=== PATIENT | female | born 1950 | race Caucasian/White ===

== ENCOUNTER → 2017-12-11 14:06 | Outpatient (CLI) | payer MEDICARE, OTHER, SELFPAY ==
--- NOTE | 2017-12-11 14:12 | US_ITS ---
STUDY: ULTRASOUND BREAST - LEFT REASON FOR EXAM: Female, 67 years old. Pain in the left breast. TECHNIQUE: Axial and longitudinal images of the LEFT breast were performed with a high resolution ultrasound transducer. COMPARISON: Comparison is made with prior mammogram done earlier today. FINDINGS: LEFT Breast: The superior retroareolar region of the breast was examined. There is a homogeneous fibroglandular tissue. No solid or cystic mass lesion is seen. US/Breast Limited Unilateral IMPRESSION: Unremarkable sonographic examination of the breast. ASSESSMENT CATEGORY: BIRADS Category 2: Benign. A letter regarding these results will be sent to the patient by the facility within 30 days. Electronically Signed: Dewayne Rodas MD at 8:06 EDT Tel [phone], Service support ,
--- NOTE | 2017-12-11 14:21 | BI_ITS ---
MAMMOGRAPHY - BILATERAL DIAGNOSTIC REASON FOR EXAM: Female, 67 years old. Left periareolar pain for one week. PERTINENT HISTORY: Non-contributory. TECHNIQUE: Digital bilateral breast say (3D mammographic acquisition) in the CC and MLO projections. 2-D mediolateral oblique (MLO) and craniocaudad (CC) views of both breasts were obtained. CAD: Full Field Digital Mammography with Computer Added Detection was performed. COMPARISON: Comparison is made with prior study outside examination dated February 04, 2017. FINDINGS: Breast Composition: The breasts are heterogeneously dense, which may obscure small masses. There are no dominant masses or suspicious calcifications. No other significant abnormalities are identified. There has been no significant change since the prior study. BI/DIAG MAMM W/CAD, BILAT IMPRESSION: Stable bilateral diagnostic mammogram. With the patient's history of left periareolar pain, correlation with ultrasound is recommended. ASSESSMENT CATEGORY: BIRADS Category 0: Incomplete. Need additional imaging evaluation. A letter regarding these results will be sent to the patient by the facility within 30 days. Approximately 10% of breast cancers are not detected by mammography. A normal mammogram should not delay biopsy of a clinically suspicious abnormality. Electronically Signed: Dewayne Rodas MD at 15:23 EDT Tel [phone], Service support ,
== END ==
PROVIDERS: Family Provider Internal Medicine; PCP Internal Medicine; Visit Provider Nurse Practitioner Women's Health
DX: N64.4 Mastodynia (principal)
CPT/HCPCS: 76642; 77062; 77066; G0279

== ENCOUNTER → 2017-12-25 11:35 | Outpatient (CLI) | payer MEDICARE, OTHER, SELFPAY ==
[2017-12-25 14:47] LABS: T4 Free Direct 1.16 ng/dL (0.76-1.46); Thyroid Stim Hormone (TSH) 1.44 uIU/mL (0.358-3.74)
== END ==
PROVIDERS: Family Provider Internal Medicine; PCP Internal Medicine; Visit Provider Nurse Practitioner Family
DX: E03.9 Hypothyroidism, unspecified (principal)
CPT/HCPCS: 36415; 84439; 84443

== ENCOUNTER → 2018-04-01 10:35 | Outpatient (CLI) | payer MEDICARE, OTHER, SELFPAY ==
[2018-04-01 12:54] LABS: ALB/GLOB Ratio 0.8 RATIO (0.9-2.4); AST(SGOT) 23 U/L (15-37); Alanine Aminotransfer ALT/SGPT 28 U/L (13-56); Albumin, Serum 3.4 g/dL (3.2-5.0); Alkaline Phosphatase 59 U/L (45-117); Anion Gap 8 (5-15); BUN 18 mg/dL (7-18); BUN/Creat Ratio 18.1 RATIO (10-20); Chloride 107 mmol/L (98-107); EST Glomerular Filtration Rate 59 mL/min (>60); Est Glom Filt Rate - Afr Amer 71 mL/min (>60); Free T3 2.8 pg/mL (2.18-3.98); Glucose 85 mg/dL (74-106); Potassium 4.3 mmol/L (3.5-5.1); Protein, Total 7.4 g/dL (6.4-8.2); Sodium Level 142 mmol/L (136-145); Thyroid Stim Hormone (TSH) 1.52 uIU/mL (0.358-3.74)
[2018-04-01 21:22] LABS: Hemoglobin A1c 5.4 % (4.2-6.3)
== END ==
PROVIDERS: Family Provider Internal Medicine; PCP Internal Medicine; Visit Provider Internal Medicine Endocrinology, Diabetes & Metabolism
DX: E03.9 Hypothyroidism, unspecified (principal); Z13.1 Encounter for screening for diabetes mellitus
CPT/HCPCS: 36415; 80053; 83036; 84439; 84443; 84481

== ENCOUNTER → 2018-09-11 12:56 | Outpatient (CLI) | payer MEDICARE, OTHER, SELFPAY ==
[2018-09-03 11:59] VITALS: BMI 28.8
[2018-09-11 14:21] LABS: Hematocrit 39.1 % (37-47); Hemoglobin 13.3 g/dl (12.0-15.0); Mean Corpuscular Hgb 32.4 pg (27.0-32.0); Mean Corpuscular Volume 95.1 fL (81-99); Mean Platelet Vol. 9.8 fl (6.2-12.0); Platelet Count 151 K/mm3 (150-450); RBC Distribution Width CV 12.6 % (11.6-14.6); RBC Distribution Width SD 43.7 fl (35.1-43.9); Red Blood Count 4.11 M/mm3 (4.2-5.4); White Blood Count 3.9 K/mm3 (4.4-11.0)
[2018-09-11 14:24] LABS: Anion Gap 9 (5-15); BUN 21 mg/dL (7-18); BUN/Creat Ratio 24.1 RATIO (10-20); Calcium,Total 9.6 mg/dL (8.5-10.1); Chloride 106 mmol/L (98-107); Creatinine, Serum 0.87 mg/dL (0.55-1.02); EST Glomerular Filtration Rate 68 mL/min (>60); Est Glom Filt Rate - Afr Amer 83 mL/min (>60); Glucose 93 mg/dL (74-106); Potassium 4.4 mmol/L (3.5-5.1); Sodium Level 142 mmol/L (136-145)
[2018-09-11 14:28] LABS: Scan Indicated on CBC? Y/N NO
== END ==
PROVIDERS: Family Provider Internal Medicine; PCP Internal Medicine; Referring Provider Urology; Visit Provider Urology
DX: Z01.812 Encounter for preprocedural laboratory examination (principal)
CPT/HCPCS: 36415; 80048; 85027

== ENCOUNTER 2018-09-24 06:47 | Observation (INO) | payer MEDICARE, OTHER, SELFPAY ==
[2018-09-03 11:59] VITALS: BMI 28.8
[2018-09-18 17:15] LABS: Thyroid Stim Hormone (TSH) 2.71 uIU/mL (0.358-3.74)
[2018-09-24] VITALS (17 sets, daily range): BP systolic 80–124; BP diastolic 41–69; PULSE 41–86; RESP 14–18; TEMP 36.2–37.2; O2SAT 95–100; BMI 28.3
--- NOTE | 2018-09-24 06:23 | HP.PCM_ITS ---
- Problem List (1) Incomplete uterovaginal prolapse Status: Chronic Comment: combo case tvh bso pelvic floor repair with SM and HW History and Physical Date of Admission: 09/24/18 Vital Signs 09/03/18 Body Mass Index (BMI) 28.8 09/03/18 Height 5 ft 4.5 in 09/03/18 Weight: 169 lb 4 oz 09/03/18 Body Mass Index (BMI) 28.5 Intake Visit Reasons: Pre-op for surgery Analytics Specialist Required: No Is patient in pain?: No Allergies NSAIDS (Non-Steroidal Anti-Inflamma Allergy (Mild, Verified 09/03/18 11:58) Rash Penicillins Allergy (Mild, Verified 09/03/18 11:58) Rash vancomycin HCl [From Vancocin] Allergy (Mild, Verified 09/03/18 11:58) Rash metoclopramide [From Reglan] Allergy (Verified 09/03/18 11:58) Other Medications Fibrocare 2 tab PO BID 11/30/13 [History Confirmed 09/03/18] calcium citrate-vitamin D3 315 mg-250 unit tablet 1 tab PO QDAY 08/25/17 [History Confirmed 09/03/18] cholecalciferol (vitamin D3) 5,000 unit capsule 5,000 unit PO ONCE 08/25/17 [History Confirmed 09/03/18] estradiol 0.01% (0.1 mg/gram) vaginal cream 0.5 g VAGINAL .COMPLEX #42.5 g 08/25/17 [Rx Confirmed 09/03/18] scyrwsayate-qkn-sjzqhfowb-hrb 149-hyalur 500 mg-500 mg-66.7 mg tablet tab PO 08/25/17 [History Confirmed 09/03/18] multivit with yrdxwfvt-youc-EL-lutein 8 mg iron-400 mcg-300 mcg tablet tab PO 08/25/17 [History Confirmed 09/03/18] vitamin E (dl, acetate) 400 unit capsule 400 unit PO QDAY 08/25/17 [History Confirmed 09/03/18] omega 6-thf-cqd-fish oil 1,000 mg (120 mg-180 mg) capsule cap PO 09/24/17 [History Confirmed 09/03/18] probotic PO 09/24/17 [History Confirmed 09/03/18] levothyroxine 75 mcg tablet 75 mcg PO DAILY #90 tab 07/22/18 [Rx Confirmed 09/03/18] Is last menstrual period known: No Post menopausal: No Patient : No : No PFSH Medical History Cataracts, bilateral (Chronic) Arthritis (Chronic) GERD (gastroesophageal reflux disease) (Chronic) Osteopenia (Chronic) Fibromyalgia (Acute) IBS (irritable bowel syndrome) (Acute) Lichen sclerosus (Acute) low white blood count (Acute) Surgical History History of appendectomy (Acute) S/P cervical disc replacement (Acute) TMJ (Acute) gallbladder (Acute) Family History Mother Breast cancer, Onset Age: 60 remission until the age of 74 and spread to bones Alcoholism Epilepsy Hyperlipemia Father Cancer Unknown Alcoholism Brother Alcoholism Daughter Thyroid disorder Social History Smoking Status: Never smoker alcohol intake: current alcohol intake frequency: holidays/special occasions only substance use type: does not use caffeine: No what type of physical activity do you participate in: walking frequency: 3-4 times per week seatbelt use: always additional social history: Nithin is - Retired HPI Pre-op for surgery: Details: ALVINA REYES is a 68 year old who presents for preop visit for TVH BSO and pelvic floor repair and sling by dr haque. this is for uterovaginal prolapse and incontinence. Pregancy History 3 Elective abortions Hx Para 2 Spontaneous abortions Hx # Term Pregnancies Ectopic pregnancies Hx # Pregnancies Multiple births # of living children Past Pregnancies Del. Date Name GA/Weeks Outcome Route Bth Weight Gen [facility] F[facility] Unknown 1969 Nikki Unknown 1970 Cathi ROS Const Constitutional: Denies poor appetite, headache(s), fever(s), increased appetite, weight gain, weight loss or fatigue ENT ENT: Denies dry mouth Cardio Card: Reports system reviewed and no additional complaints, except as docu Resp Resp: Reports system reviewed and no additional complaints, except as docu GI GI: Reports as per HPI; denies vomiting, nausea, abdominal pain or constipation : Reports as per HPI and urinary incontinence; denies difficulty urinating, blood in urine, pelvic pain, vaginal discharge, vaginal dryness, vaginal odor, vaginal itching, other or painful urination [facility]: Reports system reviewed and no additional complaints, except as docu Skin Skin/Breast: Denies hair loss, change in hair, dry skin, breast pain, breast skin changes or breast lump Exam Const General: cooperative, healthy appearing, comfortable, no acute distress, well developed Nutritional Appearance: average body habitus Orientation: alert HENLA Head: normal to inspection, normocephalic Ears: hearing grossly normal bilaterally, external ears normal Nose: external nose normal, nares normal Face and sinus: normal facial exam Neck Neck: normal visual inspection, trachea midline, no lymphadenopathy Thyroid: thyroid normal Resp Effort & Inspection: normal respiratory effort [facility] Other: gross motor intact no deficits, full bilateral strength Skin General: no rashes or lesions noted Neuro Motor: muscle tone normal throughout Assessment & Plan Problems 1. Incomplete uterovaginal prolapse N81.2 combo case tvh bso pelvic floor repair with SM and HW Plan discussed surgical risks including risks of anesthesia, infection, bleeding, injury to bowel, bladder or blood vessels, and patient wishes to proceed with surgery. UPDATE- I have seen the patient and performed any clinically relevant updates to the history and physical exam. Alison Alexandra MD
[2018-09-24] MEDS: Phenazopyridine 95 MG Tablet 190 MG PO (07:21)
[2018-09-24] MEDS: Ciprofloxacin 400 MG/200 ML BAG 200 MG IV (07:33)
[2018-09-24] MEDS: Vasopressin 20 UNITS/ML Vial (09:04)
--- NOTE | 2018-09-24 09:30 | HYST_PTH ---
PATIENT: ALVINA REYES LOC: MS3 U#:[id number] AGE/SX: 68/F ROOM: MS312 RE09/24/[address]: Dr. Alison Alexandra MD : 1950 BED: 1 DIS: 09/25/2018 SPEC #: [id number] RECD: 09/24/18 11:39 STATUS: MONICA LOPEZ #: [id number] BHAVNA: 09/24/18 09:[address]: Alison Alexandra DEPT: SURGICAL PATHOLOGY RECD BY: Tony Bird ENTERED: 09/24/18 12:25 SP TYPE: HYSTERECT OTHR DR: MD Dr. Radha Flowers MD Tissues: Uterus, NOS Procedures: Surgery Specimen Level V HEADER OPERATION: Vaginal hysterectomy, BSO PRE-OP DIAGNOSIS: Incomplete uterovaginal prolapse TISSUE SUBMITTED: Uterus, bilateral ovaries and fallopian tubes MICROSCOPIC DIAGNOSIS Uterus, hysterectomy: Cervix - nabothian cysts and mild chronic inflammation. Endometrium - inactive with cystic change. Myometrium - adenomyosis and microscopic leiomyoma. Right and left fallopian tubes - no pathologic change. Right and left ovaries - corpora albicantia. Left ovary - benign epithelial inclusion cysts. Vaginal mucosa, anterior and posterior repair: Mild chronic inflammation. No evidence of dysplasia. AM:margo 09/25/18 MICROSCOPIC DESCRIPTION Slides are reviewed. GROSS DESCRIPTION Received in fixative is one container labeled with the patient's name and designated uterus, bilateral ovaries and fallopian tubes. The specimen consists of a hysterectomy specimen consisting of uterus with cervix and detached bilateral fallopian tubes and ovaries and detached pieces of mucosal tissue. The uterus with cervix weighs 43 gm and measures 7 x 4.5 x 3 cm. The serosal surface is focally congested. The ectocervical mucosa is unremarkable. The external os is pin point. The endocervical canal measures 3 cm in length and the endocervical cavity is filled with mucoid material and without any mass lesion. The triangular endometrial cavity measures 3.5 cm in length and up to 2 cm in width. The endometrium is rincon, glistening without any mass lesion and measures <0.1 cm in thickness. Sections of the uterine wall do not reveal any mass lesion and it measures up to 1.5 cm in thickness. The detached fallopian tubes and ovaries are not identified as right or left. One fallopian tube measures 3.5 cm in length and 0.5 cm in diameter. The fimbrial end is identified. No tubo-ovarian adhesions are noted. Sections reveal unremarkable cut surfaces. The adjacent ovary measures 1.5 x 1 x 0.5 cm. Sections reveal unremarkable cut surfaces. The second fallopian tube and ovary are similar appearance to first one and measures 3.5 cm in length and 0.5 cm in diameter. The adjacent second ovary measures 2 x 1 x 0.6 cm. The detached pieces of mucosal tissue measure in aggregate 2.5 x 2.5 x 0.3 cm. No mucosal lesion is identified. Instrumentation moura are noted. Mold Filling Operator sections are submitted in nine cassettes as follows: 1 - anterior cervix, 2 - posterior cervix, 3 & 4 - anterior uterine wall, 5 & 6 - posterior uterine wall, 7 - one fallopian tube and ovary, 8 - second fallopian tube and adjacent ovary, 9 - mucosal tissue. / SJ:rg 09/24/18 TC:5 CPT: 82708, 25082
[2018-09-24] MEDS: Estrogens,Conj. 1 Tube 1 DOSE (11:00)
--- NOTE | 2018-09-24 11:05 | OP.PCM_ITS ---
Problem List (1) Incomplete uterovaginal prolapse Status: Chronic Comment: combo case tvh bso pelvic floor repair with SM and HW Report of Operation Date of Procedure: 09/24/18 Pre-Operative Diagnosis: pelvic organ prolapse Post-Operative Diagnosis: same Surgery/Procedure Performed:: Total vaginal hysterectomy bilateral salpingo- oophorectomy Description of Surgical Findings:: Normal uterus tubes and ovaries dictaphone technician: Fararh Haque Type of Anesthesia:: General Specimen's removed: There is tubes and ovaries Drains: franco Estimated Blood Loss (mL): 50 cc Fluids Replaced: cryStyloid Description of Procedure: Patient was taken to the operating room and was placed under general anesthesia was prepped and draped in normal sterile fashion in the dorsal lithotomy position. Preoperative antibiotics and SCDs and Franco catheter was placed inside the bladder. Weighted speculum was placed in the vagina and the anterior and posterior lip of the cervix was grasped with 2 Dee clamps and circumferentially injected with dilute vasopressin. A circumferential incision was made with a scalpel and the posterior cul-de-sac was entered into sharply and a longneck speculum was placed. The anterior cul-de-sac was also dissected down and entered into sharply and the uterosacral ligaments were clamped cut and suture ligated bilaterally followed by the cardinal ligaments which were Clamped cut and suture ligated bilaterally with 0 Monocryl. The uterus serially descended and progressive bites were taken bilaterally up to the level of the utero-ovarian ligament bilaterally which was clamped transected and double ligated with 0 Monocryl suture and 0 Vicryl free tie. Bilateral fallopian tubes and ovaries were well visualized and noted be within normal limits and the bilateral fallopian tubes and ovaries were transected across the base with a Seymour clamp and removed and sutured with 0 Vicryl suture. Additional znvihy-fv-orkku sutures were placed on the left ovarian pedicle for hemostasis. Excellent hemostasis was noted. The vagina was closed with [id number]-sh-[id number] 0 Vicryl pop offs including the posterior and anterior peritoneum in the reapproximation. Excellent hemostasis was noted. Please see Dr. Haque's dictation for further operative information and details Grafts/Implants Used: mesh sling by dr haque - Complications none
--- NOTE | 2018-09-24 11:10 | PCM.IMDPSTOP ---
Immediate Post-Op Note Date of Procedure: 09/24/18 Primary Surgeon/Physician: Farrah Martínez MD diaper folder: Alison Alexandra Pre-Operative Diagnosis: cystocele, rectocele, uterine prolapse, urethral hypermobility Post-Operative Diagnosis: same Surgery/Procedure Performed:: anterior and posterior repair, midurethral sling insertion, cystoscopy with ureteral catheterization Description of Surgical Findings:: no complications, right sacrospinous ligament fixation with capio. Altis midurethral sling. left ureter was catheterized, right with good ureteral jet. Estimated Blood Loss: 75cc Specimen's removed: none Type of Anesthesia:: General - Admit VTE Documentation VTE Present on Admission: Yes VTE Mechan Device Prophylaxis: SCD's VTE Pharm Prophylaxis ordered?: No Reason prophylaxis not ordered:: Treatment Not Indicated
--- NOTE | 2018-09-24 11:13 | OP.PN_ITS ---
Immediate Post-Op Note Date of Procedure: 09/24/18 Primary Surgeon/Physician: Farrah Martínez MD entry level drafter: Alison Alexandra Pre-Operative Diagnosis: cystocele, rectocele, uterine prolapse, urethral hypermobility Post-Operative Diagnosis: same Surgery/Procedure Performed:: anterior and posterior repair, midurethral sling insertion, cystoscopy with ureteral catheterization Description of Surgical Findings:: no complications, right sacrospinous ligament fixation with capio. Altis midurethral sling. left ureter was catheterized, right with good ureteral jet. Estimated Blood Loss: 75cc Specimen's removed: none Type of Anesthesia:: General - Admit VTE Documentation VTE Present on Admission: Yes VTE Mechan Device Prophylaxis: SCD's VTE Pharm Prophylaxis ordered?: No Reason prophylaxis not ordered:: Treatment Not Indicated
--- NOTE | 2018-09-24 11:13 | PCM.OPRPT ---
Problem List (1) Cystocele with incomplete uterovaginal prolapse Status: Acute (2) Urethral hypermobility Status: Acute Report of Operation Date of Procedure: 09/24/18 Pre-Operative Diagnosis: cystocele, rectocele, uterine prolapse, urethral hypermobility Post-Operative Diagnosis: same Surgery/Procedure Performed:: anterior and posterior repair, midurethral sling insertion, cystoscopy with ureteral catheterization Description of Surgical Findings:: no complications, right sacrospinous ligament fixation with capio. Altis midurethral sling. left ureter was catheterized, right with good ureteral jet. nurse licensed practical: Alison Alexandra Type of Anesthesia:: General Specimen's removed: none Estimated Blood Loss (mL): 75cc Description of Procedure: The patient is a 68-year-old female presented to the office for evaluation and treatment of pelvic organ prolapse. After undergoing all of the evaluation including cystoscopy, urodynamics and pelvic examination she agreed to proceed with surgical intervention. All risks benefits and alternatives were discussed preoperatively and she agreed to proceed. The patient was taken to the operating room and placed on the operating room table. Anesthesia monitored the head, neck, airway, IV access, vital signs throughout the case. Once anesthesia was appropriately administered the patient was placed into exaggerated dorsal lithotomy and Trendelenburg position. She was prepped and draped in usual sterile fashion. An 18 Lithuanian Mane catheter was inserted in her bladder was drained. The case was then turned to Dr. Alexandra and I assisted her in hysterectomy with bilateral salpingo-oophorectomy and closure of the cuff. This was done without complication. At this time I injected vasopressin in the midline anterior vaginal wall submucosally for hydrostatic dissection and hemostatic control. A midline incision was then made in the vaginal mucosa approximately 2 cm in length in a vertical fashion. Sharp and blunt dissection ensued until on the right side the sacral spinous ligament was identified and as well as the ischial spine. The ligament was freed from surrounding tissues. The Capio was then used to insert an Ethibond suture through the sacrospinous ligament approximately 2 cm medial to the ischial spine. Care was taken to avoid being adjacent to or involving the ureter and the suture. The suture was then brought out in the area of the apex at the cuff on the lateral side. The pubocervical fascia was then brought together in interrupted fashion and 2 layer closure. The vaginal mucosa was then closed in running interlocking fashion with 2-0 Vicryl. Attention was then turned towards the posterior wall which was dissected in a similar fashion using hydrostatic dissection with vasopressin followed by both sharp and blunt dissection. Once dissection included all of the defect, the rectovaginal fascia was brought together and interrupted fashion using 2-0 Vicryl. A 2 layer closure was performed. The vaginal mucosa was then closed over the repair. Care was taken to avoid entry into the rectum. At this time attention was turned towards the mid urethra was true was injected once again with vasopressin. An incision was made and dissection ensued bilaterally on either side of the urethra. The alters mid urethral sling trocar was then passed first on the patient's right side followed by the left. The sling was flattened and placed adjacent to the urethra without tension. The tensioning suture was cut. In order to keep the sling flat one interrupted suture was placed in the very edge of the sling on the patient's left side and the kenisha-urethral tissues. The midline incision was closed using running interlocking 2-0 Vicryl. The Mane catheter was removed the patient was flattened and cystoscopy was performed revealing a good ureteral jet from the right ureteral orifice very quickly. The left ureteral orifice did not reveal a significant ureteral jet and was therefore intubated with a 5 Lithuanian whistle-tip catheter. There was no obstruction of the ureter and upon removal of the catheter urine did exude from the orifice. There were no entries of the suture into the urinary bladder or urethra. There were no foreign bodies and there was no evidence of blood in the bladder. At this time the Mane catheter was placed and the vagina was packed with estrogen cream and vaginal packing. She was cleaned and awakened and taken to the recovery room in good condition. There were no complications during this procedure. Grafts/Implants Used: Altis midurethral sling - Complications none - Admit VTE Documentation VTE Present on Admission: Yes VTE Mechan Device Prophylaxis: SCD's VTE Pharm Prophylaxis ordered?: No Reason prophylaxis not ordered:: Treatment Not Indicated
[2018-09-24] MEDS: Ketorolac 30 MG/ML Syringe IV (12:12)
--- NOTE | 2018-09-24 12:19 | DCINST_ITS ---
Discharge Diet: No Restrictions Discharge Activity: Return to Normal Activity, May Not Drive, May Shower May resume sexual activity in: 6-8 weeks Call your doctor if your incision/area has: Continuous Slow Oozing, Sudden Increased Bleeding, Increased Pain/ Swelling, Increased Redness, Foul Smelling Discharge Call your doctor if you observe: Fever of 101 or Higher, Inability to urinate, Inability to have a bowel movement, Using more than one pad per hour Allergies/Adverse Reactions: Allergies Penicillins Allergy (Mild, Verified 09/03/18 11:58) Rash vancomycin HCl [From Vancocin] Allergy (Mild, Verified 09/03/18 11:58) Rash FLUSHING metoclopramide [From Reglan] Allergy (Verified 09/03/18 11:58) Other naproxen [From Naprosyn] Adverse Reaction (Verified 09/24/18 08:00) Rash Medications to take at Discharge Fibrocare 2 tab PO BID 11/30/13 calcium citrate-vitamin D3 315 mg-250 unit tablet 1 tab PO QDAY 08/25/17 cholecalciferol (vitamin D3) 5,000 unit capsule 5,000 unit PO ONCE 08/25/17 cwxtudsaqyk-twp-rhixqeikq-hrb 149-hyalur 500 mg-500 mg-66.7 mg tablet 1 tab PO BID 08/25/17 multivit with wptkirjx-voyq-TI-lutein 8 mg iron-400 mcg-300 mcg tablet 1 tab PO DAILY 08/25/17 vitamin E (dl, acetate) 400 unit capsule 400 unit PO QDAY 08/25/17 omega 8-mli-pik-fish oil 1,000 mg (120 mg-180 mg) capsule 2 cap PO BID 09/24/17 probotic 1 capsule PO DAILY 09/24/17 Estradiol [Estrace Vaginal Cream] 0.5 g VAGINAL .COMPLEX 09/17/18 Levothyroxine Sodium [Synthroid] 75 mcg PO DAILY 09/17/18 Oxycodone HCl/Acetaminophen [Percocet 5-325] 1 - 2 tablet PO Q4H PRN PRN 7 Days #15 tablet 09/24/18 The following prescriptions were given: Oxycodone HCl/Acetaminophen [Percocet 5-325] 1 - 2 tablet PO Q4H PRN PRN 7 Days #15 tablet PRN Reason: Pain Orders to be completed after discharge: Type & Screen Time Frame: 09/17/18, Facility: [facility], Location: Laboratory Thyroid Stim Hormone (TSH) Time Frame: 09/17/18, Location: Laboratory Primary Care Physician: Radha Ferreira MD [Primary Care Provider] - Test Results: Test results from this visit will be discussed in further detail at your follow- up appointment, if applicable. Please Follow Up With: Alison Alexandra MD - [phone]
[2018-09-24] MEDS: Smz/Tmp Ds Tablet 1 TABLET PO (17:00)
[2018-09-24] MEDS: oxyCODONE 5 MG Tablet PO ×2 (17:00→22:16)
[2018-09-24] MEDS: Enoxaparin 40 MG/0.4 ML Syringe SC (17:00)
[2018-09-24] MEDS: Lactated Ringers 1,000 ML 125 ML IV (18:08)
[2018-09-25] MEDS: 0.9% NaCl Peripheral Flush Adult/Peds IV ×2 (00:02→06:45)
[2018-09-25] MEDS: Ketorolac 30 MG/ML Syringe IV ×2 (00:02→06:44)
[2018-09-25 03:01] VITALS: BP 121/67; PULSE 61; RESP 16; TEMP 36.6; O2SAT 96
[2018-09-25 06:26] LABS: Hemoglobin 9.8 g/dl (12.0-15.0); Mean Corp Hgb Conc 33.8 g/gl (32-36); Mean Corpuscular Hgb 32.7 pg (27.0-32.0); Mean Corpuscular Volume 96.7 fL (81-99); Mean Platelet Vol. 10.4 fl (6.2-12.0); Platelet Count 99 K/mm3 (150-450); RBC Distribution Width CV 12.1 % (11.6-14.6); RBC Distribution Width SD 41.3 fl (35.1-43.9)
[2018-09-25 06:36] LABS: EST Glomerular Filtration Rate 59 mL/min (>60); Est Glom Filt Rate - Afr Amer 71 mL/min (>60)
[2018-09-25 06:37] LABS: Scan Indicated on CBC? Y/N NO
--- NOTE | 2018-09-25 06:49 | ED.RN ---
removed 1 piece of packing.
[2018-09-25 07:28] VITALS: BP 101/49; PULSE 60; RESP 18; TEMP 36.9; O2SAT 95
[2018-09-25] MEDS: Smz/Tmp Ds Tablet 1 TABLET PO (07:32)
--- NOTE | 2018-09-25 08:02 | PCM.PN.OB ---
Patient Problems: Active and Suspected Problems (Last Reviewed 09/03/18 @ 11:58 by Silvia Simmons) Cystocele with incomplete uterovaginal prolapse (Acute) Urethral hypermobility (Acute) Subjective: Doing well. NO CP, SOB. Ambulating. - Physical Exam General: Alert, Oriented x3 Abdomen: Soft, Non Tender, Non-Distended Vital Signs Temp Pulse Resp BP Pulse Ox 98.5 F 60 18 101/49 L 95 09/25/18 07:28 09/25/18 07:28 09/25/18 07:28 09/25/18 07:28 09/25/18 07:28 Oxygen Delivery Method Room Air Weight: 168 lb Body Mass Index (BMI) 28.3 Intake and Output for Last 24 Hours 09/23/18 09/24/18 09/25/18 23:59 23:59 23:59 Intake Total 3901 / 3901 1450 / 1450 Output Total 1300 / 1300 800 / 800 Balance 2601 / 2601 650 / 650 Laboratory Tests Past 24 Hrs 09/25/18 09/25/18 05:48 05:48 WBC 6.0 RBC 3.00 L Hgb 9.8 L Hct 29.0 L MCV 96.7 MCH 32.7 H MCHC 33.8 RDW 12.1 RDW Differential 41.3 Plt Count 99 L MPV 10.4 Creatinine 1.00 Estim Creat Clear Calc 45.20 Est GFR (MDRD) Af Amer 71 Est GFR (MDRD) Non-Af 59 L Medical Necessity - Tobacco Use Smoking Status: Never smoker Assessment/Plan All Active Problems (Last Reviewed 09/03/18 @ 11:58 by Silvia Simmons) Cystocele with incomplete uterovaginal prolapse (Acute) Urethral hypermobility (Acute) Pessary maintenance (Acute) Chest pain (Acute) Pancytopenia (Acute) Chest tightness (Acute) Unstable angina pectoris (Acute) LAVH, BSO combination case Dr. Martínez POD#1: Routine care. Pain controlled. Plans home today.
[2018-09-25] MEDS: Enoxaparin 40 MG/0.4 ML Syringe SC (09:01)
[2018-09-25] MEDS: oxyCODONE 5 MG Tablet PO (09:01)
--- NOTE | 2018-09-25 11:29 | DCINST_ITS ---
Discharge Diet: No Restrictions Discharge Activity: Return to Normal Activity, May Not Drive, May Shower May resume sexual activity in: 6-8 weeks Call your doctor if your incision/area has: Continuous Slow Oozing, Sudden Increased Bleeding, Increased Pain/ Swelling, Increased Redness, Foul Smelling Discharge Call your doctor if you observe: Fever of 101 or Higher, Inability to urinate, Inability to have a bowel movement, Using more than one pad per hour, Calf discomfort, Uncontrolled pain Additional Instructions: No lifting over 5 pounds. No strenuous activity. Nothing per vagina except estrogen cream which should be continued 3 times a week. Continue deep breathing and IS at home. Allergies/Adverse Reactions: Allergies Penicillins Allergy (Mild, Verified 09/03/18 11:58) Rash vancomycin HCl [From Vancocin] Allergy (Mild, Verified 09/03/18 11:58) Rash FLUSHING metoclopramide [From Reglan] Allergy (Verified 09/03/18 11:58) Other naproxen [From Naprosyn] Adverse Reaction (Verified 09/24/18 08:00) Rash Medications to take at Discharge Fibrocare 2 tab PO BID 11/30/13 calcium citrate-vitamin D3 315 mg-250 unit tablet 1 tab PO QDAY 08/25/17 cholecalciferol (vitamin D3) 5,000 unit capsule 5,000 unit PO ONCE 08/25/17 qckttiofpht-fwb-xnrtvxhys-hrb 149-hyalur 500 mg-500 mg-66.7 mg tablet 1 tab PO BID 08/25/17 multivit with zgqpffwh-lsdf-VI-lutein 8 mg iron-400 mcg-300 mcg tablet 1 tab PO DAILY 08/25/17 vitamin E (dl, acetate) 400 unit capsule 400 unit PO QDAY 08/25/17 omega 9-qji-iwn-fish oil 1,000 mg (120 mg-180 mg) capsule 2 cap PO BID 09/24/17 probotic 1 capsule PO DAILY 09/24/17 Estradiol [Estrace Vaginal Cream] 0.5 g VAGINAL .COMPLEX 09/17/18 Levothyroxine Sodium [Synthroid] 75 mcg PO DAILY 09/17/18 Oxycodone HCl/Acetaminophen [Percocet 5-325] 1 - 2 tablet PO Q4H PRN PRN 7 Days #15 tablet 09/24/18 oxycodone-acetaminophen 5 mg-325 mg tablet 1 tab PO Q4H PRN #20 tab 09/24/18 The following prescriptions were given: Oxycodone HCl/Acetaminophen [Percocet 5-325] 1 - 2 tablet PO Q4H PRN PRN 7 Days #15 tablet PRN Reason: Pain Orders to be completed after discharge: Type & Screen Time Frame: 09/17/18, Facility: [facility], Location: Laboratory Thyroid Stim Hormone (TSH) Time Frame: 09/17/18, Location: Laboratory Primary Care Physician: Radha Ferreira MD [Primary Care Provider] - Test Results: Test results from this visit will be discussed in further detail at your follow- up appointment, if applicable. Please Follow Up With: Farrah Martínez MD When: in 2 weeks, call for appt. Proposed Discharge Date: 09/25/18
--- NOTE | 2018-09-25 11:32 | PCM.PN.GU ---
Physical Exam Subjective: Doing well, ready to eat lunch, voiding without difficulty. Pain well controlled. No issues overnight. - Physical Exam Vital Signs Temp 98.5 F 09/25/18 07:28 Pulse 60 09/25/18 07:28 Resp 18 09/25/18 07:28 BP 101/49 L 09/25/18 07:28 Pulse Ox 95 09/25/18 07:28 Intake & Output 09/23/18 09/24/18 09/25/18 23:59 23:59 23:59 Intake Total 3901 / 3901 1450 / 1450 Output Total 1300 / 1300 800 / 800 Balance 2601 / 2601 650 / 650 Weight: 76.204 kg Intake: Oral 480 / 480 700 / 700 IV fluid/meds 3421 / 3421 750 / 750 IV #4 3000 / 3000 Output: Urine 1300 / 1300 800 / 800 General: Alert, Oriented x3, Cooperative, No apparent distress HEENT: Atraumatic, Normocephalic Oral: Moist Mucosa Neck: Supple Abdomen: Soft Skin: No rashes Musculoskeletal: No Muscle Wasting Neurological: Cranial nerves II-XII grossly intact Psych/Mental Status: Normal Affect Laboratory Tests Past 24 Hrs 09/25/18 09/25/18 05:48 05:48 WBC 6.0 RBC 3.00 L Hgb 9.8 L Hct 29.0 L MCV 96.7 MCH 32.7 H MCHC 33.8 RDW 12.1 RDW Differential 41.3 Plt Count 99 L MPV 10.4 Creatinine 1.00 Estim Creat Clear Calc 45.20 Est GFR (MDRD) Af Amer 71 Est GFR (MDRD) Non-Af 59 L Medical Necessity - Tobacco Use Smoking Status: Never smoker Assessment/Plan All Active Problems (Last Reviewed 09/03/18 @ 11:58 by Silvia Simmons) Cystocele with incomplete uterovaginal prolapse (Acute) Urethral hypermobility (Acute) Pessary maintenance (Acute) Chest pain (Acute) Pancytopenia (Acute) Chest tightness (Acute) Unstable angina pectoris (Acute) Doing well. Home after completes voiding trial. D/C instructions done. F/U with me in 2 weeks.
[2018-09-25] MEDS: Ketorolac 10 MG Tablet PO (12:38)
--- NOTE | 2018-09-25 13:07 | NURSING ---
Dr Harp notified pt voided about 50 cc in hat but missed the hat, post void bladder scan was done, it showed 120. She said she may be discharged and needs to regularly urinate and if has any problems needs to call the doctor.
[2018-09-25 13:15] VITALS: BP 119/56; PULSE 69; RESP 18; TEMP 36.9; O2SAT 96
--- OUTSIDE RECORDS SUMMARY | 2018-11-28 19:25 | XMS RPT_ITS ---
:1950 Author Organization OHIP Support Name Relationship Address Phone R Unavailable Unavailable Unavailable TANNHOF, DEBORAH Unavailable [address] + [place] [address] R Unavailable Unavailable Unavailable TANNHOF, DEBORAH Unavailable [address] + [place] [address] R Unavailable Unavailable Unavailable TANNHOF, DEBORAH Unavailable [address] + [place] [address] R Unavailable Unavailable Unavailable TANNHOF, DEBORAH Unavailable [address] + [place] [address] R Unavailable Unavailable Unavailable TANNHOF, DEBORAH Unavailable [address] + [place] [address] R Unavailable Unavailable Unavailable TANNHOF, DEBORAH Unavailable [address] + [place] [address] R Unavailable Unavailable Unavailable TANNHOF, DEBORAH Unavailable [address] + [place] [address] R Unavailable Unavailable Unavailable TANNHOF, DEBORAH Unavailable [address] + [place] [address] R Unavailable Unavailable Unavailable TANNHOF, DEBORAH Unavailable [address] + [place] [address] R Unavailable Unavailable Unavailable TANNHOF, DEBORAH Unavailable [address] + [place] [address] R Unavailable Unavailable Unavailable TANNHOF, DEBORAH Unavailable [address] + [place] [address] R Unavailable Unavailable Unavailable TANNHOF, DEBORAH Unavailable [address] + [place] [address] R Unavailable Unavailable Unavailable TANNHOF, DEBORAH Unavailable [address] + [place] [address] R Unavailable Unavailable Unavailable TANNHOF, DEBORAH Unavailable [address] + [place] [address] R Unavailable Unavailable Unavailable TANNHOF, DEBORAH Unavailable [address] + [place] [address] R Unavailable Unavailable Unavailable TANNHOF, DEBORAH Unavailable [address] + [place] [address] R Unavailable Unavailable Unavailable TANNHOF, DEBORAH Unavailable [address] + [place] [address] R Unavailable Unavailable Unavailable TANNHOF, DEBORAH Unavailable [address] + [place] [address] R Unavailable Unavailable Unavailable TANNHOF, DEBORAH Unavailable [address] + [place] [address] Care Team Providers Name Role Phone Alison Alexandra Attending Unavailable Oleghe, Efewongbe Referring Unavailable Alison Alexandra Admitting Unavailable Alison Alexandra Attending Unavailable Alison Alexandra Referring Unavailable Oleghe, Efewongbe Primary Care Unavailable DeHorta, Keon Consulting Unavailable [place], Molly Attending Unavailable Oleghe, Efewongbe Referring Unavailable Oleghe, Efewongbe Primary Care Unavailable Farrah Martínez Attending Unavailable Farrah Martínez Referring Unavailable Oleghe, Efewongbe Primary Care Unavailable Alison Alexandra Admitting Unavailable Alison Alexandra Attending Unavailable Alison Alexandra Referring Unavailable Oleghe, Efewongbe Primary Care Unavailable DeHorta, Keon Consulting Unavailable Alison Alexandra Consulting Unavailable Alison Alexandra Admitting Unavailable Erum Sy Attending Unavailable Alison Alexandra Referring Unavailable Oleghe, Efewongbe Primary Care Unavailable DeHorta, Keon Consulting Unavailable Alison Alexandra Consulting Unavailable Erum Sy Attending Unavailable Oleghe, Efewongbe Referring Unavailable Oleghe, Efewongbe Primary Care Unavailable Erum Sy Attending Unavailable Oleghe, Efewongbe Primary Care Unavailable Doug Esparza GAMBLING MONITOR-C Attending Unavailable Oleghe, Efewongbe Referring Unavailable Oleghe, Efewongbe Primary Care Unavailable Doug Esparza GAMBLING MONITOR-C Attending Unavailable Oleghe, Efewongbe Primary Care Unavailable EsparzaDoug GAMBLING MONITOR-C Attending Unavailable Oleghe, Efewongbe Referring Unavailable Kerrie, Erum Attending Unavailable Oleghe, Efewongbe Referring Unavailable Oleghe, Efewongbe Primary Care Unavailable Raghunathan, Veronique N. Attending Unavailable Raghunathan, Veronique N. Referring Unavailable Oleghe, Efewongbe Primary Care Unavailable Kerrie, Erum Attending Unavailable Oleghe, Efewongbe Referring Unavailable Oleghe, Efewongbe Primary Care Unavailable Kerrie, Erum Attending Unavailable Oleghe, Efewongbe Referring Unavailable Oleghe, Efewongbe Primary Care Unavailable [place], Erum Attending Unavailable Oleghe, Efewongbe Referring Unavailable Kerrie, Erum Attending Unavailable Oleghe, Efewongbe Referring Unavailable Oleghe, Efewongbe Primary Care Unavailable MarcAlison paz Attending Unavailable Oleghe, Efewongbe Referring Unavailable Oleghe, Efewongbe Attending Unavailable Oleghe, Efewongbe Referring Unavailable PROBLEMS PROBLEMS DATE TYPE CONDITION / CODE ATTENDING STATUS SOURCE 09/25/2018 Unknown N81.2 - Incomplete Marcanthony, Active [place] uterovaginal [facility] prolapse / Hospital N81.2(ICD-10) Repository 09/25/2018 Unknown G89.18 - Other acute Marcanthony, Active [place] postprocedural pain [facility] / G89.18(ICD-10) Hospital Repository 08/06/2018 Unknown E03.9 - Oleghe, Active [place] Hypothyroidism, Efewongbe [facility] unspecified / Hospital E03.9(ICD-10) Repository 04/01/2018 Unknown Z13.1 - Encounter Raghunathan, Active [place] for screening for Vernoique N. [facility] diabetes mellitus / Hospital Z13.1(ICD-10) Repository 12/03/2017 Unknown N64.4 - Mastodynia / Kerrie, Erum Active [place] N64.4(ICD-10) [facility] Hospital Repository 12/03/2017 Unknown N63.20 - Unspecified Kerrie, Erum Active [place] lump in the left [facility] breast, unspecified Hospital quadrant / Repository N63.20(ICD-10) 11/27/2017 Unknown Z12.31 - Encounter Erum Sy Active [place] for screening [facility] mammogram for Hospital malignant neoplasm Repository of breast / Z12.31(ICD-10) 11/27/2017 Unknown Z46.89 - Encounter KerrieEurm reilly Active [place] for fitting and Community adjustment of other Hospital specified devices / Repository Z46.89(ICD-10) PROCEDURES PROCEDURES No Procedure Records FoundRESULTS RESULTS DISCHARGE INSTRUCTION Observed: 09/25/2018 Status: F Source: [place] 11:29 AM [facility] REPOSITORY [facility] Medical Records Department [address] [place] [address] Instructions for Home/Discharge Instructions 09/25/18 1127 MR#: [id number] Acct: [id number] Name: ALVINA REYES Rep #: [id number] : 1950 68 From: Farrah Martínez MD PCP: Radha Ferreira MD Status: ADM IN Discharge Diet: No Restrictions Discharge Activity: Return to Normal Activity, May Not Drive, May Shower May resume sexual activity in: 6-8 weeks Call your doctor if your incision/area has: Continuous Slow Oozing, Sudden Increased Bleeding, Increased Pain/ Swelling, Increased Redness, Foul Smelling Discharge Call your doctor if you observe: Fever of 101 or Higher, Inability to urinate, Inability to have a bowel movement, Using more than one pad per hour, Calf discomfort, Uncontrolled pain Additional Instructions: No lifting over 5 pounds. No strenuous activity. Nothing per vagina except estrogen cream which should be continued 3 times a week. Continue deep breathing and IS at home. Allergies/Adverse Reactions: Allergies Penicillins Allergy (Mild, Verified 09/03/18 11:58) Rash vancomycin HCl [From Vancocin] Allergy (Mild, Verified 09/03/18 11:58) Rash FLUSHING metoclopramide [From Reglan] Allergy (Verified 09/03/18 11:58) Other naproxen [From Naprosyn] Adverse Reaction (Verified 09/24/18 08:00) Rash Medications to take at Discharge [facility] 2 tab PO BID 11/30/13 calcium citrate-vitamin D3 315 mg-250 unit tablet 1 tab PO QDAY 08/25/17 cholecalciferol (vitamin D3) 5,000 unit capsule 5,000 unit PO ONCE 08/25/17 ockmahwlurj-bpx-xpvbwdzso-hrb 149-hyalur 500 mg-500 mg-66.7 mg tablet 1 tab PO BID 08/25/17 multivit with ncqkgupa-qxbn-ZT-lutein 8 mg iron-400 mcg-300 mcg tablet 1 tab PO DAILY 08/25/17 vitamin E (dl, acetate) 400 unit capsule 400 unit PO QDAY 08/25/17 omega 2-zhr-qrd-fish oil 1,000 mg (120 mg-180 mg) capsule 2 cap PO BID 09/24/17 probotic 1 capsule PO DAILY 09/24/17 Estradiol [Estrace Vaginal Cream] 0.5 g VAGINAL .COMPLEX 09/17/18 Levothyroxine Sodium [Synthroid] 75 mcg PO DAILY 09/17/18 Oxycodone HCl/Acetaminophen [Percocet 5-325] 1 - 2 tablet PO Q4H PRN PRN 7 Days #15 tablet 09/24/18 oxycodone-acetaminophen 5 mg-325 mg tablet 1 tab PO Q4H PRN #20 tab 09/24/18 The following prescriptions were given: Oxycodone HCl/Acetaminophen [Percocet 5-325] 1 - 2 tablet PO Q4H PRN PRN 7 Days #15 tablet PRN Reason: Pain Orders to be completed after discharge: Type AND Screen Time Frame: 09/17/18, Facility: [facility], Location: Laboratory Thyroid Stim Hormone (TSH) Time Frame: 09/17/18, Location: Laboratory Primary Care Physician: Radha Ferreira MD [Primary Care Provider] - Test Results: Test results from this visit will be discussed in further detail at your follow-up appointment, if applicable. Please Follow Up With: Farrah Martínez MD When: in 2 weeks, call for appt. Proposed Discharge Date: 09/25/18 09/25/18 1129 <Electronically signed by Farrah Martínez MD> Date Farrah Martínez MD CC: Radha Ferreira MD; Keon Santos MD Signed SERUM CREATININE AND Collected: 09/25/2018 Status: F Source: [place] GFR 5:48 AM [facility] REPOSITORY TYPE CODE TESTS RESULT OUT OF RANGE REFERENCE UNITS LAB L501.1100 0.55-1.02 mg/dL Normal 1.00 CREAT,SERUM Result Comment: The validity of the calculated GFR AND GFRAA in patients over 70 years has not been determined. Clinical correlation is essential. LAB L501.1110 >60 mL/min Low EST GFR 59 Result Comment: Non- GFR Calc LAB L501.1115 >60 mL/min Normal EST GFR - AA 71 Result Comment: GFR Calc LAB L501.1255 ml/min Normal Estimated CRCL 45.20 Performed By: #### L501.1105 #### [facility] [address] [place], [address] CBC-COMPLETE BLOOD CNT Collected: 09/25/2018 Status: F Source: [place] NO DIFF 5:48 AM [facility] REPOSITORY TYPE CODE TESTS RESULT OUT OF RANGE REFERENCE UNITS LAB L100.1000 4.4-11.0 K/mm3 Normal WBC 6.0 LAB L100.1200 4.2-5.4 M/mm3 Low RBC 3.00 LAB L100.1300 12.0-15.0 g/dl Low HGB 9.8 LAB L100.1400 37-47 % Low HCT 29.0 LAB L100.1500 81-99 fL Normal MCV 96.7 LAB L100.1600 27.0-32.0 pg High MCH 32.7 LAB L100.1700 32-36 g/gl Normal MCHC 33.8 LAB L100.1810 11.6-14.6 % Normal RDW CV 12.1 LAB L100.1820 35.1-43.9 fl Normal RDW SD 41.3 LAB L100.1900 150-450 K/mm3 Low PLT 99 LAB L100.2000 6.2-12.0 fl Normal MPV 10.4 Performed By: #### L100.0500 #### [facility] [address] [place], [place], [id number] DISCHARGE INSTRUCTION Observed: 09/24/2018 Status: F Source: [place] 12:19 PM [facility] REPOSITORY [facility] Medical Records Department [address] [place] [address] Instructions for Home/Discharge Instructions 09/24/18 1218 MR#: [id number] Acct: [id number] Name: ALVINA REYES Rep #: [id number] : 1950 68 From: Alison Alexandra MD PCP: Radha Ferreira MD Status: ADM IN Discharge Diet: No Restrictions Discharge Activity: Return to Normal Activity, May Not Drive, May Shower May resume sexual activity in: 6-8 weeks Call your doctor if your incision/area has: Continuous Slow Oozing, Sudden Increased Bleeding, Increased Pain/ Swelling, Increased Redness, Foul Smelling Discharge Call your doctor if you observe: Fever of 101 or Higher, Inability to urinate, Inability to have a bowel movement, Using more than one pad per hour Allergies/Adverse Reactions: Allergies Penicillins Allergy (Mild, Verified 09/03/18 11:58) Rash vancomycin HCl [From Vancocin] Allergy (Mild, Verified 09/03/18 11:58) Rash FLUSHING metoclopramide [From Reglan] Allergy (Verified 09/03/18 11:58) Other naproxen [From Naprosyn] Adverse Reaction (Verified 09/24/18 08:00) Rash Medications to take at Discharge [facility] 2 tab PO BID 11/30/13 calcium citrate-vitamin D3 315 mg-250 unit tablet 1 tab PO QDAY 08/25/17 cholecalciferol (vitamin D3) 5,000 unit capsule 5,000 unit PO ONCE 08/25/17 zbosvetzuqx-aih-hqncebeku-hrb 149-hyalur 500 mg-500 mg-66.7 mg tablet 1 tab PO BID 08/25/17 multivit with jjbdvzca-hqyu-DG-lutein 8 mg iron-400 mcg-300 mcg tablet 1 tab PO DAILY 08/25/17 vitamin E (dl, acetate) 400 unit capsule 400 unit PO QDAY 08/25/17 omega 2-mpc-sye-fish oil 1,000 mg (120 mg-180 mg) capsule 2 cap PO BID 09/24/17 probotic 1 capsule PO DAILY 09/24/17 Estradiol [Estrace Vaginal Cream] 0.5 g VAGINAL .COMPLEX 09/17/18 Levothyroxine Sodium [Synthroid] 75 mcg PO DAILY 09/17/18 Oxycodone HCl/Acetaminophen [Percocet 5-325] 1 - 2 tablet PO Q4H PRN PRN 7 Days #15 tablet 09/24/18 The following prescriptions were given: Oxycodone HCl/Acetaminophen [Percocet 5-325] 1 - 2 tablet PO Q4H PRN PRN 7 Days #15 tablet PRN Reason: Pain Orders to be completed after discharge: Type AND Screen Time Frame: 09/17/18, Facility: [facility], Location: Laboratory Thyroid Stim Hormone (TSH) Time Frame: 09/17/18, Location: Laboratory Primary Care Physician: Radha Ferreira MD [Primary Care Provider] - Test Results: Test results from this visit will be discussed in further detail at your follow-up appointment, if applicable. Please Follow Up With: Alison Alexandra MD - [phone] 09/24/18 1219 <Electronically signed by Alison Alexandra MD> Date Alison Alexandra MD CC: Radha Ferreira MD; Keon Santos MD Signed OPERATIVE REPORT Observed: 09/24/2018 Status: F Source: [place] 12:16 PM [facility] REPOSITORY [facility] Medical Records Department [address] [place] [address] Operative Report 09/24/18 1103 MR#: [id number] Acct: [id number] Name: ALVINA REYES Rep #: [id number] : 1950 68 From: Alison Alexandra MD PCP: Radha Ferreira MD Status: ADM IN Y Location: [facility] [place] DG460-0 Problem List (1) Incomplete uterovaginal prolapse Status: Chronic Comment: combo case tvh bso pelvic floor repair with SM and HW Report of Operation Date of Procedure: 09/24/18 Pre-Operative Diagnosis: pelvic organ prolapse Post-Operative Diagnosis: same Surgery/Procedure Performed:: Total vaginal hysterectomy bilateral salpingo-oophorectomy Description of Surgical Findings:: Normal uterus tubes and ovaries exercise planner: Farrah Martínez Type of Anesthesia:: General Specimen's removed: There is tubes and ovaries Drains: franco Estimated Blood Loss (mL): 50 cc Fluids Replaced: cryStyloid Description of Procedure: Patient was taken to the operating room and was placed under general anesthesia was prepped and draped in normal sterile fashion in the dorsal lithotomy position. Preoperative antibiotics and SCDs and Franco catheter was placed inside the bladder. Weighted speculum was placed in the vagina and the anterior and posterior lip of the cervix was grasped with 2 Dee clamps and circumferentially injected with dilute vasopressin. A circumferential incision was made with a scalpel and the posterior cul-de-sac was entered into sharply and a longneck speculum was placed. The anterior cul-de-sac was also dissected down and entered into sharply and the uterosacral ligaments were clamped cut and suture ligated bilaterally followed by the cardinal ligaments which were Clamped cut and suture ligated bilaterally with 0 Monocryl. The uterus serially descended and progressive bites were taken bilaterally up to the level of the utero-ovarian ligament bilaterally which was clamped transected and double ligated with 0 Monocryl suture and 0 Vicryl free tie. Bilateral fallopian tubes and ovaries were well visualized and noted be within normal limits and the bilateral fallopian tubes and ovaries were transected across the base with a Seymour clamp and removed and sutured with 0 Vicryl suture. Additional txphhf-qa-sajwg sutures were placed on the left ovarian pedicle for hemostasis. Excellent hemostasis was noted. The vagina was closed with nsqvnb-kk-fyjrd 0 Vicryl pop offs including the posterior and anterior peritoneum in the reapproximation. Excellent hemostasis was noted. Please see Dr. Martínez's dictation for further operative information and details Grafts/Implants Used: mesh sling by dr martínez - Complications none 09/24/18 1216 <Electronically signed by Alison Alexandra MD> Date Alison Alexandra MD CC: Radha Ferreira MD; Keon Santos MD; Alison Alexandra MD Signed OPERATIVE REPORT Observed: 09/24/2018 Status: F Source: [place] 11:20 AM [facility] REPOSITORY [facility] Medical Records Department [address] [place] [address] Operative Report 09/24/18 1113 MR#: [id number] Acct: [id number] Name: ALVINA REYES Rep #: [id number] : 1950 68 From: Farrah Martínez MD PCP: Radha Ferreira MD Status: ADM IN Y Location: [facility] [place] HF131-7 Problem List (1) Cystocele with incomplete uterovaginal prolapse Status: Acute (2) Urethral hypermobility Status: Acute Report of Operation Date of Procedure: 09/24/18 Pre-Operative Diagnosis: cystocele, rectocele, uterine prolapse, urethral hypermobility Post-Operative Diagnosis: same Surgery/Procedure Performed:: anterior and posterior repair, midurethral sling insertion, cystoscopy with ureteral catheterization Description of Surgical Findings:: no complications, right sacrospinous ligament fixation with capio. Altis midurethral sling. left ureter was catheterized, right with good ureteral jet. exercise planner: Alison Alexandra Type of Anesthesia:: General Specimen's removed: none Estimated Blood Loss (mL): 75cc Description of Procedure: The patient is a 68-year-old female presented to the office for evaluation and treatment of pelvic organ prolapse. After undergoing all of the evaluation including cystoscopy, urodynamics and pelvic examination she agreed to proceed with surgical intervention. All risks benefits and alternatives were discussed preoperatively and she agreed to proceed. The patient was taken to the operating room and placed on the operating room table. Anesthesia monitored the head, neck, airway, IV access, vital signs throughout the case. Once anesthesia was appropriately administered the patient was placed into exaggerated dorsal lithotomy and Trendelenburg position. She was prepped and draped in usual sterile fashion. An 18 Luxembourger Franco catheter was inserted in her bladder was drained. The case was then turned to Dr. Alexandra and I assisted her in hysterectomy with bilateral salpingo-oophorectomy and closure of the cuff. This was done without complication. At this time I injected vasopressin in the midline anterior vaginal wall submucosally for hydrostatic dissection and hemostatic control. A midline incision was then made in the vaginal mucosa approximately 2 cm in length in a vertical fashion. Sharp and blunt dissection ensued until on the right side the sacral spinous ligament was identified and as well as the ischial spine. The ligament was freed from surrounding tissues. The Capio was then used to insert an Ethibond suture through the sacrospinous ligament approximately 2 cm medial to the ischial spine. Care was taken to avoid being adjacent to or involving the ureter and the suture. The suture was then brought out in the area of the apex at the cuff on the lateral side. The pubocervical fascia was then brought together in interrupted fashion and 2 layer closure. The vaginal mucosa was then closed in running interlocking fashion with 2-0 Vicryl. Attention was then turned towards the posterior wall which was dissected in a similar fashion using hydrostatic dissection with vasopressin followed by both sharp and blunt dissection. Once dissection included all of the defect, the rectovaginal fascia was brought together and interrupted fashion using 2-0 Vicryl. A 2 layer closure was performed. The vaginal mucosa was then closed over the repair. Care was taken to avoid entry into the rectum. At this time attention was turned towards the mid urethra was true was injected once again with vasopressin. An incision was made and dissection ensued bilaterally on either side of the urethra. The alters mid urethral sling trocar was then passed first on the patient's right side followed by the left. The sling was flattened and placed adjacent to the urethra without tension. The tensioning suture was cut. In order to keep the sling flat one interrupted suture was placed in the very edge of the sling on the patient's left side and the kenisha-urethral tissues. The midline incision was closed using running interlocking 2-0 Vicryl. The Franco catheter was removed the patient was flattened and cystoscopy was performed revealing a good ureteral jet from the right ureteral orifice very quickly. The left ureteral orifice did not reveal a significant ureteral jet and was therefore intubated with a 5 Luxembourger whistle-tip catheter. There was no obstruction of the ureter and upon removal of the catheter urine did exude from the orifice. There were no entries of the suture into the urinary bladder or urethra. There were no foreign bodies and there was no evidence of blood in the bladder. At this time the Franco catheter was placed and the vagina was packed with estrogen cream and vaginal packing. She was cleaned and awakened and taken to the recovery room in good condition. There were no complications during this procedure. Grafts/Implants Used: Altis midurethral sling - Complications none - Admit VTE Documentation VTE Present on Admission: Yes VTE Mechan Device Prophylaxis: SCD's VTE Pharm Prophylaxis ordered?: No Reason prophylaxis not ordered:: Treatment Not Indicated 09/24/181119 <Electronically signed by Farrah Martínez MD> Date Farrah Martínez MD CC: Radha Ferreira MD; Keon Santos MD; Farrah Martínez MD; Alison Alexandra MD Signed HYSTERECTOMY SPECIMEN Observed: 09/24/2018 Status: F Source: [place] 9:30 AM [facility] REPOSITORY Patient: ALVINA RYEES : 1950 (68/F) Acct Num: [id number] Phys: Nasrin KIRK,Alison Unit Num: [id number] Loc: MS3 RA424-1 Specimen: [id number] Received: 09/24/181138 Spec Type: HYSTERECT TISSUES 1 TISSUES: Uterus, NOS GROSS DESCRIPTION Received in fixative is one container labeled with the patient's name and designated uterus, bilateral ovaries and fallopian tubes. The specimen consists of a hysterectomy specimen consisting of uterus with cervix and detached bilateral fallopian tubes and ovaries and detached pieces of mucosal tissue. The uterus with cervix weighs 43 gm and measures 7 x 4.5 x 3 cm. The serosal surface is focally congested. The ectocervical mucosa is unremarkable. The external os is pin point. The endocervical canal measures 3 cm in length and the endocervical cavity is filled with mucoid material and without any mass lesion. The triangular endometrial cavity measures 3.5 cm in length and up to 2 cm in width. The endometrium is rincon, glistening without any mass lesion and measures <0.1 cm in thickness. Sections of the uterine wall do not reveal any mass lesion and it measures up to 1.5 cm in thickness. The detached fallopian tubes and ovaries are not identified as right or left. One fallopian tube measures 3.5 cm in length and 0.5 cm in diameter. The fimbrial end is identified. No tubo-ovarian adhesions are noted. Sections reveal unremarkable cut surfaces. The adjacent ovary measures 1.5 x 1 x 0.5 cm. Sections reveal unremarkable cut surfaces. The second fallopian tube and ovary are similar appearance to first one and measures 3.5 cm in length and 0.5 cm in diameter. The adjacent second ovary measures 2 x 1 x 0.6 cm. The detached pieces of mucosal tissue measure in aggregate 2.5 x 2.5 x 0.3 cm. No mucosal lesion is identified. Instrumentation moura are noted. Tool And Die Manager sections are submitted in nine cassettes as follows: 1 - anterior cervix, 2 - posterior cervix, 3 AND 4 - anterior uterine wall, 5 AND 6 - posterior uterine wall, 7 - one fallopian tube and ovary, 8 - second fallopian tube and adjacent ovary, 9 - mucosal tissue. / SJ:margo 09/24/18 TC:5 CPT: 09986, 88434 HEADER OPERATION: Vaginal hysterectomy, BSO PRE-OP DIAGNOSIS: Incomplete uterovaginal prolapse TISSUE SUBMITTED: Uterus, bilateral ovaries and fallopian tubes MICROSCOPIC DESCRIPTION Slides are reviewed. MICROSCOPIC DIAGNOSIS Uterus, hysterectomy: Cervix - nabothian cysts and mild chronic inflammation. Endometrium - inactive with cystic change. Myometrium - adenomyosis and microscopic leiomyoma. Right and left fallopian tubes - no pathologic change. Right and left ovaries - corpora albicantia. Left ovary - benign epithelial inclusion cysts. Vaginal mucosa, anterior and posterior repair: Mild chronic inflammation. No evidence of dysplasia. AM:margo 09/25/18 Signed Bob Ellis DO 09/25/18 <signature on file> Performed By: #### PHYST #### [facility] [address] [place], [address] HISTORY AND PHYSICAL Observed: 09/24/2018 Status: F Source: HUSON EXAM 8:57 AM [facility] REPOSITORY [facility] Medical Records Department [address] [place] [address] History and Physical 09/24/18 0622 MR#: [id number] Acct: [id number] Name: ALVINA REYES Rep #: [id number] : 1950 68 From: Alison Alexandra MD PCP: Radha Ferreira MD Status: ADM IN Y Location: [place] [address] - Problem List (1) Incomplete uterovaginal prolapse Status: Chronic Comment: combo case tvh bso pelvic floor repair with SM and HW History and Physical Date of Admission: 09/24/18 Vital Signs 09/03/18 Body Mass Index (BMI) 28.8 09/03/18 Height 5 ft 4.5 in 09/03/18 Weight: 169 lb 4 oz 09/03/18 Body Mass Index (BMI) 28.5 Intake Visit Reasons: Pre-op for surgery Biscuit Machine Operator Required: No Is patient in pain?: No Allergies NSAIDS (Non-Steroidal Anti-Inflamma Allergy (Mild, Verified 09/03/18 11:58) Rash Penicillins Allergy (Mild, Verified 09/03/18 11:58) Rash vancomycin HCl [From Vancocin] Allergy (Mild, Verified 09/03/18 11:58) Rash metoclopramide [From Reglan] Allergy (Verified 09/03/18 11:58) Other Medications Fibrocare 2 tab PO BID 11/30/13 [History Confirmed 09/03/18] calcium citrate-vitamin D3 315 mg-250 unit tablet 1 tab PO QDAY 08/25/17 [History Confirmed 09/03/18] cholecalciferol (vitamin D3) 5,000 unit capsule 5,000 unit PO ONCE 08/25/17 [History Confirmed 09/03/18] estradiol 0.01% (0.1 mg/gram) vaginal cream 0.5 g VAGINAL .COMPLEX #42.5 g 08/25/17 [Rx Confirmed 09/03/18] ksvaerxfsso-hwe-opxuxrkjh-hrb 149-hyalur 500 mg-500 mg-66.7 mg tablet tab PO 08/25/17 [History Confirmed 09/03/18] multivit with bssaiksd-eksy-ZJ-lutein 8 mg iron-400 mcg-300 mcg tablet tab PO 12/18/17 [History Confirmed 09/03/18] vitamin E (dl, acetate) 400 unit capsule 400 unit PO QDAY 08/25/17 [History Confirmed 09/03/18] omega 2-imi-iss-fish oil 1,000 mg (120 mg-180 mg) capsule cap PO 09/24/17 [History Confirmed 09/03/18] probotic PO 09/24/17 [History Confirmed 09/03/18] levothyroxine 75 mcg tablet 75 mcg PO DAILY #90 tab 07/22/18 [Rx Confirmed 09/03/18] Is last menstrual period known: No Post menopausal: No Patient : No : No PFSH Medical History Cataracts, bilateral (Chronic) Arthritis (Chronic) GERD (gastroesophageal reflux disease) (Chronic) Osteopenia (Chronic) Fibromyalgia (Acute) IBS (irritable bowel syndrome) (Acute) Lichen sclerosus (Acute) low white blood count (Acute) Surgical History History of appendectomy (Acute) S/P cervical disc replacement (Acute) TMJ (Acute) gallbladder (Acute) Family History Mother Breast cancer, Onset Age: 60 remission until the age of 74 and spread to bones Alcoholism Epilepsy Hyperlipemia Father Cancer Unknown Alcoholism Brother Alcoholism Daughter Thyroid disorder Social History Smoking Status: Never smoker alcohol intake: current alcohol intake frequency: holidays/special occasions only substance use type: does not use caffeine: No what type of physical activity do you participate in: walking frequency: 3-4 times per week seatbelt use: always additional social history: Deborah is - Retired HPI Pre-op for surgery: Details: ALVINA REYES is a 68 year old who presents for preop visit for TVH BSO and pelvic floor repair and sling by dr martínez. this is for uterovaginal prolapse and incontinence. Pregancy History 3 Elective abortions Hx Para 2 Spontaneous abortions Hx # Term Pregnancies Ectopic pregnancies Hx # Pregnancies Multiple births # of living children Past Pregnancies Del. Date Name GA/Weeks Outcome Route Bth Weight Infant Gen Labor Lgth Anesthesia Del Locatn Provider FOB Unknown 1967 Nikki Unknown 1971 Cathi ROS Const Constitutional: Denies poor appetite, headache(s), fever(s), increased appetite, weight gain, weight loss or fatigue ENT ENT: Denies dry mouth Cardio Card: Reports system reviewed and no additional complaints, except as docu Resp Resp: Reports system reviewed and no additional complaints, except as docu GI GI: Reports as per HPI; denies vomiting, nausea, abdominal pain or constipation : Reports as per HPI and urinary incontinence; denies difficulty urinating, blood in urine, pelvic pain, vaginal discharge, vaginal dryness, vaginal odor, vaginal itching, other or painful urination Musc Musc: Reports system reviewed and no additional complaints, except as docu Skin Skin/Breast: Denies hair loss, change in hair, dry skin, breast pain, breast skin changes or breast lump Exam Const General: cooperative, healthy appearing, comfortable, no acute distress, well developed Nutritional Appearance: average body habitus Orientation: alert HENMT Head: normal to inspection, normocephalic Ears: hearing grossly normal bilaterally, external ears normal Nose: external nose normal, nares normal Face and sinus: normal facial exam Neck Neck: normal visual inspection, trachea midline, no lymphadenopathy Thyroid: thyroid normal Resp Effort AND Inspection: normal respiratory effort Musc Other: gross motor intact no deficits, full bilateral strength Skin General: no rashes or lesions noted Neuro Motor: muscle tone normal throughout Assessment AND Plan Problems 1. Incomplete uterovaginal prolapse N81.2 combo case tvh bso pelvic floor repair with SM and HW Plan discussed surgical risks including risks of anesthesia, infection, bleeding, injury to bowel, bladder or blood vessels, and patient wishes to proceed with surgery. UPDATE- I have seen the patient and performed any clinically relevant updates to the history and physical exam. Alison Alexandra MD 09/24/18 0857 <Electronically signed by Alison Alexandra MD> Date Alison Alexandra MD Cosigner Signature: Date (if applicable) CC: Radha Ferreira MD; Alison Alexandra MD Signed THYROID STIM HORMONE Collected: 09/18/2018 Status: F Source: AUBREE (TSH) 7:15 AM [facility] REPOSITORY TYPE CODE TESTS RESULT OUT OF RANGE REFERENCE UNITS LAB L501.9520 0.358-3.74 uIU/mL Normal TSH 2.71 Performed By: #### L501.9520 #### [facility] [address] [facility] [facility] [place], [address] TYPE AND SCREEN Collected: 09/18/2018 Status: F Source: AUBREE 7:15 AM [facility] REPOSITORY Order Comment: Reason for Type AND Screen/Red Cells: SURGERY Surgery Date: 09/24/18 Time: 0000 Type of Surgery: HYSTERECTOMY TYPE CODE TESTS RESULT OUT OF RANGE REFERENCE UNITS LAB B10.0800 B Normal BLOOD TYPE GEL POSITIVE LAB B100.4000 Normal Antibody NEGATIVE Screen Performed By: #### B101.7450 #### [facility] [address] [facility] [facility] [place], [address] BASIC METABOLIC Collected: 09/11/2018 Status: F Source: AUBREE PROFILE (BMP) 1:02 PM [facility] REPOSITORY TYPE CODE TESTS RESULT OUT OF RANGE REFERENCE UNITS LAB L501.0100 74-106 mg/dL Normal GLU 93 Result Comment: Please note revised GLUCOSE reference range effective 2017. LAB L501.1000 7-18 mg/dL High BUN 21 LAB L501.1100 0.55-1.02 mg/dL Normal CREAT,SERUM 0.87 Result Comment: The validity of the calculated GFR AND GFRAA in patients over 70 years has not been determined. Clinical correlation is essential. LAB L501.1110 >60 mL/min Normal EST GFR 68 Result Comment: Non- GFR Calc LAB L501.1115 >60 mL/min Normal EST GFR - AA 83 Result Comment: GFR Calc LAB L501.1300 10-20 RATIO High BUN/CRE 24.1 LAB L501.2200 8.5-10.1 mg/dL CA Normal 9.6 LAB L501.5300 136-145 mmol/L NA Normal 142 LAB L501.5600 3.5-5.1 mmol/L K Normal 4.4 LAB L501.5900 98-107 mmol/L CL Normal 106 LAB L501.6100 21.0-32.0 mmol/L Normal CO2 27.0 LAB L501.6200 5-15 Normal GAP 9 Performed By: #### L500.2500 #### [facility] [address] [place], [address] CBC-COMPLETE BLOOD CNT Collected: 09/11/2018 Status: F Source: AUBREE NO DIFF 1:02 PM [facility] REPOSITORY TYPE CODE TESTS RESULT OUT OF RANGE REFERENCE UNITS LAB L100.1000 4.4-11.0 K/mm3 Low WBC 3.9 LAB L100.1200 4.2-5.4 M/mm3 Low RBC 4.11 LAB L100.1300 12.0-15.0 g/dl Normal HGB 13.3 LAB L100.1400 37-47 % Normal HCT 39.1 LAB L100.1500 81-99 fL Normal MCV 95.1 LAB L100.1600 27.0-32.0 pg High MCH 32.4 LAB L100.1700 32-36 g/gl Normal MCHC 34.0 LAB L100.1810 11.6-14.6 % Normal RDW CV 12.6 LAB L100.1820 35.1-43.9 fl Normal RDW SD 43.7 LAB L100.1900 150-450 K/mm3 Normal PLT 151 LAB L100.2000 6.2-12.0 fl Normal MPV 9.8 Performed By: #### L100.0500 #### [facility] [address] [place], [address] AZURE ARCHITECT OFFICE VISIT Observed: 09/03/2018 Status: F Source: AUBREE REPORT 12:16 PM [facility] REPOSITORY [facility] [address] [place] [address] OFFICE VISIT Date of Service: 09/03/18 MR#: [id number] Acct: [id number] Name: ALVINA REYES Rep #: [id number] : 1950 Provider: Alison Alexandra MD Age/Sex: 68/F Location: [facility] Status: Signed Intake Vital Signs09/03/18 Body Mass Index (BMI) 28.8 09/03/18 Height 5 ft 4.5 in 09/03/18 Weight: 169 lb 4 oz 09/03/18 Body Mass Index (BMI) 28.5 Intake Visit Reasons: Pre-op for surgery Biscuit Machine Operator Required: No Is patient in pain?: No Allergies NSAIDS (Non-Steroidal Anti-Inflamma Allergy (Mild, Verified 09/03/18 11:58) Rash Penicillins Allergy (Mild, Verified 09/03/18 11:58) Rash vancomycin HCl [From Vancocin] Allergy (Mild, Verified 09/03/18 11:58) Rash metoclopramide [From Reglan] Allergy (Verified 09/03/18 11:58) Other Medications Fibrocare 2 tab PO BID 11/30/13 [History Confirmed 09/03/18] calcium citrate-vitamin D3 315 mg-250 unit tablet 1 tab PO QDAY 08/25/17 [History Confirmed 09/03/18] cholecalciferol (vitamin D3) 5,000 unit capsule 5,000 unit PO ONCE 08/25/17 [History Confirmed 09/03/18] estradiol 0.01% (0.1 mg/gram) vaginal cream 0.5 g VAGINAL .COMPLEX #42.5 g 08/25/17 [Rx Confirmed 09/03/18] gceqncqypya-wdu-iiusmaooz-hrb 149-hyalur 500 mg-500 mg-66.7 mg tablet tab PO 08/25/17 [History Confirmed 09/03/18] multivit with ooqhojlu-cdyo-FO-lutein 8 mg iron-400 mcg-300 mcg tablet tab PO 08/25/17 [History Confirmed 09/03/18] vitamin E (dl, acetate) 400 unit capsule 400 unit PO QDAY 08/25/17 [History Confirmed 09/03/18] omega 0-vpq-dxt-fish oil 1,000 mg (120 mg-180 mg) capsule cap PO 09/24/17 [History Confirmed 09/03/18] probotic PO 09/24/17 [History Confirmed 09/03/18] levothyroxine 75 mcg tablet 75 mcg PO DAILY #90 tab 07/22/18 [Rx Confirmed 09/03/18] Is last menstrual period known: No Post menopausal: No Patient : No : No PFSH Medical History Cataracts, bilateral (Chronic) Arthritis (Chronic) GERD (gastroesophageal reflux disease) (Chronic) Osteopenia (Chronic) Fibromyalgia (Acute) IBS (irritable bowel syndrome) (Acute) Lichen sclerosus (Acute) low white blood count (Acute) Surgical History History of appendectomy (Acute) S/P cervical disc replacement (Acute) TMJ (Acute) gallbladder (Acute) Family History Mother Breast cancer, Onset Age: 60 remission until the age of 74 and spread to bones Alcoholism Epilepsy Hyperlipemia Father Cancer Unknown Alcoholism Brother Alcoholism Daughter Thyroid disorder Social History Smoking Status: Never smoker alcohol intake: current alcohol intake frequency: holidays/special occasions only substance use type: does not use caffeine: No what type of physical activity do you participate in: walking frequency: 3-4 times per week seatbelt use: always additional social history: Deborah is - Retired HPI Pre-op for surgery: Details: ALVINA REYES is a 68 year old who presents for preop visit for TVH BSO and pelvic floor repair and sling by dr martínez. this is for uterovaginal prolapse and incontinence. Pregancy History 3 Elective abortions Hx Para 2 Spontaneous abortions Past Pregnancies Del. DatName GA/WeeksOut[facility] LocaProviderFOB e ht en tn Unknown 1967 Abby berly Unknown 1970 Cathi ROS Lina Constitutional: Denies poor appetite, headache(s), fever(s), increased appetite, weight gain, weight loss or fatigue ENT ENT: Denies dry mouth Cardio Card: Reports system reviewed and no additional complaints, except as docu Resp Resp: Reports system reviewed and no additional complaints, except as docu GI GI: Reports as per HPI; denies vomiting, nausea, abdominal pain or constipation : Reports as per HPI and urinary incontinence; denies difficulty urinating, blood in urine, pelvic pain, vaginal discharge, vaginal dryness, vaginal odor, vaginal itching, other or painful urination Musc Musc: Reports system reviewed and no additional complaints, except as docu Skin Skin/Breast: Denies hair loss, change in hair, dry skin, breast pain, breast skin changes or breast lump Exam Const General: cooperative, healthy appearing, comfortable, no acute distress, well developed Nutritional Appearance: average body habitus Orientation: alert HENMT Head: normal to inspection, normocephalic Ears: hearing grossly normal bilaterally, external ears normal Nose: external nose normal, nares normal Face and sinus: normal facial exam Neck Neck: normal visual inspection, trachea midline, no lymphadenopathy Thyroid: thyroid normal Resp Effort AND Inspection: normal respiratory effort Musc Other: gross motor intact no deficits, full bilateral strength Skin General: no rashes or lesions noted Neuro Motor: muscle tone normal throughout Assessment AND Plan Problems 1. Incomplete uterovaginal prolapse N81.2 combo case tvh bso pelvic floor repair with SM and HW Plan discussed surgical risks including risks of anesthesia, infection, bleeding, injury to bowel, bladder or blood vessels, and patient wishes to proceed with surgery. Coding Level of Care Code No Charge Diagnoses Incomplete uterovaginal prolapse N81.2 09/03/18 1216 <Electronically signed by Alison Alexandra MD> Date Alison Alexandra MD Cosigner Signature: Date (if applicable) CC: INTERNAL MEDICINE Observed: 08/06/2018 Status: F Source: AUBREE OFFICE VISIT 6:54 PM [facility] [place] [address] [place] [address] OFFICE VISIT Date of Service: 08/06/18 MR#: [id number] Acct: [id number] Name: RICHIE REYESBREN Husain Rep #: [id number] : 1950 Provider: Radha Frereira MD Age/Sex: 68/F Location: [facility] Status: Signed Intake Vital Signs08/06/18 Height 5 ft 4.5 in 08/06/18 Weight: 170 lb 8 oz Intake Visit Reasons: 6 MO FU Chief Complaint: Follow-up Biscuit Machine Operator Required: No Accompanied by: None Is patient in pain?: No Allergies NSAIDS (Non-Steroidal Anti-Inflamma Allergy (Mild, Verified 06/02/18 10:51) Rash Penicillins Allergy (Mild, Verified 06/02/18 10:51) Rash vancomycin HCl [From Vancocin] Allergy (Mild, Verified 06/02/18 10:51) Rash metoclopramide [From Reglan] Allergy (Verified 06/02/18 10:51) Other Medications Fibrocare 2 tab PO BID 11/30/13 [History Confirmed 06/02/18] calcium citrate-vitamin D3 315 mg-250 unit tablet 1 tab PO QDAY 08/25/17 [History Confirmed 06/02/18] cholecalciferol (vitamin D3) 5,000 unit capsule 5,000 unit PO ONCE 08/25/17 [History Confirmed 06/02/18] estradiol 0.01% (0.1 mg/gram) vaginal cream 0.5 g VAGINAL .COMPLEX #42.5 g 08/25/17 [Rx Confirmed 06/02/18] njtdoqxcwva-nev-wvssezbdh-hrb 149-hyalur 500 mg-500 mg-66.7 mg tablet tab PO 08/25/17 [History Confirmed 06/02/18] multivit with efxmljgd-gzyn-VA-lutein 8 mg iron-400 mcg-300 mcg tablet tab PO 08/25/17 [History Confirmed 06/02/18] vitamin E (dl, acetate) 400 unit capsule 400 unit PO QDAY 08/25/17 [History Confirmed 06/02/18] omega 0-rxs-fae-fish oil 1,000 mg (120 mg-180 mg) capsule cap PO 09/24/17 [History Confirmed 06/02/18] probotic PO 09/24/17 [History Confirmed 06/02/18] levothyroxine 75 mcg tablet 75 mcg PO DAILY #90 tab 07/22/18 [Rx] PFSH Medical History Cataracts, bilateral (Chronic) Arthritis (Chronic) GERD (gastroesophageal reflux disease) (Chronic) Osteopenia (Chronic) Fibromyalgia (Acute) IBS (irritable bowel syndrome) (Acute) Lichen sclerosus (Acute) low white blood count (Acute) Surgical History History of appendectomy (Acute) S/P cervical disc replacement (Acute) TMJ (Acute) gallbladder (Acute) Family History Mother Breast cancer, Onset Age: 60 remission until the age of 74 and spread to bones Alcoholism Epilepsy Hyperlipemia Father Cancer Unknown Alcoholism Brother Alcoholism Daughter Thyroid disorder Social History Smoking Status: Never smoker alcohol intake: current alcohol intake frequency: holidays/special occasions only substance use type: does not use caffeine: No what type of physical activity do you participate in: walking frequency: 3-4 times per week seatbelt use: always additional social history: Deborah is - Retired HPI HPI Chief Complaint: Follow-up Details: ALVINA REYES, is a 68yo F who presents to the office today for follow-up of her chronic medical conditions. She has no acute concerns at this time. Currently on levothyroxine due to history of hypothyroidism. No concerns with over or under correction at this time. Last thyroid function in March was within normal. Scheduled for hysterectomy and repair of a cystocele/prolapse in September. She is active, denies chest pain shortness of breath with activity. ROS Const Constitutional: No body ache, chills, fatigue, fever(s), frequent falls, headache(s), weight change, sleep problems, change in appetite, snoring, excessive sweating or weakness Eyes Eyes: No blurry vision, change in vision, eye pain or light sensitivity ENT ENT: No headache(s), abnormal hearing, ear pain, tinnitus, nasal congestion, nasal discharge, sore throat or neck pain Resp Respiratory: No snoring, cough, shortness of breath or wheezing Cardio Cardiology: No excessive sweating, chest pain at rest, chest pain with exertion, shortness of breath, dyspnea on exertion, orthopnea, palpitations or lightheadedness Gastro GI: No abdominal pain, change in bowel habits, diarrhea, constipation, vomiting, nausea/dyspepsia or cramping Genitourinary-Female: No difficulty urinating, burning urination, painful urination, urinary frequency, urinary urgency, urinary incontinence, blood in urine, urinary retention or urinary hesitancy Musc Musculoskeletal: No neck pain, abnormal walking, joint pain, back pain, limited range of motion, numbness or tingling Skin Skin: No redness, dry skin, itching, lesions, wounds or rash Neuro Neurology: No frequent falls, headache(s), weakness, abnormal hearing, abnormal walking, numbness, tingling, abnormal speech, dizziness or memory loss Psych Psychiatric: No change in appetite, No memory loss, No anxiety, No depression, No Thoughts of harming yourself/Others Endo Endocrine: No fatigue, excessive sweating, cold intolerance, increased thirst/drinking, heat intolerance, increased hunger or flushing Aller/Imm Allergy/Immunologic: No wheezing, itchy eyes, seasonal allergy symptoms or hives Enrique/Lymp Hematologic/Lymphatic: No easy bleeding, easy bruising or enlarged lymph nodes Exam Const General: cooperative, no acute distress Orientation: alert, awake, oriented x3 [facility] Head: atraumatic, normocephalic, normal to inspection Ears: hearing grossly normal bilaterally Resp Effort AND Inspection: normal respiratory effort, able to speak in complete sentences Auscultation: Bilateral: Clear to Auscultation Cardio Rate: regular rate Rhythm: regular rhythm Heart Sounds: S1 normal, S2 normal GI Palpation: soft, no hepatosplenomegaly Neuro General: alert, awake, oriented x3, moves all extremities, CN's II-XI intact bilaterally Extrem General: no clubbing, cyanosis or edema Psych Appearance: grossly normal Mood: congruent mood Affect: normal affect Assessment AND Plan 1. Hypothyroidism E03.9 Plan Stable. Currently on 75 mcg of levothyroxine. She reports compliance. No other concerning symptoms at this time. Thyroid function studies ordered. Follow-up with results. Orders Orders: 2. GERD (gastroesophageal reflux disease) K21.9 Plan Occasional flareups which is said to occur especially at night. Currently on Prilosec which she takes as needed. Lifestyle and dietary modifications discussed. Advised to call with any questions or concerns. 3. Incomplete uterovaginal prolapse N81.2 combo case tvh bs pelvic floor repair with SM and HW Plan Scheduled for hysterectomy and pelvic floor repair in September. Patient is medically optimal for surgery. Possibly an EKG prior. Scheduled for preadmission testing. 4. Osteopenia M85.80 Plan Currently on calcium and vitamin D. Her last bone density was in 2017. Possibly repeat next year. Continue current management. 5. Healthcare maintenance Z00.00 Plan Colonoscopy done 4 years ago. Up-to-date on pneumonia vaccines. Has not had her shingles and also declines a flu shot. This note was generated with [employer] software. It may contain incorrect words, spelling, and punctuation that were not noted in checking the note before signing. Coding Level of Care Code Off vis,est,level 4 Diagnoses Hypothyroidism E03.9 GERD (gastroesophageal reflux disease) K21.9 Incomplete uterovaginal prolapse N81.2 Osteopenia M85.80 Healthcare maintenance Z00.00 08/06/18 1854 <Electronically signed by Radha Ferreira MD> Date Radha Ferreira MD Cosigner Signature: Date (if applicable) CC: AZURE ARCHITECT OFFICE VISIT Observed: 06/06/2018 Status: F Source: AUBREE REPORT 4:52 AM [facility] [address] [place] [address] OFFICE VISIT Date of Service: 06/02/18 MR#: [id number] Acct: [id number] Name: ALVINA REYES Rep #: [id number] : 1950 Provider: Alison Alexandra MD Age/Sex: 68/F Location: [facility] Status: Signed Intake Vital Signs06/02/18 Height 5 ft 4.5 in 06/02/18 Weight: 169 lb 06/02/18 Body Mass Index (BMI) 28.5 06/02/18 Blood Pressure 128/68 H Intake Visit Reasons: CONSULT FOR SURGERY Allergies NSAIDS (Non-Steroidal Anti-Inflamma Allergy (Mild, Verified 06/02/18 10:51) Rash Penicillins Allergy (Mild, Verified 06/02/18 10:51) Rash vancomycin HCl [From Vancocin] Allergy (Mild, Verified 06/02/18 10:51) Rash metoclopramide [From Reglan] Allergy (Verified 06/02/18 10:51) Other Medications Fibrocare 2 tab PO BID 11/30/13 [History Confirmed 06/02/18] calcium citrate-vitamin D3 315 mg-250 unit tablet 1 tab PO QDAY 08/25/17 [History Confirmed 06/02/18] cholecalciferol (vitamin D3) 5,000 unit capsule 5,000 unit PO ONCE 08/25/17 [History Confirmed 06/02/18] estradiol 0.01% (0.1 mg/gram) vaginal cream 0.5 g VAGINAL .COMPLEX #42.5 g 08/25/17 [Rx Confirmed 06/02/18] fxqijbyzijr-bbi-nhfdfqyqb-hrb 149-hyalur 500 mg-500 mg-66.7 mg tablet tab PO 08/25/17 [History Confirmed 06/02/18] levothyroxine 75 mcg tablet PO 08/25/17 [History Confirmed 06/02/18] multivit with krzbgvhx-nhbu-MA-lutein 8 mg iron-400 mcg-300 mcg tablet tab PO 08/25/17 [History Confirmed 06/02/18] vitamin E (dl, acetate) 400 unit capsule 400 unit PO QDAY 08/25/17 [History Confirmed 06/02/18] omega 3-sfx-emv-fish oil 1,000 mg (120 mg-180 mg) capsule cap PO 09/24/17 [History Confirmed 06/02/18] probotic PO 09/24/17 [History Confirmed 06/02/18] PFSH Medical History Cataracts, bilateral (Chronic) Arthritis (Chronic) GERD (gastroesophageal reflux disease) (Chronic) Osteopenia (Chronic) Fibromyalgia (Acute) IBS (irritable bowel syndrome) (Acute) Lichen sclerosus (Acute) low white blood count (Acute) Surgical History History of appendectomy (Acute) S/P cervical disc replacement (Acute) TMJ (Acute) gallbladder (Acute) Family History Mother Breast cancer, Onset Age: 60 remission until the age of 74 and spread to bones Alcoholism Epilepsy Hyperlipemia Father Cancer Unknown Alcoholism Brother Alcoholism Daughter Thyroid disorder Social History Smoking Status: Never smoker alcohol intake: current alcohol intake frequency: holidays/special occasions only substance use type: does not use caffeine: No what type of physical activity do you participate in: walking frequency: 3-4 times per week seatbelt use: always additional social history: Deborah is - Retired HPI CONSULT FOR SURGERY: Details: ALVINA REYES is a 68 year old who presents for discussion of hysterectomy. She has seen Dr Martínez and she is going to have a pelvic support repair of her prolapse. she co vaginal bulge and vaginal pressure. Pregancy History 3 Elective abortions Hx Para 2 Spontaneous abortions Past Pregnancies Del. DatName GA/WeeksOutcome Route [facility] LocaProviderFOB e ht en ia tn Unknown 1967 Abby laoly Unknown 1970 Cathi Assessment AND Plan Problems 1. Incomplete uterovaginal prolapse N81.2 combo case tvh bs pelvic floor repair with SM and HW Plan discussed TVH BSO. discussed surgical risks including risks of anesthesia, infection, bleeding, injury to bowel, bladder or blood vessels, and patient wishes to proceed with surgery. Coding Level of Care Code Off vis,est,level 4 Diagnoses Incomplete uterovaginal prolapse N81.2 06/06/18 0452 <Electronically signed by Alison Alexandra MD> Date Alison Alexandra MD Cosigner Signature: Date (if applicable) CC: AZURE ARCHITECT OFFICE VISIT Observed: 04/28/2018 Status: F Source: [place] REPORT 3:25 PM [facility] [address] [place] [address] OFFICE VISIT Date of Service: 04/28/18 MR#: [id number] Acct: [id number] Name: ALVINA REYES Rep #: [id number] : 1950 Provider: KIMBERLY Sy Age/Sex: 68/F Location: [facility] Status: Signed Intake Vital Signs04/28/18 Height 5 ft 4.5 in 04/28/18 Weight: 167 lb 4 oz 04/28/18 Body Mass Index (BMI) 28.3 04/28/18 Blood Pressure 127/56 Intake Visit Reasons: WANTS PESSARY AGAIN Chief Complaint: Pessary Check Biscuit Machine Operator Required: No Is patient in pain?: No Allergies NSAIDS (Non-Steroidal Anti-Inflamma Allergy (Mild, Verified 04/28/18 15:11) Rash Penicillins Allergy (Mild, Verified 04/28/18 15:11) Rash vancomycin HCl [From Vancocin] Allergy (Mild, Verified 04/28/18 15:11) Rash metoclopramide [From Reglan] Allergy (Verified 04/28/18 15:11) Other Medications Fibrocare 2 tab PO BID 11/30/13 [History Confirmed 04/28/18] calcium citrate-vitamin D3 315 mg-250 unit tablet 1 tab PO QDAY 08/25/17 [History Confirmed 04/28/18] cholecalciferol (vitamin D3) 5,000 unit capsule 5,000 unit PO ONCE 08/25/17 [History Confirmed 04/28/18] estradiol 0.01% (0.1 mg/gram) vaginal cream 0.5 g VAGINAL .COMPLEX #42.5 g 08/25/17 [Rx Confirmed 04/28/18] tcaoezzaujg-muh-opijpkacz-hrb 149-hyalur 500 mg-500 mg-66.7 mg tablet tab PO 08/25/17 [History Confirmed 04/28/18] levothyroxine 75 mcg tablet PO 08/25/17 [History Confirmed 04/28/18] multivit with ifwilxcn-rpqc-YD-lutein 8 mg iron-400 mcg-300 mcg tablet tab PO 08/25/17 [History Confirmed 04/28/18] vitamin E (dl, acetate) 400 unit capsule 400 unit PO QDAY 08/25/17 [History Confirmed 04/28/18] omega 6-aqe-anw-fish oil 1,000 mg (120 mg-180 mg) capsule cap PO 09/24/17 [History Confirmed 04/28/18] probotic PO 09/24/17 [History Confirmed 04/28/18] Is last menstrual period known: No Post menopausal: Yes Patient : No : No PFSH Medical History Cataracts, bilateral (Chronic) Arthritis (Chronic) GERD (gastroesophageal reflux disease) (Chronic) Osteopenia (Chronic) Fibromyalgia (Acute) IBS (irritable bowel syndrome) (Acute) Lichen sclerosus (Acute) low white blood count (Acute) Surgical History History of appendectomy (Acute) S/P cervical disc replacement (Acute) TMJ (Acute) gallbladder (Acute) Family History Mother Breast cancer, Onset Age: 60 remission until the age of 74 and spread to bones Alcoholism Epilepsy Hyperlipemia Father Cancer Unknown Alcoholism Brother Alcoholism Daughter Thyroid disorder Social History Smoking Status: Never smoker alcohol intake: current alcohol intake frequency: holidays/special occasions only substance use type: does not use caffeine: No what type of physical activity do you participate in: walking frequency: 3-4 times per week seatbelt use: always additional social history: Deborah is - Retired HPI WANTS PESSARY AGAIN: Details: ALVINA REYES is a 68 year old who presents for wants pessary replaced until has pelvic surgery with Dr. Martínez. Pregancy History 3 Elective abortions Hx Para 2 Spontaneous abortions Past Pregnancies Del. DatName GA/WeeksOutcome Route [facility] LocaProviderFOB e ht en tn Unknown 1967 Abby laoly Unknown 1970 Cathi Exam Other: Ring pessary with support easily placed with trimosan gel. Patient tolerated well Assessment AND Plan Problems 1. Pessary maintenance Z46.89 #3 ring with support Plan Reviewed S AND S infection Dr. Martínez with remove and replace pessary with cystoscopy and urodynamics She is aware that pessary will need cleaned at least every 3 months if surgery does not occur within that time frame Coding Level of Care Code Off vis,est,level 3 Diagnoses Pessary maintenance Z46.89 04/28/18 1525 <Electronically signed by Erum MARIE> Date Erum MARIE Cosigner Signature: Date (if applicable) CC: AZURE ARCHITECT OFFICE VISIT Observed: 04/23/2018 Status: F Source: [place] REPORT 11:17 AM [facility] [address] [place] [address] OFFICE VISIT Date of Service: 04/23/18 MR#: [id number] Acct: [id number] Name: ALVINA REYES Rep #: [id number] : 1950 Provider: KIMBERLY Sy Age/Sex: 68/F Location: [facility] Status: Signed Intake Vital Signs04/23/18 Height 5 ft 4.5 in 04/23/18 Weight: 166 lb 6 oz 04/23/18 Body Mass Index (BMI) 28.0 04/23/18 Blood Pressure 108/59 Intake Visit Reasons: 1 week follow up Biscuit Machine Operator Required: No Is patient in pain?: No Allergies NSAIDS (Non-Steroidal Anti-Inflamma Allergy (Mild, Verified 04/23/18 11:06) Rash Penicillins Allergy (Mild, Verified 04/23/18 11:06) Rash vancomycin HCl [From Vancocin] Allergy (Mild, Verified 04/23/18 11:06) Rash metoclopramide [From Reglan] Allergy (Verified 04/23/18 11:06) Other Medications Fibrocare 2 tab PO BID 11/30/13 [History Confirmed 04/23/18] calcium citrate-vitamin D3 315 mg-250 unit tablet 1 tab PO QDAY 08/25/17 [History Confirmed 04/23/18] cholecalciferol (vitamin D3) 5,000 unit capsule 5,000 unit PO ONCE 08/25/17 [History Confirmed 04/23/18] estradiol 0.01% (0.1 mg/gram) vaginal cream 0.5 g VAGINAL .COMPLEX #42.5 g 08/25/17 [Rx Confirmed 04/23/18] tdaprqoexqo-mjl-okjyifefi-hrb 149-hyalur 500 mg-500 mg-66.7 mg tablet tab PO 08/25/17 [History Confirmed 04/23/18] levothyroxine 75 mcg tablet PO 08/25/17 [History Confirmed 04/23/18] multivit with jixfgfnb-bwrv-JO-lutein 8 mg iron-400 mcg-300 mcg tablet tab PO 08/25/17 [History Confirmed 04/23/18] vitamin E (dl, acetate) 400 unit capsule 400 unit PO QDAY 08/25/17 [History Confirmed 04/23/18] omega 8-qnc-baz-fish oil 1,000 mg (120 mg-180 mg) capsule cap PO 09/24/17 [History Confirmed 04/23/18] probotic PO 09/24/17 [History Confirmed 04/23/18] Is last menstrual period known: No Post menopausal: Yes Patient : No : No PFSH Medical History Cataracts, bilateral (Chronic) Arthritis (Chronic) GERD (gastroesophageal reflux disease) (Chronic) Osteopenia (Chronic) Fibromyalgia (Acute) IBS (irritable bowel syndrome) (Acute) Lichen sclerosus (Acute) low white blood count (Acute) Surgical History History of appendectomy (Acute) S/P cervical disc replacement (Acute) TMJ (Acute) gallbladder (Acute) Family History Mother Breast cancer, Onset Age: 60 remission until the age of 74 and spread to bones Alcoholism Epilepsy Hyperlipemia Father Cancer Unknown Alcoholism Brother Alcoholism Daughter Thyroid disorder Social History Smoking Status: Never smoker alcohol intake: current alcohol intake frequency: holidays/special occasions only substance use type: does not use caffeine: No what type of physical activity do you participate in: walking frequency: 3-4 times per week seatbelt use: always additional social history: Deborah is - Retired HPI 1 week follow up : Details: ALVINA REYES is a 68 year old who presents for follow up visit last week for vaginal irritation and pessary replacement. She is no longer having any vaginal symptoms. She saw Dr. Martínez yesterday and is going to proceed with repair of prolapse. She does not want pessary replaced. She denies other concerns Pregancy History 3 Elective abortions Hx Para 2 Spontaneous abortions Past Pregnancies Del. DatName [facility]eksOutcome [facility] LocaProviderFOB e ht en ia tn Unknown 1967 Abby hawkins Unknown 1970 Cathi Assessment AND Plan Problems 1. 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 [place] [address] OFFICE VISIT Date of Service: 04/15/18 MR#: [id number] Acct: [id number] Name: ALVINA REYES Rep #: [id number] : 1950 Provider: KIMBERLY Sy Age/Sex: 68/F Location: [facility] Status: Signed Intake Vital Signs04/15/18 Height 5 ft 4.5 in 04/15/18 Weight: 166 lb 8 oz 04/15/18 Body Mass Index (BMI) 28.1 04/15/18 Blood Pressure 110/60 Intake Visit Reasons: Pessary falling out, pain Biscuit Machine Operator Required: No Is patient in pain?: No Allergies NSAIDS (Non-Steroidal Anti-Inflamma Allergy (Mild, Verified 04/15/18 14:22) Rash Penicillins Allergy (Mild, Verified 04/15/18 14:22) Rash vancomycin HCl [From Vancocin] Allergy (Mild, Verified 04/15/18 14:22) Rash metoclopramide [From Reglan] Allergy (Verified 04/15/18 14:22) Other Medications Fibrocare 2 tab PO BID 11/30/13 [History Confirmed 04/15/18] calcium citrate-vitamin D3 315 mg-250 unit tablet 1 tab PO QDAY 08/25/17 [History Confirmed 04/15/18] cholecalciferol (vitamin D3) 5,000 unit capsule 5,000 unit PO ONCE 08/25/17 [History Confirmed 04/15/18] estradiol 0.01% (0.1 mg/gram) vaginal cream 0.5 g VAGINAL .COMPLEX #42.5 g 08/25/17 [Rx Confirmed 04/15/18] fvelgwtnizp-qvo-qthtiylck-hrb 149-hyalur 500 mg-500 mg-66.7 mg tablet tab PO 08/25/17 [History Confirmed 04/15/18] levothyroxine 75 mcg tablet PO 08/25/17 [History Confirmed 04/15/18] multivit with mdrmlsig-ljme-PN-lutein 8 mg iron-400 mcg-300 mcg tablet tab PO 08/25/17 [History Confirmed 04/15/18] vitamin E (dl, acetate) 400 unit capsule 400 unit PO QDAY 08/25/17 [History Confirmed 04/15/18] omega 6-wnr-ztb-fish oil 1,000 mg (120 mg-180 mg) capsule cap PO 09/24/17 [History Confirmed 04/15/18] probotic PO 09/24/17 [History Confirmed 04/15/18] clindamycin 2 % vaginal cream 1 appful VAGINAL QHS 5 Days #40 g 04/15/18 [Rx Confirmed 04/15/18] Is last menstrual period known: No Post menopausal: Yes Patient : No : No [facility] Medical History Cataracts, bilateral (Chronic) Arthritis (Chronic) GERD (gastroesophageal reflux disease) (Chronic) Osteopenia (Chronic) Fibromyalgia (Acute) IBS (irritable bowel syndrome) (Acute) Lichen sclerosus (Acute) low white blood count (Acute) Surgical History History of appendectomy (Acute) S/P cervical disc replacement (Acute) TMJ (Acute) gallbladder (Acute) Family History Mother Breast cancer, Onset Age: 60 remission until the age of 74 and spread to bones Alcoholism Epilepsy Hyperlipemia Father Cancer Unknown Alcoholism Brother Alcoholism Daughter Thyroid disorder Social History Smoking Status: Never smoker alcohol intake: current alcohol intake frequency: holidays/special occasions only substance use type: does not use caffeine: No what type of physical activity do you participate in: walking frequency: 3-4 times per week seatbelt use: always additional social history: Deborah is - Retired HPI Pessary falling out, pain: Details: ALVINA REYES is a 68 year old who presents for vaginal discomfort with pessary. States feels like it is falling out and uncomfortable to push back up Pregancy History 3 Elective abortions Hx Para 2 Spontaneous abortions Past Pregnancies Del. DatName GA/WeeksOutcome Route [facility] LocaProviderFOB e ht en ia tn Unknown 1967 Abby berly Unknown 1970 Cathi Exam Const Other: Pessary removed. Note vaginal erythema, excoriation at upper left vaginal wall. Malodorous yellow discharge Assessment AND Plan Problems 1. Bacterial vaginosis N76.0; B96.89 Plan Cleocin cream nightly X 5 Leave pessary out Recheck 1 week Medications New: Coding Level of Care Code Off vis,est,level 3 Diagnoses Bacterial vaginosis N76.0; B96.89 04/15/18 1559 <Electronically signed by Erum MARIE> Date Erum MARIE Cosigner Signature: Date (if applicable) CC: COMPREHENSIVE METABOLIC Collected: 04/01/2018 Status: F Source: [place] ZHAO 10:41 AM [facility] REPOSITORY TYPE CODE TESTS RESULT OUT OF RANGE REFERENCE UNITS LAB L501.0100 74-106 mg/dL Normal GLU 85 Result Comment: Please note revised GLUCOSE reference range effective 2017. LAB L501.1000 7-18 mg/dL Normal BUN 18 LAB L501.1100 0.55-1.02 mg/dL Normal CREAT,SERUM 1.00 Result Comment: The validity of the calculated GFR AND GFRAA in patients over 70 years has not been determined. Clinical correlation is essential. LAB L501.1110 >60 mL/min Low EST GFR 59 Result Comment: Non- GFR Calc LAB L501.1115 >60 mL/min Normal EST GFR - AA 71 Result Comment: GFR Calc LAB L501.1300 10-20 RATIO Normal BUN/CRE 18.1 LAB L501.1500 6.4-8.2 g/dL T Normal PROT 7.4 LAB L501.1800 3.2-5.0 g/dL Normal ALB 3.4 LAB L501.1950 2.2-4.2 g/dL Normal GLOB 4.0 LAB L501.2000 0.9-2.4 RATIO Low A/G 0.8 LAB L501.2200 8.5-10.1 mg/dL CA Normal 9.0 LAB L501.4100 15-37 U/L Normal AST 23 LAB L501.4305 45-117 U/L Normal ALK P 59 LAB L501.4405 13-56 U/L Normal ALT 28 LAB L501.4600 0.20-1.00 mg/dL T Normal BILI 0.60 LAB L501.5300 136-145 mmol/L NA Normal 142 LAB L501.5600 3.5-5.1 mmol/L K Normal 4.3 LAB L501.5900 98-107 mmol/L CL Normal 107 LAB L501.6100 21.0-32.0 mmol/L Normal CO2 27.0 LAB L501.6200 5-15 Normal GAP 8 Performed By: #### L500.4050, L501.97134, L501.9520, L506.0400 #### [facility] [address] [place], [address] FREE T3 Collected: 04/01/2018 Status: F Source: [place] 10:41 AM [facility] REPOSITORY TYPE CODE TESTS RESULT OUT OF RANGE REFERENCE UNITS LAB L501.78296 2.18-3.98 pg/mL Normal FREE T3 2.8 Performed By: #### L500.4050, L501.08277, L501.9520, L506.0400 #### [facility] [address] [place], [address] THYROID STIM HORMONE Collected: 04/01/2018 Status: F Source: [place] (TSH) 10:41 AM [facility] REPOSITORY TYPE CODE TESTS RESULT OUT OF RANGE REFERENCE UNITS LAB L501.9520 0.358-3.74 uIU/mL Normal TSH 1.52 Performed By: #### L500.4050, L501.04692, L501.9520, L506.0400 #### [facility] [address] [place], [address] T4 FREE DIRECT Collected: 04/01/2018 Status: F Source: [place] 10:41 AM [facility] REPOSITORY TYPE CODE TESTS RESULT OUT OF RANGE REFERENCE UNITS LAB L506.0400 0.76-1.46 ng/dL Normal T4 FREE 1.20 DIRECT Performed By: #### L500.4050, L501.87844, L501.9520, L506.0400 #### [facility] [address] [place], [address] HEMOGLOBIN A1C Collected: 04/01/2018 Status: F Source: [place] 10:41 AM [facility] REPOSITORY TYPE CODE TESTS RESULT OUT OF RANGE REFERENCE UNITS LAB L501.9985 4.2-6.3 % Normal HGB A1C 5.4 Performed By: #### L501.9985 #### [facility] [address] [place], [address] AZURE ARCHITECT OFFICE VISIT Observed: 02/19/2018 Status: F Source: [place] REPORT 10:56 AM [facility] REPOSITORY [facility] [address] [place] [address] OFFICE VISIT Date of Service: 02/19/18 MR#: [id number] Acct: [id number] Name: ALVINA REYES Rep #: [id number] : 1950 Provider: KIMBERLY Sy Age/Sex: 67/F Location: [facility] Status: Signed Intake Vital Signs02/19/18 Height 5 ft 4.5 in 02/19/18 Weight: 166 lb 2 oz 02/19/18 Body Mass Index (BMI) 28.0 02/19/18 Blood Pressure 102/70 Intake Visit Reasons: Pessary Check Chief Complaint: Pessary Check Biscuit Machine Operator Required: No Is patient in pain?: No Allergies NSAIDS (Non-Steroidal Anti-Inflamma Allergy (Mild, Verified 02/19/18 10:32) Rash Penicillins Allergy (Mild, Verified 02/19/18 10:32) Rash vancomycin HCl [From Vancocin] Allergy (Mild, Verified 02/19/18 10:32) Rash metoclopramide [From Reglan] Allergy (Verified 02/19/18 10:32) Other Medications Fibrocare 2 tab PO BID 11/30/13 [History Confirmed 02/19/18] calcium citrate-vitamin D3 315 mg-250 unit tablet 1 tab PO QDAY 08/25/17 [History Confirmed 02/19/18] cholecalciferol (vitamin D3) 5,000 unit capsule 5,000 unit PO ONCE 08/25/17 [History Confirmed 02/19/18] estradiol 0.01% (0.1 mg/gram) vaginal cream 0.5 g VAGINAL .COMPLEX #42.5 g 08/25/17 [Rx Confirmed 02/19/18] dpcmymgqcpw-dve-bnitbskvf-hrb 149-hyalur 500 mg-500 mg-66.7 mg tablet tab PO 08/25/17 [History Confirmed 02/19/18] levothyroxine 75 mcg tablet PO 08/25/17 [History Confirmed 02/19/18] multivit with rufowqcp-hzce-DU-lutein 8 mg iron-400 mcg-300 mcg tablet tab PO 08/25/17 [History Confirmed 02/19/18] vitamin E (dl, acetate) 400 unit capsule 400 unit PO QDAY 08/25/17 [History Confirmed 02/19/18] omega 8-kdk-jbv-fish oil 1,000 mg (120 mg-180 mg) capsule cap PO 09/24/17 [History Confirmed 02/19/18] probotic PO 09/24/17 [History Confirmed 02/19/18] trazodone 50 mg tablet 50 mg PO QHS #30 tab 12/25/17 [Rx Confirmed 02/19/18] Is last menstrual period known: No Post menopausal: Yes Patient : No : No [facility] Medical History Cataracts, bilateral (Chronic) Arthritis (Chronic) GERD (gastroesophageal reflux disease) (Chronic) Osteopenia (Chronic) Fibromyalgia (Acute) IBS (irritable bowel syndrome) (Acute) Lichen sclerosus (Acute) low white blood count (Acute) Surgical History History of appendectomy (Acute) S/P cervical disc replacement (Acute) TMJ (Acute) gallbladder (Acute) Family History Mother Breast cancer, Onset Age: 60 remission until the age of 74 and spread to bones Alcoholism Epilepsy Hyperlipemia Father Cancer Unknown Alcoholism Brother Alcoholism Daughter Thyroid disorder Social History Smoking Status: Never smoker alcohol intake: current alcohol intake frequency: holidays/special occasions only substance use type: does not use caffeine: No what type of physical activity do you participate in: walking frequency: 3-4 times per week seatbelt use: always additional social history: Deborah is - Retired HPI Pessary Check: Details: ALVINA REYES is a 67 year old who presents for pessary maintenance. Denies concerns Pregancy History 3 Elective abortions Hx Para 2 Spontaneous abortions Past Pregnancies Del. DatName GA/WeeksOutcome Route [facility] LocaProviderFOB e ht en tn Unknown 1967 Abby hawkins Unknown 1970 Cathi Exam Const General: cooperative, healthy appearing Orientation: oriented x3, alert Speculum Exam - Vagina: normal appearance of the vagina, normal vaginal discharge, other (pessary removed/cleaned/replaced. No excoriations) Assessment AND Plan Problems 1. Pessary maintenance Z46.89 #3 ring with support Plan Reviewed S AND S infection RTO 3 months Coding Level of Care Code Off vis,est,level 3 Diagnoses Pessary maintenance Z46.89 02/19/18 1056 <Electronically signed by Erum Kerrie GAMBLING MONITOR-C> Date Erum Sy GAMBLING MONITOR-C Elioigner Signature: Date (if applicable) CC: INTERNAL MEDICINE Observed: 12/30/2017 Status: F Source: [place] OFFICE VISIT 9:38 AM [facility] [address] [place] [address] [place] [address] OFFICE VISIT Date of Service: 12/25/17 MR#: [id number] Acct: [id number] Name: ALVINA REYES Rep #: [id number] : 1950 Provider: Doug Esparza NP Age/Sex: 67/F Location: [email or web address] Status: Signed Intake Vital Signs12/25/17 Height 5 ft 4 in Intake Visit Reasons: THINKS NEEDS THYROID CHECK Chief Complaint: Fatigue and depression Is patient in pain?: No Allergies NSAIDS (Non-Steroidal Anti-Inflamma Allergy (Mild, Verified 12/03/17 11:12) Rash Penicillins Allergy (Mild, Verified 12/03/17 11:12) Rash vancomycin HCl [From Vancocin] Allergy (Mild, Verified 12/03/17 11:12) Rash metoclopramide [From Reglan] Allergy (Verified 12/03/17 11:12) Other Medications Fibrocare 2 tab PO BID 11/30/13 [History Confirmed 12/03/17] calcium citrate-vitamin D3 315 mg-250 unit tablet 1 tab PO QDAY 08/25/17 [History Confirmed 12/03/17] cholecalciferol (vitamin D3) 5,000 unit capsule 5,000 unit PO ONCE 08/25/17 [History Confirmed 12/03/17] estradiol 0.01% (0.1 mg/gram) vaginal cream 0.5 g VAGINAL .COMPLEX #42.5 g 08/25/17 [Rx Confirmed 12/03/17] qkvsxxccntn-dvp-tabkadpkb-hrb 149-hyalur 500 mg-500 mg-66.7 mg tablet tab PO 08/25/17 [History Confirmed 12/03/17] levothyroxine 75 mcg tablet PO 08/25/17 [History Confirmed 12/03/17] multivit with spijxkxg-bhum-VP-lutein 8 mg iron-400 mcg-300 mcg tablet tab PO 08/25/17 [History Confirmed 12/03/17] vitamin E (dl, acetate) 400 unit capsule 400 unit PO QDAY 08/25/17 [History Confirmed 12/03/17] omega 8-acp-pva-fish oil 1,000 mg (120 mg-180 mg) capsule cap PO 09/24/17 [History Confirmed 12/03/17] probotic PO 09/24/17 [History Confirmed 12/03/17] trazodone 50 mg tablet 50 mg PO QHS #30 tab 12/25/17 [Rx Confirmed 12/25/17] PFSH Medical History Cataracts, bilateral (Chronic) Arthritis (Chronic) GERD (gastroesophageal reflux disease) (Chronic) Osteopenia (Chronic) Fibromyalgia (Acute) IBS (irritable bowel syndrome) (Acute) Lichen sclerosus (Acute) low white blood count (Acute) Surgical History History of appendectomy (Acute) S/P cervical disc replacement (Acute) TMJ (Acute) gallbladder (Acute) Family History Mother Breast cancer, Onset Age: 60 remission until the age of 74 and spread to bones Alcoholism Epilepsy Hyperlipemia Father Cancer Unknown Alcoholism Brother Alcoholism Daughter Thyroid disorder Social History Smoking Status: Never smoker alcohol intake: current alcohol intake frequency: holidays/special occasions only substance use type: does not use caffeine: No what type of physical activity do you participate in: walking frequency: 3-4 times per week seatbelt use: always additional social history: Deborah is - Retired Questionnaire Depression Screen PHQ-2/9 PHQ-2 Over the last 2 weeks, how often have you been bothered by any of the following problems? 1. Little interest or pleasure in doing things: several days 2. Feeling down, depressed, or hopeless: several days Total score: 2 If score is 2 or greater, continue 3. Trouble falling or staying asleep, or sleeping too much: nearly every day 4. Feeling tired or having little energy: several days 5. Poor appetite or overeating: nearly every day 6. Feeling bad about yourself - or that you are a failure or have let yourself and your family down: not at all 7. Trouble concentrating on things, such as reading the newspaper or watching television: not at all 8. Moving or speaking so slowly that other people could have noticed? - Or the opposite - being so fidgety or restless that you have been moving around a lot more than usual: not at all 9. Thoughts that you would be better off or of hurting yourself in some way: not at all Total score: 9 If you checked off any problems, how difficult have these problems made it for you to do your work, take care of things at home, or get along with other people?: not difficult at all Source: Developed by Drs. Stef Neal, Sangeetha Ramirez, Memo Chawla and colleagues, with an educational shamika from [employer]. Scoring: Total Score Depression Severity Action 1-4 Minimal depression No action needed 5-9 Mild depression Repeat PHQ-9 at follow up 10-14 Moderate depression Make tx plan,consider counseling, fup, prescription HPI HPI Chief Complaint: Fatigue and depression Details: ALVINA REYES, is a 67 F who presents to the office today for complaints of fatigue and depression for the past several weeks. She notes that she has had bouts of depression in the past, and was on an antidepressant at one point many years ago. She states that her is currently undergoing treatment for cancer and her daughter had a breast biopsy recently and they are waiting for results to see if it is malignancy. She notes that she is frequently tearful, emotionally eating with some minor weight gain, and has had difficulty falling asleep. Her PHQ 9 is indicative of mild depression. The patient does have chronic hypothyroidism which was stable per labs done in September of this year, and would feel better if we also recheck her thyroid levels to make sure that her symptoms are not related to this. She does also note she has had a sore throat for 2-3 days. She denies any associated symptoms, specifically cough, nasal congestion, ear pain or fullness, difficulty swallowing, chills, or fever. The patient otherwise denies any fever, chills, nausea, vomiting, shortness of breath, chest pain or pressure, palpitations, orthopnea, lower extremity edema, syncope or presyncopal episodes. ROS Const Constitutional: Positive for fatigue and sleep problems (trouble falling asleep); no weight change, body ache, chills, fever(s), change in appetite, snoring, weakness, frequent falls, headache(s) or excessive sweating Eyes Eyes: No change in vision, eye pain, light sensitivity or blurry vision ENT ENT: Positive for sore throat (slight); no headache(s), abnormal hearing, ear pain, tinnitus, nasal congestion or neck pain Resp Respiratory: No snoring, cough, shortness of breath or wheezing Cardio Cardiology: No excessive sweating, chest pain at rest, chest pain with exertion, shortness of breath, dyspnea on exertion, palpitations, orthopnea or lightheadedness Gastro GI: No abdominal pain, change in bowel habits, constipation, diarrhea, vomiting, nausea/dyspepsia or cramping Genitourinary-Female: No burning urination, painful urination, urinary incontinence, urinary frequency, abnormal vaginal bleeding, pelvic pain or other Musc Musculoskeletal: No neck pain, abnormal walking, joint pain, back pain, limited range of motion, numbness or tingling Skin Skin: No redness, dry skin, itching, lesions, wounds or rash Neuro Neurology: No weakness, frequent falls, headache(s), abnormal hearing, abnormal walking, numbness, tingling, abnormal speech, dizziness or memory loss Psych Psychiatric: No change in appetite, No memory loss, No anxiety, Positive for depression ( is going through chemo, and daughter is having health concerns. ), No Thoughts of harming yourself/Others Endo Endocrine: Positive for fatigue; no excessive sweating, cold intolerance, increased thirst/drinking, heat intolerance, flushing or increased hunger Aller/Imm Allergy/Immunologic: No wheezing, itchy eyes, hives or seasonal allergy symptoms Enrique/Lymp Hematologic/Lymphatic: No easy bleeding, easy bruising or enlarged lymph nodes Exam Const General: cooperative, comfortable, no acute distress, well groomed, healthy appearing, well developed Nutritional Appearance: average body habitus, well nourished Orientation: alert, oriented x3 Limitations: mental status not altered [facility] Head: normal to inspection Ears: hearing grossly normal bilaterally, TM's normal bilaterally Nose: external nose normal, no nasal discharge Face and sinus: sinuses nontender Throat: posterior oropharynx normal, uvula midline, tonsils normal, no postnasal drainage Neck Neck: no lymphadenopathy Neck mass: No Thyroid: thyroid normal Lymphatic: no lymphadenopathy noted Resp Effort AND Inspection: normal respiratory effort, able to speak in complete sentences, normal respiratory pattern, symmetric chest movement, no audible wheezes, no cough Auscultation: Bilateral: Clear to Auscultation Cardio Palpation: normal PMI Rate: regular rate Heart Sounds: S1 normal, S2 normal, normal S1 and S2, no click, no gallops, no murmurs, no rubs Neuro General: alert, awake, oriented x3, CN's II-XI intact bilaterally Speech: speech normal Gait: normal gait Motor: muscle tone normal throughout Psych Appearance: grossly normal Mood: congruent mood Affect: sad, flat, tearful Speech and Movement: speech and movement normal Attitude: cooperative Thought Process: normal Thought Content: normal Judgment: judgment good Assessment AND Plan 1. Depression F32.9 Plan Lengthy discussion with patient regarding depressive symptoms including difficulty falling asleep, daytime fatigue, labile moods, and tearfulness. Patient notes that she had been on Zoloft in the past and did find it helpful. However, she was not having difficulty sleeping at that time. We discussed the possibility of trazodone which has both antidepressant effects and can help with her insomnia. The patient has elected to start trazodone, new prescription for trazodone 50 mg nightly. Patient is informed that she should call in 2 weeks to report the effectiveness of this medication and follow-up in 6 weeks. We discussed that there is room to increase the trazodone if she finds it helpful. We also discussed counseling, which she has done before, but she does not wish to pursue this at this time. 2. Fatigue R53.83 Plan Presumed to be a symptom of her depression and lack of sleep for several weeks. However given her history of hypothyroidism, an order for a TSH and free T4 level have been ordered to out her thyroid as the etiology of her fatigue. Vitamin D level was checked recently and was within normal limits, so this will not be repeated. 3. Pharyngitis, acute J02.9 Plan Patient has had a sore throat for approximately 2 days. Exam did not show any indication of strep throat or any acute infection that would require an antibiotic. Patient is instructed to contact our office or seek the advice of an urgent care if sore throat becomes worse, patient develops a cough, fever, or difficulty swallowing. Plan Detail Other Orders Orders: Other Medications New: Follow Up 6 weeks or sooner if needed Coding Level of Care Code Off vis,est,level 4 Diagnoses Depression F32.9 Fatigue R53.83 Pharyngitis, acute J02.9 12/30/17 0938 <Electronically signed by Doug MARIE> Date Doug MARIE Cosigner Signature: Date (if applicable) CC: THYROID STIM HORMONE Collected: 12/25/2017 Status: F Source: [place] (TSH) 11:40 AM [facility] [place] REPOSITORY TYPE CODE TESTS RESULT OUT OF RANGE REFERENCE UNITS LAB L501.9520 0.358-3.74 uIU/mL Normal TSH 1.44 Performed By: #### L501.9520, L506.0400 #### [facility] [address] [place], [address] T4 FREE DIRECT Collected: 12/25/2017 Status: F Source: [place] 11:40 AM [facility] REPOSITORY TYPE CODE TESTS RESULT OUT OF RANGE REFERENCE UNITS LAB L506.0400 0.76-1.46 ng/dL Normal T4 FREE 1.16 DIRECT Performed By: #### L501.9520, L506.0400 #### [facility] [address] [place], [address] DIAG MAMM W/CAD, Observed: 12/11/2017 Status: F Source: [place] BILAT 2:22 PM [facility] REPOSITORY [facility] Imaging Services [address] [place] [address] DIAG MAMM W/CAD, BILAT MR#: [id number] Acct: [id number] Name: ALVINA REYES Rep #: [id number] : 1950 F 67 From: Dewayne Rodas MD PCP: Radha Ferreira MD Status: REG CLI Study: DIAG MAMM W/CAD, BILAT Date of Exam: 12/11/17 Exam# [id number] Ordering Dr: Erum Sy GAMBLING MONITOR-C MAMMOGRAPHY - BILATERAL DIAGNOSTIC REASON FOR EXAM: Female, 67 years old. Left periareolar pain for one week. PERTINENT HISTORY: Non-contributory. TECHNIQUE: Digital bilateral breast say (3D mammographic acquisition) in the CC and MLO projections. 2-D mediolateral oblique (MLO) and craniocaudad (CC) views of both breasts were obtained. CAD: Full Field Digital Mammography with Computer Added Detection was performed. COMPARISON: Comparison is made with prior study outside examination dated February 04, 2017. FINDINGS: Breast Composition: The breasts are heterogeneously dense, which may obscure small masses. There are no dominant masses or suspicious calcifications. No other significant abnormalities are identified. There has been no significant change since the prior study. BI/DIAG MAMM W/CAD, BILAT IMPRESSION: Stable bilateral diagnostic mammogram. With the patient's history of left periareolar pain, correlation with ultrasound is recommended. ASSESSMENT CATEGORY: BIRADS Category 0: Incomplete. Need additional imaging evaluation. A letter regarding these results will be sent to the patient by the facility within 30 days. Approximately 10% of breast cancers are not detected by mammography. A normal mammogram should not delay biopsy of a clinically suspicious abnormality. Electronically Signed: Dewayne Rodas MD at 15:23 EDT Tel [phone], Service support , CC: KIMBERLY Sy; Radha Ferreira MD Stallion Keeper: Signed BREAST LIMITED Observed: 12/11/2017 Status: F Source: [place] UNILATERAL 2:12 PM [facility] REPOSITORY [facility] Imaging Services [address] [address] [address] [address] Breast Limited Unilateral MR#: [id number] Acct: [id number] Name: ALVINA REYES Rep #: [id number] : 1950 F 67 From: Dewayne Rodas MD PCP: Radha Ferreira MD Status: REG CLI Study: Breast Limited Unilateral Date of Exam: 12/11/17 Exam# [id number] Ordering Dr: Erum Sy GAMBLING MONITOR-C STUDY: ULTRASOUND BREAST - LEFT REASON FOR EXAM: Female, 67 years old. Pain in the left breast. TECHNIQUE: Axial and longitudinal images of the LEFT breast were performed with a high resolution ultrasound transducer. COMPARISON: Comparison is made with prior mammogram done earlier today. FINDINGS: LEFT Breast: The superior retroareolar region of the breast was examined. There is a homogeneous fibroglandular tissue. No solid or cystic mass lesion is seen. US/Breast Limited Unilateral IMPRESSION: Unremarkable sonographic examination of the breast. ASSESSMENT CATEGORY: BIRADS Category 2: Benign. A letter regarding these results will be sent to the patient by the facility within 30 days. Electronically Signed: Dewayne Rodas MD at 8:06 EDT Tel [phone], Service support , CC: KIMBERLY Sy; Radha Ferreira MD Stallion Keeper: Signed AZURE ARCHITECT OFFICE VISIT Observed: 12/03/2017 Status: F Source: [place] REPORT 11:30 AM [facility] [address] [place] [address] OFFICE VISIT Date of Service: 12/03/17 MR#: [id number] Acct: [id number] Name: ALVINA REYES Rep #: [id number] : 1950 Provider: KIMBERLY Sy Age/Sex: 67/F Location: [facility] Status: Signed Intake Vital Signs12/03/17 Height 5 ft 4.5 in 12/03/17 Weight: 170 lb 6 oz 12/03/17 Body Mass Index (BMI) 28.8 12/03/17 Blood Pressure 108/76 Intake Visit Reasons: self breast exam, felt lump Biscuit Machine Operator Required: No Is patient in pain?: No Allergies NSAIDS (Non-Steroidal Anti-Inflamma Allergy (Mild, Verified 12/03/17 11:12) Rash Penicillins Allergy (Mild, Verified 12/03/17 11:12) Rash vancomycin HCl [From Vancocin] Allergy (Mild, Verified 12/03/17 11:12) Rash metoclopramide [From Reglan] Allergy (Verified 12/03/17 11:12) Other Medications Fibrocare 2 tab PO BID 11/30/13 [History Confirmed 12/03/17] calcium citrate-vitamin D3 315 mg-250 unit tablet 1 tab PO QDAY 08/25/17 [History Confirmed 12/03/17] cholecalciferol (vitamin D3) 5,000 unit capsule 5,000 unit PO ONCE 08/25/17 [History Confirmed 12/03/17] estradiol 0.01% (0.1 mg/gram) vaginal cream 0.5 g VAGINAL .COMPLEX #42.5 g 08/25/17 [Rx Confirmed 12/03/17] xsptfdsxqre-mzc-jwtwlfann-hrb 149-hyalur 500 mg-500 mg-66.7 mg tablet tab PO 08/25/17 [History Confirmed 12/03/17] levothyroxine 75 mcg tablet PO 08/25/17 [History Confirmed 12/03/17] multivit with sicdfnjg-rdbx-GD-lutein 8 mg iron-400 mcg-300 mcg tablet tab PO 08/25/17 [History Confirmed 12/03/17] vitamin E (dl, acetate) 400 unit capsule 400 unit PO QDAY 08/25/17 [History Confirmed 12/03/17] omega 7-xxr-qpr-fish oil 1,000 mg (120 mg-180 mg) capsule cap PO 09/24/17 [History Confirmed 12/03/17] probotic PO 09/24/17 [History Confirmed 12/03/17] Is last menstrual period known: No Post menopausal: Yes Patient : No : No PFSH Medical History Cataracts, bilateral (Chronic) Arthritis (Chronic) GERD (gastroesophageal reflux disease) (Acute) Osteopenia (Chronic) Fibromyalgia (Acute) IBS (irritable bowel syndrome) (Acute) Lichen sclerosus (Acute) low white blood count (Acute) Surgical History History of appendectomy (Acute) S/P cervical disc replacement (Acute) TMJ (Acute) gallbladder (Acute) Family History Mother Breast cancer, Onset Age: 60 remission until the age of 74 and spread to bones Alcoholism Epilepsy Hyperlipemia Father Cancer Unknown Alcoholism Brother Alcoholism Daughter Thyroid disorder Social History Smoking Status: Never smoker alcohol intake: current alcohol intake frequency: holidays/special occasions only substance use type: does not use caffeine: No what type of physical activity do you participate in: walking frequency: 3-4 times per week seatbelt use: always additional social history: Deborah is - Retired HPI self breast exam, felt lump: Details: ALVINA REYES is a 67 year old who presents for tenderness in left breast and thinks feels lump near areola. Denies skin changes or nipple discharge. Last mammogram January 2017 at [facility] Pregancy History 3 Elective abortions Hx Para 2 Spontaneous abortions Past Pregnancies Del. DatName GA/WeeksOutcome Route [facility] LocaProviderFOB e ht en th ia tn Unknown 1967 Abby hawkins Unknown 1970 Cathi Exam Chest Breast inspection: normal inspection of the breasts, normal inspection of the axillae Breast palpation: normal palpation of the breasts (right breast), normal palpation of the axillae (bilaterall), abnormal palpation of the breast (left breast near nipple 2:00 position, soft, cystic, mobile nodule 5mm) Assessment AND Plan Problems 1. Mastodynia of left breast N64.4 2. Mass of left breast N63.20 Plan Bilateral diagnositic mammogram with left breast ultrasound Notify of results Orders Orders: Coding Level of Care Code Off vis,est,level 3 Diagnoses Mastodynia of left breast N64.4 Mass of left breast N63.20 12/03/17 1130 <Electronically signed by Erum MARIE> Date Erum MARIE Cosigner Signature: Date (if applicable) CC: AZURE ARCHITECT OFFICE VISIT Observed: 11/27/2017 Status: F Source: [place] REPORT 10:37 AM [facility] [address] [place] [address] OFFICE VISIT Date of Service: 11/27/17 MR#: [id number] Acct: [id number] Name: ALVINA REYES Rep #: [id number] : 1950 Provider: KIMBERLY Sy Age/Sex: 67/F Location: [facility] Status: Signed Intake Vital Signs11/27/17 Height 5 ft 4.5 in 11/27/17 Weight: 171 lb 4 oz 11/27/17 Body Mass Index (BMI) 28.9 11/27/17 Blood Pressure 120/62 Intake Visit Reasons: follow up Is patient in pain?: No Allergies NSAIDS (Non-Steroidal Anti-Inflamma Allergy (Mild, Verified 11/27/17 10:16) Rash Penicillins Allergy (Mild, Verified 11/27/17 10:16) Rash vancomycin HCl [From Vancocin] Allergy (Mild, Verified 11/27/17 10:16) Rash metoclopramide [From Reglan] Allergy (Verified 11/27/17 10:16) Other Medications Fibrocare 2 tab PO BID 11/30/13 [History Confirmed 11/27/17] L.acidoph,Paracasei, B.lactis [Probiotic] 1 ea PO DAILY 03/31/17 [History Confirmed 11/27/17] calcium citrate-vitamin D3 315 mg-250 unit tablet 1 tab PO QDAY 08/25/17 [History Confirmed 11/27/17] cholecalciferol (vitamin D3) 5,000 unit capsule 5,000 unit PO ONCE 08/25/17 [History Confirmed 11/27/17] estradiol 0.01% (0.1 mg/gram) vaginal cream 0.5 g VAGINAL .COMPLEX #42.5 g 08/25/17 [Rx Confirmed 11/27/17] dkmfeexbawv-pos-zgrhucwik-hrb 149-hyalur 500 mg-500 mg-66.7 mg tablet tab PO 08/25/17 [History Confirmed 11/27/17] levothyroxine 75 mcg tablet PO 08/25/17 [History Confirmed 11/27/17] multivit with yksdmcbh-wklh-FM-lutein 8 mg iron-400 mcg-300 mcg tablet tab PO 08/25/17 [History Confirmed 11/27/17] vitamin E (dl, acetate) 400 unit capsule 400 unit PO QDAY 08/25/17 [History Confirmed 11/27/17] omega 5-flv-oph-fish oil 1,000 mg (120 mg-180 mg) capsule cap PO 09/24/17 [History Confirmed 11/27/17] probotic PO 09/24/17 [History Confirmed 11/27/17] Is last menstrual period known: No Post menopausal: No Patient : No : No PFSH Medical History Cataracts, bilateral (Chronic) Arthritis (Chronic) GERD (gastroesophageal reflux disease) (Acute) Osteopenia (Chronic) Fibromyalgia (Acute) IBS (irritable bowel syndrome) (Acute) Lichen sclerosus (Acute) low white blood count (Acute) Surgical History History of appendectomy (Acute) S/P cervical disc replacement (Acute) TMJ (Acute) gallbladder (Acute) Family History Mother Breast cancer, Onset Age: 60 remission until the age of 74 and spread to bones Alcoholism Epilepsy Hyperlipemia Father Cancer Unknown Alcoholism Brother Alcoholism Daughter Thyroid disorder Social History Smoking Status: Never smoker alcohol intake: current alcohol intake frequency: holidays/special occasions only substance use type: does not use caffeine: No what type of physical activity do you participate in: walking frequency: 3-4 times per week seatbelt use: always additional social history: Deborah is - Retired HPI follow up: Details: ALVINA REYES is a 67 year old who presents for pessary maintenance. Denies concerns. has one more round of chemo/doing well currently Pregancy History 3 Elective abortions Hx Para 2 Spontaneous abortions Past Pregnancies Del. DatName GA/WeeksOutcome Route [facility] LocaProviderFOB e ht en tn Unknown 1967 Abby laocandie Unknown 1970 Cathi Exam External Female Exam: normal external appearance Speculum Exam - Vagina: atrophic vaginal mucosa Other: Ring pessary with support removed. No vaginal excoriations, normal discharge. Pessary cleaned and easily replaced with trimosan gel Patient tolerated well. Assessment AND Plan Problems 1. Pessary maintenance Z46.89 #3 ring with support 2. Encounter for screening mammogram for malignant neoplasm of breast Z12.31 Orders Orders: Coding Level of Care Code Off vis,est,level 3 Diagnoses Pessary maintenance Z46.89 Encounter for screening mammogram for malignant neoplasm of breast Z12.31 11/27/17 1037 <Electronically signed by Erum MARIE> Date Erum FERRISC Cosigner Signature: Date (if applicable) CC: ALLERGIES ALLERGIES DATE TYPE / CODE NAME / CODE REACTION SEVERITY SOURCE 09/24/2018 Drug naproxen/[id number] Rash Unknown [place] Allergy/416 80(RXNORM) Community 100600([facility] ED CT) Repository 09/03/2018 Drug vancomycin Rash [place] Allergy/416 HCl/[id number](RX Community 877108([facility] NORM) [facility] ED CT) Repository 09/03/2018 Drug NSAIDS Rash [place] Allergy/416 (Non-Steroidal Community 366493([facility] Anti-Inflamma/F00 Hospital ED CT) 8757562(RXNORM) Repository 09/03/2018 Drug Penicillins/F0010 Rash [place] Allergy/416 42389(RXNORM) [facility] 411483([facility] ED CT) Repository 09/03/2018 Drug metoclopramide/F0 Other Unknown [place] Allergy/416 22999313(RXNORM) [facility] 940139([facility] ED CT) Repository ENCOUNTERS ENCOUNTERS ADMIT/DISCHARGE ACCOUNT ADMITTING ENCOUNTER LOCATION SOURCE NUMBER CLASS 09/24/2018/ [id number] [facility] [place] 9 4 [facility] ing:FB5Dblg: Repository KU165Iia: 1 09/24/2018 [id number] [facility] BMSBuilding:B [place] 8 [place] Repository 09/24/2018 [id number] [facility] BMSBuilding:B [place] 5 [place] Repository 09/11/2018 [id number] Ambulatory [place] 9 [facility] ing:MTLAB Repository 09/03/2018/ [id number] Ambulatory BMSBuilding:B [place] 8 7 [facility] Repository 08/06/2018/ [id number] Ambulatory BMSBuilding:B [place] 8 5 [place] [place] 06/02/2018/ [id number] Ambulatory BMSBuilding:B [place] 5 [facility] Repository 05/25/2018 [id number] Ambulatory BMSBuilding:B [place] 2 [facility] Repository 04/28/2018/ [id number] Ambulatory BMSBuilding:B [place] 8 0 [facility] Repository 04/23/2018/ [id number] Ambulatory BMSBuilding:B [place] 8 7 [facility] Repository 04/15/2018/ [id number] Ambulatory BMSBuilding:B [place] 8 2 [facility] Repository 04/01/2018 [id number] Ambulatory [place] 5 [facility] ing:MTLAB Repository 02/19/2018/ [id number] Ambulatory BMSBuilding:B [place] 8 8 [facility] Repository 02/05/2018 [id number] Ambulatory BMSBuilding:B [place] 2 [place] [place] 12/25/2017 [id number] Ambulatory [place] 3 [facility] ing:MTLAB Repository 12/25/2017/ [id number] Ambulatory BMSBuilding:B [place] 8 4 [place] [place] 12/11/2017 [id number] Ambulatory [place] 8 [facility] ing:OPUS Repository 12/03/2017/ [id number] Ambulatory BMSBuilding:B [place] 8 2 [facility] Repository 11/27/2017/ [id number] Ambulatory BMSBuilding:B [place] 8 4 [facility] Repository PAYERS PAYERS ENCOUNTER GUARANTOR PAYER SUBSCRIBER SOURCE 09/24/2018 DEBORAH Bacon Primary ALIVNA J [place] [id number] Insurance:MEDICARE TANNHOFDOB: [facility] PART A [facility] [id number]: Repository [id number]: [phone] [id number] [phone] () Date:2018-07-02 09/24/2018 Secondary DEBORAH Mak Insurance:[place] TANNFDOB: [facility] [id number] Hospital BENEFITPolicy Number: Repository [id number] Date:[id number] [address] [address]OZ: 09/24/2018 Tertiary NOT GIVENUNK [place] Insurance:SELF PAY [facility] Number: Effective Repository Date:2018-07-02 09/24/2018 DEBORAH D Primary ALVINA J [place] [id number] Insurance:MEDICARE TANNHOFDOB: [facility] RUN PART A [facility] [id number] Number: Repository [id number]: 330 [id number] [phone] (HP) Date:2018-07-02 09/24/2018 Secondary DEBORAH D [place] Insurance:[place] TANNHOFDOB: [facility] [id number] Hospital BENEFITPolicy Number: Repository [id number] Date:[id number] [address] [address]IN: 09/24/2018 Tertiary NOT GIVENUNK [place] Insurance:SELF PAY [facility] Number: Effective Repository Date:2018-09-24 09/24/2018 DEBORAH D Primary ALVINA J [place] [id number] Insurance:MEDICARE TANNHOFDOB: [facility] RUN PART A [facility] [id number] Number: Repository [id number]: 330 [id number] [phone] () Date:2018-07-02 09/24/2018 Secondary DEBORAH D [place] Insurance:[place] TANNHOFDOB: [facility] [id number] Hospital BENEFITPolicy Number: Repository [id number] Date:[id number] [address]KD: 09/24/2018 Tertiary NOT GIVENUNK [place] Insurance:SELF PAY [facility] Number: Effective Repository Date:2018-09-24 09/11/2018 DEBORAH D Primary ALVINA J [place] [id number] Insurance:MEDICARE TANNHOFDOB: [facility] [id number] Number: Repository [id number]: 330 [id number] [phone] () Date:2018-09-11 09/11/2018 Secondary DEBORAH D Aubree Insurance:[place] TANNHOFDOB: [facility] [id number] Hospital BENEFITPolicy Number: Repository [id number] Date:2845-96-[address], [place] [address]WH: 09/11/2018 Tertiary NOT GIVENUNK Aubree Insurance:SELF PAY [facility] Number: Effective Repository Date:2018-09-11 09/03/2018 Deborah D Primary ALVINA J Chaffee [id number] Insurance:MEDICARE TANNHOFDOB: [facility] [id number] Number: Repository [id number]: 330 [id number] [phone] () Date:2018-07-20 09/03/2018 Secondary Deborah D Chaffee Insurance:[place] TannhofDOB: [facility] [id number] Hospital BENEFITPolicy Number: Repository [id number] Date:3649-82-84[address] [place], [place] [address]VR: 09/03/2018 Tertiary NOT GIVENUNK Aubree Insurance:SELF PAY [facility] Number: Effective Repository Date:2018-09-03 08/06/2018 ALVINA J Primary ALVINA J Chaffee [id number] Insurance:MEDICARE TANNHOFDOB: [facility] [id number] Number: Repository [id number]: 330 [id number] [phone] () Date:2018-07-22 08/06/2018 Secondary Deborah D Chaffee Insurance:[place] TannhofDOB: [facility] [id number] Hospital BENEFITPolicy Number: Repository [id number] Date:3841-51-29[address] [place], [place] [address]PW: 08/06/2018 Tertiary NOT GIVENUNK Chaffee Insurance:SELF PAY [facility] Number: Effective Repository Date:2018-08-04 06/02/2018 Deborah D Primary ALVINA J Chaffee [id number] Insurance:MEDICARE TANNHOFDOB: [facility] PART [facility] [id number], [place] Number: Repository [address]Ens: 330 [id number] [phone] () Date:2018-06-02 06/02/2018 Secondary Deborah D Chaffee Insurance:[place] TannhofDOB: [facility] [id number] Hospital BENEFITPolicy Number: Repository [id number] Date:5526-03-21ZH [facility] [address], [place] [address]JB: 06/02/2018 Tertiary NOT GIVENUNK Aubree Insurance:SELF PAY [facility] Number: Effective Repository Date:2018-06-02 05/25/2018 Deborah D Primary ALVINA J Aubree [id number] Insurance:MEDICARE TANNHOFDOB: [facility] [id number], [place] Number: Repository [id number]: 330 [id number] [phone] () Date:2018-02-19 05/25/2018 Secondary Deborah D Aubree Insurance:[place] TannhofDOB: [facility] [id number] Hospital BENEFITPolicy Number: Repository [id number] Date:4258-00-23NR [address] [place] [address]DT: 05/25/2018 Tertiary NOT GIVENUNK Chaffee Insurance:SELF PAY [facility] Number: Effective Repository Date:2018-02-19 04/28/2018 Deborah D Primary ALVINA J Chaffee [id number] Insurance:MEDICARE TANNHOFDOB: [facility] [id number], [place] Number: Repository [address]Obx: 330 [id number] [phone] () Date:2018-04-28 04/28/2018 Secondary Deborah D Aubree Insurance:[place] TannhofDOB: [facility] [id number] Hospital BENEFITPolicy Number: Repository [id number] Date:6421-12-49[address] [place], [place] [address]IR: 04/28/2018 Tertiary NOT GIVENUNK Chaffee Insurance:SELF PAY [facility] Effective Rep[facility] Date:2018-04-28 04/23/2018 Deborah D Primary ALVINA J Chaffee [id number] Insurance:MEDICARE TANNHOFDOB: [facility] PART [facility] [id number] Number: Repository [id number]: 330 [id number] [phone] () Date:2018-04-15 04/23/2018 Secondary Deborah D Chaffee Insurance:[place] TannhofDOB: [facility] [id number] Hospital BENEFITPolicy Number: Repository [id number] Date:5585-34-04HS [address] [place] [address]HP: 04/23/2018 Tertiary NOT GIVENUNK Chaffee Insurance:SELF PAY [facility] Number: Effective Repository Date:2018-04-23 04/15/2018 Deborah D Primary ALVINA J Aubree [id number] Insurance:MEDICARE TANNHOFDOB: [facility] PART [facility] [id number] Number: Repository [id number]: 330 [id number] [phone] () Date:2018-04-14 04/15/2018 Secondary Deborah D Chaffee Insurance:[place] TannhofDOB: [id number]: Repository [id number] Date:8108-29-32X[address], [place] [address]DY: 04/15/2018 Tertiary NOT GIVENUNK Chaffee Insurance:SELF PAY [facility] Number: Effective Repository Date:2018-04-15 04/01/2018 Deborah D Primary ALVINA J Aubree [id number] Insurance:MEDICARE TANNHOFDOB: [facility] PART [facility] [id number], [place] Number: Repository [address]Gui: 330 [id number] [phone] (HP) Date:2018-04-01 04/01/2018 Secondary Deborah D Aubree Insurance:OHIO TannhofDOB: [facility] [id number] Hospital BENEFITPolicy Number: Repository [id number] Date:7470-89-53BL [address], [place] [address]UY: 04/01/2018 Tertiary NOT GIVENUNK Aubree Insurance:SELF PAY [facility] Number: Effective Repository Date:2018-04-01 02/19/2018 Deborah D Primary ALVINA J Aubree [id number] Insurance:MEDICARE TANNHOFDOB: [facility] PART [facility] [id number], [place] Number: Repository [address]Sjd: 330 [id number] [phone] () Date:2017-11-27 02/19/2018 Secondary Deborah D Aubree Insurance:[place] TannhofDOB: [facility] [id number] Hospital BENEFITPolicy Number: Repository [id number] Date:8378-28-41MC [address] [place] [address]QV: 02/19/2018 Tertiary NOT GIVENUNK Chaffee Insurance:SELF PAY [facility] Number: Effective Repository Date:2018-02-19 02/05/2018 Deborah D Primary ALVINA J Chaffee [id number] Insurance:MEDICARE TANNHOFDOB: [facility] PART [facility] [id number] Number: Repository [id number]: 330 [id number] [phone] () Date:2017-12-25 02/05/2018 Secondary Deborah D Aubree Insurance:OHIO TannhofDOB: [facility] [id number] Hospital BENEFITPolicy Number: Repository [id number] Date:6274-67-96[address] [place], [place] [address]GI: 02/05/2018 Tertiary NOT GIVENUNK Chaffee Insurance:SELF PAY [facility]: Effective Repository Date:2017-12-25 12/25/2017 Deborah D Primary ALVINA J Chaffee [id number] Insurance:MEDICARE TANNHOFDOB: [facility] PART A [facility] [id number] Number: Repository [address]Xcy: 330 [id number] [phone] () Date:2017-12-25 12/25/2017 Secondary Deborah D Chaffee Insurance:[place] TannhofDOB: [facility] [id number] Hospital BENEFITPolicy Number: Repository [id number] Date:0630-29-09GM [address] [address]HU: 12/25/2017 Tertiary NOT GIVENUNK Aubree Insurance:SELF PAY [facility] Number: Effective Repository Date:2017-12-25 12/25/2017 Deborah D Primary ALVINA J Aubree [id number] Insurance:MEDICARE TANNHOFDOB: [facility] PART A [facility] [id number] Number: Repository [id number]: 330 [id number] [phone] () Date:2017-12-16 12/25/2017 Secondary Deborah D Chaffee Insurance:[place] TannhofDOB: [facility] [id number] Hospital BENEFITPolicy Number: Repository [id number] Date:5176-52-50YA [facility] [address], [place] [address]AL: 12/25/2017 Tertiary NOT GIVENUNK Chaffee Insurance:SELF PAY [facility] Number: Effective Repository Date:2017-12-24 12/11/2017 Deborah D Primary ALVINA J Chaffee [id number] Insurance:MEDICARE TANNHOFDOB: [facility] PART [facility] [id number] Number: Repository [id number]: 330 [id number] [phone] () Date:2017-12-03 12/11/2017 Secondary Deborah D Chaffee Insurance:[place] TannhofDOB: [facility] [id number] Hospital BENEFITPolicy Number: Repository [id number] Date:5441-52-10KB [address] [place] [address]EL: 12/11/2017 Tertiary NOT GIVENUNK Chaffee Insurance:SELF PAY [facility] Number: Effective Repository Date:2017-12-03 12/03/2017 Deborah D Primary ALVINA J Aubree [id number] Insurance:MEDICARE TANNHOFDOB: [facility] PART [facility] [id number] Number: Repository [address]Uht: 330 [id number] [phone] () Date:2017-12-03 12/03/2017 Secondary Deborah D Chaffee Insurance:[place] TannhofDOB: [facility] [id number] Hospital BENEFITPolicy Number: Repository [id number] Date:6377-49-86DJ [address], [place] [address]AG: 12/03/2017 Tertiary NOT GIVENUNK Aubree Insurance:SELF PAY [facility] Number: Effective Repository Date:2017-12-03 11/27/2017 Deborah D Primary ALVINA J Chaffee [id number] Insurance:MEDICARE TANNHOFDOB: [facility] [id number], [place] Number: Repository [address]Aes: 330 [id number] [phone] () Date:2017-09-29 11/27/2017 Secondary Deborah D Chaffee Insurance:[place] TannhofDOB: [facility] [id number] Hospital BENEFITPolicy Number: Repository [id number] Date:1175-82-25FF [address] [address]VH: 11/27/2017 Tertiary NOT GIVENUNK Chaffee Insurance[facility]LF [facility]Y [facility]: Effective Repository Date:2017-11-27
== END 2018-09-25 13:30 | disposition home or self-care (01) ==
LOC: MS3 09-25 07:11 → ACINP 09-25 12:29 → MS3 09-25 12:29
PROVIDERS: Urology; Admitting Provider Obstetrics & Gynecology; Family Provider Internal Medicine; PCP Internal Medicine; Referring Provider Obstetrics & Gynecology; Visit Provider Obstetrics & Gynecology
PROC: (CPT 58260; principal; 2018-09-24 08:10)
PROC: (CPT 57260; 2018-09-24 08:10)
DX: N81.2 Incomplete uterovaginal prolapse (principal); K21.9 Gastro-esophageal reflux disease without esophagitis; M79.7 Fibromyalgia; K58.9 Irritable bowel syndrome, unspecified; Z79.899 Other long term (current) drug therapy; M19.90 Unspecified osteoarthritis, unspecified site; N36.41 Hypermobility of urethra; D61.818 Other pancytopenia; N88.8 Other specified noninflammatory disorders of cervix uteri; D25.9 Leiomyoma of uterus, unspecified; N80.0 Endometriosis of uterus; N83.292 Other ovarian cyst, left side; N83.291 Other ovarian cyst, right side; E03.9 Hypothyroidism, unspecified
CPT/HCPCS: 57260; 57288; 58262; 36415; 82565; 84443; 85027; 86850; 86900; 88307; 96361; 96372; 96374; 96376; 99218; J7120; A4216; C1758; G0378; G0379; J0744; J2405

== ENCOUNTER 2018-11-23 13:52 | Emergency (ER) | payer MEDICARE, OTHER, SELFPAY ==
[2018-11-23 13:24] VITALS: BMI 28.3
[2018-11-23 13:54] VITALS: BP 133/72; PULSE 92; RESP 17; TEMP 36.9; O2SAT 97; BMI 29.8
--- NOTE | 2018-11-23 14:18 | EKG12_ITS ---
Test Reason : WEAKNESS Blood Pressure : / mmHG Vent. Rate : 082 BPM Atrial Rate : 082 BPM P-R Int : 136 ms QRS Dur : 084 ms QT Int : 394 ms P-R-T Axes : 050 024 053 degrees QTc Int : 460 ms Normal sinus rhythm Normal ECG Confirmed by BERTHA KIRK, CATHRYN ([id number]), society editor MALLORY WILL ([id number]) on 11/24/2018 2:20:29 PM Referred By: MARTIN Confirmed By:CATHRYN STONE MD
[2018-11-23 14:38] LABS: Absolute Lymphocyte Count 0.53 X10^3/ul (0.83-4.51); Absolute Neutrophil Count 3.6 X10^3/uL (2.0-7.7); Basophil# 0.01 X10^3/uL; Basophil% 0.2 % (0-1); Eosinophil# 0.03 X10^3/uL; Eosinophils% 0.7 % (0-5); Hematocrit 37.2 % (37-47); Hemoglobin 12.5 g/dl (12.0-15.0); Lymphocyte # 0.53 X10^3/ul (4.0); Lymphocyte % 11.6 % (19-41); Mean Corp Hgb Conc 33.6 g/gl (32-36); Mean Corpuscular Hgb 32.4 pg (27.0-32.0); Mean Corpuscular Volume 96.4 fL (81-99); Mean Platelet Vol. 9.5 fl (6.2-12.0); Monocyte# 0.38 X10^3/uL; Monocyte% 8.4 % (0-10); Neutrophil % 79.1 % (47-70); Platelet Count 107 K/mm3 (150-450); RBC Distribution Width CV 13.1 % (11.6-14.6); RBC Distribution Width SD 45.8 fl (35.1-43.9); Red Blood Count 3.86 M/mm3 (4.2-5.4); White Blood Count 4.6 K/mm3 (4.4-11.0)
[2018-11-23 14:39] LABS: Differential Indicated SCAN CRITERIA MET; POSITIVE COUNT NO; POSITIVE DIFFERENTIAL YES; POSITIVE MORPHOLOGY NO
--- NOTE | 2018-11-23 14:45 | RAD_ITS ---
STUDY: X-RAY CHEST REASON FOR EXAM: Female, 68 years old. Productive cough TECHNIQUE: Frontal and lateral views of the chest. COMPARISON: None. FINDINGS: The lungs are clear and expanded. There is no demonstrated pleural abnormality. Normal size heart. Normal mediastinum and john. Normal visualized pulmonary arteries. Normal visualized aortic arch and descending thoracic aorta. There are diffuse degenerative changes of the visualized thoracic spine. There is degenerative osteoarthritis of the bilateral shoulders. There is no demonstrated abnormality of the visualized soft tissue structures of the upper abdomen. RAD/Chest PA and Lateral IMPRESSION: Degenerative changes, as described above. No demonstrated acute cardiopulmonary process. Electronically Signed: Sondra Ballesteros, at 15:39 EDT Tel , Service support ,
--- NOTE | 2018-11-23 14:46 | ED.DCSUM_ITS ---
History of Present Illness Chief Complaint: Weakness Informant: Patient, Family Onset: Days Context: Sudden Onset Timing: Continuous Quality: Generalized weakness, cough Location: Generalized Current Severity: Mild Maximum Severity: Moderate Worsened by: Nothing Relieved by: Nothing Associated Symptoms: Rapid heart rate, low BP at PCPs office Narrative: Patient presents from PCPs office because of rapid heart rate and low blood pressure. She reports URI symptoms started 4-5 days ago. She is non-smoker. She has no history of asthma. Cough is productive of clear sputum. She denies headache, photophobia, neck pain or neck stiffness. She does report mild nasal congestion. Denies earache. She denies history of PE or DVT. She denies any risk factors. She denies leg pain, swelling discoloration. She does report history of fibromyalgia. She denies GI or symptoms. She denies rash. - Past Medical History (1) Arthritis Status: Chronic (2) Cataracts, bilateral Status: Chronic (3) Fibromyalgia Status: Chronic Past Medical History - Allergies and Home Meds Allergies/Adverse Reactions: Allergies Penicillins Allergy (Mild, Verified 11/23/18 13:53) Rash vancomycin HCl [From Vancocin] Allergy (Mild, Verified 11/23/18 13:53) Rash FLUSHING metoclopramide [From Reglan] Allergy (Verified 11/23/18 13:53) Other naproxen [From Naprosyn] Adverse Reaction (Verified 11/23/18 13:53) Rash NSAIDS (Non-Steroidal Anti-Inflamma Adverse Reaction (Verified 11/23/18 13:53) Rash Primary Care Physician: Radha Ferreira MD [Primary Care Provider] - Prior records reviewed: Yes Surgical History: appendectomy, cholecystectomy, - Lives: Spouse/ Significant Other Smoking Status: Never smoker Alcohol: None Drugs: None - Family History Maternal Family History: Family History (Last Reviewed 11/23/18 @ 13:22 by Jaquelin Arce) Mother Breast cancer, Onset Age: 60 Alcoholism Epilepsy Hyperlipemia Father Cancer Alcoholism Brother Alcoholism Daughter Thyroid disorder Family History: Reports: - Paternal Family History: Family History (Last Reviewed 11/23/18 @ 13:22 by Jaquelin Arce) Mother Breast cancer, Onset Age: 60 Alcoholism Epilepsy Hyperlipemia Father Cancer Alcoholism Brother Alcoholism Daughter Thyroid disorder Family History: Reports: - Review of Systems General: Denies: Chills, Fever, Sweats Eyes: Denies: Visual changes - bilaterally, Blurred Vision - bilaterally, Diplo kayden ENT: Reports: Rhinorrhea. Denies: Bilateral ear pain, Sore throat Cardiovascular: Denies: Chest pain, Palpitations Respiratory: Reports: Cough, Sputum. Denies: Dyspnea, Dyspnea on exertion Gastrointestinal: Denies: Abdominal pain, Nausea, Vomiting, Diarrhea, Melena, Hematochezia Genitourinary: Denies: Dysuria, Hematuria, Frequency Musculoskeletal: Reports: Myalgias. Denies: Arthralgias, Neck pain, Back pain, Extremity Pain Skin: Denies: Rash, Wounds Neurological: Denies: Headache, Weakness, Numbness Endocrine: Denies: Polyuria, Polydipsia Allergy: Denies: Uticaria, Swelling of the mouth Physical Exam Vital Signs/Narrative: Vital Signs Temp Pulse Resp BP Pulse Ox 11/23/18 13:54 98.4 F 92 17 133/72 H 97 General: Well nourished, Well developed, No Acute Distress Head: Normocephalic, Atraumatic Eyes: Perrl, EOMI ENT: Moist mucous membranes, No rhinorrhea Neck: Supple, Nontender Cardiovascular: Regular rate, Regular rhythm, No murmurs Respiratory: No distress, Chest nontender, Wheezing - Greater on the left than right, - - Slight increase in expiratory phase. Abdomen: Soft, Nontender, Nondistended, Normal bowel sounds Rectal: Deferred Back: Nontender, Normal Inspection Extremities: Nontender, No edema, - - There is no asymmetry, swelling, discoloration, leg vein distention, palpable cords or tenderness along the distribution of the deep venous system. Skin: Normal color, No rash Neurological: Alert, Oriented x3, Cranial nerves II-XII grossly intact, Normal Strength, Normal Sensation Psychological: Normal affect, Normal Mood Diagnostic/Tx/Re-eval Chest X-Ray - ED: 2 View, Read by ED Physician, Unchanged, Normal, Heart, Mediastinum, Bony Structures, No Acute Disease, Chronic Changes 11/23/18 14:45 Chest PA and Lateral [RAD] Stat Laboratory Results 11/23/18 11/23/18 14:25 14:25 WBC 4.6 RBC 3.86 L Hgb 12.5 Hct 37.2 MCV 96.4 MCH 32.4 H MCHC 33.6 RDW 13.1 RDW Differential 45.8 H Plt Count 107 L MPV 9.5 Immature Gran % (Auto) 0.000 Neut % (Auto) 79.1 H Lymph % (Auto) 11.6 L Ralls % (Auto) 8.4 Eos % (Auto) 0.7 Baso % (Auto) 0.2 Absolute Neuts (auto) 3.6 Absolute Lymphs (auto) 0.53 L Sodium 138 Potassium 3.9 Chloride 108 H Carbon Dioxide 27.0 Anion Gap 3 L BUN 16 Creatinine 0.99 Estim Creat Clear Calc 45.66 Est GFR (MDRD) Af Amer 71 Est GFR (MDRD) Non-Af 59 L BUN/Creatinine Ratio 16.1 Glucose 104 Calcium 8.6 - Rhythm Strip Rhythm Strip: Sinus Rhythm Rate: 92 Ectopy: None - EKG Initial EKG Interpretation: Sinus Rhythm - Ventricular rate 82 with normal WA interval, QRS duration, QT interval and axis. EKG is normal. - Medical Decision Making Patient was instructed how to use an albuterol metered-dose inhaler. Because she has wheezing with no history of wheezing and the wheezing is worse on the left versus right will obtain chest x-ray to evaluate for pneumonia. Baseline blood work was obtained. Vital signs in the department are normal. EKG was obtained and reveals a sinus rhythm rate of 82. With normal blood work, normal chest x-ray patient was instructed to use inhaler every 2-4 hours while awake for the next 2-3 days then every 4-6 hours as needed. ED Disposition - Plan for ED Patient: Disposition: Home or Assisted Living Diagnosis: Acute asthmatic bronchitis Instructions: ED Bronchitis Asthmatic Referrals: Radha Ferreira MD [Primary Care Provider] - 10-14 Days if not better Additional Instructions: 2 puffs of inhaler every 2-4 hours while awake for the next 2-3 days then every 4-6 hours as needed for shortness of breath or wheezing
[2018-11-23 14:47] LABS: Anion Gap 3 (5-15); BUN 16 mg/dL (7-18); BUN/Creat Ratio 16.1 RATIO (10-20); Calcium,Total 8.6 mg/dL (8.5-10.1); Chloride 108 mmol/L (98-107); Creatinine, Serum 0.99 mg/dL (0.55-1.02); EST Glomerular Filtration Rate 59 mL/min (>60); Est Glom Filt Rate - Afr Amer 71 mL/min (>60); Estimated Creatinine Clearance 45.66 ml/min; Glucose 104 mg/dL (74-106); Potassium 3.9 mmol/L (3.5-5.1); Sodium Level 138 mmol/L (136-145)
[2018-11-23 15:30] VITALS: BP 125/70; PULSE 85; RESP 16; O2SAT 97
== END 2018-11-23 15:30 | disposition home or self-care (01) ==
PROVIDERS: Emergency Provider Emergency Medicine; Family Provider Internal Medicine; PCP Internal Medicine
DX: J45.909 Unspecified asthma, uncomplicated (principal)
CPT/HCPCS: 71046; 80048; 85025; 93005; 94640; 99284; A4216

== ENCOUNTER → 2018-12-14 10:40 | Outpatient (CLI) | payer MEDICARE, OTHER, SELFPAY ==
[2018-09-03 11:59] VITALS: BMI 28.8
[2018-11-29 14:16] VITALS: BMI 29.8
--- NOTE | 2018-12-14 10:42 | BI_ITS ---
MAMMOGRAPHY - BILATERAL SCREENING REASON FOR EXAM: Female, 68 years old. Routine annual screening examination. PERTINENT HISTORY: Mother with breast cancer. TECHNIQUE: Digital bilateral breast say (3D mammographic acquisition) in the CC and MLO projections. 2-D mediolateral oblique (MLO) and craniocaudad (CC) views of both breasts were obtained. CAD: Full Field Digital Mammography with Computer Added Detection was performed. COMPARISON: Comparison is made with prior study dated December 11, 2017. FINDINGS: Breast Composition: The breasts are heterogeneously dense, which may obscure small masses. There are no dominant masses or suspicious calcifications. No other significant abnormalities are identified. There has been no significant change since the prior study. BI/SCREENING MAMM (CAD), BILAT IMPRESSION: Stable bilateral screening mammogram. Yearly follow-up mammogram recommended. (A) ASSESSMENT CATEGORY: BIRADS Category 1: Negative. A letter regarding these results will be sent to the patient by the facility within 30 days. Approximately 10% of breast cancers are not detected by mammography. A normal mammogram should not delay biopsy of a clinically suspicious abnormality. [id number] Electronically Signed: Dewayne Rodas, at 13:58 EDT , Service support ,
== END ==
PROVIDERS: Family Provider Internal Medicine; PCP Internal Medicine; Referring Provider Nurse Practitioner Women's Health; Visit Provider Nurse Practitioner Women's Health
DX: Z12.31 Encounter for screening mammogram for malignant neoplasm of breast (principal)
CPT/HCPCS: 77063; 77067

== ENCOUNTER → 2019-02-09 | Outpatient (CLI) | payer MEDICARE, OTHER, SELFPAY ==
[2019-01-25 11:01] VITALS: BMI 29.8
[2019-02-09 11:44] LABS: Cholesterol 204 mg/dL (200); High Density Lipoprotein 75 mg/dL; T4 Free Direct 1.07 ng/dL (0.76-1.46); Thyroid Stim Hormone (TSH) 2.36 uIU/mL (0.358-3.74); Triglycerides 73 mg/dL; Very Low Density Lipoprotein 15 mg/dL (5-40)
== END | disposition home or self-care (01) ==
LOC: MTLAB 10:12
PROVIDERS: Family Provider Internal Medicine; PCP Internal Medicine; Referring Provider Internal Medicine; Visit Provider Internal Medicine
DX: E03.9 Hypothyroidism, unspecified (principal)
CPT/HCPCS: 36415; 80061; 84439; 84443

== ENCOUNTER → 2019-03-29 | Outpatient (CLI) | payer MEDICARE, OTHER, SELFPAY ==
[2019-03-29 11:14] VITALS: BMI 29.8
--- NOTE | 2019-03-29 11:53 | RAD_ITS ---
STUDY: X-RAY CHEST REASON FOR EXAM: Female, 69 years old. Cough and shortness of breath TECHNIQUE: Single AP portable view of the chest. COMPARISON: 11/23/2018 FINDINGS: The lungs are clear and expanded. There is no demonstrated pleural abnormality. Normal size heart. Normal mediastinum and john. Normal visualized pulmonary arteries. Normal visualized aortic arch and descending thoracic aorta. Normal visualized thoracic spine. Normal visualized ribs, clavicles, and shoulders. There is no demonstrated abnormality of the visualized soft tissue structures of the upper abdomen. RAD/Chest 1 View IMPRESSION: No acute pulmonary process Electronically Signed: Ector Heredia MD at 13:07 EDT , Service support ,
== END | disposition home or self-care (01) ==
LOC: MTRAD 11:52
PROVIDERS: Family Provider Internal Medicine; PCP Internal Medicine; Referring Provider Internal Medicine; Visit Provider Internal Medicine
DX: R05 Cough (principal); R06.02 Shortness of breath
CPT/HCPCS: 71045

== ENCOUNTER → 2019-04-05 | Outpatient (CLI) | payer MEDICARE, OTHER, SELFPAY ==
[2019-03-29 11:14] VITALS: BMI 29.8
--- NOTE | 2019-04-07 07:46 | PFT ---
INTRODUCTION: The patient is a 69-year-old female that presents for pulmonary function studies secondary to a diagnosis of chronic cough. Respiratory therapy reports good patient effort. Bronchodilators were used during testing. INTERPRETATION: Forced expiration spirometry demonstrates no evidence of a large airways obstructive ventilatory defect. There was no significant response to aerosolized bronchodilators, based upon strict ATS criteria. Spirograms are of good quality and plateau normally. Body plethysmography was performed and reveals lung volumes to be within normal limits. Diffusing capacity by single breath CO is within normal limits. IMPRESSION: Normal spirometry, lung volumes and diffusing capacity.
== END | disposition home or self-care (01) ==
LOC: PSN 12:56
PROVIDERS: Family Provider Internal Medicine; PCP Internal Medicine; Referring Provider Internal Medicine; Visit Provider Internal Medicine
DX: R05 Cough (principal); R06.02 Shortness of breath
CPT/HCPCS: 94060; 94726; 94729

== ENCOUNTER → 2019-10-05 10:42 | Outpatient (CLI) | payer MEDICARE, OTHER, SELFPAY ==
[2019-10-05 10:11] VITALS: BMI 28.3
[2019-10-05 12:10] LABS: Hematocrit 39.1 % (37-47); Hemoglobin 13.1 g/dL (12.0-15.0); Mean Corp Hgb Conc 33.5 g/dL (32-36); Mean Corpuscular Hgb 32.7 pg (27.0-32.0); Mean Corpuscular Volume 97.5 fL (81-99); Mean Platelet Vol. 10.4 fl (6.2-12.0); Platelet Count 132 K/mm3 (150-450); RBC Distribution Width CV 12.4 % (11.6-14.6); Red Blood Count 4.01 M/mm3 (4.2-5.4); White Blood Count 2.9 K/mm3 (4.4-11.0)
[2019-10-05 12:37] LABS: Anion Gap 2 (5-15); BUN 19 mg/dL (7-18); BUN/Creat Ratio 19.3 RATIO (10-20); Calcium,Total 9.5 mg/dL (8.5-10.1); Chloride 106 mmol/L (98-107); Cholesterol 209 mg/dL (200); Creatinine, Serum 0.98 mg/dL (0.55-1.02); EST Glomerular Filtration Rate 59 mL/min (>60); Est Glom Filt Rate - Afr Amer 71 mL/min (>60); Glucose 91 mg/dL (74-106); High Density Lipoprotein 82 mg/dL; Magnesium 2.2 mg/dL (1.6-2.6); Potassium 4.5 mmol/L (3.5-5.1); Sodium Level 138 mmol/L (136-145); Thyroid Stim Hormone (TSH) 1.98 uIU/mL (0.358-3.74); Triglycerides 58 mg/dL; Very Low Density Lipoprotein 12 mg/dL (5-40)
== END ==
PROVIDERS: PCP Internal Medicine; Referring Provider Nurse Practitioner Family; Visit Provider Nurse Practitioner Family
DX: R05 Cough (principal); R25.2 Cramp and spasm; E03.9 Hypothyroidism, unspecified; E78.5 Hyperlipidemia, unspecified
CPT/HCPCS: 36415; 80048; 80061; 83735; 84443; 85027

== ENCOUNTER → 2019-12-17 10:43 | Outpatient (CLI) | payer MEDICARE, OTHER, SELFPAY ==
[2018-12-16 11:13] VITALS: BMI 29.8
[2019-10-05 10:46] VITALS: BMI 29.8
--- NOTE | 2019-12-17 10:44 | BI_ITS ---
MAMMOGRAPHY - BILATERAL SCREENING REASON FOR EXAM: Female, 69 years old. Routine annual screening examination. PERTINENT HISTORY: Mother with breast cancer. TECHNIQUE: Digital bilateral breast kaia (3D mammographic acquisition) in the CC and MLO projections. 2-D mediolateral oblique (MLO) and craniocaudad (CC) views of both breasts were obtained. CAD: Full Field Digital Mammography with Computer Added Detection was performed. COMPARISON: Comparison is made with prior study dated December 14, 2018 and December 12, 2007. FINDINGS: Breast Composition: The breasts are heterogeneously dense, which may obscure small masses. There are no dominant masses or suspicious calcifications. No other significant abnormalities are identified. There has been no significant change since the prior study. BI/SCREEN MAMM (CAD) W/KAIA BILAT IMPRESSION: Stable bilateral screening mammogram. Yearly follow-up mammogram recommended. (A) ASSESSMENT CATEGORY: BIRADS Category 1: Negative. A letter regarding these results will be sent to the patient by the facility within 30 days. Approximately 10% of breast cancers are not detected by mammography. A normal mammogram should not delay biopsy of a clinically suspicious abnormality. [id number] Electronically Signed: Dewayne Rodas, at 12:43 EDT , Service support ,
== END ==
PROVIDERS: Family Provider Internal Medicine; PCP Internal Medicine; Referring Provider Nurse Practitioner Women's Health; Visit Provider Nurse Practitioner Women's Health
DX: Z12.31 Encounter for screening mammogram for malignant neoplasm of breast (principal)
CPT/HCPCS: 77063; 77067

== ENCOUNTER → 2020-01-17 11:47 | Outpatient (CLI) | payer MEDICARE, OTHER, SELFPAY ==
[2020-01-17 10:25] VITALS: BMI 29.8
--- NOTE | 2020-01-17 11:53 | RAD_ITS ---
STUDY: X-RAY - LEFT FOOT CLINICAL: Female, 69 years old. Left foot pain, lump on the mid bottom of foot, getting worse TECHNIQUE: 3 view(s) of the foot. COMPARISON: None. FINDINGS: Normal talus, calcaneus, and tarsal bones. Normal visualized subtalar, talonavicular, calcaneocuboid, tarsal and tarsometatarsal articulations. Normal metatarsi. Normal metatarsophalangeal joint of the great toe. Normal tibial and fibular sesamoid bones. Normal interphalangeal joint of the great toe. Normal phalanges of the great toe. Normal second through fifth metatarsophalangeal joints. Normal interphalangeal joints and phalanges of the lesser toes. The soft tissue structures are unremarkable. RAD/Foot min 3 Views IMPRESSION: Normal x-ray examination of the foot. Electronically Signed: Dewayne Rodas, at 15:36 EDT , Service support ,
== END ==
PROVIDERS: PCP Internal Medicine; Referring Provider Internal Medicine; Visit Provider Internal Medicine
DX: M79.672 Pain in left foot (principal)
CPT/HCPCS: 73630

== ENCOUNTER → 2020-05-18 09:58 | Outpatient (CLI) | payer MEDICARE, OTHER, SELFPAY ==
[2020-05-02 11:13] VITALS: BMI 29.8
--- NOTE | 2020-05-18 10:01 | BD_ITS ---
STUDY: DUAL ENERGY X-RAY ABSORPTIOMETRY / DXA REASON FOR EXAM: Female, 70 years old. 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 COMPARISON: Comparison is made with prior study dated 03/13/2017. FINDINGS: Lumbar Spine (L1-L4): g/cm2 (1.239) / T-score (0.3) / Z-score (2.0) Findings are suggestive of normal bone density with a low fracture risk. Increased thoracic kyphosis. Left Femur Total: g/cm2 (0.893) / T-score (-0.9) / Z-score (0.7) Left Femoral Neck: g/cm2 (0.825) / T-score (-1.5) / Z-score (0.2) Right Femur Total: g/cm2 (0.873) / T-score (-1.1) / Z-score (0.5) Right Femoral Neck: g/cm2 (0.812) / T-score (-1.6) / Z-score (0.2) The T-Scores on the most recent prior examination were: Lumbar Spine (L1-L4): There has been improvement of bone density since the previous examination. Left Femur Total: which represents a worsening of 1.8%. Right Femur Total: which represents a worsening of 0.3%. BD/Dexa Bone Density Study IMPRESSION: The patient is considered osteopenic as outlined below according to World Philippe Organization (WHO) criteria with a moderate fracture risk. There has been worsening of bone density since the previous examination. Reference Information: The T-score is the number of standard deviations above or below the standard which is normal for young adults at their peak bone mineral density. The World Health Organization (WHO) interprets the T-scores as follows: Above -1 Normal bone density Between -1 and -2.5 Osteopenia Equal to / or below -2.5 Osteoporosis As a practical clinical guideline, osteopenia may be graded as follows: Mild -1 through -1.5 Moderate -1.6 through -2.0 Severe -2.1 through -2.4 The Z-score is the number of standard deviations above or below age-matched controls. A Z-score of less than -1.5 would be considered abnormal. References: 1. NIH Osteoporosis and Related Bone Diseases http://www.osteo.org 2. International Society for Clinical Densitometry http://www.iscd.org 3. National Osteoporosis Foundation http://www.nof.org Electronically Signed: Dewayne Rodas, at 12:42 EDT , Service support ,
== END ==
PROVIDERS: PCP Internal Medicine; Referring Provider Internal Medicine; Visit Provider Internal Medicine
DX: Z78.0 Asymptomatic menopausal state (principal)
CPT/HCPCS: 77080

== ENCOUNTER → 2020-07-11 14:29 | Outpatient (CLI) | payer MEDICARE, OTHER, SELFPAY ==
[2020-07-11 13:51] VITALS: BMI 30.2
[2020-07-11 15:43] LABS: Thyroid Stim Hormone (TSH) 1.74 uIU/mL (0.358-3.74)
== END ==
PROVIDERS: PCP Internal Medicine; Referring Provider Internal Medicine; Visit Provider Internal Medicine
DX: E03.9 Hypothyroidism, unspecified (principal)
CPT/HCPCS: 36415; 84443

== ENCOUNTER → 2020-07-26 12:37 | Outpatient (CLI) | payer MEDICARE, OTHER, SELFPAY ==
[2020-07-11 13:51] VITALS: BMI 30.2
== END ==
PROVIDERS: PCP Internal Medicine; Visit Provider Internal Medicine
DX: G47.30 Sleep apnea, unspecified (principal); G47.10 Hypersomnia, unspecified
CPT/HCPCS: 95806

== ENCOUNTER → 2020-10-09 14:08 | Outpatient (CLI) | payer MEDICARE, OTHER, SELFPAY | PROVIDERS: PCP Internal Medicine; Visit Provider Internal Medicine | CPT/HCPCS: 87635; U0005; U0003 ==

== ENCOUNTER → 2020-10-31 11:32 | Outpatient (CLI) | payer MEDICARE, OTHER, SELFPAY ==
[2020-10-31 11:07] VITALS: BMI 30.9
[2020-10-31 12:52] LABS: Absolute Lymphocyte Count 0.68 X10^3/uL (0.83-4.51); Absolute Neutrophil Count 2.8 X10^3/uL (2.0-7.7); Basophil# 0.02 X10^3/uL; Basophil% 0.5 % (0-1); Eosinophil# 0.06 X10^3/uL; Eosinophils% 1.6 % (0-5); Hematocrit 37.2 % (37-47); Hemoglobin 12.3 g/dL (12.0-15.0); Lymphocyte # 0.68 X10^3/ul (4.0); Lymphocyte % 17.6 % (19-41); Mean Corp Hgb Conc 33.1 g/dL (32-36); Mean Corpuscular Hgb 32.2 pg (27.0-32.0); Mean Corpuscular Volume 97.4 fL (81-99); Mean Platelet Vol. 10.7 fl (6.2-12.0); Monocyte# 0.29 X10^3/uL; Monocyte% 7.5 % (0-10); NRBC Flagged by Analyzer 0 % (0-5); Neutrophil # 2.78 X10^3/uL (2.7-7.7); Platelet Count 137 K/mm3 (150-450); RBC Distribution Width CV 12.5 % (11.6-14.6); RBC Distribution Width SD 44.2 fl (35.1-43.9); Red Blood Count 3.82 M/mm3 (4.2-5.4); White Blood Count 3.9 K/mm3 (4.4-11.0)
[2020-10-31 13:19] LABS: ALB/GLOB Ratio 0.9 RATIO (0.9-2.4); AST(SGOT) 24 U/L (15-37); Alanine Aminotransfer ALT/SGPT 30 U/L (13-56); Albumin, Serum 3.4 g/dL (3.2-5.0); Alkaline Phosphatase 76 U/L (45-117); Anion Gap 4 (5-15); BUN 22 mg/dL (7-18); BUN/Creat Ratio 23.2 RATIO (10-20); Calcium,Total 9.4 mg/dL (8.5-10.1); Chloride 107 mmol/L (98-107); Cholesterol 198 mg/dL (200); Creatinine, Serum 0.95 mg/dL (0.55-1.02); EST Glomerular Filtration Rate 61 mL/min (>60); Est Glom Filt Rate - Afr Amer 74 mL/min (>60); Globulin 3.9 g/dL (2.2-4.2); Glucose 92 mg/dL (74-106); High Density Lipoprotein 78 mg/dL; Potassium 4.6 mmol/L (3.5-5.1); Protein, Total 7.3 g/dL (6.4-8.2); Sodium Level 141 mmol/L (136-145); Triglycerides 78 mg/dL; Very Low Density Lipoprotein 16 mg/dL (5-40)
== END ==
PROVIDERS: PCP Internal Medicine; Referring Provider Internal Medicine; Visit Provider Internal Medicine
DX: E03.9 Hypothyroidism, unspecified (principal); G47.33 Obstructive sleep apnea (adult) (pediatric)
CPT/HCPCS: 36415; 80053; 80061; 85025

== ENCOUNTER 2020-11-06 11:23 | Outpatient (RCR) | payer MEDICARE, OTHER, SELFPAY ==
[2020-10-31 11:07] VITALS: BMI 30.9
== END 2020-11-06 23:59 ==
LOC: IMMUN 11:23
PROVIDERS: PCP Internal Medicine; Visit Provider Family Medicine
DX: Z23 Encounter for immunization (principal)
CPT/HCPCS: 0011A; 0012A

== ENCOUNTER → 2021-01-02 12:17 | Outpatient (CLI) | payer MEDICARE, OTHER, SELFPAY ==
[2020-11-29 13:43] VITALS: BMI 30.4
--- NOTE | 2021-01-02 12:19 | BI_ITS ---
MAMMOGRAPHY - BILATERAL SCREENING REASON FOR EXAM: Female, 70 years old. Routine annual screening examination. PERTINENT HISTORY: Mother with breast cancer. TECHNIQUE: Digital bilateral breast kaia (3D mammographic acquisition) in the CC and MLO projections. 2-D mediolateral oblique (MLO) and craniocaudad (CC) views of both breasts were obtained. CAD: Full Field Digital Mammography with Computer Added Detection was performed. COMPARISON: Comparison is made with prior study dated 12/17/2019 and 12/14/2018. FINDINGS: Breast Composition: The breasts are heterogeneously dense, which may obscure small masses. There are no dominant masses or suspicious calcifications. No other significant abnormalities are identified. There has been no significant change since the prior study. BI/SCRN MAMM (CAD)W/KAIA BILAT IMPRESSION: Stable bilateral screening mammogram. Yearly follow-up mammogram recommended. (A) ASSESSMENT CATEGORY: BIRADS Category 1: Negative. A letter regarding these results will be sent to the patient by the facility within 30 days. Approximately 10% of breast cancers are not detected by mammography. A normal mammogram should not delay biopsy of a clinically suspicious abnormality. [id number] Electronically Signed: Dewayne Rodas MD at 13:07 EDT , Service support ,
== END ==
PROVIDERS: PCP Internal Medicine; Referring Provider Nurse Practitioner Women's Health; Visit Provider Nurse Practitioner Women's Health
DX: Z12.31 Encounter for screening mammogram for malignant neoplasm of breast (principal)
CPT/HCPCS: 77063; 77067

== ENCOUNTER → 2021-01-30 14:29 | Outpatient (CLI) | payer MEDICARE, OTHER, SELFPAY ==
[2021-01-30 13:35] VITALS: BMI 30.4
--- NOTE | 2021-01-30 14:32 | RAD_ITS ---
STUDY: X-RAY - PELVIS AND BILATERAL HIPS REASON FOR EXAM: Female, 70 years old. Bilateral Hip Pain TECHNIQUE: AP view of the pelvis.? 2 views of the right hip, and 2 views of the left hip were obtained. COMPARISON: None. FINDINGS: There is a non-specific bowel gas pattern. Normal visualized soft tissue structures. Normal bilateral iliac wings, sacroiliac joints and visualized sacrum. Normal bilateral superior and inferior pubic rami. Normal pubic symphysis. Normal bilateral ischial tuberosities. Normal visualized right femoral head. Normal right acetabulum. Normal right hip joint. Normal visualized left femoral head. Normal left acetabulum. Normal left hip joint. RAD/Hips B/L min 2 views w/ Pelvis IMPRESSION: Normal x-ray examination of the pelvis and bilateral hips. Electronically Signed: Tony Hagen MD at 8:47 EDT Tel , Service support ,
[2021-01-30 17:37] LABS: Absolute Lymphocyte Count 0.78 X10^3/uL (0.83-4.51); Absolute Neutrophil Count 2.6 X10^3/uL (2.0-7.7); Basophil# 0.01 X10^3/uL; Basophil% 0.3 % (0-1); Eosinophil# 0.04 X10^3/uL; Eosinophils% 1.1 % (0-5); Hematocrit 36.6 % (37-47); Hemoglobin 12.2 g/dL (12.0-15.0); Lymphocyte # 0.78 X10^3/ul (0.83-4.51); Lymphocyte % 21.2 % (19-41); Mean Corp Hgb Conc 33.3 g/dL (32-36); Mean Corpuscular Hgb 32.4 pg (27.0-32.0); Mean Corpuscular Volume 97.3 fL (81-99); Mean Platelet Vol. 10.1 fl (6.2-12.0); Monocyte# 0.29 X10^3/uL; Monocyte% 7.9 % (0-10); NRBC Flagged by Analyzer 0 % (0-5); Neutrophil # 2.55 X10^3/uL (2.7-7.7); Neutrophil % 69.2 % (47-70); Platelet Count 132 K/mm3 (150-450); RBC Distribution Width CV 12.9 % (11.6-14.6); RBC Distribution Width SD 46.1 fl (35.1-43.9); Red Blood Count 3.76 M/mm3 (4.2-5.4); White Blood Count 3.7 K/mm3 (4.4-11.0)
== END ==
PROVIDERS: PCP Internal Medicine; Referring Provider Internal Medicine; Visit Provider Internal Medicine
DX: M19.90 Unspecified osteoarthritis, unspecified site (principal); D61.818 Other pancytopenia; E03.9 Hypothyroidism, unspecified
CPT/HCPCS: 36415; 73521; 85025

== ENCOUNTER → 2021-03-07 16:55 | Outpatient (CLI) | payer MEDICARE, OTHER, SELFPAY ==
[2021-02-28 11:02] VITALS: BMI 30.4
--- NOTE | 2021-03-07 16:56 | RAD_ITS ---
STUDY: X-RAY - LEFT FOOT CLINICAL: Female, 71 years old. injury TECHNIQUE: 3 view(s) of the foot. COMPARISON: None. FINDINGS: Normal talus, calcaneus, and tarsal bones. Normal visualized subtalar, talonavicular, calcaneocuboid, tarsal and tarsometatarsal articulations. Normal metatarsi. Normal metatarsophalangeal joint of the great toe. Normal tibial and fibular sesamoid bones. Normal interphalangeal joint of the great toe. Normal phalanges of the great toe. Normal second through fifth metatarsophalangeal joints. Normal interphalangeal joints and phalanges of the lesser toes. The soft tissue structures are unremarkable. RAD/Foot min 3 Views IMPRESSION: Normal x-ray examination of the foot. Electronically Signed: Tony Hagen MD at 17:18 EDT Tel , Service support ,
--- NOTE | 2021-03-07 16:56 | RAD_ITS ---
STUDY: X-RAY - LEFT ANKLE REASON FOR EXAM: Female, 71 years old. injury TECHNIQUE: 3 view(s) of the ankle. COMPARISON: None. FINDINGS: Normal visualized distal tibia and fibula. Normal medial and lateral malleoli. Normal tibiotalar articulation and ankle mortise. Normal visualized talus and calcaneus. The visualized subtalar, talonavicular, calcaneocuboid and tarsal articulations are normal. The soft tissue structures are unremarkable. RAD/Ankle min 3 Views IMPRESSION: Normal x-ray examination of the ankle. Electronically Signed: Tony Hagen MD at 17:17 EDT Tel , Service support ,
== END ==
PROVIDERS: PCP Internal Medicine; Referring Provider Physician Assistant; Visit Provider Physician Assistant
DX: S99.912A Unspecified injury of left ankle, initial encounter (principal); S99.922A Unspecified injury of left foot, initial encounter
CPT/HCPCS: 73610; 73630

== ENCOUNTER 2021-09-13 05:29 | Day surgery (SDC) | payer MEDICARE, OTHER, SELFPAY ==
[2021-09-13 05:47] VITALS: BP 127/68; PULSE 70; RESP 16; TEMP 36.6; O2SAT 100; BMI 29.7
--- NOTE | 2021-09-13 06:30 | EGD_PTH ---
PATIENT: ALVINA REYES LOC: EN U#:[id number] AGE/SX: 71/F ROOM: RE09/13/[address]: Dr. Shakeel Barboza DO : 1950 BED: DIS: 09/13/2021 SPEC #: [id number] RECD: 09/13/21 12:53 STATUS: MONICA REOli #: [id number] BHAVNA: 09/13/21 06:[address]: Shakeel Barboza DEPT: SURGICAL PATHOLOGY RECD BY: Herminia Conroy ENTERED: 09/13/21 13:37 SP TYPE: EGD BIOPSY OT DR: Dr. Radha Ferreira MD Tissues: A - Duodenum, NOS B - Gastric mucous membrane C - Esophagus, NOS D - Sigmoid colon biopsy Procedures: Special Stain Group II Surgery Specimen Level IV Alcian Blue/PAS (control) HEADER OPERATION: Colonoscopy, E[place] [place] DIAGNOSIS: Constipation, IBS, GERD TISSUE SUBMITTED: A ? Duodenum biopsy, B ? Antrum biopsy for H. pylori and path, C ? Distal esophagus biopsy, D ? Sigmoid colon biopsy MICROSCOPIC DIAGNOSIS A. Duodenum, biopsy: No pathologic change. B. Gastric antrum, biopsy: Chronic gastritis. See comment. C. 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 No evidence of dysplasia. See comment. D. Sigmoid colon, biopsy: Minimal focal ischemic type change. AM:margo 09/14/2021 COMMENT B. The results of immunohistochemistry for Helicobacter pylori will be reported separately ([id number]). C. Alcian blue/PAS stain with matched control supports the above diagnosis. Immunohistochemistry ([id number]) for P53 and Ki-67 will be performed and results will be reported separately. MICROSCOPIC DESCRIPTION Slides are reviewed. GROSS DESCRIPTION A - Received in fixative is one container labeled with the patient's name and designated duodenum biopsy. The specimen consists of multiple irregular fragments of light rincon soft tissue that in aggregate measure 0.7 x 0.3 x 0.1 cm. The specimen is totally submitted in one cassette. B - Received in fixative is one container labeled with the patient's name and designated antrum biopsy. The specimen consists of multiple irregular fragments of light rincon soft tissue that in aggregate measure 1 x 0.3 x 0.1 cm. The specimen is totally submitted in one cassette. C - Received in fixative is one container labeled with the patient's name and designated distal esophagus biopsy. The specimen consists of multiple irregular fragments of light rincon soft tissue that in aggregate measure 0.7 x 0.3 x 0.1 cm. The specimen is totally submitted in one cassette. D - Received in fixative is one container labeled with the patient's name and designated sigmoid colon biopsy. The specimen consists of multiple irregular fragments of light rincon soft tissue that in aggregate measure 1.3 x 0.5 x 0.1 cm. The specimen is totally submitted in one cassette. / AM:margo 09/13/21 TC:3 CPT: 59523 x4, 72316
--- NOTE | 2021-09-13 06:30 | IMM_PTH ---
PATIENT: ALVINA REYES LOC: EN U#:[id number] AGE/SX: 71/F ROOM: RE09/13/[address]: Dr. Shakeel Barboza DO : 1950 BED: DIS: 09/13/2021 SPEC #: [id number] RECD: 09/13/21 14:25 STATUS: MONICA REQ #: [id number] BHAVNA: 09/13/21 06:[address]: Shakeel Barboza DEPT: IMMUNOHISTOCHEMISTRY RECD BY: Jannie Sutton ENTERED: 09/13/21 14:26 SP TYPE: IMMUNO OTHR DR: Dr. Radha Ferreira MD Tissues: B - Stomach, NOS C - Esophagus, NOS Procedures: H Pylori (initial) P53 (initial) KI-67 (add) PHYSICIAN & INSTITUTION [place] [address] SPECIMEN INFORMATION: Tissue Source: B ? Antrum biopsy, C ? Distal esophagus biopsy Clinical Info: Constipation, GERD, IBS Specimen Number: [id number] B & C CPT code: 52307 x2, 91709 METHODOLOGY: Deparaffinized sections of prefer/formalin-fixed tissue or PAP/DQ stained slides are incubated with monoclonal/polyclonal antibodies/oligonucleotide probes. Localization is made via biotin free immunoperoxidase method. Appropriate controls are performed and reacted as expected. Results on target cell population are indicated in the following table: RESULTS: ANTIBODY / CLONE RESULT Block B H Pylori (polyclonal) negative Block C P53 (DO-7) negative Ki-67 (30-9) positive, low These tests were developed and their performance characteristics determined by [facility]. They may not have been cleared or approved by the U.S. Food and Drug Administration. The FDA has determined that such clearance or approval is not necessary. The above immunohistochemical/dualISH markers are ordered and reviewed by the pathologist. INTERPRETATION: B. Antrum biopsy: Negative for Helicobacter pylori organisms. C. Distal esophagus, biopsy: No evidence of dysplasia. AM:margo 09/17/2021
--- NOTE | 2021-09-13 06:39 | PCM.HP.BLA ---
History and Physical Date of Admission: 09/13/21 71 F who presents to the office today for worsening abdominal pain and worsening constipation. She also has a history of gastroesophageal reflux disease. His esophageal dysphagia.. She denies any weakness. She denies any vomiting. She has been having difficulty with constipation for many years with previous diagnosis of IBS with no treatment. In the last three weeks she has been having difficulty with constipation, bloating and upset stomach with nausea and an inability to have BM due to constipation. [place] like her whole colon was sore. PCP had her start Miralax QD or QOD. BM with Miralax is not consistent. Previously seen by Doug Esparza of [facility] for GERD being controlled with omeprazole, bloating, constipation with use of Miralax PRN. Reported history of IBS. Xray of hip/pelvis 01/30/21 for bilateral hip pain showed non-specific bowel gas pattern. Last colonoscopy 2012 with reports of polyps. ROS Gastro GI: Positive for abdominal pain, bloating, change in bowel habits and constipation Exam Const General: cooperative and comfortable Nutritional Appearance: average body habitus and well nourished HENMT Head: normal to inspection Ears: hearing grossly normal bilaterally Nose: external nose normal Face and sinus: normal facial exam Mouth: oral mucosae normal Throat: posterior oropharynx normal Eyes General: appearance normal, both eyes and all related structures Neck Neck: normal visual inspection Chest Chest palpation & inspection: normal inspection of the chest and normal palpation of entire chest wall Resp Effort & Inspection: normal respiratory effort Auscultation: Bilateral: Clear to Auscultation Cardio Palpation: normal PMI Rate: regular rate Rhythm: regular rhythm GI Inspection: normal to inspection Auscultation: normal bowel sounds Percussion: normal to percussion Palpation: no hepatosplenomegaly Skin General: no rashes or lesions noted Neuro General: patient alert Extrem General: normal to inspection Psych Affect: normal affect Quality Reporting Tobacco Screening ([facility]) Smoking Status: Never smoker Assessment and Plan Assessment and Plan (1) Constipation: Status: Acute (2) IBS (irritable bowel syndrome): Status: Acute Plan - Dr. Beckford Friend, DO: At this time I think she is having a lot of IBS symptoms secondary to her being constipated. However there is a possibility that she has some underlying inflammation:, Small bowel or stomach. We will evaluate her upper and lower GI tract to make sure everything is okay. She may also have to get treated for small bacterial overgrowth or another most likely functional reason for abdominal pain. (3) GERD (gastroesophageal reflux disease): Status: Acute Plan - Dr. Beckford Friend, DO: We will continue her current medication regimen until she undergoes upper endoscopy. I have re-examined the patient. There are no clinical changes since date of exam.
[2021-09-13 07:20] VITALS: BP 119/59; BP 127/68; PULSE 56; RESP 16; TEMP 36.3; O2SAT 100
--- NOTE | 2021-09-13 07:21 | OP.EGD_ITS ---
Patient Name: Consuelo Davies Procedure Date: 09/13/2021 6:27 AM Date of : 1950 Age: 71 Procedure: Upper GI endoscopy Indications: Epigastric abdominal pain Providers: Shakeel Barboza DO Medicines: See the Anesthesia note for documentation of the administered medications Patient Profile: This is a 71 year old female. Refer to note in patient chart for documentation of history and physical. Patient has symptoms of acute abdominal cramping and acute epigastric abdominal pain. Complications: No immediate complications. Procedure: Pre-Anesthesia Assessment: - Prior to the procedure, a History and Physical was performed, and patient medications and allergies were reviewed. The patient is competent. The risks and benefits of the procedure and the sedation options and risks were discussed with the patient. All questions were answered and informed consent was obtained. Patient identification and proposed procedure were verified by the physician in the pre-procedure area. Mental Status Examination: alert and oriented. Airway Examination: normal oropharyngeal airway and neck mobility. Respiratory Examination: clear to auscultation. CV Examination: normal. Prophylactic Antibiotics: The patient does not require prophylactic antibiotics. Prior Anticoagulants: The patient has taken no previous anticoagulant or antiplatelet agents. After reviewing the risks and benefits, the patient was deemed in satisfactory condition to undergo the procedure. The anesthesia plan was to use moderate sedation / analgesia (conscious sedation). Immediately prior to administration of medications, the patient was re-assessed for adequacy to receive sedatives. The heart rate, respiratory rate, oxygen saturations, blood pressure, adequacy of pulmonary ventilation, and response to care were monitored throughout the procedure. The physical status of the patient was re-assessed after the procedure. After obtaining informed consent, the endoscope was passed under direct vision. Throughout the procedure, the patient's blood pressure, pulse, and oxygen saturations were monitored continuously. The colonoscope was introduced through the mouth, and advanced to the second part of duodenum. The upper GI endoscopy was accomplished without difficulty. The patient tolerated the procedure well. Moderate Sedation: Moderate (conscious) sedation was administered by the endoscopy nurse and supervised by the endoscopist. The patient's oxygen saturation, heart rate, blood pressure and response to care were monitored. Total physician intraservice time was 15 minutes. Scope In: 6:47:10 AM Scope Out: 6:52:44 AM Total Procedure Duration Time 0 hours 5 minutes 34 seconds Findings: LA Grade A (one or more mucosal breaks less than 5 mm, not extending between tops of 2 mucosal folds) esophagitis with no bleeding was found 34 to 36 cm from the incisors. Biopsies were taken with a cold forceps for histology. Verification of patient identification for the specimen was done. Estimated blood loss was minimal. Patchy erythematous mucosa without bleeding was found in the gastric antrum. Biopsies were taken with a cold forceps for histology. The second portion of the duodenum was normal. Biopsies were taken with a cold forceps for histology. Verification of patient identification for the specimen was done. Estimated blood loss was minimal. Impression: - LA Grade A reflux esophagitis. Biopsied. - Erythematous mucosa in the antrum. Biopsied. - Normal second portion of the duodenum. Biopsied. Recommendation: - Discharge patient to home. - Resume previous diet. - Continue present medications. - Await pathology results. - Return to my office in 2 weeks. Procedure Code(s): --- Professional --- 97360, Esophagogastroduodenoscopy, flexible, transoral; with biopsy, single or multiple 22016, 59, Moderate sedation services provided by the same physician or other qualified health customer care team coach performing the diagnostic or therapeutic service that the sedation supports, requiring the presence of an independent trained observer to assist in the monitoring of the patient's level of consciousness and physiological status; initial 15 minutes of intraservice time, patient age 5 years or older CPT copyright 2017 [employer] [employer]. All rights reserved. The codes documented in this report are preliminary and upon typesetting supervisor review may be revised to meet current compliance requirements. Shakeel Barboza DO 09/13/2021 7:20:31 AM This report has been signed electronically. Number of Addenda: 1 Note Initiated On: 09/13/2021 6:27 AM Addendum Number: 1 Addendum Date: 05/16/2022 6:07:37 AM MAC was used instead of moderate sedation for the patient. Shakeel Barboza DO 05/16/2022 6:07:45 AM This report has been signed electronically.
--- NOTE | 2021-09-13 07:21 | OP.CCLET_ITS ---
05/16/2022 Radha Ferreira MD [address] [place] [address] [place] [address] Re : Upper GI endoscopy procedure for Consuelo Davies Dear Dr. Ferreira This procedure was performed on September. My impressions and recommendations are as follows: Impressions : - LA Grade A reflux esophagitis. Biopsied. - Erythematous mucosa in the antrum. Biopsied. - Normal second portion of the duodenum. Biopsied. Recommendations : - Discharge patient to home. - Resume previous diet. - Continue present medications. - Await pathology results. - Return to my office in 2 weeks. My findings are described in the full procedure note, which is enclosed. If I can be of further assistance, please feel free to contact me at . Sincerely, Shakeel Barboza, 09/13/2021 7:20:31 AM This report has been signed electronically.
[2021-09-13 07:25] VITALS: BP 127/68; BP 130/55; PULSE 65; RESP 16; O2SAT 100
[2021-09-13 07:30] VITALS: BP 127/68; BP 136/70; PULSE 66; RESP 16; O2SAT 100
--- NOTE | 2021-09-13 07:33 | OP.COLON_ITS ---
Patient Name: Consuelo Davies Procedure Date: 09/13/2021 6:53 AM Date of : 1950 Age: 71 Procedure: Colonoscopy Indications: Abdominal pain in the left lower quadrant, Incidental change in bowel habits noted, Incidental constipation noted Providers: Shakeel Barboza DO Patient Profile: This is a 71 year old female. Refer to note in patient chart for documentation of history and physical. Patient has symptoms of acute abdominal cramping and acute epigastric abdominal pain. Last Colonoscopy: several years ago. Complications: No immediate complications. Procedure: Pre-Anesthesia Assessment: - Prior to the procedure, a History and Physical was performed, and patient medications and allergies were reviewed. The patient is competent. The risks and benefits of the procedure and the sedation options and risks were discussed with the patient. All questions were answered and informed consent was obtained. Patient identification and proposed procedure were verified by the physician in the pre-procedure area. Mental Status Examination: alert and oriented. Airway Examination: normal oropharyngeal airway and neck mobility. Respiratory Examination: clear to auscultation. CV Examination: normal. Prophylactic Antibiotics: The patient does not require prophylactic antibiotics. Prior Anticoagulants: The patient has taken no previous anticoagulant or antiplatelet agents. After reviewing the risks and benefits, the patient was deemed in satisfactory condition to undergo the procedure. The anesthesia plan was to use moderate sedation / analgesia (conscious sedation). Immediately prior to administration of medications, the patient was re-assessed for adequacy to receive sedatives. The heart rate, respiratory rate, oxygen saturations, blood pressure, adequacy of pulmonary ventilation, and response to care were monitored throughout the procedure. The physical status of the patient was re-assessed after the procedure. After I obtained informed consent, the scope was passed under direct vision. Throughout the procedure, the patient's blood pressure, pulse, and oxygen saturations were monitored continuously. The colonoscope was introduced through the anus and advanced to the terminal ileum. The colonoscopy was performed without difficulty. The patient tolerated the procedure well. The quality of the bowel preparation was adequate. Moderate Sedation: Moderate (conscious) sedation was administered by the endoscopy nurse and supervised by the endoscopist. The patient's oxygen saturation, heart rate, blood pressure and response to care were monitored. Total physician intraservice time was 15 minutes. Scope In: 6:55:42 AM Scope Withdrawal Time 0 hours 15 minutes 38 seconds Scope Out: 7:15:50 AM Total Procedure Duration Time 0 hours 20 minutes 8 seconds Findings: The perianal and digital rectal examinations were normal. Multiple small and large-mouthed diverticula were found in the recto-sigmoid colon, sigmoid colon and descending colon. Erythema was seen in association with the diverticular opening. Lisy-diverticular erythema was seen. There was evidence of an impacted diverticulum. Biopsies were taken with a cold forceps for histology. Verification of patient identification for the specimen was done. Estimated blood loss was minimal. Impression: - Moderate diverticulosis in the recto-sigmoid colon, in the sigmoid colon and in the descending colon. Erythema was seen in association with the diverticular opening. Lisy-diverticular erythema was seen. There was evidence of an impacted diverticulum. Biopsied. Recommendation: - Discharge patient to home. - High fiber diet for 4 weeks. - Cipro (ciprofloxacin) 250 mg PO BID for 7 weeks. - Flagyl (metronidazole) 250 mg PO TID for 7 weeks. - Continue present medications. - Repeat colonoscopy in 5 years for surveillance based on pathology results. - Return to GI office in 2 weeks. Procedure Code(s): --- Professional --- 62921, Colonoscopy, flexible; with biopsy, single or multiple 65442, 59, Moderate sedation services provided by the same physician or other qualified health career center director performing the diagnostic or therapeutic service that the sedation supports, requiring the presence of an independent trained observer to assist in the monitoring of the patient's level of consciousness and physiological status; initial 15 minutes of intraservice time, patient age 5 years or older CPT copyright 2017 [employer]. All rights reserved. The codes documented in this report are preliminary and upon roof tiler review may be revised to meet current compliance requirements. Shakeel Barboza DO 09/13/2021 7:33:05 AM This report has been signed electronically. Number of Addenda: 1 Note Initiated On: 09/13/2021 6:53 AM Addendum Number: 1 Addendum Date: 05/16/2022 6:07:55 AM MAC was used instead of moderate sedation for the patient. Shakeel Barboza DO 05/16/2022 6:07:59 AM This report has been signed electronically.
--- NOTE | 2021-09-13 07:34 | OP.CCLET_ITS ---
05/16/2022 Radha Ferreira MD [address] [place] [address] [place] [address] Re : Colonoscopy procedure for Consuelo Davies Dear Dr. Ferreira This procedure was performed on September. My impressions and recommendations are as follows: Impressions : - Moderate diverticulosis in the recto-sigmoid colon, in the sigmoid colon and in the descending colon. Erythema was seen in association with the diverticular opening. Lisy-diverticular erythema was seen. There was evidence of an impacted diverticulum. Biopsied. Recommendations : - Discharge patient to home. - High fiber diet for 4 weeks. - Cipro (ciprofloxacin) 250 mg PO BID for 7 weeks. - Flagyl (metronidazole) 250 mg PO TID for 7 weeks. - Continue present medications. - Repeat colonoscopy in 5 years for surveillance based on pathology results. - Return to GI office in 2 weeks. My findings are described in the full procedure note, which is enclosed. If I can be of further assistance, please feel free to contact me at . Sincerely, Shakeel Barboza, 09/13/2021 7:33:05 AM This report has been signed electronically.
[2021-09-13 07:35] VITALS: BP 127/68; BP 145/67; PULSE 67; RESP 16; TEMP 36.1; O2SAT 100
[2021-09-13 08:15] VITALS: BP 127/68
== END 2021-09-13 23:59 | disposition home or self-care (01) ==
LOC: EN 05:32 → AC 05:33
PROVIDERS: PCP Internal Medicine; Referring Provider Internal Medicine; Visit Provider Internal Medicine Gastroenterology
PROC: 0DJD8ZZ Inspection of Lower Intestinal Tract, Via Natural or Artificial Opening Endoscopic (ICD-10-PCS; CPT 45378; principal; 2021-09-13 06:25)
DX: K21.00 Gastro-esophageal reflux disease with esophagitis, without bleeding (principal); K22.70 Barrett's esophagus without dysplasia; K57.30 Diverticulosis of large intestine without perforation or abscess without bleeding; K29.50 Unspecified chronic gastritis without bleeding; K58.1 Irritable bowel syndrome with constipation; R19.4 Change in bowel habit; E03.9 Hypothyroidism, unspecified; M19.90 Unspecified osteoarthritis, unspecified site; M79.7 Fibromyalgia; Z79.899 Other long term (current) drug therapy
CPT/HCPCS: 45380; 43239; 88305; 88313; 88341; 88342; J7120; J2405

== ENCOUNTER 2021-12-03 16:03 | Outpatient (CLI) | payer MEDICARE, OTHER, SELFPAY ==
--- NOTE | 2021-12-03 16:08 | RAD_ITS ---
STUDY: XR Shoulder Min 2 Views REASON FOR EXAM: Female, 71 years old. PAIN TECHNIQUE: XR Shoulder Min 2 Views LEFT COMPARISON: None. FINDINGS: Normal glenohumeral articulation. Normal acromioclavicular joint. Normal acromion. Normal humeral head and visualized proximal humerus. The soft tissue structures are unremarkable. Normal visualized pulmonary apex. RAD/Shoulder min 2 Views IMPRESSION: There are no acute findings of the shoulder. Electronically Signed: Edy Pascual MD at 16:25 EDT ,
== END 2021-12-03 23:59 | disposition home or self-care (01) ==
LOC: MTRAD 16:04
PROVIDERS: PCP Internal Medicine; Referring Provider Internal Medicine; Visit Provider Internal Medicine
DX: M25.512 Pain in left shoulder (principal)
CPT/HCPCS: 73030

== ENCOUNTER → 2022-01-03 | Outpatient (CLI) | payer MEDICARE, OTHER, SELFPAY ==
--- NOTE | 2022-01-03 12:01 | BI_ITS ---
MAMMOGRAPHY - BILATERAL SCREENING REASON FOR EXAM: Female, 71 years old. Routine annual screening examination. PERTINENT HISTORY: Mother with breast cancer. TECHNIQUE: Digital bilateral breast kaia (3D mammographic acquisition) in the CC and MLO projections. 2-D mediolateral oblique (MLO) and craniocaudad (CC) views of both breasts were obtained. CAD: Full Field Digital Mammography with Computer Added Detection was performed. COMPARISON: Comparison is made with prior study dated 01/02/2021 and 12/17/2019. FINDINGS: Breast Composition: The breasts are heterogeneously dense, which may obscure small masses. There are no dominant masses or suspicious calcifications. No other significant abnormalities are identified. There has been no significant change since the prior study. BI/SCRN MAMM (CAD)W/KAIA BILAT IMPRESSION: Stable bilateral screening mammogram. Yearly follow-up mammogram recommended. (A) ASSESSMENT CATEGORY: BIRADS Category 1: Negative. A letter regarding these results will be sent to the patient by the facility within 30 days. Approximately 10% of breast cancers are not detected by mammography. A normal mammogram should not delay biopsy of a clinically suspicious abnormality. [id number] Electronically Signed: Dewayne Rodas MD at 13:10 EDT ,
== END | disposition home or self-care (01) ==
LOC: OPBI 12:00
PROVIDERS: PCP Internal Medicine; Visit Provider Nurse Practitioner Women's Health
DX: Z12.31 Encounter for screening mammogram for malignant neoplasm of breast (principal)
CPT/HCPCS: 77063; 77067

== ENCOUNTER → 2022-01-14 | Outpatient (CLI) | payer MEDICARE, OTHER, SELFPAY ==
[2022-01-14 14:04] LABS: Absolute Lymphocyte Count 0.59 X10^3/uL (0.83-4.51); Absolute Neutrophil Count 1.5 X10^3/uL (2.0-7.7); Basophil# 0.01 X10^3/uL; Basophil% 0.4 % (0-1); Eosinophil# 0.08 X10^3/uL; Eosinophils% 3.3 % (0-5); Hematocrit 37.9 % (37-47); Hemoglobin 12.5 g/dL (12.0-15.0); Lymphocyte # 0.59 X10^3/ul (0.83-4.51); Lymphocyte % 24.5 % (19-41); Mean Corpuscular Hgb 32.7 pg (27.0-32.0); Mean Corpuscular Volume 99.2 fL (81-99); Mean Platelet Vol. 10.7 fl (6.2-12.0); Monocyte# 0.25 X10^3/uL; Monocyte% 10.4 % (0-10); NRBC Flagged by Analyzer 0 % (0-5); Neutrophil # 1.47 X10^3/uL (2.7-7.7); POSITIVE DIFFERENTIAL YES; Platelet Count 114 K/mm3 (150-450); RBC Distribution Width CV 12.6 % (11.6-14.6); RBC Distribution Width SD 46.3 fl (35.1-43.9); Red Blood Count 3.82 M/mm3 (4.2-5.4); White Blood Count 2.4 K/mm3 (4.4-11.0)
[2022-01-14 14:11] LABS: Differential Indicated SCAN CRITERIA MET
[2022-01-14 14:36] LABS: ALB/GLOB Ratio 0.8 RATIO (0.9-2.4); AST(SGOT) 25 U/L (15-37); Alanine Aminotransfer ALT/SGPT 33 U/L (13-56); Albumin, Serum 3.3 g/dL (3.2-5.0); Alkaline Phosphatase 72 U/L (45-117); Anion Gap 5 (5-15); BUN 21 mg/dL (7-18); BUN/Creat Ratio 23.2 RATIO (10-20); Calcium,Total 9.1 mg/dL (8.5-10.1); Chloride 107 mmol/L (98-107); Cholesterol 181 mg/dL (200); EST Glomerular Filtration Rate 65 mL/min (>60); Est Glom Filt Rate - Afr Amer 78 mL/min (>60); Globulin 4.1 g/dL (2.2-4.2); Glucose 103 mg/dL (74-106); High Density Lipoprotein 66 mg/dL; Potassium 4.1 mmol/L (3.5-5.1); Protein, Total 7.4 g/dL (6.4-8.2); Sodium Level 140 mmol/L (136-145); Triglycerides 49 mg/dL; Very Low Density Lipoprotein 10 mg/dL (5-40)
[2022-01-14 15:02] LABS: Platelet Estimate SLT DEC (ADEQ)
[2022-01-14 15:03] LABS: Red Cell Morphology NORM C+C NORMAL (NORM C&C)
[2022-01-15 11:27] LABS: Pathologist Review Reviewed
== END | disposition home or self-care (01) ==
LOC: BIMLAB 11:44
PROVIDERS: PCP Internal Medicine; Visit Provider Internal Medicine
DX: E03.9 Hypothyroidism, unspecified (principal); K21.9 Gastro-esophageal reflux disease without esophagitis
CPT/HCPCS: 36415; 80053; 80061; 84443; 85025

== ENCOUNTER → 2022-06-17 | Outpatient (CLI) | payer MEDICARE, OTHER, SELFPAY | END | disposition home or self-care (01) | LOC: LABSPEC 17:06 | PROVIDERS: PCP Internal Medicine; Visit Provider Nurse Practitioner Women's Health | DX: L90.0 Lichen sclerosus et atrophicus (principal); N95.2 Postmenopausal atrophic vaginitis | CPT/HCPCS: 87070; 87205 ==

== ENCOUNTER 2022-11-09 12:00 | Emergency (ER) | payer MEDICARE, OTHER, SELFPAY ==
[2022-11-09 12:02] VITALS: BP 109/86; PULSE 61; RESP 18; TEMP 36.6; O2SAT 100; BMI 28.3
--- NOTE | 2022-11-09 12:20 | EKG12_ITS ---
Test Reason : DIZZINESS Blood Pressure : / mmHG Vent. Rate : 055 BPM Atrial Rate : 055 BPM P-R Int : 138 ms QRS Dur : 088 ms QT Int : 440 ms P-R-T Axes : 030 042 053 degrees QTc Int : 420 ms Sinus bradycardia Otherwise normal ECG Confirmed by LACIE KIRK, MAK ([id number]), senior technical editor MALLORY WILL ([id number]) on 11/11/2022 2:37:46 PM Referred By: Confirmed By:MAK MEDELLIN MD
--- NOTE | 2022-11-09 12:21 | EX.ED.DYSGE1 ---
HPI History of Present Illness Chief Complaint: General Illness Detail of Chief Complaint: Nausea, vomiting, diarrhea Informant: patient Onset/Context/Timing Onset: Days (3 days) Current Severity: Mild Maximum Severity: Moderate Narrative Narrative: Patient presents via EMS secondary to nausea, vomiting, and diarrhea. Patient states that she became ill early morning. She vomited a few times and then a couple hours later had some diarrhea. She has not really had further vomiting or diarrhea since, but has had poor p.o. intake due to feeling sick. No fever noted. She had some abdominal cramping. After arriving to the emergency room she felt as if she might pass out. Nursing staff note that she was on the monitor at the time and they noted no significant changes in her vital signs. [facility] Medical History (Updated 11/09/22 @ 14:[address] Martha Childers MD) Abrasion, left ankle, initial encounter Adhesive capsulitis of left shoulder Alcohol use Arthritis Cataracts, bilateral Colitis Constipation Contusion of left ankle Elevated blood pressure reading in office without diagnosis of hypertension Fibromyalgia GERD (gastroesophageal reflux disease) Grief reaction Hay fever History of echocardiogram History of pain when walking History of stress test History of ulceration Hypertension IBS (irritable bowel syndrome) Injury of head and neck Irritable bowel syndrome with constipation Knee pain Left shoulder pain Left shoulder tendinitis Lichen sclerosus low white blood count Migraine headache Non-smoker Osteoarthritis Osteopenia prolapsed bladder Shingles Sleep apnea Sprain of left foot Thyroid disease URI (upper respiratory infection) Wears glasses Home Medications Fibrocare 2 tab PO BID SUPPLEMENT 11/30/13 [History Last Taken 02/07/17] calcium citrate 315 mg calcium-vitamin D3 6.25 mcg (250 unit) tablet (Citracal + Vitamin D Maximum) 4 tab PO QDAY SUPPLEMENT 08/25/17 [History Last Taken Unknown] dpdusofnjxk-hil-eakbbiqof-hrb 149-hyalur 500 mg-500 mg-66.7 mg tablet (Lgbajcweoht-Olphdldfpew-PYY (with antiox)) 1 tab PO BID SUPPLEMENT 08/25/17 [History Last Taken Unknown] multivit with zfmwwail-qpeh-BZ-lutein 8 mg iron-400 mcg-300 mcg tablet (Centrum Silver Women) 1 tab PO DAILY DAILY 08/25/17 [History Last Taken Unknown] ortho-biotic 1 tab PO DAILY 01/25/19 [History Last Taken Unknown] propylene glycol 0.6 % eye drops (Systane Complete) 1 drp ophthalmic (eye) BID 01/25/19 [History Last Taken Unknown] cetirizine 10 mg capsule (Zyrtec) 10 mg PO PRN PRN ALLERGIES 05/02/20 [History Last Taken Unknown] omega 0-fqv-dfx-fish oil 1,000 mg (120 mg-180 mg) capsule (Fish Oil) 2 cap PO BID SUPPLEMENT 11/12/21 [History Last Taken Unknown] kiwi extract PO 12/03/21 [History Last Taken Unknown] levothyroxine 75 mcg tablet 75 mcg PO DAILY #90 tabs 01/18/22 [Rx Last Taken Unknown] estradiol 0.01% (0.1 mg/gram) vaginal cream See Rx Instructions vaginal .COMPLEX ESTROGEN SUPPLEMENT #50 grams 04/03/22 [Rx Last Taken Unknown] ergocalciferol (vitamin D2) 25,000 unit capsule 50,000 unit PO .2 x q week 05/06/22 [History Last Taken Unknown] mometasone 0.1 % topical ointment 1 applic topical .COMPLEX #15 grams 06/17/22 [Rx Last Taken Unknown] sertraline 25 mg tablet (Zoloft) 25 mg PO DAILY #30 tabs 09/03/22 [Rx Last Taken Unknown] benzonatate 100 mg capsule 100 mg PO BID-TID PRN cough #90 caps 10/04/22 [Rx Last Taken Unknown] omeprazole 40 mg capsule,delayed release 40 mg PO DAILY #90 caps 10/15/22 [Rx Last Taken Unknown] pantoprazole 40 mg tablet,delayed release 40 mg PO BID #60 tabs 10/16/22 [Rx Last Taken Unknown] amlodipine 5 mg tablet 5 mg PO DAILY #90 tabs 11/04/22 [Rx Last Taken Unknown] dicyclomine 10 mg capsule 20 mg PO Q8H PRN PRN abd cramping #20 CAPSULES 11/09/22 [Rx Last Taken Unknown] ondansetron 4 mg disintegrating tablet 4 mg PO Q8H PRN PRN Nausea #10 tabs 11/09/22 [Rx Last Taken Unknown] Allergy/AdvReac Type Severity Reaction Status Date / Time Penicillins Allergy Mild Rash Verified 11/09/22 12:01 vancomycin HCl Allergy Mild Rash Verified 11/09/22 12:01 [From Vancocin] metoclopramide [From Reglan] Allergy Other Verified 11/09/22 12:01 naproxen [From Naprosyn] AdvReac Rash Verified 11/09/22 12:01 NSAIDS (Non-Steroidal AdvReac Rash Verified 11/09/22 12:01 Anti-Inflamma Family History Mother Breast cancer, Onset Age: 60 remission until the age of 74 and spread to bones Alcoholism Epilepsy Hyperlipemia Father Cancer Unknown Alcoholism Brother Alcoholism Daughter Thyroid disorder Cancer Surgical History gallbladder H/O endoscopy History of appendectomy History of cardiac catheterization History of cholecystectomy History of colonoscopy History of total vaginal hysterectomy (TVH) (~09/24/18) S/P cervical disc replacement TMJ Social History Smoking Status: Never smoker alcohol intake: current alcohol intake frequency: holidays/special occasions only substance use type: does not use caffeine: No what type of physical activity do you participate in: walking frequency: 3-4 times per week seatbelt use: always additional social history: Nithin is - Retired ROS ROS ED Constitutional Constitutional ED: Denies chills or fever(s) Eyes Eyes: Denies change in vision or discharge from eye(s) ENT ENT ED: Denies discharge from eye(s), rhinorrhea or sore throat Cardiovascular Cardiovascular: Denies chest pain or palpitations Respiratory/Chest Respiratory/Chest: Denies cough or dyspnea Gastrointestinal Gastrointestinal: Reports abdominal pain, diarrhea, nausea and vomiting Genitourinary Genitourinary ED: Denies dysuria Musculoskeletal Musculoskeletal: Denies back pain or extremity pain Integumentary Denies Abrasions or rash Neurologic Neurologic: Denies headache(s) or weakness Allergic/Immunologic Allergic/Immunologic ED: Denies lip swelling or urticaria EXAM Physical Exam Const Vital Signs: 11/09/22 12:02 11/09/22 12:07 Temperature 97.9 F Temperature Source Temporal Pulse Rate 61 Respiratory Rate 18 Respiratory Effort Normal Respiratory Pattern Normal Blood Pressure 109/86 H Blood Pressure Mean 93 Pulse Ox 100 Oxygen Delivery Method Room Air Positive well nourished and well developed General Appearance ED: well developed HEENT Reports normocephalic and head/scalp atraumatic Eyes PERRL and EOMs intact bilaterally Neck supple Chest Wall inspection of chest normal and palpation of chest normal Resp normal respiratory effort and clear to auscultation bilaterally Cardio regular rhythm Rate: bradycardia GI GI Narrative: Mild epigastric tenderness to palpation. Auscultation: normoactive bowel sounds Palpation: soft Extremity normal to inspection Neuro oriented x3 and no sensory deficits noted Sensorium / Orientation: alert Motor Exam: strength 5/5 throughout Psych mental status grossly normal Skin no rashes or lesions noted MDM MDM MDM Narrative Medical decision making narrative: Patient placed on cardiac cath lab manager. EKG obtained to evaluate for arrhythmia and to calculate QTc. Zofran given for nausea once QTc was noted to be adequate. Patient given IV fluids. CBC and chemistry studies obtained to evaluate for leukocytosis, anemia, electrolyte derangement. History & Record Review Discussion w/independent historian: EMS personnel and Other (Family) Lab Data Attestation: I reviewed the patient's lab results. Labs: Laboratory Results - last 24 hr 11/09/22 11/09/22 12:15 12:15 WBC 3.2 L RBC 3.94 L Hgb 13.4 Hct 37.7 MCV 95.7 MCH 34.0 H MCHC 35.5 RDW Std Deviation 45.4 H RDW Coeff of Lucy 12.9 Plt Count 126 L MPV 9.9 Immature Gran % (Auto) 0.600 Neut % (Auto) 72.1 H Lymph % (Auto) 16.2 L Putnam % (Auto) 8.6 Eos % (Auto) 2.2 Baso % (Auto) 0.3 Absolute Neuts (auto) 2.3 Absolute Lymphs (auto) 0.51 L Nucleated RBC % 0 Differential Comment COMMENT Diff Path Review May foll Sodium 141 Potassium 3.9 Chloride 106 Carbon Dioxide 26.0 Anion Gap 9 BUN 18 Creatinine 1.16 H Estim Creat Clear Calc 36.74 Est GFR (MDRD) Af Amer 59 L Est GFR (MDRD) Non-Af 48 L BUN/Creatinine Ratio 15.5 Glucose 128 H Calcium 9.0 Total Bilirubin 0.70 Direct Bilirubin 0.22 AST 31 ALT 41 Alkaline Phosphatase 66 Total Protein 6.8 Albumin 3.2 Globulin 3.6 EKG Initial EKG: Attestation: I personally reviewed and interpreted this EKG as follows: Interpretation: Sinus Bradycardia (Sinus bradycardia 55 bpm. QTc is 420. No acute ischemia.) Treatment and Re-Evaluation :: On repeat evaluation patient was feeling improved but still complaining of some abdominal cramping. She was given a dose of Bentyl. At this time patient is able to tolerate p.o. and feels improved. CBC reveals leukopenia which is chronic and unchanged from baseline. Hemoglobin is normal at 13.4. Chemistry studies reveal a creatinine of 1.16. Her baseline is between 0.9 and 1.0. Glucose is 128. LFTs are unremarkable. At this time patient be given prescription for Zofran and Bentyl. Return instructions provided. Discharge Plan Triage Chief Complaint: General Illness ED Provider: Martha Childers Dx/Rx/DC Orders Clinical Impression: Viral gastroenteritis Instructions: ED Gastroenteritis, Viral (Adult) Prescriptions: New ondansetron 4 mg tablet,disintegrating 4 mg PO Q8H PRN PRN (Reason: Nausea) Qty: 10 0RF dicyclomine 10 mg capsule 20 mg PO Q8H PRN PRN (Reason: abd cramping) Qty: 20 0RF No Action calcium citrate-vitamin D3 [Citracal + D Maximum] 315-250 mg-unit tablet 4 tab PO QDAY pwbfyrtbrid-qlu-ftfeykgrq-hrb 149-hyalur 500 mg-500 mg-66.7 mg tablet 500-500-66.7 mg tablet 1 tab PO BID jpynyiby-xlp-liyp-FA-lutein [Centrum Silver Women] 8 mg iron-400 mcg-300 mcg tablet 1 tab PO DAILY omega 4-pzg-iri-fish oil [Fish Oil] 1,000 mg (120 mg-180 mg) capsule 2 cap PO BID Systane Complete 0.6 % drops 1 drp OPHTHALMIC BID ortho-biotic 1 tab PO DAILY Zyrtec 10 mg capsule 10 mg PO PRN PRN (Reason: ALLERGIES) kiwi extract PO mometasone 0.1 % ointment 1 applic topical .COMPLEX Qty: 15 2RF Rx Instructions: 1 applic topical small amount as directed and rub in bid X 2 weeks, dailly X 2 weeks then prn; pantoprazole 40 mg tablet,delayed release (DR/EC) 40 mg PO BID Qty: 60 3RF sertraline [Zoloft] 25 mg tablet 25 mg PO DAILY Qty: 30 2RF benzonatate 100 mg capsule 100 mg PO BID-TID PRN (Reason: cough) Qty: 90 1RF amlodipine 5 mg tablet 5 mg PO DAILY Qty: 90 3RF Fibrocare 2 tab PO BID Label Comments: SUPPLEMENT ergocalciferol (vitamin D2) 25,000 unit capsule 50,000 unit PO .2 x q week levothyroxine 75 mcg tablet 75 mcg PO DAILY Qty: 90 3RF estradiol 0.01 % (0.1 mg/gram) cream See Rx Instructions Vaginal .COMPLEX Qty: 50 2RF Dose Instruction: small amount Vaginal 3 X week; Rx Instructions: small amount Vaginal 3 X week; omeprazole 40 mg capsule,delayed release(DR/EC) 40 mg PO DAILY Qty: 90 1RF Rx Instructions: Take 1 capsule daily. Primary Care Provider: Radha Ferreira Referrals: Radha Ferreira MD [Primary Care Provider] - 1-2 Weeks Disposition Disposition: Home, Self Care
[2022-11-09] MEDS: 0.9% Normal Saline 1,000 ML 1000 ML IV (12:41)
[2022-11-09 12:54] LABS: Absolute Lymphocyte Count 0.51 X10^3/uL (0.83-4.51); Absolute Neutrophil Count 2.3 X10^3/uL (2.0-7.7); Basophil# 0.01 X10^3/uL; Basophil% 0.3 % (0-1); Eosinophil# 0.07 X10^3/uL; Eosinophils% 2.2 % (0-5); Hematocrit 37.7 % (37-47); Hemoglobin 13.4 g/dL (12.0-15.0); Lymphocyte # 0.51 X10^3/ul (0.83-4.51); Lymphocyte % 16.2 % (19-41); Mean Corp Hgb Conc 35.5 g/dL (32-36); Mean Corpuscular Volume 95.7 fL (81-99); Mean Platelet Vol. 9.9 fl (6.2-12.0); Monocyte# 0.27 X10^3/uL; Monocyte% 8.6 % (0-10); NRBC Flagged by Analyzer 0 % (0-5); Neutrophil # 2.27 X10^3/uL (2.7-7.7); Neutrophil % 72.1 % (47-70); POSITIVE DIFFERENTIAL YES; Platelet Count 126 K/mm3 (150-450); RBC Distribution Width CV 12.9 % (11.6-14.6); RBC Distribution Width SD 45.4 fl (35.1-43.9); Red Blood Count 3.94 M/mm3 (4.2-5.4); White Blood Count 3.2 K/mm3 (4.4-11.0)
[2022-11-09] MEDS: Ondansetron 4 MG/2 ML Vial IV (12:54)
[2022-11-09 12:56] LABS: Differential Indicated SCAN CRITERIA MET
[2022-11-09 13:06] LABS: AST(SGOT) 31 U/L (15-37); Alanine Aminotransfer ALT/SGPT 41 U/L (13-56); Albumin, Serum 3.2 g/dL (3.2-5.0); Alkaline Phosphatase 66 U/L (45-117); Anion Gap 9 (5-15); BUN 18 mg/dL (7-18); BUN/Creat Ratio 15.5 RATIO (10-20); Bilirubin, Direct 0.22 mg/dL (0.00-0.30); Chloride 106 mmol/L (98-107); Creatinine, Serum 1.16 mg/dL (0.55-1.02); EST Glomerular Filtration Rate 48 mL/min (>60); Est Glom Filt Rate - Afr Amer 59 mL/min (>60); Estimated Creatinine Clearance 36.74 ml/min; Globulin 3.6 g/dL (2.2-4.2); Glucose 128 mg/dL (74-106); Potassium 3.9 mmol/L (3.5-5.1); Protein, Total 6.8 g/dL (6.4-8.2); Sodium Level 141 mmol/L (136-145)
[2022-11-09] MEDS: Dicyclomine 10 MG Capsule 20 MG PO (14:03)
[2022-11-09 14:42] VITALS: BP 118/57; PULSE 76; RESP 18; O2SAT 98
[2022-11-11 13:03] LABS: Pathologist Review Reviewed
== END 2022-11-09 14:51 | disposition home or self-care (01) ==
PROVIDERS: Emergency Provider Emergency Medicine; PCP Internal Medicine; Visit Provider Emergency Medicine
DX: A08.4 Viral intestinal infection, unspecified (principal); I10 Essential (primary) hypertension; Z79.899 Other long term (current) drug therapy; M19.90 Unspecified osteoarthritis, unspecified site; H26.9 Unspecified cataract; K21.9 Gastro-esophageal reflux disease without esophagitis; Z90.49 Acquired absence of other specified parts of digestive tract
CPT/HCPCS: 80048; 80076; 85025; 93005; 96365; 96375; 99285; J7030; A4216; J2405

== ENCOUNTER 2022-12-30 08:33 | Day surgery (SDC) | payer MEDICARE, OTHER, SELFPAY ==
--- NOTE | 2022-12-30 08:52 | HP.PCM_ITS ---
History and Physical Date of Admission: 12/30/22 72 F who presents to the office today for a follow-up visit. Consuelo established with this clinic 08.13.21 for evaluation of worsening abdominal pain, constipation, GERD and dysphagia. EGD 09.13.21 LA grade a reflux esophagitis. Erythematous mucosa in antrum. Biopsy - Gastric antrum, Chronic gastritis. 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 Carafate for gastritis ordered. Colonoscopy09.13.21 Moderate diverticulosis in recto-sigmoid colon, sigmoid colon and descending colon with associated erythema/kenisha-erythema and evidence of impacted diverticulum. Biopsy - Sigmoid colon, Minimal focal ischemic type change. Medications recommended by this clinic include Kiwi extract, omeprazole 40mg QD. Plan last visit 11.08.21: Astudillo Esophagus ? recommend PPI unless she underwent Terrell fundoplication. Colitis ? SCAD, doing well with benefiber. Suggested addition of kiwi extract. Tenesmus has improved. 01.04.22 Reports that she is doing well since last visit. Abdominal pain and dysphagia has resolved. She is having a BM each day with just Kiwi tablets. GERD symptoms continue only when she eats too much in the evening and will have reflux in the morning. Continues with omeprazole QD. Today reports that overall she is doing well. This past month she began to have severe constipation. She states that her diet did change this past month as she has been busy and eating more processed foods. She reports a few episodes of a small amount of bright red blood when passing stool. States this was only on her toilet tissue and believes this was due to a hemorrhoid from straining. She also had a few episodes of diarrhea. Currently she is having a BM 1-2 times a week and the stool is formed and very hard. States that she began taking Miralax to help regulate her. Only has occasional reflux in the morning with an empty stomach. She continues to take the Kiwi tablets and Omeprazole. ROS Const Constitutional: No body ache, chills, excessive sweating, fatigue, fever(s), frequent falls, headache(s), snoring, weakness, sleep problems or change in appetite Eyes Eyes: No blurry vision, change in vision, discharge, vision loss, floaters or Light sensitivity ENT ENT: Positive for nasal congestion, sinus pressure and nasal discharge; No abnormal hearing, ear or mastoid pain, tinnitus, balance problems, nosebleed/epistaxis, headache(s), neck pain or sore throat Resp Respiratory: Positive for cough (WHITE) Cough: Yes productive; No excessive phlegm production, hemoptysis, shortness of breath, snoring or wheezing Cardio Cardiology: No chest pain at rest, chest pain with exertion, excessive sweating, shortness of breath, dyspnea on exertion, lightheadedness, orthopnea or palpitations Gastro GI: No abdominal pain, change in bowel habits, constipation, cramping, diarrhea or nausea/dyspepsia Genitourinary-Female: No burning urination, painful urination, urinary incontinence, urinary frequency, suprapubic fullness or side pain Musc Musculoskeletal: No abnormal gait, joint pain, back pain, limited range of motion, muscle weakness, neck pain or numbness Skin Skin: No dry skin, redness, excessive hair growth, yellowing of the eye, lesions, itchy eyes, rash or wounds Neuro Neurology: Positive for tremor(s) (BILATERAL HANDS X 6 MONTHS WORSENING); No abnormal gait, abnormal hearing, weakness, frequent falls, headache(s), memory loss or numbness Psych Psychiatric: No anxiety, No change in appetite, No depression, No memory loss, No panic attacks and No Thoughts of harming yourself/Others Endo Endocrine: No cold intolerance, excessive sweating, fatigue, flushing, heat intolerance, increased thirst/drinking or increased hunger Aller/Imm Allergy/Immunologic: No itchy eyes, seasonal allergy symptoms, hives or wheezing Enrique/Lymp Hematologic/Lymphatic: No enlarged lymph nodes Exam Const General: cooperative, comfortable and no acute distress Orientation: alert, awake and oriented x3 [facility] Head: normal to inspection, normocephalic and atraumatic Ears: hearing grossly normal bilaterally Neck Neck: normal visual inspection, full ROM and supple Resp Effort & Inspection: normal respiratory effort and able to speak in complete sentences Auscultation: Bilateral: Clear to Auscultation Cardio Rate: regular rate Rhythm: regular rhythm Heart Sounds: S1 normal and S2 normal GI Palpation: soft (No palpable organomegaly) Neuro General: patient alert, patient awake, patient oriented x3, moves all extremities and CN's II-XI intact bilaterally Extrem General: no clubbing, cyanosis or edema Quality Reporting Tobacco Screening ([facility] 138) Smoking Status: Never smoker Assessment and Plan Assessment and Plan (1) Irritable bowel syndrome with constipation: ?Status:?Acute ?Plan: She was doing well and regarding bowels while she was taking the kiwi extract.? However her activity increase and therefore her amount of water that she was taking on a daily basis decreased.? We will have her great detail the amount of volume distribution that occurs in a patient that takes soluble fiber supplement that needs to occur on a daily basis.? She was doing between 60 and 90 ounces of water and a day and I cut all way down to half of that.? I think that contributed to her needing MiraLAX in order to have a bowel mood on a daily basis.? I am okay with her taking the MiraLAX for now we will transition her to off. (2) Astudillo esophagus: ?Status:?Acute ?Plan: She has been taking omeprazole at night and she was still having some breakthrough symptoms in the morning.? I explained to her that typically we do not eat at night.? Proton pump inhibitors only work when you eat. if she is going to take anything at night then it has to be H2 receptor blockers because they are not food dependent.? I will switch her pantoprazole from omeprazole and we will have her take 40 mg in the morning and 40 mg in the evening.? She can stop omeprazole and as needed H2 receptor darien.? We will also schedule her for an upper endoscopy to evaluate upper GI tract.? She was explained alternatives, risk, benefits include not withstanding bleeding, infection, sepsis, perforation, need for emergent .? She have an ASA of 1. ? ? ? Medications: New pantoprazole 40 mg? PO BID 60 tabs 3RF ? ? I have examined the patient and the H&P has been reviewed. There are no clinical changes since date of exam.
[2022-12-30] MEDS: Lactated Ringers 1,000 ML 15 ML IV (08:56)
[2022-12-30 08:57] VITALS: BP 122/65; PULSE 64; RESP 18; TEMP 36.8; O2SAT 98; BMI 29.2
--- NOTE | 2022-12-30 09:30 | EGD_PTH ---
PATIENT: ALVINA REYES LOC: EN U#:[id number] AGE/SX: 72/F ROOM: RE12/30/[address]: Dr. Shakeel Barboza DO : 1950 BED: DIS: 12/30/2022 SPEC #: [id number] RECD: 12/30/22 10:37 STATUS: MONICA REQ #: [id number] BHAVNA: 12/30/22 09:[address]: Shakeel Barboza DEPT: SURGICAL PATHOLOGY RECD BY: Herminia Conroy ENTERED: 12/30/22 11:14 SP TYPE: EGD BIOPSY OT DR: Dr. 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 No evidence of goblet cell metaplasia. See comment. AM:margo 12/31/2022 COMMENT Alcian blue/PAS stain with matched control supports the above diagnosis. MICROSCOPIC DESCRIPTION Slides are reviewed. GROSS DESCRIPTION Received in fixative is one container labeled with the patient's name and designated distal esophagus biopsy. The specimen consists of multiple irregular fragments of light rincon soft tissue that in aggregate measure 1.5 x 0.6 x 0.1 cm. The specimen is totally submitted in one cassette. / AM:margo 12/30/2022 TC:3 CPT: 49217, 17308
[2022-12-30 09:45] VITALS: BP 105/50; BP 122/65; PULSE 72; RESP 14; TEMP 36.9; O2SAT 96
--- NOTE | 2022-12-30 09:48 | OP.EGD_ITS ---
Patient Name: Consuelo Davies Procedure Date: 12/30/2022 9:28 AM Date of : 1950 Age: 72 Procedure: Upper GI endoscopy Indications: Follow-up of Astudillo's esophagus Providers: Shakeel Barboza DO Referring MD: Shakeel Barboza DO Medicines: Monitored Anesthesia Care Patient Profile: This is a 72 year old female. Refer to note in patient chart for documentation of history and physical. Patient has symptoms of chronic heartburn. Complications: No immediate complications. Procedure: Pre-Anesthesia Assessment: - Prior to the procedure, a History and Physical was performed, and patient medications and allergies were reviewed. The patient is competent. The risks and benefits of the procedure and the sedation options and risks were discussed with the patient. All questions were answered and informed consent was obtained. Patient identification and proposed procedure were verified by the physician in the pre-procedure area. Mental Status Examination: alert and oriented. Airway Examination: normal oropharyngeal airway and neck mobility. Respiratory Examination: clear to auscultation. CV Examination: normal. Prophylactic Antibiotics: The patient does not require prophylactic antibiotics. Prior Anticoagulants: The patient has taken no previous anticoagulant or antiplatelet agents. After reviewing the risks and benefits, the patient was deemed in satisfactory condition to undergo the procedure. The anesthesia plan was to use monitored anesthesia care (MAC). Immediately prior to administration of medications, the patient was re-assessed for adequacy to receive sedatives. The heart rate, respiratory rate, oxygen saturations, blood pressure, adequacy of pulmonary ventilation, and response to care were monitored throughout the procedure. The physical status of the patient was re-assessed after the procedure. After obtaining informed consent, the endoscope was passed under direct vision. Throughout the procedure, the patient's blood pressure, pulse, and oxygen saturations were monitored continuously. The gastroscope was introduced through the mouth, and advanced to the second part of duodenum. The upper GI endoscopy was accomplished without difficulty. Scope In: 9:38:17 AM Scope Out: 9:41:42 AM Total Procedure Duration Time 0 hours 3 minutes 25 seconds Findings: There were esophageal mucosal changes suspicious for short-segment Astudillo's esophagus present in the lower third of the esophagus. The maximum longitudinal extent of these mucosal changes was 1 cm in length. Mucosa was biopsied with a cold forceps for histology in a targeted manner at intervals of 1 cm in the lower third of the esophagus. One specimen bottle was sent to pathology. Verification of patient identification for the specimen was done. Estimated blood loss was minimal. A small hiatal hernia was present. The cardia and gastric fundus were normal on retroflexion. The second portion of the duodenum was normal. Impression: - Esophageal mucosal changes suspicious for short-segment Astudillo's esophagus. Biopsied. - Small hiatal hernia. - Normal second portion of the duodenum. Recommendation: - Discharge patient to home. - Resume previous diet. - Continue present medications. - Await pathology results. - Repeat upper endoscopy in 1 year for surveillance. Procedure Code(s): --- Professional --- 39370, Esophagogastroduodenoscopy, flexible, transoral; with biopsy, single or multiple CPT copyright 2017 [employer]. All rights reserved. The codes documented in this report are preliminary and upon color card maker review may be revised to meet current compliance requirements. Shakeel Barboza DO 12/30/2022 9:47:41 AM This report has been signed electronically. Number of Addenda: 0 Note Initiated On: 12/30/2022 9:28 AM
--- NOTE | 2022-12-30 09:49 | OP.CCLET_ITS ---
12/30/2022 Radha Ferreira MD [address] [place] [address] [place] [address] Re : Upper GI endoscopy procedure for Consuelo Davies Dear Dr. Ferreira This procedure was performed on Friday, December 30, 2022. My impressions and recommendations are as follows: Impressions : - Esophageal mucosal changes suspicious for short-segment Astudillo's esophagus. Biopsied. - Small hiatal hernia. - Normal second portion of the duodenum. Recommendations : - Discharge patient to home. - Resume previous diet. - Continue present medications. - Await pathology results. - Repeat upper endoscopy in 1 year for surveillance. My findings are described in the full procedure note, which is enclosed. If I can be of further assistance, please feel free to contact me at . Sincerely, Shakeel Barboza, 12/30/2022 9:47:41 AM This report has been signed electronically.
[2022-12-30 09:50] VITALS: BP 104/55; BP 122/65; PULSE 75; RESP 14; O2SAT 96
[2022-12-30 09:55] VITALS: BP 105/62; BP 122/65; PULSE 66; RESP 14; O2SAT 95
[2022-12-30 10:03] VITALS: BP 110/61; BP 122/65; PULSE 67; RESP 16; TEMP 36.9; O2SAT 95
[2022-12-30 10:20] VITALS: BP 122/65
== END 2022-12-30 10:33 | disposition home or self-care (01) ==
LOC: EN 08:34 → AC 08:34
PROVIDERS: PCP Internal Medicine; Referring Provider Internal Medicine; Visit Provider Internal Medicine Gastroenterology
PROC: 0DJ08ZZ Inspection of Upper Intestinal Tract, Via Natural or Artificial Opening Endoscopic (ICD-10-PCS; CPT 43235; principal; 2022-12-30 09:25)
DX: K44.9 Diaphragmatic hernia without obstruction or gangrene (principal); K22.70 Barrett's esophagus without dysplasia; K58.1 Irritable bowel syndrome with constipation
CPT/HCPCS: 43239; 88305; 88313; J7120; J2405

== ENCOUNTER → 2023-02-25 | Outpatient (CLI) | payer MEDICARE, OTHER, SELFPAY ==
--- NOTE | 2023-02-25 14:12 | BI_ITS ---
MAMMOGRAPHY - BILATERAL SCREENING REASON FOR EXAM: Female, 72 years old. Routine annual screening examination. PERTINENT HISTORY: Mother with breast cancer. TECHNIQUE: Digital bilateral breast kaia (3D mammographic acquisition) in the CC and MLO projections. 2-D mediolateral oblique (MLO) and craniocaudad (CC) views of both breasts were obtained. CAD: Full Field Digital Mammography with Computer Added Detection was performed. COMPARISON: Mammogram from 12/26/2021, 01/02/2021. FINDINGS: Breast Composition: The breasts are heterogeneously dense, which may obscure small masses. There are no dominant masses or suspicious calcifications. No other significant abnormalities are identified. There has been no significant change since the prior study. BI/SCRN MAMM (CAD)W/KAIA BILAT IMPRESSION: Stable bilateral screening mammogram. Yearly follow-up mammogram recommended. (A) ASSESSMENT CATEGORY: BIRADS Category 1: Negative. A letter regarding these results will be sent to the patient by the facility within 30 days. Approximately 10% of breast cancers are not detected by mammography. A normal mammogram should not delay biopsy of a clinically suspicious abnormality. Electronically Signed: Leonel Conde DO at 10:32 EDT ,
== END | disposition home or self-care (01) ==
LOC: OPBI 14:11
PROVIDERS: PCP Internal Medicine; Referring Provider Nurse Practitioner Women's Health; Visit Provider Nurse Practitioner Women's Health
DX: Z12.31 Encounter for screening mammogram for malignant neoplasm of breast (principal); Z80.3 Family history of malignant neoplasm of breast
CPT/HCPCS: 77063; 77067

== ENCOUNTER → 2023-03-05 | Outpatient (CLI) | payer MEDICARE, OTHER, SELFPAY ==
[2023-03-10 16:09] LABS: Calprotectin, Stool 136 ug/g (0-120)
== END | disposition home or self-care (01) ==
PROVIDERS: PCP Internal Medicine; Referring Provider Internal Medicine Gastroenterology; Visit Provider Internal Medicine Gastroenterology
DX: K58.9 Irritable bowel syndrome, unspecified (principal); R19.7 Diarrhea, unspecified
CPT/HCPCS: 83993; 87177; 87209; 87329; 87493

== ENCOUNTER → 2023-03-19 | Outpatient (CLI) | payer MEDICARE, OTHER, SELFPAY ==
[2023-03-19 12:42] LABS: Absolute Lymphocyte Count 0.56 X10^3/uL (0.83-4.51); Absolute Neutrophil Count 2.4 X10^3/uL (2.0-7.7); Basophil# 0.02 X10^3/uL; Basophil% 0.6 % (0-1); Eosinophils% 2.9 % (0-5); Hematocrit 38.9 % (37-47); Hemoglobin 12.9 g/dL (12.0-15.0); Lymphocyte # 0.56 X10^3/ul (0.83-4.51); Lymphocyte % 16.3 % (19-41); Mean Corp Hgb Conc 33.2 g/dL (32-36); Mean Corpuscular Hgb 33.1 pg (27.0-32.0); Mean Corpuscular Volume 99.7 fL (81-99); Mean Platelet Vol. 11.3 fl (6.2-12.0); Monocyte# 0.35 X10^3/uL; Monocyte% 10.2 % (0-10); NRBC Flagged by Analyzer 0 % (0-5); Neutrophil # 2.39 X10^3/uL (2.7-7.7); Neutrophil % 69.4 % (47-70); POSITIVE DIFFERENTIAL YES; Platelet Count 148 K/mm3 (150-450); RBC Distribution Width SD 47.4 fl (35.1-43.9); White Blood Count 3.4 K/mm3 (4.4-11.0)
[2023-03-19 12:46] LABS: Differential Indicated SCAN CRITERIA MET
[2023-03-19 13:15] LABS: ALB/GLOB Ratio 0.8 RATIO (0.9-2.4); AST(SGOT) 31 U/L (15-37); Alanine Aminotransfer ALT/SGPT 29 U/L (13-56); Albumin, Serum 3.1 g/dL (3.2-5.0); Alkaline Phosphatase 69 U/L (45-117); Anion Gap 6 (5-15); BUN 18 mg/dL (7-18); BUN/Creat Ratio 16.8 RATIO (10-20); Calcium,Total 9.1 mg/dL (8.5-10.1); Chloride 108 mmol/L (98-107); Cholesterol 173 mg/dL (200); Creatinine, Serum 1.07 mg/dL (0.55-1.02); EST Glomerular Filtration Rate 53 mL/min (>60); Est Glom Filt Rate - Afr Amer 64 mL/min (>60); Globulin 4.1 g/dL (2.2-4.2); Glucose 106 mg/dL (74-106); High Density Lipoprotein 66 mg/dL; Potassium 4.5 mmol/L (3.5-5.1); Protein, Total 7.2 g/dL (6.4-8.2); Sodium Level 141 mmol/L (136-145); Thyroid Stim Hormone (TSH) 1.03 uIU/mL (0.358-3.74); Triglycerides 51 mg/dL; Very Low Density Lipoprotein 10 mg/dL (5-40)
[2023-03-20 10:17] LABS: Pathologist Review Reviewed
== END | disposition home or self-care (01) ==
PROVIDERS: PCP Internal Medicine; Referring Provider Internal Medicine; Visit Provider Internal Medicine
DX: I10 Essential (primary) hypertension (principal); E03.9 Hypothyroidism, unspecified
CPT/HCPCS: 36415; 80053; 80061; 84443; 85025

== ENCOUNTER → 2023-08-15 | Outpatient (CLI) | payer MEDICARE, OTHER, SELFPAY ==
[2023-08-15 12:43] LABS: Absolute Lymphocyte Count 0.61 X10^3/uL (0.83-4.51); Absolute Neutrophil Count 1.6 X10^3/uL (2.0-7.7); Basophil# 0.02 X10^3/uL; Basophil% 0.8 % (0-1); Eosinophil# 0.05 X10^3/uL; Eosinophils% 1.9 % (0-5); Hematocrit 36.9 % (37-47); Hemoglobin 12.2 g/dL (12.0-15.0); Lymphocyte # 0.61 X10^3/ul (0.83-4.51); Lymphocyte % 23.6 % (19-41); Mean Corp Hgb Conc 33.1 g/dL (32-36); Mean Corpuscular Hgb 32.1 pg (27.0-32.0); Mean Corpuscular Volume 97.1 fL (81-99); Monocyte# 0.27 X10^3/uL; Monocyte% 10.4 % (0-10); NRBC Flagged by Analyzer 0 % (0-5); Neutrophil # 1.64 X10^3/uL (2.7-7.7); Neutrophil % 63.3 % (47-70); Platelet Count 137 K/mm3 (150-450); RBC Distribution Width CV 12.7 % (11.6-14.6); RBC Distribution Width SD 45.4 fl (35.1-43.9); White Blood Count 2.6 K/mm3 (4.4-11.0)
[2023-08-15 13:43] LABS: ALB/GLOB Ratio 0.8 RATIO (0.9-2.4); AST(SGOT) 24 U/L (15-37); Alanine Aminotransfer ALT/SGPT 28 U/L (13-56); Albumin, Serum 3.3 g/dL (3.2-5.0); Alkaline Phosphatase 70 U/L (45-117); Anion Gap 5 (5-15); BUN 24 mg/dL (7-18); BUN/Creat Ratio 25.5 RATIO (10-20); Calcium,Total 8.9 mg/dL (8.5-10.1); Chloride 108 mmol/L (98-107); Creatinine, Serum 0.94 mg/dL (0.55-1.02); EST Glomerular Filtration Rate 62 mL/min (>60); Est Glom Filt Rate - Afr Amer 75 mL/min (>60); Globulin 3.9 g/dL (2.2-4.2); Glucose 91 mg/dL (74-106); Potassium 4.5 mmol/L (3.5-5.1); Protein, Total 7.2 g/dL (6.4-8.2); Sodium Level 140 mmol/L (136-145); Thyroid Stim Hormone (TSH) 0.72 uIU/mL (0.358-3.74)
== END | disposition home or self-care (01) ==
LOC: BIMLAB 09:42
PROVIDERS: PCP Internal Medicine; Referring Provider Internal Medicine; Visit Provider Internal Medicine
DX: E03.9 Hypothyroidism, unspecified (principal); M85.80 Other specified disorders of bone density and structure, unspecified site
CPT/HCPCS: 36415; 80053; 82306; 84443; 85025

== ENCOUNTER → 2023-09-25 | Outpatient (CLI) | payer MEDICARE, OTHER, SELFPAY ==
--- NOTE | 2023-09-25 14:58 | BD_ITS ---
STUDY: DUAL ENERGY X-RAY ABSORPTIOMETRY / DXA REASON FOR EXAM: Female, 73 years old. Post Menopausal TECHNIQUE: Bone Mineral Density (BMD) measurements of lumbar spine and bilateral hips were obtained. COMPARISON: None. FINDINGS: Lumbar Spine (L1-L4): g/cm2 (1.045) / T-score (0) / Z-score (2.4) Findings are suggestive of normal BMD with a low fracture risk. Left Femur Total: g/cm2 (0.855) / T-score (-0.7) / Z-score (1.1) Left Femoral Neck: g/cm2 (0.667) / T-score (-1.6) / Z-score (0.5) Right Femur Total: g/cm2 (0.817) / T-score (-1.0) / Z-score (0.8) Right Femoral Neck: g/cm2 (0.658) / T-score (-1.7) / Z-score (0.4) The T-Scores on the most recent prior examination were: Lumbar Spine (L1-L4): There has been slight decrease of bone density since the previous examination. BD/Dexa Bone Density Study IMPRESSION: The patient is considered normal. as outlined below according to World Philippe Organization (WHO) criteria with a low fracture risk. There has been of bone density since the previous examination. Reference Information: The T-score is the number of standard deviations above or below the standard which is normal for young adults at their peak bone mineral density. The World Health Organization (WHO) interprets the T-scores as follows: Above -1 Normal bone density Between -1 and -2.5 Osteopenia Equal to / or below -2.5 Osteoporosis As a practical clinical guideline, osteopenia may be graded as follows: Mild -1 through -1.5 Moderate -1.6 through -2.0 Severe -2.1 through -2.4 The Z-score is the number of standard deviations above or below age-matched controls. A Z-score of less than -1.5 would be considered abnormal. References: 1. NIH Osteoporosis and Related Bone Diseases www osteo.org 2. International Society for Clinical Densitometry www iscd.org 3. National Osteoporosis Foundation www nof.org Electronically Signed: Cody Norris MD at 23:10 EST ,
== END | disposition home or self-care (01) ==
LOC: OPBD 14:55
PROVIDERS: PCP Internal Medicine; Referring Provider Internal Medicine; Visit Provider Internal Medicine
DX: Z78.0 Asymptomatic menopausal state (principal)
CPT/HCPCS: 77080

== ENCOUNTER → 2023-11-14 | Outpatient (CLI) | payer MEDICARE, OTHER, SELFPAY ==
[2023-11-14 15:22] LABS: Absolute Lymphocyte Count 0.73 X10^3/uL (0.83-4.51); Absolute Neutrophil Count 2.5 X10^3/uL (2.0-7.7); Basophil# 0.02 X10^3/uL; Basophil% 0.5 % (0-1); Eosinophil# 0.07 X10^3/uL; Eosinophils% 1.9 % (0-5); Hemoglobin 12.5 g/dL (12.0-15.0); Lymphocyte # 0.73 X10^3/ul (0.83-4.51); Mean Corp Hgb Conc 32.9 g/dL (32-36); Mean Corpuscular Hgb 32.4 pg (27.0-32.0); Mean Corpuscular Volume 98.4 fL (81-99); Mean Platelet Vol. 10.7 fl (6.2-12.0); Monocyte# 0.29 X10^3/uL; Monocyte% 7.9 % (0-10); NRBC Flagged by Analyzer 0 % (0-5); Neutrophil # 2.52 X10^3/uL (2.7-7.7); Neutrophil % 69.2 % (47-70); Platelet Count 128 K/mm3 (150-450); RBC Distribution Width CV 13.1 % (11.6-14.6); Red Blood Count 3.86 M/mm3 (4.2-5.4); White Blood Count 3.7 K/mm3 (4.4-11.0)
[2023-11-14 15:51] LABS: Anion Gap 5 (5-15); BUN 24 mg/dL (7-18); BUN/Creat Ratio 26.8 RATIO (10-20); Calcium,Total 9.4 mg/dL (8.5-10.1); Chloride 106 mmol/L (98-107); EST Glomerular Filtration Rate 65 mL/min (>60); Est Glom Filt Rate - Afr Amer 79 mL/min (>60); Glucose 121 mg/dL (74-106); Potassium 4.2 mmol/L (3.5-5.1); Sodium Level 140 mmol/L (136-145)
[2023-11-14 18:55] LABS: Vitamin D,25 Hydroxy 95.8 ng/mL
== END | disposition home or self-care (01) ==
LOC: BIMLAB 13:32
PROVIDERS: PCP Internal Medicine; Visit Provider Internal Medicine
DX: M85.80 Other specified disorders of bone density and structure, unspecified site (principal); I10 Essential (primary) hypertension
CPT/HCPCS: 36415; 80048; 82306; 85025

== ENCOUNTER 2024-01-13 12:07 | Day surgery (SDC) | payer MEDICARE, OTHER, SELFPAY ==
--- NOTE | 2024-01-13 | IMM_PTH ---
PATIENT: ALVINA REYES LOC: EN U#:[id number] AGE/SX: 73/F ROOM: RE01/13/[address]: Dr. Shakeel Barboza DO : 1950 BED: DIS: 01/13/2024 SPEC #: [id number] RECD: 01/15/24 10:17 STATUS: MONICA REQ #: [id number] BHAVNA: 01/13/24 00:[address]: Shakeel Barboza DEPT: IMMUNOHISTOCHEMISTRY RECD BY: Charles Womack ENTERED: 01/15/24 10:17 SP TYPE: IMMUNO OT DR: Dr. Radha Ferreira MD Tissues: Esophagus, NOS Procedures: P53 (initial) KI-67 (add) PHYSICIAN & INSTITUTION [place] [address] SPECIMEN INFORMATION: Tissue Source: Distal esophagus biopsy Clinical Info: Astudillo's esophagus, irritable bowel syndrome with constipation Specimen Number: [id number] CPT code: 51354,51607 METHODOLOGY: Deparaffinized sections of prefer/formalin-fixed tissue or PAP/DQ stained slides are incubated with monoclonal/polyclonal antibodies/oligonucleotide probes. Localization is made via biotin free immunoperoxidase method. Appropriate controls are performed and reacted as expected. Results on target cell population are indicated in the following table: RESULTS: ANTIBODY / CLONE RESULT P53 (DO-7) negative (null pattern) Ki-67 (30-9) positive, very low These tests were developed and their performance characteristics determined by [facility]. They may not have been cleared or approved by the U.S. Food and Drug Administration. The FDA has determined that such clearance or approval is not necessary. The above immunohistochemical/dualISH markers are ordered and reviewed by the Pathologist. INTERPRETATION: Distal esophagus, biopsy: Negative for dysplasia. JAZMYNE/ 01/15/24
[2024-01-13 12:27] VITALS: BP 122/64; PULSE 67; RESP 16; TEMP 37.2; O2SAT 96; BMI 27.1
[2024-01-13] MEDS: Lactated Ringers 1,000 ML 15 ML IV (12:34)
--- NOTE | 2024-01-13 13:15 | EGD_PTH ---
PATIENT: ALVINA REYES LOC: EN U#:[id number] AGE/SX: 73/F ROOM: RE01/13/[address]: Dr. Shakeel Barboza DO : 1950 BED: DIS: 01/13/2024 SPEC #: [id number] RECD: 01/13/24 16:06 STATUS: MONICA LOPEZ #: [id number] BHAVNA: 01/13/24 13:[address]: Shakeel Barboza DEPT: SURGICAL PATHOLOGY RECD BY: Lianna Aguilar ENTERED: 01/14/24 07:44 SP TYPE: EGD BIOPSY PAPO DR: Dr. Radha Ferreira MD Tissues: Esophagus, NOS Procedures: Special Stain Group II Surgery Specimen Level IV Alcian Blue/PAS (control) HEADER OPERATION: EGD biopsy PRE-OP DIAGNOSIS: Astudillo's esophagus, Irritable bowel syndrome with constipation TISSUE SUBMITTED: Distal esophagus biopsy MICROSCOPIC DIAGNOSIS Distal esophagus, biopsy: Fragments of gastroesophageal mucosa with focal minimal intestinal metaplasia (goblet cell metaplasia), consistent with Astudillo's esophagus. Chronic inflammation. Negative for dysplasia. See comment. JAZMYNE/ 01/15/24 COMMENT Alcian blue/PAS stain with matched control is used in the evaluation of the specimen. Immunohistochemistry ([id number]) for P53 and Ki-67 will be performed and results will be reported separately. MICROSCOPIC DESCRIPTION Slides are reviewed. GROSS DESCRIPTION Received in fixative is one container labeled with the patient's name and designated Distal esophagus biopsy. The specimen consists of multiple irregular fragments of light rincon soft tissue that in aggregate measure 1.0 x 0.5 x 0.2 cm. The specimen is totally submitted in one cassette. 01/14/24 TC:3 CPT:16058,57584
--- NOTE | 2024-01-13 14:02 | HP.PCM_ITS ---
History and Physical Date of Admission: 01/13/24 ALVINA REYES, is a 72 F who presents to the office today for *BGI established 08.13.21 for evaluation of worsening abdominal pain, constipation, GERD and dysphagia. EGD and colonoscopy .02.27. EGD LA grade a reflux esophagitis, metaplasia; erythematous antrum, gastritis. Colonoscopy Moderate diverticulosis RS colon, sigmoid colon and descending colon with erythema/kenisha-erythema and evidence of impacted diverticulum. Pathology Minimal focal ischemic type change. ? Carafate OV 1..22 Astudillo?s ? monitor, continue PPI. GERD ? Biotene, cetirizine for post nasal drainage. IBS-C ? Start 2 citrucel. Colitis/SCAD ? cipro/flagyl doing well. Possible budesonide/VSL#3 in the future. OV 3.3.22 with symptoms improvement; BM daily with improving consistency, continues with intermittent tenesmus. Reflux greatly improved without recent symptoms. OV 4.30.22 Colitis ? changed to kiwi doing well. Astudillo?s ? monitor, PPI. OV 7.22.22 overall doing well though has had a change toward constipation with diet change to increased processed foods. BM 1-2/week with formed/hard stools. OV 2.8.23 start/continue PPI. ? EGD 12.30. Astudillo?s esophagus, no metaplasia on pathology; small hiatal hernia. OV 5.5.23 doing well without active symptoms. Would like to review EGD. ROS Const Constitutional: No body ache, chills, excessive sweating, fatigue, fever(s), frequent falls, headache(s), snoring, weakness, sleep problems or change in appetite Eyes Eyes: No blurry vision, change in vision, vision loss, dry eyes, floaters, eye pain or Light sensitivity ENT ENT: No abnormal hearing, ear or mastoid pain, tinnitus, nosebleed/epistaxis, nasal congestion, sinus pain, nasal discharge, post nasal drip, headache(s), neck pain or sore throat Resp Respiratory: No cough, excessive phlegm production, pain on inspiration, shortness of breath, snoring or wheezing Cardio Cardiology: No chest pain at rest, chest pain with exertion, excessive sweating, shortness of breath, dyspnea on exertion, lightheadedness, orthopnea or palpitations Gastro GI: No abdominal pain, change in bowel habits, constipation, cramping, diarrhea, Vomiting blood/hematemesis or vomiting Genitourinary-Female: No burning urination, painful urination, urinary incontinence, blood in urine, suprapubic fullness or side pain Musc Musculoskeletal: No abnormal gait, joint pain, back pain, limited range of motion, neck pain, numbness or tingling Skin Skin: No dry skin, redness, excessive hair growth, yellowing of the eye, lesions, itchy eyes, rash or wounds Breast Breast: No change in breast shape, breast lump, breast pain, breast skin changes, breast swelling or nipple discharge Neuro Neurology: No abnormal gait, abnormal hearing, behavioral changes, unsteady gait/balance, weakness, frequent falls, headache(s), numbness or tingling Psych Psychiatric: No anxiety, No behavioral changes, No change in appetite, No depression and No Thoughts of harming yourself/Others Endo Endocrine: No excessive sweating, fatigue, flushing, heat intolerance, increased thirst/drinking or increased hunger Aller/Imm Allergy/Immunologic: No itchy eyes, seasonal allergy symptoms, hives or wheezing Enrique/Lymp Hematologic/Lymphatic: No easy bleeding, easy bruising or enlarged lymph nodes Exam Const General: cooperative, comfortable and no acute distress Orientation: alert, awake and oriented x3 [facility] Head: normal to inspection, normocephalic and atraumatic Ears: hearing grossly normal bilaterally Neck Neck: normal visual inspection, full ROM and supple Resp Effort & Inspection: normal respiratory effort and able to speak in complete sentences Auscultation: Bilateral: Clear to Auscultation Cardio Rate: regular rate Rhythm: regular rhythm Heart Sounds: S1 normal and S2 normal GI Palpation: soft (No palpable organomegaly) Neuro General: patient alert, patient awake, patient oriented x3, moves all extremities and CN's II-XI intact bilaterally Extrem General: no clubbing, cyanosis or edema Quality Reporting Tobacco Screening ([facility] 138) Smoking Status: Never smoker Assessment and Plan Assessment and Plan (1) Astudillo esophagus: Status: Chronic Plan: She has been taking omeprazole at night and she was still having some breakthrough symptoms in the morning. I explained to her that typically we do not eat at night. Proton pump inhibitors only work when you eat. if she is going to take anything at night then it has to be H2 receptor blockers because they are not food dependent. I will switch her pantoprazole from omeprazole and we will have her take 40 mg in the morning and 40 mg in the evening. She can stop omeprazole and as needed H2 receptor darien. . (2) Irritable bowel syndrome with constipation: Status: Acute Plan: She was doing well and regarding bowels while she was taking the kiwi extract. However her activity increase and therefore her amount of water that she was taking on a daily basis decreased. We will have her great detail the amount of volume distribution that occurs in a patient that takes soluble fiber supplement that needs to occur on a daily basis. She was doing between 60 and 90 ounces of water and a day and I cut all way down to half of that. I think that contributed to her needing MiraLAX in order to have a bowel mood on a daily basis. I am okay with her taking the MiraLAX for now we will transition her to off. I have examined the patient and the H&P has been reviewed. There are no clinical changes since date of exam.
[2024-01-13 14:15] VITALS: BP 118/60; BP 122/64; PULSE 72; RESP 16; TEMP 36.3; O2SAT 95
[2024-01-13 14:20] VITALS: BP 122/64; PULSE 68; RESP 16; O2SAT 95
[2024-01-13 14:25] VITALS: BP 122/64; BP 129/67; PULSE 66; RESP 16; TEMP 36.3; O2SAT 100
--- NOTE | 2024-01-13 14:50 | OP.EGD_ITS ---
Patient Name: Consuelo Davies Procedure Date: 01/13/2024 1:55 PM Date of : 1950 Age: 73 Procedure: Upper GI endoscopy Indications: Follow-up of Astudillo's esophagus Providers: Shakeel Barboza DO Medicines: Monitored Anesthesia Care Patient Profile: This is a 73 year old female. Refer to note in patient chart for documentation of history and physical. Patient has symptoms of acute heartburn and chronic heartburn. Complications: No immediate complications. Procedure: Pre-Anesthesia Assessment: - Prior to the procedure, a History and Physical was performed, and patient medications and allergies were reviewed. The risks and benefits of the procedure and the sedation options and risks were discussed with the patient. All questions were answered and informed consent was obtained. Patient identification and proposed procedure were verified by the physician. Mental Status Examination: normal. Prophylactic Antibiotics: The patient does not require prophylactic antibiotics. Prior Anticoagulants: The patient has taken no anticoagulant or antiplatelet agents. After reviewing the risks and benefits, the patient was deemed in satisfactory condition to undergo the procedure. The anesthesia plan was to use monitored anesthesia care (MAC). Immediately prior to administration of medications, the patient was re-assessed for adequacy to receive sedatives. The heart rate, respiratory rate, oxygen saturations, blood pressure, adequacy of pulmonary ventilation, and response to care were monitored throughout the procedure. The physical status of the patient was re-assessed after the procedure. After obtaining informed consent, the endoscope was passed under direct vision. Throughout the procedure, the patient's blood pressure, pulse, and oxygen saturations were monitored continuously. The Endoscope was introduced through the mouth, and advanced to the second part of duodenum. The upper GI endoscopy was accomplished without difficulty. The patient tolerated the procedure well. Scope In: 2:05:12 PM Scope Out: 2:09:43 PM Total Procedure Duration Time 0 hours 4 minutes 31 seconds Findings: There were esophageal mucosal changes secondary to established short-segment Astudillo's disease present in the lower third of the esophagus. The maximum longitudinal extent of these mucosal changes was 2 cm in length. Mucosa was biopsied with a cold forceps for histology in a targeted manner at intervals of 1 cm in the lower third of the esophagus. One specimen bottle was sent to pathology. Verification of patient identification for the specimen was done. Estimated blood loss was minimal. The entire examined stomach was normal. The second portion of the duodenum was normal. Impression: - Esophageal mucosal changes secondary to established short-segment Astudillo's disease. Biopsied. - Normal stomach. - Normal second portion of the duodenum. Recommendation: - Discharge patient to home. - Resume previous diet. - Continue present medications. - Await pathology results. Procedure Code(s): --- Professional --- 91800, Esophagogastroduodenoscopy, flexible, transoral; with biopsy, single or multiple CPT copyright 2021 [employer]. All rights reserved. The codes documented in this report are preliminary and upon core manager review may be revised to meet current compliance requirements. Shakeel Barboza DO 01/13/2024 2:50:18 PM This report has been signed electronically. Number of Addenda: 0 Note Initiated On: 01/13/2024 1:55 PM
--- NOTE | 2024-01-13 14:51 | OP.CCLET_ITS ---
01/13/2024 Radha Ferreira MD [address] [place] [address] [place] [address] Re : Upper GI endoscopy procedure for Consuelo Davies Dear Dr. Ferreira This procedure was performed on Saturday, January 13, 2024. My impressions and recommendations are as follows: Impressions : - Esophageal mucosal changes secondary to established short-segment Astudillo's disease. Biopsied. - Normal stomach. - Normal second portion of the duodenum. Recommendations : - Discharge patient to home. - Resume previous diet. - Continue present medications. - Await pathology results. My findings are described in the full procedure note, which is enclosed. If I can be of further assistance, please feel free to contact me at . Sincerely, Shakeel Barboza, 01/13/2024 2:50:18 PM This report has been signed electronically.
[2024-01-13 14:52] VITALS: BP 122/64
== END 2024-01-13 15:08 | disposition home or self-care (01) ==
LOC: EN 12:07 → AC 12:08
PROVIDERS: PCP Internal Medicine; Referring Provider Internal Medicine; Visit Provider Internal Medicine Gastroenterology
PROC: 0DJ08ZZ Inspection of Upper Intestinal Tract, Via Natural or Artificial Opening Endoscopic (ICD-10-PCS; CPT 43235; principal; 2024-01-13 13:10)
DX: K22.70 Barrett's esophagus without dysplasia (principal); K58.1 Irritable bowel syndrome with constipation
CPT/HCPCS: 43239; 88305; 88313; 88341; 88342; J7120; J2405

== ENCOUNTER → 2024-03-01 | Outpatient (CLI) | payer MEDICARE, OTHER, SELFPAY ==
--- NOTE | 2024-03-01 14:02 | BI_ITS ---
MAMMOGRAPHY - BILATERAL SCREENING REASON FOR EXAM: Female, 73 years old. Routine annual screening examination. PERTINENT HISTORY: Mother with breast cancer. TECHNIQUE: Digital bilateral breast kaia (3D mammographic acquisition) in the CC and MLO projections. 2-D mediolateral oblique (MLO) and craniocaudad (CC) views of both breasts were obtained. CAD: Full Field Digital Mammography with Computer Added Detection was performed. COMPARISON: Comparison is made with prior study dated February 25, 2023 and January 03, 2022. FINDINGS: Breast Composition: The breasts are heterogeneously dense, which may obscure small masses. There is a 7.3 mm x 6.1 mm nodular density in the upper lateral aspect of the right breast. Correlation with ultrasound recommended. No other significant abnormalities are identified. BI/SCRN MAMM (CAD)W/KAIA BILAT IMPRESSION: 7.3 mm x 6.1 mm nodular density in the upper lateral aspect of the right breast. Correlation with ultrasound is recommended. ASSESSMENT CATEGORY: BIRADS Category 0: Incomplete. Need additional imaging evaluation. A letter regarding these results will be sent to the patient by the facility within 30 days. Approximately 10% of breast cancers are not detected by mammography. A normal mammogram should not delay biopsy of a clinically suspicious abnormality. [id number] Electronically Signed: Dewayne Rodas MD at 14:52 EDT ,
== END | disposition home or self-care (01) ==
PROVIDERS: PCP Internal Medicine; Referring Provider Nurse Practitioner Women's Health; Visit Provider Nurse Practitioner Women's Health
DX: Z12.31 Encounter for screening mammogram for malignant neoplasm of breast (principal)
CPT/HCPCS: 77063; 77067

== ENCOUNTER → 2024-03-03 | Outpatient (CLI) | payer MEDICARE, OTHER, SELFPAY ==
--- NOTE | 2024-03-03 11:01 | US_ITS ---
STUDY: ULTRASOUND BREAST - RIGHT REASON FOR EXAM: Female, 73 years old. Abnormal screening mammogram. TECHNIQUE: Axial and longitudinal images of the RIGHT breast were performed with a high resolution ultrasound transducer. # OF IMAGES: 28 COMPARISON: Comparison is made with prior mammogram dated March 01, 2024. FINDINGS: RIGHT Breast: The mammographic abnormality corresponds to a 9 mm x 6 mm x 4 mm hypoechoic irregular nodule at the 10:00 position of the breast at 6cm from the nipple. Biopsy recommended. US/Breast Limited Unilateral IMPRESSION: Hypoechoic irregular nodule at the 10:00 position of the breast at 6 hours from the nipple. Biopsy recommended. ASSESSMENT CATEGORY: BIRADS Category 4: Suspicious - Biopsy Should Be Considered. A letter regarding these results will be sent to the patient by the facility within 30 days. Electronically Signed: Dewayne Rodas MD at 10:00 EDT ,
== END | disposition home or self-care (01) ==
LOC: OPUS 10:59
PROVIDERS: PCP Internal Medicine; Visit Provider Nurse Practitioner Women's Health
DX: R92.30 Dense breasts, unspecified (principal); R92.2 Inconclusive mammogram
CPT/HCPCS: 76642

== ENCOUNTER → 2024-03-05 | Outpatient (CLI) | payer MEDICARE, OTHER, SELFPAY ==
--- NOTE | 2024-03-05 | IMM_PTH ---
PATIENT: ALVINA REYES LOC: [facility] U#:[id number] AGE/SX: 74/F ROOM: RE03/05/[address]: Dr. Opal Betancur MD : 1950 BED: DIS: 03/05/2024 SPEC #: [id number] RECD: 03/08/24 12:01 STATUS: MONICA REQ #: [id number] BHAVNA: 03/05/24 00:[address]: Opal Betancur DEPT: IMMUNOHISTOCHEMISTRY RECD BY: Charles Womack ENTERED: 03/08/24 12:02 SP TYPE: IMMUNO OTHR DR: Dr. Radha Ferreira MD Tissues: Right breast, NOS Procedures: CALPONIN-1 (add) CK5-6 (add) CK8 (add) E-CAD (add) HER2 JONATHAN (add) KI-67 (add) P53 (add) ID (add) P40 (add) MOC-31 (add) ER (initial) PHYSICIAN & [address] [address] SPECIMEN INFORMATION: Tissue Source: Right breast tissue Clinical Info: Right breast mass Specimen Number: [id number] CPT code: 05360,71350i80 METHODOLOGY: Deparaffinized sections of prefer/formalin-fixed tissue or PAP/DQ stained slides are incubated with monoclonal/polyclonal antibodies/oligonucleotide probes. Localization is made via biotin free immunoperoxidase method. Appropriate controls are performed and reacted as expected. Results on target cell population are indicated in the following table: RESULTS: ANTIBODY / CLONE RESULT P53 (DO-7) positive, 90% Ki-67 (30-9) positive, 65% CK8 (57patgT19) positive CK5-6 (D5 & 1684) positive, focal Calponin-1 (WP621S) negative P40 (BC28) negative E-Cad (ECH-6) positive MOC-31 (4561) positive MORPHOMETRIC ANALYSIS ER (clone 6F11) 0% ID (clone 16/1E2) 0% Her-2Neu (clone CB11) 0-1+ The prognostic test for HER2 is performed on formalin-fixed paraffin embedded tissue. A 3+ (positive) staining pattern is defined as intense, homogeneous, complete, circumferential membranous staining in >10% of contiguous tumor cells. A similar weak (2+) staining pattern is interpreted as equivocal. ERIC follow-up testing is recommended for all equivocal cases. Positivity/negativity for ER/ID is reported if > or < 1% of the tumor cells are immuno- reactive, respectively. The ASCO/CAP criteria is used for scoring. Reference: Journal of Clinical Oncology, 2013; 31:2161-0331 & 2010; 16:9902-9556. Ischemic time: Less than one hour. Duration of fixation: 9 Hrs; Sample Adequate: Yes. These assays have not been validated on decalcified tissues. Results should be interpreted with caution given the likelihood of false negativity on decalcified specimens or fixation greater than 72 hours. Alternative testing methods (FISH/dualISH for Her2; gene expression for ER) are recommended, if applicable. Please notify the laboratory if additional testing is required. These tests were developed and their performance characteristics determined by [facility]. They may not have been cleared or approved by the U.S. Food and Drug Administration. The FDA has determined that such clearance or approval is not necessary. The above immunohistochemical/dualISH markers are ordered and reviewed by the Pathologist. The test for HER 2 is performed on formalin-fixed paraffin embedded tissue using the CB11 mouse monoclonal antibody ([employer]). A 3+ staining pattern is interpreted as positive and is defined as a strong membranous staining involving the entire cell membrane in over 30% of invasive tumor cells. A similar weak staining pattern (2+) involving 10% of the tumor cells is interpreted as equivocal. HER 2 follow-up testing by FISH is recommended for all equivocal results. Reference: [place] Society of Clinical Oncology and the College of [employer] (J. Clin. Oncol. 23: 118-145, 2007). Fixative Used: Formalin; Duration of Fixation: 9 Hrs; Sample Adequate: Yes INTERPRETATION: Right breast, biopsy: Invasive ductal carcinoma, provisional grade 2. Negative for estrogen receptors (unfavorable prognostic indicator). Negative for progesterone receptors (unfavorable prognostic indicator). Negative for overexpression of CYG7fks. AM/mr 03/09/2024
--- NOTE | 2024-03-05 10:30 | BRBX_PTH ---
PATIENT: ALVINA REYES LOC: [facility] U#:[id number] AGE/SX: 74/F ROOM: RE03/05/[address]: Dr. Opal Betancur MD : 1950 BED: DIS: 03/05/2024 SPEC #: [id number] RECD: 03/05/24 11:12 STATUS: MONICA REQ #: [id number] BHAVNA: 03/05/24 10:[address]: Opal Betancur DEPT: SURGICAL PATHOLOGY RECD BY: Herminia Conroy ENTERED: 03/05/24 11:56 SP TYPE: BREAST BX OTHR DR: Dr. Radha Ferreira MD Tissues: Right breast, NOS Procedures: Surgery Specimen Level IV HEADER OPERATION: Right breast biopsy PRE-OP DIAGNOSIS: Right breast mass TISSUE SUBMITTED: Right breast tissue- 10o'clock 6.0cm from the nipple Ischemic Time: 1 minute Fixation Time: 9 hours MICROSCOPIC DIAGNOSIS Right breast mass, core biopsy: Invasive ductal carcinoma. See synoptic report below. ARLIN/ 03/08/2024 COMMENT INVASIVE BREAST CANCER SUMMARY: Procedure: Needle core biopsy Specimen Laterality: right breast Tumor site: 10 o'clock, 6.0cm from nipple Histologic type: Invasive ductal carcinoma with basal cell like features. Provisional Histologic grade:2 Tubule Differentiation Score: 3 Nuclear Pleomorphism Score: 3 Mitotic Rate Score: 1 Tumor Size ( greatest dimension): 5.5mm Ductal Carcinoma In situ: Not identified. Angiolymphatic Invasion: Not identified. Microcalcifications: Not identified. Additional Findings: Moderate chronic inflammation Breast Marker Study: [id number] ER:0% (negative) CT:0%, (negative) Her2:0-1+(negative) Ki67:90% The above summary is in compliance with [employer] (CAP) Cancer Protocols Checklist and [place] [employer] Committee on Cancer (AJCC), Staging Manual, 8th Ed. Breast Marker Study ([id number]) by Immunohistochemistry was performed on this case. Case has been reviewed in consultation with Dr. Pineda who concurs with the above diagnosis. IDC:[id number] MICROSCOPIC DESCRIPTION Slides are reviewed. GROSS DESCRIPTION Received in fixative is one container labeled with the patient's name and designated Right breast. The specimen consists of multiple elongated fragments of rincon-yellow fibroadipose soft tissue that in aggregate measure 1.0 x 0.6 x 0.1 cm. The specimen is totally submitted in one cassette. Trino 03/05/2024 TC:0 CPT:17299
== END | disposition home or self-care (01) ==
LOC: LABSPEC 11:22
PROVIDERS: PCP Internal Medicine; Referring Provider Surgery; Visit Provider Surgery
DX: N63.10 Unspecified lump in the right breast, unspecified quadrant (principal)
CPT/HCPCS: 81002; 88305; 88341; 88342

== ENCOUNTER → 2024-03-19 | Outpatient (CLI) | payer MEDICARE, OTHER, SELFPAY ==
--- NOTE | 2024-03-19 08:04 | MRI_ITS ---
STUDY: BILATERAL BREAST MR WITHOUT AND WITH CONTRAST REASON FOR EXAM: Female, 74 years old. Recent diagnosis of invasive ductal carcinoma. TECHNIQUE: Multi-sequence multi-echo imaging of both breasts was performed with a dedicated breast coil. T1-weighted and T2-weighted images were performed before the administration of contrast. T1-weighted images were also performed after the intravenous administration of 15 cc of Clariscan contrast. COMPARISON: Prior right breast ultrasound dated March 03, 2024 and screening mammograms dated March 01, 2024, February 25, 2023 and January 03, 2022 FINDINGS: RIGHT BREAST: Predominantly fatty replaced breast with minimal background enhancement. At the 10:00 position of the right breast 6-7 cm from the nipple there is a 9.5 mm in diameter lobular enhancing mass with tissue clip artifact within it. This lesion is compatible with the comparison mammographic and ultrasonographic imaging represents the index lesion. LEFT BREAST: Predominantly fatty replaced breast with minimal background enhancement. No abnormal enhancing masses or areas of non-mass enhancement in the left breast. No enlarged or abnormal lymph nodes. No abnormality in the visualized regions of the chest or liver. MRI/Breast Bilateral W/O and W IMPRESSION: Index lesion at the 10:00 position of the right breast as described above. No abnormality of the left breast. No abnormal lymph nodes or other enhancing suspicious lesions. CATEGORY: BIRADS Category 6: Known Biopsy-Proven Malignancy - Appropriate Action Should Be Taken. A letter regarding these results will be sent to the patient by the facility within 30 days. Electronically Signed: Pradeep Llamas MD at 11:38 EDT ,
[2024-03-19 08:42] LABS: CREATININE FINGERSTICK < 1.0 mg/dL (0.55-1.02); EGFR FINGERSTICK > 60.0000 mL/min (>60)
== END | disposition home or self-care (01) ==
LOC: MRI 08:00
PROVIDERS: PCP Internal Medicine; Referring Provider Surgery; Visit Provider Surgery
DX: C50.911 Malignant neoplasm of unspecified site of right female breast (principal)
CPT/HCPCS: 77049; A9575; A4216; C8908

== ENCOUNTER 2024-04-23 09:31 | Day surgery (SDC) | payer MEDICARE, OTHER, SELFPAY ==
[2024-04-23] VITALS (7 sets, daily range): BP systolic 97–155; BP diastolic 49–68; PULSE 57–77; RESP 16–18; TEMP 36.3–37.2; O2SAT 96–100; BMI 27.6
--- NOTE | 2024-04-23 09:55 | PCM.HP.BLA ---
History and Physical Date of Admission: 04/23/24 Date of Service: 04/22/24 MR#: [id number] Acct: [id number] Name: ALVINA REYES Rep #: [id number] : 1950 Provider: Dr. Opla Betancur MD Age/Sex: 74/F Location: [facility] Status: Signed Intake Vital Signs 03/17/2413:07 04/22/2413:31 Height 5 ft 4 in 5 ft 4 in Weight: 165 lb BMI 28.3 BP 106/68 Blood Pressure Location Lt brachial Position Sitting Respiration 18 Pulse 64 Pulse Source Monitor Temp 97.6 F L Temp Source Temporal Pulse Oximetry (%) 100 Oxygen Delivery Method room air Intake Visit Reasons: PORT PLACEMENT Chief Complaint: port placement Is patient in pain?: No Allergies Penicillins Allergy (Mild, Verified 04/22/24 13:32) Rashvancomycin HCl (From Vancocin) Allergy (Mild, Verified 04/22/24 13:32) Rashmetoclopramide (From Reglan) Allergy (Verified 04/22/24 13:32) Othernaproxen (From Naprosyn) Adverse Reaction (Verified 04/22/24 13:32) RashNSAIDS (Non-Steroidal Anti-Inflamma Adverse Reaction (Verified 04/22/24 13:32) Rash Medications ?Medication ?Instructions ?Recorded ?Confirmed ?Type Fibrocare 2 tab PO BID SUPPLEMENT 11/30/13 04/22/24 History calcium citrate 315 mg 4 tab PO BID SUPPLEMENT 08/25/17 04/22/24 History calcium-vitamin D3 6.25 mcg (250 unit) tablet (Citracal + Vitamin D Maximum) ortho-biotic 1 tab PO DAILY 01/25/19 04/22/24 History propylene glycol 0.6 % eye drops 1 drp ophthalmic (eye) BID 01/25/19 04/22/24 History (Systane Complete) omega 4-xbw-bye-fish oil 1,000 mg 2 cap PO BID SUPPLEMENT 11/12/21 04/22/24 History (120 mg-180 mg) capsule (Fish Oil) estradiol 0.01% (0.1 mg/gram) See Rx Instructions vaginal 04/03/22 04/22/24 Rx vaginal cream .COMPLEX ESTROGEN SUPPLEMENT #50 grams mometasone 0.1 % topical ointment 1 applic topical .COMPLEX #15 grams 06/17/22 04/22/24 Rx sertraline 50 mg tablet 50 mg PO DAILY #90 tabs 08/15/23 04/22/24 Rx ibuprofen 200 mg tablet (Advil) 200 mg PO Q6H PRN pain 11/14/23 04/22/24 History levothyroxine 75 mcg tablet 75 mcg PO DAILY #90 tabs 01/05/24 04/22/24 Rx pantoprazole 40 mg tablet,delayed 40 mg PO DAILY 03/17/24 04/22/24 History release Have you fallen in the past year?: No PFSH Medical History (Updated 04/23/24 @ 08:[address] Opal Betancur MD) Cancer Astudillo esophagus Pneumonia De Quervain's tenosynovitis, left COVID-19 Anxiety and depression Depression CPAP (continuous positive airway pressure) dependence Leg cramps Grief reaction URI (upper respiratory infection) Shingles Hypertension Left shoulder tendinitis Adhesive capsulitis of left shoulder Left shoulder pain Colitis Wears glasses Alcohol use Migraine headache Injury of head and neck History of ulceration Non-smoker History of pain when walking History of echocardiogram History of stress test GERD (gastroesophageal reflux disease) IBS (irritable bowel syndrome) Constipation Irritable bowel syndrome with constipation Abrasion, left ankle, initial encounter Sprain of left foot Contusion of left ankle Elevated blood pressure reading in office without diagnosis of hypertension Osteoarthritis prolapsed bladder Fibromyalgia Thyroid disease Knee pain Cataracts, bilateral Arthritis Osteopenia low white blood count Lichen sclerosus Surgical History (Updated 04/23/24 @ 08:[address] Opal Betancur MD) History of lumpectomy of right breast Hx of esophagogastroduodenoscopy H/O endoscopy History of cardiac catheterization History of cholecystectomy History of colonoscopy History of total vaginal hysterectomy (TVH) (~09/24/18) TMJ gallbladder History of appendectomy S/P cervical disc replacement Family History Mother Breast cancer, Onset Age: 60 remission until the age of 74 and spread to bones Alcoholism Epilepsy HyperlipemiaFather Cancer Unknown AlcoholismBrother AlcoholismDaughter Thyroid disorder Cancer Social History Smoking Status: Never smoker alcohol intake: current alcohol intake frequency: holidays/special occasions only substance use type: does not use caffeine: No what type of physical activity do you participate in: walking frequency: 3-4 times per week seatbelt use: always do you feel safe at home: Yes additional social history: HPI HPI HPI: 74-year-old female presents for port placement due to invasive ductal carcinoma breast cancer triple negative status postlumpectomy?right and sentinel lymph node biopsy negative at [facility]. ROS General General: No weight change, appetite, fatigue, colon cancer, breast cancer or weakness HEENT HEENT: No difficulty swallowing, eye injury, eye surgery, swollen glands or hoarseness Endo Endocrine: Yes thyroid disease; No diabetes mellitus, thyroid cancer, Hair loss, heat intolerance or cold intolerance Skin Skin: No rash or changing moles Breast Breast: Yes abnormal mammogram and abnormal US Musc Musculoskeletal: No back problems, arthritis, rheumatoid arthritis, gout or joint pain Cardio Cardiovascular: No murmur, pacemaker, heart disease, atrial fibrillation, high blood pressure, heart attack, heart stent, palpitations, shortness of breat with exertion or chest pain Psych Psychiatric: Yes depression and anxiety; No hearing voices Resp Respiratory: No shortness of breath, No sleep apnea, No cough, No COPD, No asthma, No emphysema and No wheezing Gastro Gastrointestinal: No abdominal pain, No nausea or vomiting, No diarrhea, No constipation, No blood in stool, Yes acid reflux, No hemorrhoids, No ulcers, No gallbladder problem and No black,tarry stools Enrique Hematologic: Yes blood thinners, No blood disorders, No bleeding, No anemia and No blood clots Additional Details: Fishoil Neuro Neurologic: No numbness, No tingling and No weakness Exam Const General: cooperative, healthy appearing, comfortable and no acute distress [facility] Head: normocephalic and atraumatic Neck Neck: supple Chest Other: Palpation of bilateral upper chest normal Resp Effort & Inspection: normal respiratory effort Cardio Rate: regular rate GI Inspection: non-distended Skin General: no rashes or lesions noted Neuro General: CN's II-XI intact bilaterally Extrem General: normal to inspection Psych Mental Status: mental status grossly normal Attitude: cooperative Assessment and Plan Assessment and Plan (1) Encounter for insertion of venous access port: Status: Acute (2) Invasive ductal carcinoma of breast: Status: Acute Qualifiers: Laterality: right Qualified Code(s): C50.911 - Malignant neoplasm of unspecified site of right female breast (3) History of lumpectomy of right breast: Status: Acute Comment: 04/01/24 Plan I have discussed above with the patient- Port-a-Cath placement. Left IJ possible right Patient has been counseled as to the risks/benefits of the procedure. I have explained the risks of the surgery, including but not limited to: infection, bleeding, injury to any blood vessels/nerves, injury to lungs (such as pneumothorax or hemothorax and need for chest tube), not having any access, nonfunctioning of port due to thrombosis, infection of port, etc. the patient understands and agrees to proceed. I have answered all the patient's questions to the patient?s satisfaction and the patient has no further questions. Opal Betancur M.D. Pager: [phone] [facility] [address] [place] [address], [address] [place] [id number] Office: [phone] Coding Level of Care Code Off vis,est,level 3 Diagnoses Encounter for insertion of venous access port Z45.2 Infiltrating ductal carcinoma of right breast C50.911 Laterality: right History of lumpectomy of right breast Z98.890 Clinical Quality Measures Falls Risk Screening/Assistive Devices Have you fallen in the past year?: No 04/23/24 0808 <Electronically signed by Opal Betancur MD> Date Opal Betancur MD
[2024-04-23] MEDS: Lactated Ringers 1,000 ML 15 ML IV (10:00)
--- NOTE | 2024-04-23 10:18 | PRE.ANES_ITS ---
ASA Classification* ASA Classification ASA Classification: 2 Assessment & Plan Anesthesia* Anesthesia Assessment Anesthesia Assessment: Discussed sedation and/or anesthesia options, risks, benefits, and alternatives with patient/parents/legal guardian/POA. Questions invited. The patient/parents/legal guardian/POA seems to understand and agrees to proceed with anesthesia plan. Reviewed the physical assessment, medical history, allergy history and patient home medications list prior to surgery/procedure/anesthetic and documented any changes. Performed airway and anesthesia risk assessments. Anesthesia Type Anesthesia Type: MAC Anesthesia Focused Assessment* Temperature: 98.9 F Pulse Rate: 61 Blood Pressure: 155/67 Respiratory Rate: 16 Pulse Ox: 100 Airway Assessment Mouth opens: >3 cm Mallampati Score: II Focused Labs Anesthesia Preop lab: CBC WBC 3.7 K/mm3 (4.4-11.0) L 11/14/23 13:32 RBC 3.86 M/mm3 (4.2-5.4) L 11/14/23 13:32 Hgb 12.5 g/dL (12.0-15.0) 11/14/23 13:32 Hct 38.0 % (37-47) 11/14/23 13:32 Plt Count 128 K/mm3 (150-450) L 11/14/23 13:32 CHEMISTRY Potassium 4.2 mmol/L (3.5-5.1) 11/14/23 13:32 Sodium 140 mmol/L (136-145) 11/14/23 13:32 Magnesium 2.2 mg/dL (1.6-2.6) 10/05/19 10:44 BUN 24 mg/dL (7-18) H 11/14/23 13:32 Creatinine 0.90 mg/dL (0.55-1.02) 11/14/23 13:32 Glucose 121 mg/dL (74-106) H 11/14/23 13:32 TSH 0.72 uIU/mL (0.358-3.74) 08/15/23 09:43 COAG PT 13.2 SECONDS (11.7-14.9) 02/07/17 12:55 Pre-Assessment Diagnosis/Proposed Procedure Planned Operative Procedure(s): RIGHT POSS LEFT IJ INSERTION VASCULAR PORT Anesthesia History Anesthesia History - refrigeration system installer: Anesthesia History - refrigeration system installer Hx Hospitalization No 04/21/24 10:56 Any Problems With Anesthesia No 04/21/24 10:56 Cholinesterase deficiency No 04/21/24 10:56 You/Your Family Experience No 04/21/24 10:56 fever (hyperthermia) with Relationship Recent Exposure to Contagious No 04/23/24 09:56 Disease Does patient have nerve No 04/21/24 10:56 stimulator Patient instructed to have device shut off --Does patient have Pacemaker No 04/23/24 09:56 or ICD? When Was Last Pacemaker Check QUESTION #4 FULL TEXT: You/Your Family Experience fever (hyperthermia) with Anesthesia Last Oral Intake Last Oral intake: Last Oral Intake NPO since 20:00 04/23/24 09:56 Meds taken in AM with sips of Yes 04/23/24 09:56 water? Meds patient instructed to take am of surgery PONV PONV - refrigeration system installer: PONV - refrigeration system installer Female Yes 04/21/24 10:56 HX of Motion Sickness No 04/21/24 10:56 HX of N/V After Surgery No 04/21/24 10:56 Non-Smoker Yes 04/21/24 10:56 Duration of Surgery greater No 04/21/24 10:56 than 60 minutes Number of Risk Factors 2 04/21/24 10:56 PONV Score Moderate Risk 04/21/24 10:56 Height & Weight Height & Weight: Anesthesia: Height & Weight Height 5 ft 5 in 04/23/24 09:56 Weight: 75.3 kg 04/23/24 09:56 Body Mass Index (BMI) 27.6 04/23/24 09:56 Respiratory Assessment Respiratory Assessment - refrigeration system installer: Respiratory Tract Infection Hx - refrigeration system installer Hx Respiratory Tract Infection No 04/21/24 10:56 STOP Sleep Apnea STOP Sleep Apnea - refrigeration system installer: STOP Sleep Apnea - refrigeration system installer Hx Hypertension Yes: OFF MEDS FOR SEVERAL 04/21/24 10:56 MONTHS PER PT PCP Hx Sleep Apnea Yes 04/21/24 10:56 CPAP Yes 04/21/24 10:56 BIPAP No 04/21/24 10:56 Do you snore loudly (louder than talking or can be heard Do you often feel tired/ fatigued/ sleepy during daytime? Has anyone observed you stop breathing during sleep? STOP Results Positive 04/21/24 10:56 QUESTION #5 FULL TEXT : Do you snore loudly (louder than talking or can be heard through closed doors)? Tobacco Use History Tobacco Use History - refrigeration system installer: Tobacco Use History - refrigeration system installer Tobacco Use Smoking Status Never smoker 04/21/24 10:56 Hx Tobacco Use No 04/21/24 10:56 Years Smoking Packs Smoked per Day Smoking Cessation Date was within the last 15 years Hx Smoking Cessation Date Hx Smoking Cessation Counseling Hematologic Medial History Hematologic Hx - refrigeration system installer: Hematologic Medical Hx - employment consultant Hx of Blood Transfusion No 04/21/24 10:56 Hx of Transfusion in last 3 No 04/21/24 10:56 Months Date of Last Transfusion (if within last 3 months) Ever experience any problems No 04/21/24 10:56 with transfusion(s)? Specify any problems Hx of Preganancy in last 3 No 04/21/24 10:56 Months Nurse Filling Out Transfusion DSCHRIBER 04/21/24 10:56 & Questions: Date: 04/21/24 04/21/24 10:56 Time: 10:57 04/21/24 10:56 Patient unable to answer at this time (ie. confused, unrespo /Reproduction History /Reproductive History - refrigeration system installer: /Reproductive Hx- refrigeration system installer Hx Now Gestational Age (in weeks): EDC: Hx Hx Para Hx Section SAB No 04/21/24 10:56 Active Medications Active Medications: Current Medications Generic Name Dose Route Start Last Admin Trade Name Freq PRN Reason Stop Dose Admin Clindamycin Phosphate 900 mg in 50 mls @ 75 mls/hr 04/23/24 11:00 Cleocin IV 04/23/24 11:39 PREOP ONE Lactated Ringer's 1,000 mls @ 15 mls/hr 04/23/24 09:45 04/23/24 10:00 IV 15 mls/hr .Q48H EMMANUEL Administration PFSH Medical History Cancer Astudillo esophagus Pneumonia De Quervain's tenosynovitis, left COVID-19 Anxiety and depression Depression CPAP (continuous positive airway pressure) dependence Leg cramps Grief reaction URI (upper respiratory infection) Shingles Hypertension Left shoulder tendinitis Adhesive capsulitis of left shoulder Left shoulder pain Colitis Wears glasses Alcohol use Migraine headache Injury of head and neck History of ulceration Non-smoker History of pain when walking History of echocardiogram History of stress test GERD (gastroesophageal reflux disease) IBS (irritable bowel syndrome) Constipation Irritable bowel syndrome with constipation Abrasion, left ankle, initial encounter Sprain of left foot Contusion of left ankle Elevated blood pressure reading in office without diagnosis of hypertension Osteoarthritis prolapsed bladder Fibromyalgia Thyroid disease Knee pain Cataracts, bilateral Arthritis Osteopenia low white blood count Lichen sclerosus Home Medications ?Medication ?Instructions ?Recorded ?Last Taken ?Type Fibrocare 2 tab PO BID SUPPLEMENT 11/30/13 01/12/24 History calcium citrate 315 mg 4 tab PO BID SUPPLEMENT 08/25/17 01/12/24 History calcium-vitamin D3 6.25 mcg (250 unit) tablet (Citracal + Vitamin D Maximum) ortho-biotic 1 tab PO DAILY 01/25/19 01/12/24 History propylene glycol 0.6 % eye drops 1 drp ophthalmic (eye) BID 01/25/19 01/12/24 History (Systane Complete) omega 3-lyq-zuv-fish oil 1,000 mg 2 cap PO BID SUPPLEMENT 11/12/21 01/12/24 History (120 mg-180 mg) capsule (Fish Oil) estradiol 0.01% (0.1 mg/gram) See Rx Instructions vaginal 04/03/22 01/12/24 Rx vaginal cream .COMPLEX ESTROGEN SUPPLEMENT #50 grams mometasone 0.1 % topical ointment 1 applic topical .COMPLEX #15 grams 06/17/22 01/12/24 Rx sertraline 50 mg tablet 50 mg PO DAILY #90 tabs 08/15/23 01/12/24 Rx ibuprofen 200 mg tablet (Advil) 200 mg PO Q6H PRN pain 11/14/23 01/12/24 History levothyroxine 75 mcg tablet 75 mcg PO DAILY #90 tabs 01/05/24 04/23/24 Rx pantoprazole 40 mg tablet,delayed 40 mg PO DAILY 03/17/24 Unknown History release Allergy/AdvReac Type Severity Reaction Status Date / Time Penicillins Allergy Mild Rash Verified 04/23/24 09:56 vancomycin HCl (From Allergy Mild Rash Verified 04/23/24 09:56 Vancocin) metoclopramide (From Reglan) Allergy Other Verified 04/23/24 09:56 naproxen (From Naprosyn) AdvReac Rash Verified 04/23/24 09:56 NSAIDS (Non-Steroidal AdvReac Rash Verified 04/23/24 09:56 Anti-Inflamma Family History Mother Breast cancer, Onset Age: 60 remission until the age of 74 and spread to bones Alcoholism Epilepsy Hyperlipemia Father Cancer Unknown Alcoholism Brother Alcoholism Daughter Thyroid disorder Cancer Surgical History History of lumpectomy of right breast Hx of esophagogastroduodenoscopy H/O endoscopy History of cardiac catheterization History of cholecystectomy History of colonoscopy History of total vaginal hysterectomy (TVH) (~09/24/18) TMJ gallbladder History of appendectomy S/P cervical disc replacement Social History Smoking Status: Never smoker alcohol intake: current alcohol intake frequency: holidays/special occasions only substance use type: does not use caffeine: No what type of physical activity do you participate in: walking frequency: 3-4 times per week seatbelt use: always do you feel safe at home: Yes additional social history: Review of Systems (Anesthesia) ROS Narrative System reviewed and no additional complaints, except as documented.
[2024-04-23] MEDS: Clindamycin 900 MG/50 ML BAG 75 MG IV (11:54)
[2024-04-23] MEDS: Lidocaine 1% /Epi 1:100 (20ml) 20 ML Vial (12:41)
[2024-04-23] MEDS: Bupivacaine Mpf 0.5% 30 ML VIAL (12:41)
--- NOTE | 2024-04-23 12:46 | PCM.OPRPT ---
Report of Operation Date of Procedure: 04/23/24 Pre-Operative Diagnosis: Z45.2, right breast cancer Post-Operative Diagnosis: Same Surgery/Procedure Performed:: Placement of left IJ converted to right IJ Port-A-Cath Use of ultrasound Use of fluoroscopy Description of Surgical Findings:: Guidewire unable to make the turn towards the heart from the left IJ Going towards the right arm even with the Glidewire and torque. Surgeon: Opal Betancur Type of Anesthesia: Local MAC Anesthesiologist: Antonio Oconnor Special Medications: Clindamycin 900 mg IV x 1 Estimated Blood Loss (mL): <10 cc Description of Procedure: After informed consent was given, the patient was brought to the operating room and placed in the supine position. Appropriate time out protocol was followed. Patient was then given IV conscious sedation for anesthesia. The patient's bilateral upper chest and neck were then prepped with a surgical skin preparation and sterile surgical drapes were placed. After proper landmarks were ascertained, the skin at the upper left initially then right chest area was then infiltrated with 1:1 mixture of 1% lidocaine with epinephrine and 0.5% marcaine. A needle trocar was then inserted into the left internal jugular vein with ultrasound guidance-multiple vessels were viewed with u/s and the left IJ was chosen-- and there was good aspiration of venous blood. A wire was then threaded into the needle trocar and this was visualized under fluoroscopy to ensure that the wire was in the superior vena cava; however the wire did not make the turn down to the heart did change out using a Glidewire along with torque but still unable to get it to turn down to the heart. Decided to switch to the right side. Ultrasound use to identify the left right internal jugular vein and medial trocar was placed and then a guidewire and fluoroscopy was used ensure it was in the superior vena cava. Once this was done, then the needle trocar was removed. A small skin adriano was made with an 11 blade knife at the wire entrance site. The dilator with the introducer sheath attached was then placed over the wire into the right internal jugular vein via the Seldinger technique and this was visualized under fluoroscopy. The dilator and sheath were in proper position as visualized by fluoroscopy. A subcutaneous pocket was then created caudad to the catheter insertion site. A transverse skin incision was made after the skin and subcutaneous tissues were infiltrated with local anesthetic. Blunt dissection was then used to create a space large enough for placement of the subcutaneous port. The catheter was then tunneled into the subcutaneous pocket. The wire and dilator were then removed. The catheter was then threaded into the introducer sheath and was positioned with its tip at the junction of the superior vena cava and the right atrium as visualized under fluoroscopy. The excess catheter was transected. The catheter was then attached to the subcutaneous port using manufacturers guidelines. The catheter was flushed with a heparin saline mixture prior to placement. Hemostasis was carefully controlled with electrocautery. The port was sutured to the subcutaneous fascia using 2-0 Vicryl suture at two sites. The port was then placed in the subcutaneous pocket. The incision were reapproximated with interrupted subdermal 3-0 vicryl sutures. The skin was reapproximated with 3-0 nylon suture in a interrupted fashion. Steristrips were used for reinforcement of the skin closure at IJ insertion site and a sterile opsite dressings were applied. The patient tolerated the procedure well. Grafts/Implants Used: Bard PowerPort isp M.R.I. 6Fr Lot Lot [id number] ref [id number] Complications none
--- NOTE | 2024-04-23 12:50 | DCINST_ITS ---
Discharge Instructions Procedure Port-A-Cath Diet Discharge Diet: Light diet - advance as tolerated Activity May shower in (days): 5 (Keep port site clean and dry x5 days. Neck incision okay to get wet after 1 day. Okay to lower shower and upper sponge bath. OR okay to taper off port site with a Ziploc bag to shower) Lifting Restrictions: No lifting > 15 pounds for 3 days with the arm on the side of the port Dressing / Incision Call your doctor if your incision/area has: Continuous Slow Oozing, Sudden Increased Bleeding, Increased Pain/ Swelling, Increased Redness, Foul Smelling Discharge and Swelling at the incision site Call your doctor if you observe: Fever of 101 or Higher Change Dressing in: 2 days (2-3 days- port site; ok to remove neck opsite in 1 day) Follow Up Care Please Follow Up With: Opal Betancur MD When: In 10 days for permanent suture removal?call office for appointment Test Results: Test results from this visit will be discussed in further detail at your follow- up appointment, if applicable. Discharge Plan Admission Attending Provider: Opal Betancur Primary Care Provider: Radha Ferreira Instructions Print Language: Setswana Discharge Orders/Prescriptions Prescriptions: Continued calcium citrate-vitamin D3 [Citracal + D Maximum] 315-250 mg-unit tablet 4 tab PO BID omega 7-rlx-zwb-fish oil [Fish Oil] 1,000 mg (120 mg-180 mg) capsule 2 cap PO BID Systane Complete 0.6 % drops 1 drp OPHTHALMIC BID ortho-biotic 1 tab PO DAILY mometasone 0.1 % ointment 1 applic topical .COMPLEX Qty: 15 2RF Rx Instructions: 1 applic topical small amount as directed and rub in bid X 2 weeks, dailly X 2 weeks then prn; sertraline 50 mg tablet 50 mg PO DAILY Qty: 90 2RF ibuprofen [Advil] 200 mg tablet 200 mg PO Q6H PRN (Reason: pain) pantoprazole 40 mg tablet,delayed release (DR/EC) 40 mg PO DAILY Fibrocare 2 tab PO BID Patient Comments: SUPPLEMENT estradiol 0.01 % (0.1 mg/gram) cream See Rx Instructions Vaginal .COMPLEX Qty: 50 2RF Dose Instruction: small amount Vaginal 3 X week; Rx Instructions: small amount Vaginal 3 X week; levothyroxine 75 mcg tablet 75 mcg PO DAILY Qty: 90 3RF Referrals / Follow Up: Radha Ferreira MD [Primary Care Provider] - Disposition Disposition (needs filled in before D/C Order can be placed): Home, Self Care
--- NOTE | 2024-04-23 12:50 | PCM.POST.ANE ---
Anesthesia: Postop Eval I Current Vital Signs Temperature: 97.6 F Pulse Rate: 63 Blood Pressure: 129/62 Respiratory Rate: 18 Pulse Ox: 98 Oxygen Delivery Method: Room Air Assessment Airway patent: Yes Spontaneous unlabored respirations: Yes Mental status: Awake and Calm nausea: No Vomiting: No Anesthesia Complication: No Fluid Hydration Crystalloid volume administer (ml): 300 Total IV fluid infused: 300 Progress Note Anesthesia document: Postop Eval 1 completed: Yes
--- NOTE | 2024-04-23 13:00 | RAD_ITS ---
STUDY: X-RAY CHEST REASON FOR EXAM: Female, 74 years old. port -- PORTABLE PACU TECHNIQUE: Single AP portable view of the chest. COMPARISON: Comparison is made with prior study dated March 29, 2019. FINDINGS: A right-sided Port-A-Cath is in place. The tip is at the junction of the superior vena cava and right atrium. Surgical clips are seen in the right axilla. The lungs are clear and expanded. There is no demonstrated pleural abnormality. Normal size heart. Normal mediastinum and john. Normal visualized pulmonary arteries. Normal visualized aortic arch and descending thoracic aorta. There are diffuse degenerative changes of the visualized thoracic spine. Normal visualized ribs, clavicles, and shoulders. There is no demonstrated abnormality of the visualized soft tissue structures of the upper abdomen. RAD/CXR for Line Placement IMPRESSION: The tip of the right charisse catheter is at the junction of the superior vena cava and right atrium. Electronically Signed: Dewayne Rodas MD at 13:56 EDT ,
--- NOTE | 2024-04-23 13:47 | POSTOPAN2_ITS ---
Anesthesia Postop Eval I Sum Postop Eval Completion status Anesthesia document: Postop Eval 1 completed: Yes Anesthesia Postop Eval I Summary Anesthesia Postop Eval I Summary: Anesthesia Postop Eval I: Assessment Summary Airway patent Yes 04/23/24 12:54 [email or web address] Spontaneous unlabored Yes 04/23/24 12:54 PENETRATION [email or web address] respirations Mental status Awake,Calm 04/23/24 12:54 PENETRATION [email or web address] nausea No 04/23/24 12:54 PENETRATION [email or web address].[email or web address] Vomiting No 04/23/24 12:54 [email or web address] [email or web address] Anesthesia Postop Eval I: Fluid Summary Crystalloid volume administer 300 04/23/24 12:54 PENETRATION [email or web address] (ml) Colloids volume administered ( ml) Blood Product volume administered (ml) Total IV fluid infused 300 04/23/24 12:54 PENETRATION [email or web address] Anesthesia Postop Eval I: Summary Notes Anesthesia Complication No 04/23/24 12:54 [email or web address] Anesthesia Complication Comment: Post-operative progress note Anesthesia: Postop Eval II Evaluation Mental status: Awake Pain Level: 0 nausea: No Vomiting: No
--- NOTE | 2024-04-23 13:47 | PCM.POSTANE2 ---
Anesthesia Postop Eval I Sum Postop Eval Completion status Anesthesia document: Postop Eval 1 completed: Yes Anesthesia Postop Eval I Summary Anesthesia Postop Eval I Summary: Anesthesia Postop Eval I: Assessment Summary Airway patent Yes 04/23/24 12:54 [email or web address] [email or web address] Spontaneous unlabored Yes 04/23/24 12:54 TORPEDO [email or web address] respirations Mental status Awake,Calm 04/23/24 12:54 [email or web address] [email or web address] nausea No 04/23/24 12:54 TORPEDO MAN.[email or web address] Vomiting No 04/23/24 12:54 [email or web address] [email or web address] Anesthesia Postop Eval I: Fluid Summary Crystalloid volume administer 300 04/23/24 12:54 TORPEDO MAN.SCHR (ml) Colloids volume administered ( ml) Blood Product volume administered (ml) Total IV fluid infused 300 04/23/24 12:54 [email or web address] MAN.[email or web address] Anesthesia Postop Eval I: Summary Notes Anesthesia Complication No 04/23/24 12:54 [facility] Complication Comment: Post-operative progress note Anesthesia: Postop Eval II Evaluation Mental status: Awake Pain Level: 0 nausea: No Vomiting: No
== END 2024-04-23 14:14 | disposition home or self-care (01) ==
LOC: SDC 09:34 → AC 09:44
PROVIDERS: PCP Internal Medicine; Referring Provider Surgery; Visit Provider Surgery
PROC: (CPT 36561; principal; 2024-04-23 10:45)
DX: Z45.2 Encounter for adjustment and management of vascular access device (principal); C50.911 Malignant neoplasm of unspecified site of right female breast; E07.9 Disorder of thyroid, unspecified; F32.A Depression, unspecified; Z79.890 Hormone replacement therapy; Z86.16 Personal history of COVID-19; Z80.3 Family history of malignant neoplasm of breast
CPT/HCPCS: 36561; 00532; 71045; 77001; J7120; C1769; J2405

== ENCOUNTER 2024-05-19 18:37 | Inpatient (IN) | payer MEDICARE, OTHER, SELFPAY ==
[2024-05-19] VITALS (9 sets, daily range): BP systolic 103–134; BP diastolic 50–95; PULSE 72–89; RESP 15–22; TEMP 36.8–37.7; O2SAT 97–100; BMI 29.6; BMI 27.2
--- NOTE | 2024-05-19 19:04 | EKG12_ITS ---
Test Reason : DIARHEA Blood Pressure : / mmHG Vent. Rate : 081 BPM Atrial Rate : 081 BPM P-R Int : 140 ms QRS Dur : 086 ms QT Int : 408 ms P-R-T Axes : 032 020 056 degrees QTc Int : 473 ms Sinus rhythm with occasional Premature ventricular complexes Otherwise normal ECG Confirmed by BERTHA KIRK, CATHRYN ([id number]), photograph editor ERWIN FU ([id number]) on 05/21/2024 7:58:34 AM Referred By: CLEMENCIA Confirmed By:CATHRYN STONE MD
--- NOTE | 2024-05-19 19:05 | CT_ITS ---
INDICATION: colitis EXAMINATION: CT Abdomen And Pelvis W/ Contrast Injection TECHNIQUE: Helically acquired images were obtained of the abdomen and pelvis after IV contrast. A radiation dose optimization technique was used for this scan. IV Contrast dosage and agent: IV 100mL Isovue-370 Oral contrast: None. COMPARISON: None. FINDINGS: Visualized lung bases: Unremarkable Liver: Unremarkable Gallbladder: Unremarkable Spleen: Unremarkable Pancreas: Unremarkable Adrenal Glands: Unremarkable Kidneys: Unremarkable Vasculature: Mild scattered aortoiliac atherosclerotic calcifications. GI Tract: Short segment circumferential wall thickening of the sigmoid colon with surrounding mesenteric pattern. Scattered colonic diverticula. Lymphadenopathy: None Peritoneum: No ascites. Bladder: Unremarkable Reproductive organs: Unremarkable Bones/Soft tissues: Mild scattered degenerative changes of the visualized spine. CT/Abdomen/Pelvis W IV Cont ONLY IMPRESSION: Acute sigmoid diverticulitis. No focal fluid collection or free air. Electronically Signed: Evin Thacker MD at 21:16 EDT ,
--- NOTE | 2024-05-19 19:06 | EX.ED.DYSGE1 ---
HPI History of Present Illness Chief Complaint: Diarrhea Informant: patient, family and EMS Narrative Narrative: 74-year-old female presenting to the emergency room feeling near syncopal. Patient states that about 2 weeks ago she tested positive for COVID-19 and recovered. Last week she underwent her first chemotherapy with [facility] (Dr. Hilario) for the treatment of breast cancer. States that she felt constipated all week was taking MiraLAX. On Friday she had a bowel movement and developed diarrhea yesterday. She states that she took some Imodium around 1700 hrs. She had a small diarrheal movement this morning was able to go downtown. She states that she has not urinated much today but wonders if she is getting a urinary tract infection due to some discomfort with urination. Patient notes generalized abdominal pain. No reported fevers. She does state that she was told in the past that she had a nonspecific colitis. 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 Patient feels dehydrated. She has a right chest port. She states she went to a chiropractor yesterday due to some neck pain and wonders if it has anything to do with the procedure she had about a month ago where they tried to put a port using the left neck chest. No arm swelling. She denies any neurologic symptoms. [facility] Medical History Cancer Astudillo esophagus Pneumonia De Quervain's tenosynovitis, left COVID-19 Anxiety and depression Depression CPAP (continuous positive airway pressure) dependence Leg cramps Grief reaction URI (upper respiratory infection) Shingles Hypertension Left shoulder tendinitis Adhesive capsulitis of left shoulder Left shoulder pain Colitis Wears glasses Alcohol use Migraine headache Injury of head and neck History of ulceration Non-smoker History of pain when walking History of echocardiogram History of stress test GERD (gastroesophageal reflux disease) IBS (irritable bowel syndrome) Constipation Irritable bowel syndrome with constipation Abrasion, left ankle, initial encounter Sprain of left foot Contusion of left ankle Elevated blood pressure reading in office without diagnosis of hypertension Osteoarthritis prolapsed bladder Fibromyalgia Thyroid disease Knee pain Cataracts, bilateral Arthritis Osteopenia low white blood count Lichen sclerosus Home Medications ?Medication ?Instructions ?Recorded ?Last Taken ?Type Fibrocare 2 tab PO BID SUPPLEMENT 11/30/13 01/12/24 History calcium citrate 315 mg 4 tab PO BID SUPPLEMENT 08/25/17 01/12/24 History calcium-vitamin D3 6.25 mcg (250 unit) tablet (Citracal + Vitamin D Maximum) ortho-biotic 1 tab PO DAILY 01/25/19 01/12/24 History propylene glycol 0.6 % eye drops 1 drp ophthalmic (eye) BID 01/25/19 01/12/24 History (Systane Complete) omega 3-taw-tbl-fish oil 1,000 mg 2 cap PO BID SUPPLEMENT 11/12/21 01/12/24 History (120 mg-180 mg) capsule (Fish Oil) estradiol 0.01% (0.1 mg/gram) See Rx Instructions vaginal 04/03/22 01/12/24 Rx vaginal cream .COMPLEX ESTROGEN SUPPLEMENT #50 grams mometasone 0.1 % topical ointment 1 applic topical .COMPLEX #15 grams 06/17/22 01/12/24 Rx sertraline 50 mg tablet 50 mg PO DAILY #90 tabs 08/15/23 01/12/24 Rx ibuprofen 200 mg tablet (Advil) 200 mg PO Q6H PRN pain 11/14/23 01/12/24 History levothyroxine 75 mcg tablet 75 mcg PO DAILY #90 tabs 01/05/24 04/23/24 Rx pantoprazole 40 mg tablet,delayed 40 mg PO DAILY 03/17/24 Unknown History release Handicap Placard #1 ea 05/18/24 Unknown Rx Allergy/AdvReac Type Severity Reaction Status Date / Time Penicillins Allergy Mild Rash Verified 05/06/24 09:40 vancomycin HCl (From Allergy Mild Rash Verified 05/06/24 09:40 Vancocin) metoclopramide (From Reglan) Allergy Other Verified 05/06/24 09:40 naproxen (From Naprosyn) AdvReac Rash Verified 05/06/24 09:40 NSAIDS (Non-Steroidal AdvReac Rash Verified 05/06/24 09:40 Anti-Inflamma Family History Mother Breast cancer, Onset Age: 60 remission until the age of 74 and spread to bones Alcoholism Epilepsy Hyperlipemia Father Cancer Unknown Alcoholism Brother Alcoholism Daughter Thyroid disorder Cancer Surgical History History of insertion of central venous access port History of lumpectomy of right breast Hx of esophagogastroduodenoscopy H/O endoscopy History of cardiac catheterization History of cholecystectomy History of colonoscopy History of total vaginal hysterectomy (TVH) (~09/24/18) TMJ gallbladder History of appendectomy S/P cervical disc replacement Social History Smoking Status: Never smoker alcohol intake: current alcohol intake frequency: holidays/special occasions only substance use type: does not use caffeine: No what type of physical activity do you participate in: walking frequency: 3-4 times per week seatbelt use: always do you feel safe at home: Yes additional social history: ROS ROS ED ROS Narrative Lightheadedness Constitutional Constitutional ED: Denies chills, fever(s) or weight loss Eyes Eyes: Denies change in vision or diplopia ENT ENT ED: Denies ear pain, rhinorrhea or sore throat Cardiovascular Cardiovascular: Reports other Details: Near syncope ; Denies chest pain, orthopnea, palpitations or racing heartbeat Respiratory/Chest Respiratory/Chest: Denies cough, dyspnea or orthopnea Gastrointestinal Gastrointestinal: Reports abdominal pain, constipation and diarrhea; Denies nausea or vomiting Genitourinary Genitourinary ED: Reports dysuria; Denies hematuria or urinary frequency Musculoskeletal Musculoskeletal: Denies arthralgias or myalgias Integumentary Denies abscess or rash Neurologic Neurologic: Denies headache(s), paresthesias or weakness Psychiatric Psychiatric: Denies anxiety, depression, suicidal ideation or suicidal thoughts Endocrine Endocrinology: Denies polydipsia, polyphagia or polyuria Allergic/Immunologic Allergic/Immunologic ED: Denies mouth swelling, tongue swelling or urticaria EXAM Physical Exam Const Vital Signs: 05/19/24 18:37 05/19/24 20:37 05/19/24 20:41 Temperature 99.3 F H Temperature Source Oral Pulse Rate 78 76 Pulse Rate [Lying] 79 Pulse Rate [Sitting (for 1 minute prior to obtaining)] 89 Pulse Rate [Standing (for 1 minute prior to obtaining)] 86 Respiratory Rate 15 20 H Blood Pressure 103/69 128/60 H Blood Pressure [Lying] 117/51 L Blood Pressure [Sitting (for 1 minute prior to obtaining)] 121/50 H Blood Pressure [Standing (for 1 minute prior to obtaining)] 116/54 L Blood Pressure Mean 80 82 Blood Pressure Mean [Lying] 73 Blood Pressure Mean [Sitting (for 1 minute prior to obtaining)] 73 Blood Pressure Mean [Standing (for 1 minute prior to obtaining)] 74 Pulse Ox 98 97 Oxygen Delivery Method Room Air Positive well nourished and well developed General Appearance ED: well developed HEENT Reports normocephalic, head/scalp atraumatic and dry mucous membranes Mouth ED: Yes dry mucous membranes Mouth: dry mucous membranes Eyes PERRL and EOMs intact bilaterally Neck no lymphadenopathy, supple and no JVD Neck Narrative: Strong carotid upstroke. No palpable thrombosis. No swelling. No erythema. Chest Wall Chest Narrative: Right chest port appears without evidence of infection. Resp normal respiratory effort and clear to auscultation bilaterally Cardio regular rate, regular rhythm and no murmurs GI Inspection: Negative for abdominal distention Auscultation: normoactive bowel sounds Palpation: soft and tender other (Mild diffuse tenderness without guarding or rebound); Negative for guarding or rebound tenderness present Back/Spine no CVA tenderness and normal ROM Extremity normal to inspection General Extremety ED: Negative for edema General Extremity: Negative for edema Neuro oriented x3 and CN's II-XII intact bilaterally Sensorium / Orientation: alert Motor Exam: strength 5/5 throughout Psych mental status grossly normal Mood & Affect: Negative for depressed or tearful Skin no rashes or lesions noted and no wounds MDM MDM MDM Narrative Medical decision making narrative: Differential diagnosis includes but not limited to anemia pancytopenia dehydration electrolyte abnormalities diverticulitis colitis UTI White count 0.2 hemoglobin 9.8 platelet count is 35. Sodium potassium within normal limits magnesium is normal at 1.7 normal LFTs creatinine is 0.83 with a BUN of [address] of the abdomen pelvis demonstrates sigmoid diverticulitis. Urinalysis with no overt infection. Patient received IV fluids and later Cipro and Flagyl after blood cultures were obtained. Given that the patient just had chemotherapy and now has active diverticulitis I will speak with the hospitalist regarding admission. The time of this dictation her oral temperature is 99.6. Patient is not orthostatic. History & Record Review Discussion w/independent historian: Patient and Family Additional record(s) reviewed:: Prior labs Lab Data Attestation: I reviewed the patient's lab results. Labs: Laboratory Results - last 24 hr 05/19/24 05/19/24 19:35 20:14 WBC 0.2 L* RBC 3.03 L Hgb 9.8 L Hct 29.1 L MCV 96.0 MCH 32.3 H MCHC 33.7 RDW Std Deviation 42.5 RDW Coeff of Lucy 12.2 Plt Count 35 L* MPV 11.2 Immature Gran % (Auto) 0.000 Neut % (Auto) 5.5 L Lymph % (Auto) 83.3 H [place] % (Auto) 5.6 Eos % (Auto) 5.6 H Baso % (Auto) 0.0 Absolute Neuts (auto) 0.0 L Absolute Lymphs (auto) 0.15 L Nucleated RBC % 0 Differential Comment SCANNED Platelet Estimate MKD DEC Plt Morphology Comment LARGE Sodium 138 Potassium 4.0 Chloride 104 Carbon Dioxide 26.0 Anion Gap 8 BUN 20 H Creatinine 0.83 Estim Creat Clear Calc 60.52 Est GFR (MDRD) Af Amer 86 Est GFR (MDRD) Non-Af 71 BUN/Creatinine Ratio 24.0 H Glucose 140 H Calcium 9.0 Magnesium 1.7 Total Bilirubin 0.80 Direct Bilirubin 0.25 AST 11 L ALT 23 Alkaline Phosphatase 72 Total Protein 5.9 L Albumin 2.6 L Globulin 3.3 Lipase 22 Urine Color Yellow Urine Clarity Sl. Cloudy Urine pH 8.0 Ur Specific [place] 1.015 Urine Protein 15 H Urine Glucose (UA) Normal Urine Ketones Negative Urine Occult Blood Negative Urine Nitrite Negative Urine Bilirubin Negative Urine Urobilinogen Normal Ur Leukocyte Esterase Negative Urine RBC 0 SEEN Urine WBC 0 SEEN Ur Squamous Epith Cells 0 SEEN Amorphous Sediment 1+ Urine Bacteria 3+ Urine Mucus 0 SEEN Radiography Diagnostic Testing: Clinical Impression(s) from Imaging Studies Abdomen/Pelvis CT 05/19/24 19:05 IMPRESSION: Acute sigmoid diverticulitis. No focal fluid collection or free air. Electronically Signed: Evin Thacker MD at 21:16 EDT , Chest X-Ray 05/19/24 20:28 IMPRESSION: No acute radiographic abnormalities. Electronically Signed: Evin Thacker MD at 21:13 EDT , EKG Initial EKG: Attestation: I personally reviewed and interpreted this EKG as follows: Comments: Sinus rhythm with a ventricular rate of 81 bpm. PVC noted. No evidence of preexcitation or significantly prolonged QT. Management Discussion w/another healthcare provider: Hospitalist (Dr. Pike) Discharge Plan Dx/Rx/DC Orders Clinical Impression: Diverticulitis of sigmoid colon, Pancytopenia, Invasive ductal carcinoma of breast Disposition Disposition: Acute Care Hospital [facility]
[2024-05-19 19:50] LABS: Absolute Lymphocyte Count 0.15 X10^3/uL (0.83-4.51); Eosinophil# 0.01 X10^3/uL; Eosinophils% 5.6 % (0-5); Hematocrit 29.1 % (37-47); Hemoglobin 9.8 g/dL (12.0-15.0); Lymphocyte # 0.15 X10^3/ul (0.83-4.51); Lymphocyte % 83.3 % (19-41); Mean Corp Hgb Conc 33.7 g/dL (32-36); Mean Corpuscular Hgb 32.3 pg (27.0-32.0); Mean Platelet Vol. 11.2 fl (6.2-12.0); Monocyte# 0.01 X10^3/uL; Monocyte% 5.6 % (0-10); NRBC Flagged by Analyzer 0 % (0-5); Neutrophil # 0.01 X10^3/uL (2.7-7.7); Neutrophil % 5.5 % (47-70); POSITIVE COUNT YES; POSITIVE DIFFERENTIAL YES; POSITIVE MORPHOLOGY YES; RBC Distribution Width CV 12.2 % (11.6-14.6); RBC Distribution Width SD 42.5 fl (35.1-43.9); Red Blood Count 3.03 M/mm3 (4.2-5.4)
[2024-05-19 19:58] LABS: Platelet Count 35 K/mm3 (150-450); White Blood Count 0.2 K/mm3 (4.4-11.0)
[2024-05-19 19:59] LABS: Differential Indicated SCAN CRITERIA MET
[2024-05-19 20:01] LABS: AST(SGOT) 11 U/L (15-37); Alanine Aminotransfer ALT/SGPT 23 U/L (13-56); Albumin, Serum 2.6 g/dL (3.2-5.0); Alkaline Phosphatase 72 U/L (45-117); Anion Gap 8 (5-15); BUN 20 mg/dL (7-18); Bilirubin, Direct 0.25 mg/dL (0.00-0.30); Chloride 104 mmol/L (98-107); Creatinine, Serum 0.83 mg/dL (0.55-1.02); EST Glomerular Filtration Rate 71 mL/min (>60); Est Glom Filt Rate - Afr Amer 86 mL/min (>60); Estimated Creatinine Clearance 60.52 ml/min; Globulin 3.3 g/dL (2.2-4.2); Glucose 140 mg/dL (74-106); Lipase 22 U/L (13-75); Magnesium 1.7 mg/dL (1.6-2.6); Protein, Total 5.9 g/dL (6.4-8.2); Sodium Level 138 mmol/L (136-145)
[2024-05-19] MEDS: 0.9% Normal Saline (1000mL) 1,000 ML 1000 ML IV (20:11)
[2024-05-19 20:21] LABS: Mucous, Urine 0 SEEN /hpf (<or=2+); Red Blood Cells-Urine 0 SEEN /hpf (0-5); Squamous Epithelial Cells - UA 0 SEEN /hpf (5-10); White Blood Cells 0 SEEN /hpf (0-5)
[2024-05-19 20:26] LABS: Color, Urine Yellow (Yellow); Glucose, Dipstick Normal (Normal); Ketone-Dipstick Negative (Negative); Leukocyte Esterase-Dipstick Negative /ul (Negative); Nitrite-Dipstick Negative (Negative); Occult Blood-Urine Negative /ul (Negative); Protein-Dipstick 15 mg/dl (Negative); Specific Gravity, Urine 1.015 (1.002-1.030); Urine Bilirubin Dipstick Negative (Negative); Urine Clarity Sl. Cloudy (Clear); Urine Urobilinogen Normal (Normal)
--- NOTE | 2024-05-19 20:28 | RAD_ITS ---
INDICATION: near syncope EXAMINATION/TECHNIQUE: X-RAY - XR Chest 1 View COMPARISON: None. FINDINGS: The lungs are clear. The cardiomediastinal silhouette is unremarkable. Right-sided chest port. No pleural effusion or pneumothorax. Degenerative changes of the thoracic spine. RAD/Chest 1 View (Portable) IMPRESSION: No acute radiographic abnormalities. Electronically Signed: Evin Thacker MD at 21:13 EDT ,
[2024-05-19 20:34] LABS: Bacteria 3+ /hpf (None Seen)
[2024-05-19 20:36] LABS: Amorphous Sediment 1+
[2024-05-19 20:42] LABS: Differential Comment SCANNED; Platelet Estimate MKD DEC (ADEQ)
[2024-05-19 20:43] LABS: Platelet Morphology LARGE
--- NOTE | 2024-05-19 22:03 | PCM.HP.STD ---
[facility] - General General Date of Admission: 05/19/24 Date of Service: 05/19/24 Chief Complaint: Abdominal Pain, Diarrhea and Near Syncope. [facility] Narrative ALVINA DAVIES, is a 74 F with a past medical history of hypothyroidism, overweight; with BMI of 27.2 this admission, EPI; on CPAP, depression, fibromyalgia, GERD; with history of Astudillo's esophagus, IBS; of constipation type, listed allergy to penicillin (rash), listed allergy to vancomycin (rash), history of appendectomy, history of cholecystectomy, history of total vaginal hysterectomy, history of de Quervain's tenosynovitis (Left), history of adhesive capsulitis of the Left shoulder, osteopenia, osteoarthritis, history of cervical DDD; s/p cervical disc replacement, history of shingles, history of lichen sclerosis, history of migraine headaches, history of prolapsed bladder, recent history of COVID-19 and history of triple negative breast cancer; with history of Right lumpectomy and port in Right chest followed by Dr. Hilario of the [facility] with patient presents having completed her first dose of chemotherapy last week who presents to [facility] ER complaining of abdominal pain, diarrhea and near syncope. Ms. Davies reports her symptoms began approximately 2 weeks prior to admission when she was diagnosed with COVID-19 from which she recovered without severe acute illness. She had her first dose of chemotherapy last week and this was followed by worsening of her chronic constipation for which she was taking MiraLAX. Then on Friday she had a bowel movement and then developed diarrhea on Friday for which she took Imodium around 5 PM. She then had an additional small-volume diarrheal bowel movement the next morning along with decreased urination leaving her feeling dehydrated with dysuria. Then unfortunately her symptoms worsened with generalized abdominal pain that was cramping and severe in nature that was similar to her previous diagnosis of nonspecific colitis. She admits to lightheadedness with near syncope, abdominal pain and dysuria but she denies related fever, chills, chest pain, palpitations, heart racing, hematuria, headache or rash. In the ER she was noted to have CT evidence of Acute Sigmoid Diverticulitis complicated by critical leukopenia of 0.2K and severe thrombocytopenia of 35 K+ anemia of 9.8 g/dL all present on admission due to adverse drug reaction to first dose of chemotherapy compounded by near syncope and mild dehydration with BUN/creatinine ratio of 24 present on admission and she was then admitted to the general medical floor with telemetry monitoring for stay that is expected to extend beyond 2 midnights. [facility] Medical History Cancer Astudillo esophagus Pneumonia De Quervain's tenosynovitis, left COVID-19 Anxiety and depression Depression CPAP (continuous positive airway pressure) dependence Leg cramps Grief reaction URI (upper respiratory infection) Shingles Hypertension Left shoulder tendinitis Adhesive capsulitis of left shoulder Left shoulder pain Colitis Wears glasses Alcohol use Migraine headache Injury of head and neck History of ulceration Non-smoker History of pain when walking History of echocardiogram History of stress test GERD (gastroesophageal reflux disease) IBS (irritable bowel syndrome) Constipation Irritable bowel syndrome with constipation Abrasion, left ankle, initial encounter Sprain of left foot Contusion of left ankle Elevated blood pressure reading in office without diagnosis of hypertension Osteoarthritis prolapsed bladder Fibromyalgia Thyroid disease Knee pain Cataracts, bilateral Arthritis Osteopenia low white blood count Lichen sclerosus Home Medications ?Medication ?Instructions ?Recorded ?Last Taken ?Type Fibrocare 2 tab PO BID SUPPLEMENT 11/30/13 01/12/24 History calcium citrate 315 mg 4 tab PO BID SUPPLEMENT 08/25/17 01/12/24 History calcium-vitamin D3 6.25 mcg (250 unit) tablet (Citracal + Vitamin D Maximum) ortho-biotic 1 tab PO DAILY 01/25/19 01/12/24 History propylene glycol 0.6 % eye drops 1 drp ophthalmic (eye) BID 01/25/19 01/12/24 History (Systane Complete) omega 0-ovv-jqu-fish oil 1,000 mg 2 cap PO BID SUPPLEMENT 11/12/21 01/12/24 History (120 mg-180 mg) capsule (Fish Oil) estradiol 0.01% (0.1 mg/gram) See Rx Instructions vaginal 04/03/22 01/12/24 Rx vaginal cream .COMPLEX ESTROGEN SUPPLEMENT #50 grams mometasone 0.1 % topical ointment 1 applic topical .COMPLEX #15 grams 06/17/22 01/12/24 Rx sertraline 50 mg tablet 50 mg PO DAILY #90 tabs 08/15/23 01/12/24 Rx levothyroxine 75 mcg tablet 75 mcg PO DAILY #90 tabs 01/05/24 04/23/24 Rx pantoprazole 40 mg tablet,delayed 40 mg PO DAILY 03/17/24 Unknown History release Handicap Placard #1 ea 05/18/24 Unknown Rx Allergy/AdvReac Type Severity Reaction Status Date / Time Penicillins Allergy Mild Rash Verified 05/06/24 09:40 vancomycin HCl (From Allergy Mild Rash Verified 05/06/24 09:40 Vancocin) metoclopramide (From Reglan) Allergy Other Verified 05/06/24 09:40 naproxen (From Naprosyn) AdvReac Rash Verified 05/06/24 09:40 NSAIDS (Non-Steroidal AdvReac Rash Verified 05/06/24 09:40 Anti-Inflamma Family History Mother Breast cancer, Onset Age: 60 remission until the age of 74 and spread to bones Alcoholism Epilepsy Hyperlipemia Father Cancer Unknown Alcoholism Brother Alcoholism Daughter Thyroid disorder Cancer Surgical History History of insertion of central venous access port History of lumpectomy of right breast Hx of esophagogastroduodenoscopy H/O endoscopy History of cardiac catheterization History of cholecystectomy History of colonoscopy History of total vaginal hysterectomy (TVH) (~09/24/18) TMJ gallbladder History of appendectomy S/P cervical disc replacement Social History Smoking Status: Never smoker alcohol intake: current alcohol intake frequency: holidays/special occasions only substance use type: does not use caffeine: No what type of physical activity do you participate in: walking frequency: 3-4 times per week seatbelt use: always do you feel safe at home: Yes additional social history: Vital Signs Vital Signs Vital Signs: 05/19/24 18:37 05/19/24 20:37 05/19/24 20:41 Temperature 99.3 F H Temperature Source Oral Pulse Rate 78 76 Pulse Rate [Lying] 79 Pulse Rate [Sitting (for 1 minute prior to obtaining)] 89 Pulse Rate [Standing (for 1 minute prior to obtaining)] 86 Respiratory Rate 15 20 H Blood Pressure 103/69 128/60 H Blood Pressure [Lying] 117/51 L Blood Pressure [Sitting (for 1 minute prior to obtaining)] 121/50 H Blood Pressure [Standing (for 1 minute prior to obtaining)] 116/54 L Blood Pressure Mean 80 82 Blood Pressure Mean [Lying] 73 Blood Pressure Mean [Sitting (for 1 minute prior to obtaining)] 73 Blood Pressure Mean [Standing (for 1 minute prior to obtaining)] 74 Pulse Ox 98 97 Oxygen Delivery Method Room Air Weight Weight: 177 lb 14.609 oz Body Mass Index (BMI) 29.6 Results Lab / Micro Data 05/19/24 19:35 05/19/24 19:35 Labs: Laboratory Results - last 24 hr 05/19/24 19:35: WBC 0.2 L*, RBC 3.03 L, Hgb 9.8 L, Hct 29.1 L, MCV 96.0, MCH 32.3 H, MCHC 33.7, RDW Std Deviation 42.5, RDW Coeff of Lucy 12.2, Plt Count 35 L*, MPV 11.2, Immature Gran % (Auto) 0.000, Neut % (Auto) 5.5 L, Lymph % (Auto) 83.3 H, [place] % (Auto) 5.6, Eos % (Auto) 5.6 H, Baso % (Auto) 0.0, Absolute Neuts (auto) 0.0 L, Absolute Lymphs (auto) 0.15 L, Nucleated RBC % 0, Differential Comment SCANNED, Platelet Estimate MKD DEC, Plt Morphology Comment LARGE, Sodium 138, Potassium 4.0, Chloride 104, Carbon Dioxide 26.0, Anion Gap 8, BUN 20 H, Creatinine 0.83, Estim Creat Clear Calc 60.52, Est GFR (MDRD) Af Amer 86, Est GFR (MDRD) Non-Af 71, BUN/Creatinine Ratio 24.0 H, Glucose 140 H, Calcium 9.0, Magnesium 1.7, Total Bilirubin 0.80, Direct Bilirubin 0.25, AST 11 L, ALT 23, Alkaline Phosphatase 72, Total Protein 5.9 L, Albumin 2.6 L, Globulin 3.3, Lipase 22 05/19/24 20:14: Urine Color Yellow, Urine Clarity Sl. Cloudy, Urine pH 8.0, Ur Specific [place] 1.015, Urine Protein 15 H, Urine Glucose (UA) Normal, Urine Ketones Negative, Urine Occult Blood Negative, Urine Nitrite Negative, Urine Bilirubin Negative, Urine Urobilinogen Normal, Ur Leukocyte Esterase Negative, Urine RBC 0 SEEN, Urine WBC 0 SEEN, Ur Squamous Epith Cells 0 SEEN, Amorphous Sediment 1+, Urine Bacteria 3+, Urine Mucus 0 SEEN Imaging Radiology Impression Abdomen/Pelvis CT 05/19/24 19:05 IMPRESSION: Acute sigmoid diverticulitis. No focal fluid collection or free air. Electronically Signed: Evin Thacker MD at 21:16 EDT , Chest X-Ray 05/19/24 20:28 IMPRESSION: No acute radiographic abnormalities. Electronically Signed: Evin Thacker MD at 21:13 EDT , Assessment & Plan Assessment/Plan (1) Diverticulitis of sigmoid colon: (2) Diarrhea: QUALIFIERS: Diarrhea type: unspecified type Qualified Code(s): R19.7 - Diarrhea, unspecified (3) Dehydration: (4) Near syncope: (5) Pancytopenia: (6) Adverse drug reaction: QUALIFIERS: Encounter type: initial encounter Qualified Code(s): T50.905A - Adverse effect of unspecified drugs, medicaments and biological substances, initial encounter (7) Invasive ductal carcinoma of breast: QUALIFIERS: Laterality: right Qualified Code(s): C50.911 - Malignant neoplasm of unspecified site of right female breast PLAN: Plan 1. Acute Sigmoid Diverticulitis evident on CT this admission with Severe Diarrhea in the setting of previously known Nonspecific Colitis with a listed allergy to penicillin and vancomycin which both caused rash - Admit to general medical floor with telemetric monitoring. Continue empiric IV Cipro and IV Flagyl begun in the ER and check stool studies. Give Tylenol prn for [id number] (level 1-5/10) pain or fever. Give Morphine IV prn for severe (level 6-10/10) pain. Give Phenergan IM prn for nausea and vomiting. 2. Adverse Drug Reaction to Chemotherapy used to treat Breast Cancer causing Critical Leukopenia of 0.2, Severe Thrombocytopenia of 35 and Anemia of 9.8 g/dL all present on admission complicating #1 - Place on chemotherapy / reverse isolation precautions. Check daily CBC to monitor trend. 3. Near Syncope with mild dehydration evidenced by elevated BUN/creatinine ratio of 24 present on admission arising from #1 & #2 - Aggressively volume resuscitate and monitor for improvement. 4. Recently diagnosed COVID-19 compounding #1 - #3 - Noted. 5. GERD; with history of Astudillo's esophagus adding to the complexity of #1 - #4 - Give Protonix 40 mg IV daily. 6. History of IBS; constipation-type - Noted. 7. Hypothyroidism - Resume Synthroid as previous and check TSH. 8. Overweight; with BMI of 27.2 this admission plus EPI; on CPAP - Weight loss will be recommended. Continue nocturnal CPAP as previous. 9. Depression - Restart home regimen when patient is able to safely tolerate oral intake. 10. Fibromyalgia - Stable. 11. History of appendectomy - Noted. 12. History of cholecystectomy - Noted. 13. History of total vaginal hysterectomy - Noted. 14. History of de Quervain's tenosynovitis (Left) - Noted. 15. History of adhesive capsulitis of the Left shoulder - Noted. 16. Osteopenia - Stable. 17. Osteoarthritis - Give Tylenol prn. 18. History of cervical DDD; s/p cervical disc replacement - Stable. 19. History of shingles - Stable with no evidence of recurrence. 20. History of lichen sclerosis - Noted. 21. History of migraine headaches - Stable with no active complaints of headache at this time. 22. History of prolapsed bladder - Noted. 23. DVT prophylaxis - SCD's only with severe thrombocytopenia of 35K present on admission contraindicating use of both heparin and heparinoid's. Total time: Approximately 75 minutes. Charges/Coding Visit Charges Inpatient E&M: 47237 Init Hosp L3
[2024-05-19] MEDS: Ciprofloxacin 400 MG/200 ML BAG 200 MG IV (22:05)
[2024-05-19 23:02] LABS: Lactic Acid 0.5 mmol/L (0.4-1.9)
[2024-05-20] VITALS (9 sets, daily range): BP systolic 101–131; BP diastolic 49–76; PULSE 71–82; RESP 15–17; TEMP 36.6–37.4; O2SAT 97–100; BMI 27.5
[2024-05-20] MEDS: metroNIDAZOLE 500 MG/100 ML BAG 100 MG IV ×4 (00:03→22:03)
[2024-05-20] MEDS: KCL 20MEQ in 0.9% NS 20 MEQ/1,000 ML IV.SOLN. 70 MEQ IV ×2 (00:03→16:54)
[2024-05-20] MEDS: Acetaminophen 325 MG Tablet 650 MG PO ×2 (00:04→20:41)
[2024-05-20] MEDS: Levothyroxine 75 MCG Tablet PO (06:35)
[2024-05-20 07:21] LABS: Eosinophil# 0.01 X10^3/uL; Eosinophils% 4.2 % (0-5); Hematocrit 29.1 % (37-47); Hemoglobin 9.5 g/dL (12.0-15.0); Lymphocyte % 83.3 % (19-41); Mean Corp Hgb Conc 32.6 g/dL (32-36); Mean Corpuscular Hgb 32.1 pg (27.0-32.0); Mean Corpuscular Volume 98.3 fL (81-99); Mean Platelet Vol. 11.3 fl (6.2-12.0); Monocyte# 0.01 X10^3/uL; Monocyte% 4.2 % (0-10); NRBC Flagged by Analyzer 0 % (0-5); Neutrophil # 0.02 X10^3/uL (2.7-7.7); Neutrophil % 8.3 % (47-70); POSITIVE COUNT YES; POSITIVE DIFFERENTIAL YES; POSITIVE MORPHOLOGY YES; RBC Distribution Width CV 12.1 % (11.6-14.6); RBC Distribution Width SD 44.1 fl (35.1-43.9); Red Blood Count 2.96 M/mm3 (4.2-5.4)
[2024-05-20 07:27] LABS: Differential Indicated SCAN CRITERIA MET; Platelet Count 31 K/mm3 (150-450); White Blood Count 0.2 K/mm3 (4.4-11.0)
--- NOTE | 2024-05-20 07:36 | PN.HOSP_ITS ---
Reason for Visit Reason for Visit: Diagnoses Malignant neoplasm of unspecified site of right female breast (05/19/24) Other pancytopenia (05/19/24) Dehydration (05/19/24) Diverticulitis of large intestine without perforation or abscess without bleeding (05/19/24) Diarrhea, unspecified (05/19/24) Syncope and collapse (05/19/24) Adverse effect of unspecified drugs, medicaments and biological substances, initial encounter (05/19/24) Subjective Subjective Still with abdominal pain. Objective Data Objective Data Vital Signs: Vital Signs Temp Pulse Resp BP Pulse Ox O2 Del Method 36.6 C 71 15 101/49 L 97 Room Air 05/20/24 04:00 05/20/24 04:00 05/20/24 04:00 05/20/24 04:00 05/20/24 04:00 05/20/24 04:00 Oxygen Delivery Method Room Air Weight: 74.1 kg Body Mass Index (BMI) 27.2 Intake & Output: Intake and Output for Last 24 Hours 05/18/24 05/19/24 05/20/24 23:59 23:59 23:59 Intake Total 1200 / 1300 200 / 200 Balance 1200 / 1300 200 / 200 Lab / Micro Data 05/20/24 06:05 05/20/24 06:05 Labs: Laboratory Results - last 24 hr 05/19/24 19:35: WBC 0.2 L*, RBC 3.03 L, Hgb 9.8 L, Hct 29.1 L, MCV 96.0, MCH 32.3 H, MCHC 33.7, RDW Std Deviation 42.5, RDW Coeff of Lucy 12.2, Plt Count 35 L*, MPV 11.2, Immature Gran % (Auto) 0.000, Neut % (Auto) 5.5 L, Lymph % (Auto) 83.3 H, [place] % (Auto) 5.6, Eos % (Auto) 5.6 H, Baso % (Auto) 0.0, Absolute Neuts (auto) 0.0 L, Absolute Lymphs (auto) 0.15 L, Nucleated RBC % 0, Differential Comment SCANNED, Platelet Estimate MKD DEC, Plt Morphology Comment LARGE, Sodium 138, Potassium 4.0, Chloride 104, Carbon Dioxide 26.0, Anion Gap 8, BUN 20 H, Creatinine 0.83, Estim Creat Clear Calc 60.52, Est GFR (MDRD) Af Amer 86, Est GFR (MDRD) Non-Af 71, BUN/Creatinine Ratio 24.0 H, Glucose 140 H, Calcium 9.0, Magnesium 1.7, Total Bilirubin 0.80, Direct Bilirubin 0.25, AST 11 L, ALT 23, Alkaline Phosphatase 72, Total Protein 5.9 L, Albumin 2.6 L, Globulin 3.3, Lipase 22 05/19/24 20:14: Urine Color Yellow, Urine Clarity Sl. Cloudy, Urine pH 8.0, Ur Specific [place] 1.015, Urine Protein 15 H, Urine Glucose (UA) Normal, Urine Ketones Negative, Urine Occult Blood Negative, Urine Nitrite Negative, Urine Bilirubin Negative, Urine Urobilinogen Normal, Ur Leukocyte Esterase Negative, Urine RBC 0 SEEN, Urine WBC 0 SEEN, Ur Squamous Epith Cells 0 SEEN, Amorphous Sediment 1+, Urine Bacteria 3+, Urine Mucus 0 SEEN 05/19/24 22:01: Lactic Acid 0.5 05/20/24 06:05: WBC 0.2 L*, RBC 2.96 L, Hgb 9.5 L, Hct 29.1 L, MCV 98.3, MCH 32.1 H, MCHC 32.6, RDW Std Deviation 44.1 H, RDW Coeff of Lucy 12.1, Plt Count 31 L*, MPV 11.3, Immature Gran % (Auto) 0.000, Neut % (Auto) 8.3 L, Lymph % (Auto) 83.3 H, [place] % (Auto) 4.2, Eos % (Auto) 4.2, Baso % (Auto) 0.0, Absolute Neuts (auto) 0.0 L, Absolute Lymphs (auto) 0.20 L, Nucleated RBC % 0 Radiography Diagnostic Testing: Radiology Impression Abdomen/Pelvis CT 05/19/24 19:05 IMPRESSION: Acute sigmoid diverticulitis. No focal fluid collection or free air. Electronically Signed: Evin Thacker MD at 21:16 EDT , Chest X-Ray 05/19/24 20:28 IMPRESSION: No acute radiographic abnormalities. Electronically Signed: Evin Thacker MD at 21:13 EDT , Physical Exam Const alert and no apparent distress HEENT head/scalp atraumatic and moist oral mucous membranes Resp normal respiratory effort, no retractions, no use of accessory muscles and clear to auscultation bilaterally Cardio regular rate, regular rhythm, S1 normal heart sound and S2 normal heart sound GI GI Narrative: TTP LLQ, no rebound. Extremity normal to inspection, full ROM and no clubbing, cyanosis or edema Neuro oriented x3, CN's II-XII intact bilaterally, moves all extremities and no focal motor deficits Assessment & Plan Assessment/Plan (1) Diverticulitis of sigmoid colon: (2) Pancytopenia: (3) Invasive ductal carcinoma of breast: QUALIFIERS: Laterality: right Qualified Code(s): C50.911 - Malignant neoplasm of unspecified site of right female breast PLAN: Plan Acute Sigmoid Diverticulitis * noted on CT * abx with Cipro and IV metronidazole Flagyl begun in the ER and check stool studies. pancytopenia * Chronic. Worse now. * DW Dr. Hilario, he recommends since patient is having an active infection Granix subcu 480 daily until WBCs normalize. Chronic conditions * GERD: On PPI * Hypothyroidism: Continue levothyroxine. TSH pending * Depression: Continue sertraline * Breast cancer: Per Dr. Hilario, triple negative. Patient was on Adriamycin and Cytoxan back on May 12. VTE prophylaxis: SCDs. Greater than 55 minutes of which greater than 50% of time was counseling the patient, coordinating care and discussing case with Dr. Hilario. Charges/Coding Visit Charges Inpatient E&M: 01643 Subs Hosp L3
[2024-05-20 08:01] LABS: ALB/GLOB Ratio 0.8 RATIO (0.9-2.4); AST(SGOT) 14 U/L (15-37); Alanine Aminotransfer ALT/SGPT 27 U/L (13-56); Albumin, Serum 2.5 g/dL (3.2-5.0); Alkaline Phosphatase 66 U/L (45-117); Anion Gap 4 (5-15); BUN 16 mg/dL (7-18); BUN/Creat Ratio 20.3 RATIO (10-20); Calcium,Total 8.5 mg/dL (8.5-10.1); Chloride 108 mmol/L (98-107); Creatinine, Serum 0.79 mg/dL (0.55-1.02); EST Glomerular Filtration Rate 75 mL/min (>60); Est Glom Filt Rate - Afr Amer 91 mL/min (>60); Estimated Creatinine Clearance 58.99 ml/min; Globulin 3.3 g/dL (2.2-4.2); Glucose 118 mg/dL (74-106); Phosphorus 3.7 mg/dL (2.5-4.9); Potassium 3.9 mmol/L (3.5-5.1); Protein, Total 5.8 g/dL (6.4-8.2); Sodium Level 139 mmol/L (136-145)
[2024-05-20 08:55] LABS: Platelet Estimate MKD DEC (ADEQ)
[2024-05-20] MEDS: Ciprofloxacin 200 MG/100 ML BAG 100 MG IV ×2 (09:58→20:38)
[2024-05-20] MEDS: Calcium Carb/Vitamin D 1 TABLET Tablet PO ×2 (09:58→18:08)
[2024-05-20] MEDS: Omega-3 Acid Ethyl Esters 1 GM Capsule 2 GM PO ×2 (09:58→20:37)
[2024-05-20] MEDS: Pantoprazole Sodium 40 MG Tablet PO (09:58)
[2024-05-20] MEDS: Sertraline 50 MG Tablet PO (09:58)
[2024-05-20] MEDS: Lactobacillis Acidophilus 1 CAP PO ×4 (09:58→20:37)
--- NOTE | 2024-05-20 11:46 | CASEMGMT ---
AVINASH CEDEÑO Assessment Face to Face with patient for initial transition planning/care coordination assessment. AVINASH CEDEÑO introduced self and role at [facility], pt voices understanding. Pt is A&Ox4 and is resting comfortably in bed and is calm. Care providers, pharmacy, and demographics verified. Admitting dx: Acute Sigmoid Diverticulitis, Leukopenia LACE Strata: 2 PCP: Jhon Specialists: Yanelis (Oncology) Preferred Pharmacy: [facility] Insurance: [facility] A/B, [facility] Supp Prescription Benefit: Yes LNOK: Nikki El (Radha), Pradeep Davies (SSON) Living Arrangements: Pt lives alone in a single story home with a basement with handrails and 2 steps to enter the home ADLs/IADLs: Ind Transportation: Self, daughter (will be pt ride home) DME: Pt states that her passed and has access to the following DME: BSC, FWW, Cane, BP Monitor, Pulse Ox. denies further needs HHC/SNF: Denies Hx or needs Pt?s goal: Home Plan: Home. 6-Click is 22. Pt denies the need for PT/OT here. Pt refuses the need for HHC, OP Tx, SNF, Pt Link or CCN. Pt states that she feels safe discharging home alone with no additional needs. Pt denies further questions or concerns at this time. Kyree Gudino RN, CM
--- NOTE | 2024-05-20 13:27 | CASEMGMT ---
Social Work SW met with pt to discuss advance directives.? Pt confirms she has completed a living will and health care POA naming her step daughter in law Angelica Davies.? Pt notified that documents are not on file at [facility] and SW requested they be brought in for scanning into the EMR.? DALILA Navarro
[2024-05-20 13:55] LABS: Pathologist Review Reviewed
[2024-05-20 13:57] LABS: Pathologist Review Reviewed
[2024-05-20] MEDS: TBO-FILGRASTIM 480 MCG/0.8 ML ML SC (15:17)
[2024-05-21] VITALS (7 sets, daily range): BP systolic 109–129; BP diastolic 51–59; PULSE 57–77; RESP 17–18; TEMP 36.3–36.7; O2SAT 96–100; BMI 26.4
[2024-05-21] MEDS: Levothyroxine 75 MCG Tablet PO (05:41)
[2024-05-21] MEDS: metroNIDAZOLE 500 MG/100 ML BAG 100 MG IV ×3 (05:41→22:15)
[2024-05-21 05:48] LABS: Hematocrit 26.8 % (37-47); Hemoglobin 8.9 g/dL (12.0-15.0); Mean Corp Hgb Conc 33.2 g/dL (32-36); Mean Corpuscular Hgb 32.5 pg (27.0-32.0); Mean Corpuscular Volume 97.8 fL (81-99); Mean Platelet Vol. 12.4 fl (6.2-12.0); POSITIVE COUNT YES; POSITIVE DIFFERENTIAL YES; POSITIVE MORPHOLOGY YES; RBC Distribution Width SD 42.9 fl (35.1-43.9); Red Blood Count 2.74 M/mm3 (4.2-5.4)
[2024-05-21 05:58] LABS: Differential Indicated MANUAL DIFF; Platelet Count 22 K/mm3 (150-450); White Blood Count 0.3 K/mm3 (4.4-11.0)
[2024-05-21 06:06] LABS: ALB/GLOB Ratio 0.8 RATIO (0.9-2.4); AST(SGOT) 12 U/L (15-37); Alanine Aminotransfer ALT/SGPT 18 U/L (13-56); Albumin, Serum 2.4 g/dL (3.2-5.0); Alkaline Phosphatase 60 U/L (45-117); Anion Gap 4 (5-15); BUN 11 mg/dL (7-18); BUN/Creat Ratio 15.4 RATIO (10-20); Calcium,Total 8.4 mg/dL (8.5-10.1); Chloride 111 mmol/L (98-107); Creatinine, Serum 0.72 mg/dL (0.55-1.02); EST Glomerular Filtration Rate 84 mL/min (>60); Est Glom Filt Rate - Afr Amer 102 mL/min (>60); Estimated Creatinine Clearance 58.12 ml/min; Globulin 2.9 g/dL (2.2-4.2); Glucose 104 mg/dL (74-106); Magnesium 1.9 mg/dL (1.6-2.6); Phosphorus 2.8 mg/dL (2.5-4.9); Potassium 4.3 mmol/L (3.5-5.1); Protein, Total 5.3 g/dL (6.4-8.2); Sodium Level 139 mmol/L (136-145)
--- NOTE | 2024-05-21 06:59 | PN.HOSP_ITS ---
Reason for Visit Reason for Visit: Diagnoses Malignant neoplasm of unspecified site of right female breast (05/19/24) Other pancytopenia (05/19/24) Dehydration (05/19/24) Diverticulitis of large intestine without perforation or abscess without bleeding (05/19/24) Diarrhea, unspecified (05/19/24) Syncope and collapse (05/19/24) Adverse effect of unspecified drugs, medicaments and biological substances, initial encounter (05/19/24) Subjective Subjective Still with abdominal pain, but improved. Objective Data Objective Data Vital Signs: Vital Signs Temp Pulse Resp BP Pulse Ox O2 Del Method 36.3 C L 70 17 109/51 L 100 Room Air 05/21/24 02:30 05/21/24 02:30 05/21/24 02:30 05/21/24 02:30 05/21/24 02:30 05/21/24 02:30 Oxygen Delivery Method Room Air Weight: 71.8 kg Body Mass Index (BMI) 26.4 Intake & Output: Intake and Output for Last 24 Hours 05/19/24 05/20/24 05/21/24 23:59 23:59 23:59 Intake Total 1200 / 1300 1820.00 / 1820.00 160 / 160 Output Total 2100 / 2100 700 / 700 Balance 1200 / 1300 -280.00 / -280.00 -540 / -540 Lab / Micro Data 05/21/24 05:13 05/21/24 05:13 Labs: Laboratory Results - last 24 hr 05/19/24 19:35: Diff Path Review Reviewed 05/20/24 06:05: WBC 0.2 L*, RBC 2.96 L, Hgb 9.5 L, Hct 29.1 L, MCV 98.3, MCH 32.1 H, MCHC 32.6, RDW Std Deviation 44.1 H, RDW Coeff of Lucy 12.1, Plt Count 31 L*, MPV 11.3, Immature Gran % (Auto) 0.000, Neut % (Auto) 8.3 L, Lymph % (Auto) 83.3 H, [place] % (Auto) 4.2, Eos % (Auto) 4.2, Baso % (Auto) 0.0, Absolute Neuts (auto) 0.0 L, Absolute Lymphs (auto) 0.20 L, Nucleated RBC % 0, Differential Comment COMMENT, Diff Path Review Reviewed, Platelet Estimate MKD DEC, Sodium 139, Potassium 3.9, Chloride 108 H, Carbon Dioxide 27.0, Anion Gap 4 L, BUN 16, Creatinine 0.79, Estim Creat Clear Calc 58.99, Est GFR (MDRD) Af Amer 91, Est GFR (MDRD) Non-Af 75, BUN/Creatinine Ratio 20.3 H, Glucose 118 H, Calcium 8.5, Phosphorus 3.7, Magnesium 2.0, Total Bilirubin 1.20 H, AST 14 L, ALT 27, Alkaline Phosphatase 66, Total Protein 5.8 L, Albumin 2.5 L, Globulin 3.3, A lbumin/Globulin Ratio 0.8 L, TSH 1.060 05/21/24 05:13: WBC 0.3 L*, RBC 2.74 L, Hgb 8.9 L, Hct 26.8 L, MCV 97.8, MCH 32.5 H, MCHC 33.2, RDW Std Deviation 42.9, RDW Coeff of Lucy 12.0, Plt Count 22 L*, MPV 12.4 H, Neut % (Auto) Not Reportable, Sodium 139, Potassium 4.3, C hloride 111 H, Carbon Dioxide 24.0, Anion Gap 4 L, BUN 11, Creatinine 0.72, Estim Creat Clear Calc 58.12, Est GFR (MDRD) Af Amer 102, Est GFR (MDRD) Non-Af 84, BUN/Creatinine Ratio 15.4, Glucose 104, Calcium 8.4 L, Phosphorus 2.8, Magnesium 1.9, Total Bilirubin 0.70, AST 12 L, ALT 18, Alkaline Phosphatase 60, Total Protein 5.3 L, Albumin 2.4 L, Globulin 2.9, Albumin/Globulin Ratio 0.8 L Physical Exam Const alert and no apparent distress HEENT head/scalp atraumatic and moist oral mucous membranes Resp normal respiratory effort, no retractions, no use of accessory muscles and clear to auscultation bilaterally Cardio regular rate, regular rhythm, S1 normal heart sound and S2 normal heart sound GI GI Narrative: TTP LLQ, no rebound. Extremity normal to inspection, full ROM and no clubbing, cyanosis or edema Neuro oriented x3, CN's II-XII intact bilaterally, moves all extremities and no focal motor deficits Assessment & Plan Assessment/Plan (1) Diverticulitis of sigmoid colon: (2) Pancytopenia: (3) Invasive ductal carcinoma of breast: QUALIFIERS: Laterality: right Qualified Code(s): C50.911 - Malignant neoplasm of unspecified site of right female breast PLAN: Plan Acute Sigmoid Diverticulitis * noted on CT * abx with Cipro and IV metronidazole Flagyl begun in the ER and check stool studies. * advance diet to transitional pancytopenia * Chronic. Worse now 2/2 recent chemotherapy. * DW Dr. Hilario on the , he recommended that since patient is having an active infection Granix subcu 480 daily until WBCs normalize. * Transfuse for Hg less than 7, platelets less than 10k--or bleeding. Chronic conditions * GERD: On PPI * Hypothyroidism: Continue levothyroxine. TSH pending * Depression: Continue sertraline * Breast cancer: Per Dr. Hilario, triple negative. Patient was on Adriamycin and Cytoxan back on May 12. VTE prophylaxis: SCDs. Charges/Coding Visit Charges Inpatient E&M: 79140 Subs Hosp L2
[2024-05-21] MEDS: Lactobacillis Acidophilus 1 CAP PO ×4 (08:14→22:18)
[2024-05-21] MEDS: Glycerin/Hypromellose/PEG400 15 ml Bottle 1 DRP OPHTHALMIC ×2 (08:14→22:18)
[2024-05-21] MEDS: Pantoprazole Sodium 40 MG Tablet PO (08:15)
[2024-05-21] MEDS: Omega-3 Acid Ethyl Esters 1 GM Capsule 2 GM PO ×2 (08:15→22:18)
[2024-05-21] MEDS: Sertraline 50 MG Tablet PO (08:16)
[2024-05-21 09:24] LABS: Eosinophil 10 % (0-5); Lymphocyte 80 % (19-41); Neutrophil-Segmented 10 % (47-70); Total Cells Counted 10 (MANUAL DIFF)
[2024-05-21 09:25] LABS: Neutrophil # 0.03 X10^3/uL (2.7-7.7); Platelet Estimate MKD DEC (ADEQ)
[2024-05-21 09:26] LABS: Absolute Lymphocyte Count 0.24 X10^3/uL (0.83-4.51); Lymphocyte # 0.24 X10^3/ul (0.83-4.51)
[2024-05-21] MEDS: Ciprofloxacin 200 MG/100 ML BAG 100 MG IV ×2 (10:30→20:50)
[2024-05-21] MEDS: KCL 20MEQ in 0.9% NS 20 MEQ/1,000 ML IV.SOLN. 70 MEQ IV (10:30)
[2024-05-21] MEDS: TBO-FILGRASTIM 480 MCG/0.8 ML ML SC (10:31)
[2024-05-21 14:30] LABS: Pathologist Review Reviewed
[2024-05-21] MEDS: Calcium Carb/Vitamin D 1 TABLET Tablet PO (16:47)
[2024-05-22] VITALS (8 sets, daily range): BP systolic 103–127; BP diastolic 50–58; PULSE 50–63; RESP 16; TEMP 36.5–36.6; O2SAT 96–100; BMI 28.0
[2024-05-22] MEDS: Acetaminophen 325 MG Tablet 650 MG PO (00:25)
[2024-05-22] MEDS: KCL 20MEQ in 0.9% NS 20 MEQ/1,000 ML IV.SOLN. 70 MEQ IV ×2 (02:22→20:26)
[2024-05-22] MEDS: metroNIDAZOLE 500 MG/100 ML BAG 100 MG IV ×3 (05:18→21:37)
[2024-05-22] MEDS: Levothyroxine 75 MCG Tablet PO (05:18)
[2024-05-22 06:29] LABS: Absolute Lymphocyte Count 0.27 X10^3/uL (0.83-4.51); Absolute Neutrophil Count 0.2 X10^3/uL (2.0-7.7); Basophil# 0.02 X10^3/uL; Basophil% 3.6 % (0-1); Eosinophil# 0.02 X10^3/uL; Eosinophils% 3.6 % (0-5); Hematocrit 26.6 % (37-47); Hemoglobin 8.8 g/dL (12.0-15.0); Lymphocyte # 0.27 X10^3/ul (0.83-4.51); Lymphocyte % 48.2 % (19-41); Mean Corp Hgb Conc 33.1 g/dL (32-36); Mean Corpuscular Hgb 32.2 pg (27.0-32.0); Mean Corpuscular Volume 97.4 fL (81-99); Mean Platelet Vol. 12.1 fl (6.2-12.0); Monocyte# 0.02 X10^3/uL; Monocyte% 3.6 % (0-10); NRBC Flagged by Analyzer 0 % (0-5); Neutrophil # 0.22 X10^3/uL (2.7-7.7); Neutrophil % 39.2 % (47-70); POSITIVE COUNT YES; POSITIVE DIFFERENTIAL YES; POSITIVE MORPHOLOGY YES; RBC Distribution Width CV 11.9 % (11.6-14.6); RBC Distribution Width SD 42.4 fl (35.1-43.9); Red Blood Count 2.73 M/mm3 (4.2-5.4)
[2024-05-22 06:40] LABS: Differential Indicated SCAN CRITERIA MET; Platelet Count 17 K/mm3 (150-450); White Blood Count 0.6 K/mm3 (4.4-11.0)
--- NOTE | 2024-05-22 07:16 | PN.HOSP_ITS ---
Reason for Visit Reason for Visit: Diagnoses Malignant neoplasm of unspecified site of right female breast (05/19/24) Other pancytopenia (05/19/24) Dehydration (05/19/24) Diverticulitis of large intestine without perforation or abscess without bleeding (05/19/24) Diarrhea, unspecified (05/19/24) Syncope and collapse (05/19/24) Adverse effect of unspecified drugs, medicaments and biological substances, initial encounter (05/19/24) Subjective Subjective Feeling better. Tolerating PO. Objective Data Objective Data Vital Signs: Vital Signs Temp Pulse Resp BP Pulse Ox O2 Del Method 36.6 C 60 16 112/52 L 98 Room Air 05/22/24 02:30 05/22/24 02:30 05/22/24 02:30 05/22/24 02:30 05/22/24 02:30 05/22/24 02:30 Oxygen Delivery Method Room Air Weight: 76.3 kg Body Mass Index (BMI) 28.0 Intake & Output: Intake and Output for Last 24 Hours 05/20/24 05/21/24 05/22/24 23:59 23:59 23:59 Intake Total 1820.00 / 1820.00 1688.17 / 1688.17 1091.83 / 1091.83 Output Total 2100 / 2100 1350 / 1350 1300 / 1300 Balance -280.00 / -280.00 338.17 / 338.17 -208.17 / -208.17 Lab / Micro Data 05/22/24 05:15 05/21/24 05:13 Labs: Laboratory Results - last 24 hr 05/21/24 05:13: Absolute Neuts (auto) 0.0 L, Absolute Lymphs (auto) 0.24 L, Total Counted 10, Neutrophils % (Manual) 10 L, Lymphocytes % (Manual) 80 H*, E osinophils % (Manual) 10 H, Diff Path Review Reviewed, Platelet Estimate MKD 05/22/24 05:15: WBC 0.6 L*, RBC 2.73 L, Hgb 8.8 L, Hct 26.6 L, MCV 97.4, MCH 32.2 H, MCHC 33.1, RDW Std Deviation 42.4, RDW Coeff of Lucy 11.9, Plt Count 17 L*, MPV 12.1 H, Immature Gran % (Auto) 1.800 H, Neut % (Auto) 39.2 L, Lymph % (Auto) 48.2 H, [place] % (Auto) 3.6, Eos % (Auto) 3.6, Baso % (Auto) 3.6 H, A bsolute Neuts (auto) 0.2 L, Absolute Lymphs (auto) 0.27 L, Nucleated RBC % 0 Micro: Microbiology 05/19/24 22:01 Blood Culture (Wb) - Port Blood Culture - Preliminary No growth in 48 hours. Physical Exam Const alert and no apparent distress HEENT head/scalp atraumatic and moist oral mucous membranes Resp normal respiratory effort, no retractions and no use of accessory muscles Cardio regular rate, regular rhythm, S1 normal heart sound and S2 normal heart sound GI normal to inspection, nondistended, normoactive bowel sounds, soft to palpation, non-tender and non-distended Neuro oriented x3 and moves all extremities Sensorium / Orientation: awake and alert Assessment & Plan Assessment/Plan (1) Diverticulitis of sigmoid colon: (2) Pancytopenia: (3) Invasive ductal carcinoma of breast: QUALIFIERS: Laterality: right Qualified Code(s): C50.911 - Malignant neoplasm of unspecified site of right female breast PLAN: Plan Acute Sigmoid Diverticulitis * noted on CT * abx with Cipro and IV metronidazole Flagyl begun in the ER and check stool studies. * advance diet to transitional pancytopenia * Ongoing. Worse now 2/2 recent chemotherapy. * DW Dr. Hilario on the , he recommended that since patient is having an active infection Granix subcu 480 daily until WBCs normalize. * Transfuse for Hg less than 7, platelets less than 10k--or bleeding. Chronic conditions * GERD: On PPI * Hypothyroidism: Continue levothyroxine. TSH pending * Depression: Continue sertraline * Breast cancer: Per Dr. Hilario, triple negative. Patient was on Adriamycin and Cytoxan back on May 12. VTE prophylaxis: SCDs. Charges/Coding Visit Charges Inpatient E&M: 78829 Subs Hosp L2
[2024-05-22 07:27] LABS: Differential Comment SCANNED; Platelet Estimate MKD DEC (ADEQ)
[2024-05-22] MEDS: Calcium Carb/Vitamin D 1 TABLET Tablet PO ×2 (08:48→18:24)
[2024-05-22] MEDS: Lactobacillis Acidophilus 1 CAP PO ×4 (10:03→21:40)
[2024-05-22] MEDS: Omega-3 Acid Ethyl Esters 1 GM Capsule 2 GM PO ×2 (10:03→21:43)
[2024-05-22] MEDS: Sertraline 50 MG Tablet PO (10:04)
[2024-05-22] MEDS: Pantoprazole Sodium 40 MG Tablet PO (10:04)
[2024-05-22] MEDS: Ciprofloxacin 200 MG/100 ML BAG 100 MG IV ×2 (10:05→22:44)
[2024-05-22] MEDS: Glycerin/Hypromellose/PEG400 15 ml Bottle 1 DRP OPHTHALMIC (10:05)
[2024-05-22] MEDS: TBO-FILGRASTIM 480 MCG/0.8 ML ML SC (10:07)
[2024-05-23] VITALS (7 sets, daily range): BP systolic 92–119; BP diastolic 46–57; PULSE 52–73; RESP 16; TEMP 36.4–37.1; O2SAT 98–100; BMI 26.4
[2024-05-23 06:24] LABS: Absolute Neutrophil Count 0.6 X10^3/uL (2.0-7.7); Basophil# 0.03 X10^3/uL; Basophil% 2.8 % (0-1); Eosinophil# 0.03 X10^3/uL; Eosinophils% 2.8 % (0-5); Hematocrit 24.8 % (37-47); Hemoglobin 8.3 g/dL (12.0-15.0); Lymphocyte % 27.8 % (19-41); Mean Corp Hgb Conc 33.5 g/dL (32-36); Mean Corpuscular Hgb 32.5 pg (27.0-32.0); Mean Corpuscular Volume 97.3 fL (81-99); Mean Platelet Vol. 13.1 fl (6.2-12.0); Monocyte# 0.07 X10^3/uL; Monocyte% 6.5 % (0-10); NRBC Flagged by Analyzer 0 % (0-5); Neutrophil # 0.63 X10^3/uL (2.7-7.7); Neutrophil % 58.2 % (47-70); POSITIVE COUNT YES; POSITIVE DIFFERENTIAL YES; POSITIVE MORPHOLOGY YES; RBC Distribution Width CV 11.8 % (11.6-14.6); RBC Distribution Width SD 41.9 fl (35.1-43.9); Red Blood Count 2.55 M/mm3 (4.2-5.4)
[2024-05-23 06:30] LABS: Differential Indicated SCAN CRITERIA MET; Platelet Count 18 K/mm3 (150-450); White Blood Count 1.1 K/mm3 (4.4-11.0)
[2024-05-23] MEDS: metroNIDAZOLE 500 MG/100 ML BAG 100 MG IV ×3 (06:31→21:07)
[2024-05-23] MEDS: Levothyroxine 75 MCG Tablet PO (06:31)
[2024-05-23 06:54] LABS: Anion Gap 3 (5-15); BUN 10 mg/dL (7-18); BUN/Creat Ratio 14.3 RATIO (10-20); Calcium,Total 8.8 mg/dL (8.5-10.1); Chloride 111 mmol/L (98-107); EST Glomerular Filtration Rate 87 mL/min (>60); Est Glom Filt Rate - Afr Amer 105 mL/min (>60); Glucose 97 mg/dL (74-106); Sodium Level 140 mmol/L (136-145)
[2024-05-23 07:08] LABS: Differential Comment SCANNED
[2024-05-23 07:09] LABS: Platelet Estimate MOD DEC (ADEQ)
--- NOTE | 2024-05-23 08:00 | PN.HOSP_ITS ---
Reason for Visit Reason for Visit: Diagnoses Malignant neoplasm of unspecified site of right female breast (05/19/24) Other pancytopenia (05/19/24) Dehydration (05/19/24) Diverticulitis of large intestine without perforation or abscess without bleeding (05/19/24) Diarrhea, unspecified (05/19/24) Syncope and collapse (05/19/24) Adverse effect of unspecified drugs, medicaments and biological substances, initial encounter (05/19/24) Subjective Subjective Feeling better. Tolerating diet. Objective Data Objective Data Vital Signs: Vital Signs Temp Pulse Resp BP Pulse Ox O2 Del Method 36.6 C 64 16 108/48 L 99 Room Air 05/23/24 04:12 05/23/24 04:12 05/23/24 04:12 05/23/24 04:12 05/23/24 04:12 05/23/24 04:12 Oxygen Delivery Method Room Air Weight: 72 kg Body Mass Index (BMI) 26.4 Intake & Output: Intake and Output for Last 24 Hours 05/21/24 05/22/24 05/23/24 23:59 23:59 23:59 Intake Total 1688.17 / 1688.17 3534.00 / 3534.00 565.5 / 565.5 Output Total 1350 / 1350 4050 / 4050 Balance 338.17 / 338.17 -516.00 / -516.00 565.5 / 565.5 Lab / Micro Data 05/23/24 04:47 05/23/24 04:47 Labs: Laboratory Results - last 24 hr 05/23/24 04:47: WBC 1.1 L*, RBC 2.55 L, Hgb 8.3 L, Hct 24.8 L, MCV 97.3, MCH 32.5 H, MCHC 33.5, RDW Std Deviation 41.9, RDW Coeff of Lucy 11.8, Plt Count 18 L*, MPV 13.1 H, Immature Gran % (Auto) 1.900 H, Neut % (Auto) 58.2, Lymph % (Auto) 27.8, [place] % (Auto) 6.5, Eos % (Auto) 2.8, Baso % (Auto) 2.8 H, Absolute Neuts (auto) 0.6 L, Absolute Lymphs (auto) 0.30 L, Nucleated RBC % 0, Differential Comment SCANNED, Diff Path Review May foll, Platelet Estimate MOD DEC, Sodium 140, Potassium 4.0, Chloride 111 H, Carbon Dioxide 26.0, Anion Gap 3 L, BUN 10, Creatinine 0.70, Estim Creat Clear Calc 58.20, Est GFR (MDRD) Af Amer 105, Est GFR (MDRD) Non-Af 87, BUN/Creatinine Ratio 14.3, Glucose 97, Calcium 8.8 Micro: Microbiology 05/19/24 22:01 Blood Culture (Wb) - Port Blood Culture - Preliminary No growth in 48 hours. Physical Exam Const alert and no apparent distress Constitutional Narrative: Up at side of the bed eating breakfast. HEENT head/scalp atraumatic and moist oral mucous membranes Resp normal respiratory effort, no retractions, no use of accessory muscles and clear to auscultation bilaterally Cardio regular rate, regular rhythm, S1 normal heart sound and S2 normal heart sound Extremity normal to inspection and full ROM Neuro Sensorium / Orientation: awake and alert Assessment & Plan Assessment/Plan (1) Diverticulitis of sigmoid colon: (2) Pancytopenia: (3) Invasive ductal carcinoma of breast: QUALIFIERS: Laterality: right Qualified Code(s): C50.911 - Malignant neoplasm of unspecified site of right female breast PLAN: Plan Acute Sigmoid Diverticulitis * noted on CT * abx with Cipro and IV metronidazole Flagyl. Would continue treatment for total of 10 days, through the . * advance diet to transitional pancytopenia * 2/2 to recent chemotherapy for breast cancer. Improved slightly. * DW Dr. Hilario on the , he recommended that since patient is having an active infection Granix subcu 480 daily until WBCs normalize. * Transfuse for Hg less than 7, platelets less than 10k--or bleeding. Chronic conditions * GERD: On PPI * Hypothyroidism: Continue levothyroxine. TSH pending * Depression: Continue sertraline * Breast cancer: Per Dr. Hilario, triple negative. Patient was on Adriamycin and Cytoxan back on May 12. VTE prophylaxis: SCDs. Disposition: To be determined. With the patient's white count trending upwards over the past couple days are anticipated continued improvement. Once the patient's white count is at least near normal she can be discharged to complete course of antibiotics. Charges/Coding Visit Charges Inpatient E&M: 17761 Subs Hosp L2
[2024-05-23] MEDS: Ciprofloxacin 200 MG/100 ML BAG 100 MG IV ×2 (09:22→22:26)
[2024-05-23] MEDS: Glycerin/Hypromellose/PEG400 15 ml Bottle 1 DRP OPHTHALMIC (09:23)
[2024-05-23] MEDS: Omega-3 Acid Ethyl Esters 1 GM Capsule 2 GM PO ×2 (09:23→21:09)
[2024-05-23] MEDS: Calcium Carb/Vitamin D 1 TABLET Tablet PO ×2 (09:24→18:13)
[2024-05-23] MEDS: Lactobacillis Acidophilus 1 CAP PO ×4 (09:24→21:09)
[2024-05-23] MEDS: Pantoprazole Sodium 40 MG Tablet PO (09:25)
[2024-05-23] MEDS: TBO-FILGRASTIM 480 MCG/0.8 ML ML SC (09:25)
[2024-05-23] MEDS: Sertraline 50 MG Tablet PO (09:26)
[2024-05-23] MEDS: KCL 20MEQ in 0.9% NS 20 MEQ/1,000 ML IV.SOLN. 70 MEQ IV (14:49)
[2024-05-24 02:37] VITALS: BP 111/55; PULSE 66; RESP 16; TEMP 36.6; O2SAT 98
[2024-05-24] MEDS: Levothyroxine 75 MCG Tablet PO (05:16)
[2024-05-24] MEDS: metroNIDAZOLE 500 MG/100 ML BAG 100 MG IV ×3 (05:17→22:50)
[2024-05-24] MEDS: KCL 20MEQ in 0.9% NS 20 MEQ/1,000 ML IV.SOLN. 70 MEQ IV (05:17)
[2024-05-24 05:36] LABS: Hemoglobin 8.6 g/dL (12.0-15.0); Mean Corp Hgb Conc 33.1 g/dL (32-36); Mean Corpuscular Hgb 31.9 pg (27.0-32.0); Mean Corpuscular Volume 96.3 fL (81-99); Mean Platelet Vol. 12.9 fl (6.2-12.0); POSITIVE COUNT YES; POSITIVE DIFFERENTIAL YES; POSITIVE MORPHOLOGY YES; RBC Distribution Width CV 11.9 % (11.6-14.6); RBC Distribution Width SD 41.5 fl (35.1-43.9); White Blood Count 2.6 K/mm3 (4.4-11.0)
[2024-05-24 05:51] LABS: Differential Indicated MANUAL DIFF; Platelet Count 23 K/mm3 (150-450)
[2024-05-24 06:00] VITALS: BMI 26.4
[2024-05-24 07:24] LABS: Blast 3 % (0-0); Lymphocyte 22 % (19-41); Monocyte 5 % (0-10); Myelocyte 2 % (0-0); Neutrophil-Band 31 % (0-5); Neutrophil-Segmented 33 % (47-70); Promyelocyte 4 % (0-0); Total Cells Counted 100 (MANUAL DIFF)
[2024-05-24 07:25] LABS: Absolute Lymphocyte Count 0.57 X10^3/uL (0.83-4.51); Absolute Neutrophil Count 1.7 X10^3/uL (2.0-7.7); Differential Comment SCANNED; Platelet Estimate MKD DEC (ADEQ)
[2024-05-24 08:05] VITALS: PULSE 78
[2024-05-24 08:52] VITALS: BP 106/35; PULSE 64; RESP 16; TEMP 36.6; O2SAT 98
[2024-05-24] MEDS: Omega-3 Acid Ethyl Esters 1 GM Capsule 2 GM PO ×2 (09:01→21:34)
[2024-05-24] MEDS: Pantoprazole Sodium 40 MG Tablet PO (09:02)
[2024-05-24] MEDS: Calcium Carb/Vitamin D 1 TABLET Tablet PO (09:03)
[2024-05-24] MEDS: Sertraline 50 MG Tablet PO (09:06)
[2024-05-24] MEDS: Lactobacillis Acidophilus 1 CAP PO ×3 (09:06→21:35)
[2024-05-24] MEDS: TBO-FILGRASTIM 480 MCG/0.8 ML ML SC (09:11)
[2024-05-24] MEDS: Ciprofloxacin 200 MG/100 ML BAG 100 MG IV ×2 (09:11→21:15)
[2024-05-24 09:26] LABS: Pathologist Review Reviewed
[2024-05-24 09:29] LABS: Pathologist Review Reviewed
[2024-05-24 09:30] LABS: Pathologist Review Reviewed
--- NOTE | 2024-05-24 11:56 | PN_ITS ---
Subjective Subjective Patient seen and examined. She states abdominal pain is improving and she is starting to feel better. Objective Data Objective Data Vital Signs: Vital Signs Temp Pulse Resp BP Pulse Ox O2 Del Method 97.8 F 64 16 106/35 L 98 Room Air 05/24/24 08:52 05/24/24 08:52 05/24/24 08:52 05/24/24 08:52 05/24/24 08:52 05/24/24 08:52 Oxygen Delivery Method Room Air Weight: 158 lb 11.725 oz Body Mass Index (BMI) 26.4 Intake & Output: Intake and Output for Last 24 Hours 05/22/24 05/23/24 05/24/24 23:59 23:59 23:59 Intake Total 3534.00 / 3534.00 2601.83 / 2601.83 1439.34 / 1439.34 Output Total 4050 / 4050 700 / 700 1100 / 1100 Balance -516.00 / -516.00 1901.83 / 1901.83 339.34 / 339.34 Lab / Micro Data 05/24/24 05:15 05/23/24 04:47 Labs: Laboratory Results - last 24 hr 05/22/24 05:15: Diff Path Review Reviewed 05/23/24 04:47: Diff Path Review Reviewed 05/24/24 05:15: WBC 2.6 L, RBC 2.70 L, Hgb 8.6 L, Hct 26.0 L, MCV 96.3, MCH 31.9, MCHC 33.1, RDW Std Deviation 41.5, RDW Coeff of Lucy 11.9, Plt Count 23 L*, MPV 12.9 H, Neut % (Auto) Not Reportable, Absolute Neuts (auto) 1.7 L, Absolute Lymphs (auto) 0.57 L, Total Counted 100, Neutrophils % (Manual) 33 L, Band Neutrophils % 31 H, Lymphocytes % (Manual) 22, Monocytes % (Manual) 5, M yelocytes % 2 H, Promyelocytes % 4 H, Blast Cells % 3 H*, Differential Comment SCANNED, Diff Path Review Reviewed, Platelet Estimate MKD DEC Micro: Microbiology 05/19/24 22:01 Blood Culture (Wb) - Port Blood Culture - Preliminary No growth in 48 hours. Physical Exam Const alert, oriented x3 and no apparent distress General Appearance: cooperative HEENT normocephalic, head/scalp atraumatic and moist oral mucous membranes Eyes EOMs intact bilaterally Neck no lymphadenopathy, supple and no JVD Lymph Lymphatic: no lymphadenopathy noted and no lymphedema noted Resp normal respiratory effort, normal air movement and clear to auscultation bilaterally Cardio regular rate, regular rhythm, S1 normal heart sound, S2 normal heart sound and no murmurs GI normal to inspection, nondistended, normoactive bowel sounds GI Narrative: mild generalised tenderness, no guarding or rebound tenderness Extremity normal capillary refill, no clubbing, cyanosis or edema and no calf tenderness General Extremity: no tenderness to palpation of joints or extremities Skin General Skin Exam: no breakdown Neuro CN's II-XII intact bilaterally, no focal motor deficits, no sensory deficits noted and deep tendon reflexes 2+ bilaterally Motor Exam: strength 5/5 throughout and general weakness Psych thought process normal and cooperative Appearance: appropriate Assessment & Plan Assessment/Plan (1) Diarrhea: QUALIFIERS: Diarrhea type: unspecified type Qualified Code(s): R 19.7 - Diarrhea, unspecified (2) Diverticulitis of sigmoid colon: PLAN: Plan #Acute sigmoid diverticulitis * Still having some abdominal pain. On IV ciprofloxacin and metronidazole. * Abdominal pain is improving. Will advance diet today. * Continue gentle hydration with IV fluids. Continue pain meds. #Pancytopenia * Due to recent chemotherapy for breast cancer. Currently on subcu Granix for 18 mcg daily. Transfuse if hemoglobin less than 7 or platelets less than 10,000 or if she is bleeding. * WBC is up to 2.6 today and platelets are 23. Hemoglobin is 8.6. Her absolute neutrophil count is up to 1.7 today. #History of breast cancer: * has Triple negative breast cancer and is on chemotherapy with Adriamycin and Cytoxan. * Follow-up with hematology on outpatient basis. #GERD: On PPI #Hypothyroidism: On Synthroid #Depression: On sertraline DVT prophylaxis: SCDs Charges/Coding Visit Charges Inpatient E&M: 59129 Subs Hosp L2
[2024-05-24] MEDS: Polyethylene Glycol 3350 17 GM PACKET PO (12:21)
[2024-05-24 14:29] VITALS: BP 97/59; PULSE 72; RESP 16; TEMP 36.8; O2SAT 98
[2024-05-24 14:34] VITALS: PULSE 83
[2024-05-24 20:29] VITALS: BP 103/65; PULSE 83; RESP 16; TEMP 36.3; O2SAT 98
[2024-05-24] MEDS: Senna/Docusate Sodium 1 Tablet 2 TABLET PO (21:35)
[2024-05-24] MEDS: Acetaminophen 325 MG Tablet 650 MG PO (21:35)
[2024-05-25] MEDS: KCL 20MEQ in 0.9% NS 20 MEQ/1,000 ML IV.SOLN. 70 MEQ IV (00:45)
[2024-05-25 02:30] VITALS: BP 107/48; PULSE 70; RESP 16; TEMP 36.2; O2SAT 97
[2024-05-25 03:50] VITALS: BMI 26.6
[2024-05-25] MEDS: Levothyroxine 75 MCG Tablet PO (06:54)
[2024-05-25] MEDS: metroNIDAZOLE 500 MG/100 ML BAG 100 MG IV ×2 (06:54→14:05)
[2024-05-25] MEDS: Polyethylene Glycol 3350 17 GM PACKET PO (06:54)
[2024-05-25 08:04] LABS: Anion Gap 4 (5-15); BUN 7 mg/dL (7-18); BUN/Creat Ratio 10.4 RATIO (10-20); Calcium,Total 9.1 mg/dL (8.5-10.1); Chloride 111 mmol/L (98-107); Creatinine, Serum 0.67 mg/dL (0.55-1.02); EST Glomerular Filtration Rate 91 mL/min (>60); Est Glom Filt Rate - Afr Amer 110 mL/min (>60); Estimated Creatinine Clearance 58.39 ml/min; Glucose 97 mg/dL (74-106); Sodium Level 141 mmol/L (136-145)
[2024-05-25 08:06] VITALS: BP 120/59; PULSE 72; RESP 16; TEMP 36.4; O2SAT 98
[2024-05-25 08:21] VITALS: PULSE 67
[2024-05-25] MEDS: Calcium Carb/Vitamin D 1 TABLET Tablet PO (08:28)
[2024-05-25] MEDS: Omega-3 Acid Ethyl Esters 1 GM Capsule 2 GM PO (08:28)
[2024-05-25] MEDS: Sertraline 50 MG Tablet PO (08:28)
[2024-05-25] MEDS: Lactobacillis Acidophilus 1 CAP PO ×2 (08:29→14:06)
[2024-05-25] MEDS: Pantoprazole Sodium 40 MG Tablet PO (08:29)
[2024-05-25 08:33] LABS: Hematocrit 27.1 % (37-47); Hemoglobin 9.2 g/dL (12.0-15.0); Mean Corp Hgb Conc 33.9 g/dL (32-36); Mean Corpuscular Hgb 32.3 pg (27.0-32.0); Mean Corpuscular Volume 95.1 fL (81-99); Mean Platelet Vol. 12.3 fl (6.2-12.0); POSITIVE COUNT YES; POSITIVE DIFFERENTIAL YES; POSITIVE MORPHOLOGY YES; RBC Distribution Width CV 11.9 % (11.6-14.6); RBC Distribution Width SD 41.6 fl (35.1-43.9); Red Blood Count 2.85 M/mm3 (4.2-5.4); White Blood Count 6.1 K/mm3 (4.4-11.0)
[2024-05-25 08:42] LABS: Differential Indicated MANUAL DIFF
[2024-05-25] MEDS: Ciprofloxacin 200 MG/100 ML BAG 100 MG IV (09:57)
[2024-05-25 11:40] LABS: Eosinophil 1 % (0-5); Lymphocyte 19 % (19-41); Metamyelocyte 9 % (0-1); Monocyte 5 % (0-10); Myelocyte 1 % (0-0); Neutrophil-Band 12 % (0-5); Neutrophil-Segmented 53 % (47-70); Platelet Estimate MKD DEC (ADEQ); Red Cell Morphology NORM C+C NORMAL (NORM C&C); Total Cells Counted 100 (MANUAL DIFF)
[2024-05-25 11:42] LABS: Platelet Count 40 K/mm3 (150-450)
--- NOTE | 2024-05-25 12:30 | CASEMGMT ---
AVINASH CM into pt room, pt sitting up in bed with visitor at bedside. Pt denies any homegoing needs. Pt reports she feels her strength is at baseline.
--- NOTE | 2024-05-25 13:56 | DS.PCM_ITS ---
Providers Date of Admission: 05/19/24 Date of Discharge: 05/25/24 Primary Care Physician: Dr. Radha Ferreira MD Reason For Visit: ACUTE SIGMOID DIVERTICULITIS, CRIT LEUKOPENIA & Diagnosis Discharge Diagnosis (1) Diarrhea: Status: Acute Code(s): R19.7 - Diarrhea, unspecified Qualifiers: Diarrhea type: unspecified type Qualified Code(s): R19.7 - Diarrhea, unspecified (2) Diverticulitis of sigmoid colon: Status: Acute Code(s): K57.32 - Diverticulitis of large intestine without perforation or abscess without bleeding Plan #Acute sigmoid diverticulitis * Still having some abdominal pain. On IV ciprofloxacin and metronidazole. * Abdominal pain is improving. Will advance diet today. * Continue gentle hydration with IV fluids. Continue pain meds. #Pancytopenia * Due to recent chemotherapy for breast cancer. Currently on subcu Granix for 18 mcg daily. Transfuse if hemoglobin less than 7 or platelets less than 10,000 or if she is bleeding. * WBC is up to 2.6 today and platelets are 23. Hemoglobin is 8.6. Her absolute neutrophil count is up to 1.7 today. #History of breast cancer: * has Triple negative breast cancer and is on chemotherapy with Adriamycin and Cytoxan. * Follow-up with hematology on outpatient basis. #GERD: On PPI #Hypothyroidism: On Synthroid #Depression: On sertraline DVT prophylaxis: SCDs Medications at Discharge Home Medications Fibrocare 2 tab PO BID SUPPLEMENT 11/30/13 calcium citrate 315 mg calcium-vitamin D3 6.25 mcg (250 unit) tablet (Citracal + Vitamin D Maximum) 4 tab PO BID SUPPLEMENT 08/25/17 ortho-biotic 1 tab PO DAILY 01/25/19 propylene glycol 0.6 % eye drops (Systane Complete) 1 drp ophthalmic (eye) BID 01/25/19 omega 3-zpe-zxd-fish oil 1,000 mg (120 mg-180 mg) capsule (Fish Oil) 2 cap PO BID SUPPLEMENT 11/12/21 estradiol 0.01% (0.1 mg/gram) vaginal cream See Rx Instructions vaginal .COMPLEX ESTROGEN SUPPLEMENT #50 grams 04/03/22 sertraline 50 mg tablet 50 mg PO DAILY #90 tabs 08/15/23 levothyroxine 75 mcg tablet 75 mcg PO DAILY #90 tabs 01/05/24 pantoprazole 40 mg tablet,delayed release 40 mg PO DAILY 03/17/24 Handicap Placard #1 ea 05/18/24 mometasone 0.1 % topical ointment 1 applic topical .COMPLEX #15 grams 05/23/24 ciprofloxacin HCl 500 mg tablet 500 mg PO BID 5 days #10 tabs 05/25/24 metronidazole 500 mg tablet 500 mg PO Q8H 5 days #15 tabs 05/25/24 Hospital Course Operations None Procedures None Summary of Care Provided Minutes Spent on Discharge: 48 Hospital Course: Patient is a 74-year-old female with extensive past medical history as outlined including a history of triple negative breast cancer, with a history of right lumpectomy and port in her right chest and following Dr. Ramos. She had completed her first dose of chemotherapy the week before admission. She came into the ED on 05/19/2024 with a complaint of abdominal pain, diarrhea and near syncope. His symptoms started about 2 weeks prior to admission which says she was diagnosed with COVID. She recovered from the COVID but still started having the abdominal pain. The abdominal pain was cramping and severe in nature and she had lightheadedness and near syncope. CT of the abdomen and pelvis done in the ED showed acute sigmoid diverticulitis. Her WBC was low at 0.2 and platelets were down to 35. Hemoglobin was 9.8. She was admitted and managed for acute sigmoid diverticulitis and pancytopenia likely due to effects of chemotherapy. She was hydrated with IV fluids and started on IV ciprofloxacin and metronidazole. She was also started on subcu Granix for her pancytopenia specifically neutropenia. Patient's abdominal pain improved and she felt much better. She was started on a clear liquid diet and was gradually advanced to a soft diet and tolerated it. Her white cell count also came up to 6.1 and platelets which had dropped to a low of 17 was up to 40 at time of discharge. Her absolute neutrophil count had also come up to 4. Granix was therefore discontinued. She was discharged home with a prescription for p.o. ciprofloxacin and p.o. metronidazole for 5-day course. She is to follow-up with her primary care doctor within 1 to 2 weeks and to follow-up with her oncologist as scheduled. She was counseled to continue on a soft diet for the first week whilst at home and to advance slowly as tolerated. Patient seen and examined prior to discharge. She had no active complaints and had an uneventful night. Review of systems otherwise negative. Labs and vitals reviewed. Home medication reviewed and reconciled. Physical Exam Const alert, oriented x3 and no apparent distress General Appearance: cooperative, comfortable and well kempt Exam Limitations: no limitations HEENT normocephalic, head/scalp atraumatic, hearing grossly normal bilaterally and moist oral mucous membranes Mouth: oral and palatal mucosa normal Eyes EOMs intact bilaterally Neck no lymphadenopathy, supple and no JVD Lymph Lymphatic: no lymphadenopathy noted and no lymphedema noted Resp normal respiratory effort, normal air movement, no retractions, no use of accessory muscles and clear to auscultation bilaterally Cardio regular rate, regular rhythm, S1 normal heart sound, S2 normal heart sound and no murmurs GI normal to inspection, nondistended, normoactive bowel sounds, soft to palpation, non-tender and non-distended Extremity normal to inspection, full ROM, normal capillary refill, no clubbing, cyanosis or edema and no calf tenderness General Extremity: no tenderness to palpation of joints or extremities Skin no rashes or lesions noted General Skin Exam: no breakdown Neuro oriented x3, CN's II-XII intact bilaterally, moves all extremities, no focal motor deficits, no sensory deficits noted and deep tendon reflexes 2+ bilaterally Sensorium / Orientation: awake and alert Motor Exam: strength 5/5 throughout and general weakness Psych thought process normal and cooperative Appearance: appropriate Weight / BMI Weight Weight: 159 lb 13.362 oz Body Mass Index (BMI) 26.6 ABG / Lab / Microbiology Data 05/25/24 06:50 05/25/24 06:50 Laboratory: Laboratory Results - last 24 hr 05/25/24 06:50: WBC 6.1, RBC 2.85 L, Hgb 9.2 L, Hct 27.1 L, MCV 95.1, MCH 32.3 H , MCHC 33.9, RDW Std Deviation 41.6, RDW Coeff of Lucy 11.9, Plt Count 40 L*, MPV 12.3 H, Neut % (Auto) Not Reportable, Absolute Neuts (auto) 4.0, Absolute Lymphs (auto) 1.20, Total Counted 100, Neutrophils % (Manual) 53, Band Neutrophils % 12 H, Lymphocytes % (Manual) 19, Monocytes % (Manual) 5, Eosinophils % (Manual) 1, Metamyelocytes % 9 H, Myelocytes % 1 H, Diff Path Review May foll, Platelet Estimate MKD DEC, RBC Morphology NORM C+C, Sodium 141, Potassium 4.0, Chloride 111 H, Carbon Dioxide 26.0, Anion Gap 4 L, BUN 7, Creatinine 0.67, Estim Creat Clear Calc 58.39, Est GFR (MDRD) Af Amer 110, Est GFR (MDRD) Non-Af 91, BUN/Creatinine Ratio 10.4, Glucose 97, Calcium 9.1 Microbiology: Microbiology 05/19/24 22:01 Blood Culture (Wb) - Port Blood Culture - Final No growth in 5 days. D/C Instructions Discharge Diet: Low fat / Low cholesterol Discharge Activity: Return to Normal Activity Weight Bearing Status: Full weight bearing Call your doctor if you observe: Fever of 101 or Higher, Shortness of breath, Dizziness, Swelling in the ankles, Chest pain and Uncontrolled pain Meaningful Use Info Meaningful Use Meaningful Use Diagnoses (Choose all that apply): None applicable Ischemic Stroke Statin Dosing Therapy Reference: STATIN DOSE THERAPY REFERENCE: * Patients > 75 years receive moderate or high dose statin therapy. * Patients 75 years or YOUNGER should receive HIGH intensity statin dose unless contraindicated. You will be required to document reason for non-treatment if statin daily dose does not meet guidelines. HIGH DOSE STATIN THERAPY DAILY Atorvastatin > than or = to 40 mg Rosuvastatin > than or = to 20 mg Amlodipine + Atorvastatin > than or = to 2.5/40 mg Ezetimibe + Simvastatin 10/80 mg Simvastatin 80mg Discharge Plan Admission Admit Date/Time: 05/19/24 22:15 Primary Reason for Your Visit: chemo induced pancytopenia, acute diverticulitis Attending Provider: Suly Alarcon Primary Care Provider: Radha Ferreira Consulting Providers: Herb Pink; Keon Beth Instructions Patient Instructions: Anemia, Thrombocytopenia, Diverticulitis Dc Additional Instructions / Restrictions: follow up with your oncologist within 1-2 weeks. Discharge Orders/Prescriptions Prescriptions: New metronidazole 500 mg tablet 500 mg PO Q8H 5 Days Qty: 15 0RF ciprofloxacin HCl 500 mg tablet 500 mg PO BID 5 Days Qty: 10 0RF Continued calcium citrate-vitamin D3 [Citracal + D Maximum] 315-250 mg-unit tablet 4 tab PO BID omega 4-lhw-dcl-fish oil [Fish Oil] 1,000 mg (120 mg-180 mg) capsule 2 cap PO BID Systane Complete 0.6 % drops 1 drp OPHTHALMIC BID ortho-biotic 1 tab PO DAILY sertraline 50 mg tablet 50 mg PO DAILY Qty: 90 2RF pantoprazole 40 mg tablet,delayed release (DR/EC) 40 mg PO DAILY Fibrocare 2 tab PO BID Patient Comments: SUPPLEMENT estradiol 0.01 % (0.1 mg/gram) cream See Rx Instructions Vaginal .COMPLEX Qty: 50 2RF Dose Instruction: small amount Vaginal 3 X week; Rx Instructions: small amount Vaginal 3 X week; levothyroxine 75 mcg tablet 75 mcg PO DAILY Qty: 90 3RF (DME) Handicap Placard See Rx Instructions .ROUTE .MEDSUPPLY Qty: 1 0RF Rx Instructions: As directed, length of time 3 years mometasone 0.1 % ointment 1 applic topical .COMPLEX Qty: 15 2RF Rx Instructions: apply small amount and rub in daily X 5 days prn with symptoms Referrals / Follow Up: Radha Ferreira MD [Primary Care Provider] - Within 2 Weeks Disposition Disposition (needs filled in before D/C Order can be placed): Home, Self Care Charges/Coding Visit Charges Inpatient E&M: 71366 Disch Hosp >30min
[2024-05-25 14:09] VITALS: BP 100/49; PULSE 76; RESP 16; TEMP 36.8; O2SAT 96
[2024-05-25] MEDS: 0.9% Saline Lock 10 ML Syringe IV (15:35)
[2024-05-27 13:05] LABS: Pathologist Review Reviewed
== END 2024-05-25 16:07 | disposition home or self-care (01) | DRG 391 ==
LOC: ED 21:46 → MS3 22:43
PROVIDERS: Admitting Provider Internal Medicine; Emergency Provider Emergency Medicine; PCP Internal Medicine; Visit Provider Student in an Organized Health Care Education/Training Program
DX: K57.32 Diverticulitis of large intestine without perforation or abscess without bleeding (principal); D61.810 Antineoplastic chemotherapy induced pancytopenia; D69.6 Thrombocytopenia, unspecified; C50.911 Malignant neoplasm of unspecified site of right female breast; E03.9 Hypothyroidism, unspecified; D63.0 Anemia in neoplastic disease; I10 Essential (primary) hypertension; G47.33 Obstructive sleep apnea (adult) (pediatric); K21.9 Gastro-esophageal reflux disease without esophagitis; F41.8 Other specified anxiety disorders; M19.90 Unspecified osteoarthritis, unspecified site; E66.3 Overweight; T45.1X5A Adverse effect of antineoplastic and immunosuppressive drugs, initial encounter; Z79.890 Hormone replacement therapy; Z68.27 Body mass index [BMI] 27.0-27.9, adult; Z99.89 Dependence on other enabling machines and devices; Z90.710 Acquired absence of both cervix and uterus; Z90.49 Acquired absence of other specified parts of digestive tract; Z92.21 Personal history of antineoplastic chemotherapy
CPT/HCPCS: 36415; 36591; 71045; 74177; 80048; 80053; 80076; 81001; 83605; 83690; 83735; 84100; 84443; 85025; 87040; 93005; 94668; 99285; Q9967; A4216; J0744; J1447

== ENCOUNTER 2024-06-15 12:44 | Inpatient (IN) | payer MEDICARE, OTHER, SELFPAY ==
[2024-06-15] VITALS (9 sets, daily range): BP systolic 96–129; BP diastolic 34–77; PULSE 52–107; RESP 16–19; TEMP 36.6–37.3; O2SAT 95–99; BMI 27.8; BMI 27.3
--- NOTE | 2024-06-15 13:11 | CT_ITS ---
STUDY: CT ABDOMEN AND PELVIS WITH CONTRAST REASON FOR EXAM: Female, 74 years old. Abdominal pain. Diarrhea. History of breast cancer. RADIATION DOSAGE (If Supplied By Facility): CTDIvol = ( 13.95 ) mGy, DLP = ( 995.96 ) mGycm TECHNIQUE: Transaxial images were obtained from the dome of the diaphragm to the symphysis pubis without oral contrast. IV 100mL Isovue-300 was administered. Sagittal and coronal images were reconstructed. Individualized dose optimization techniques were used for this CT. COMPARISON: Comparison is made with prior study dated May 19, 2024. FINDINGS: Small left pleural effusion with left basilar atelectasis. The visualized portions of the heart are within normal limits. Normal liver. The gallbladder is not well visualized. This may be due to a contracted gallbladder or prior cholecystectomy. Normal spleen. Normal pancreas. Normal bilateral adrenal glands. Normal right kidney. Normal left kidney. There is a small hiatal hernia. Normal small intestine. There are multiple colonic diverticula consistent with diverticulosis. Moderate amount of fecal material is seen in the colon. There is non-visualization of the appendix. There is atherosclerotic calcification of the abdominal aorta, without a demonstrated aneurysm. Normal inferior vena cava. Normal retroperitoneum. Normal urinary bladder. There is absence of the uterus consistent with a prior hysterectomy. Normal abdominal wall. There are diffuse degenerative changes of the visualized lumbar spine. CT/Abdomen/Pelvis W IV Cont ONLY IMPRESSION: Sigmoid diverticulosis. Prior hysterectomy. Electronically Signed: Dewayne Rodas MD at 15:04 EDT ,
[2024-06-15] MEDS: 0.9% Normal Saline (1000mL) 1,000 ML 999 ML IV (13:27)
[2024-06-15] MEDS: Ondansetron 4 MG/2 ML Vial IV (13:27)
--- NOTE | 2024-06-15 13:31 | CT_ITS ---
STUDY: CT BRAIN WITHOUT CONTRAST REASON FOR EXAM: Female, 74 years old. Confusion RADIATION DOSAGE (If Supplied By Facility): CTDIvol = ( 44.99 ) mGy, DLP = ( 796.11 ) mGycm TECHNIQUE: Transaxial CT imaging of the brain was performed without administration of intravenous contrast material. Individualized dose optimization techniques were used for this CT. COMPARISON: No relevant priors. FINDINGS: Normal soft tissue structures. Normal calvarium. There is mild cerebral atrophy with widening of the extra-axial spaces and ventricular dilatation. There are areas of decreased attenuation within the white matter tracts of the supratentorial brain, consistent with microvascular disease changes. Normal basal ganglia and thalami. Normal brainstem. Normal cerebellum. There is no intracranial hemorrhage. There are no findings of an acute ischemic infarction. Atherosclerotic calcification of the cavernous portions of the internal carotid arteries bilaterally. Focal mucosal thickening along the inferior aspect of the left sphenoid sinus. CT/Brain/Head without Contrast IMPRESSION: Chronic involutional changes of the brain. Electronically Signed: Dewayne Rodas MD at 15:00 EDT ,
--- NOTE | 2024-06-15 13:31 | ED.VIS.GI ---
HPI HPI - GI History of Present Illness Chief Complaint: Weakness Narrative Narrative: 74-year-old female past medical history of triple negative breast carcinoma treated with mastectomy and now undergoing chemotherapy received her last dose of chemotherapy last week presents with abdominal pain, nausea, vomiting, and diarrhea. Her symptoms began today. Of note, her daughter relates history that she was hospitalized for a week with diverticulitis a few weeks ago. Patient complains of diffuse abdominal pain, vomited once today without any blood in her emesis, and had nonbloody diarrhea 1 episode as well. No exacerbating or alleviating factors, but she developed a headache as well today. 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 Pneumonia De Quervain's tenosynovitis, left COVID-19 Anxiety and depression Depression CPAP (continuous positive airway pressure) dependence Leg cramps Grief reaction URI (upper respiratory infection) Shingles Hypertension Left shoulder tendinitis Adhesive capsulitis of left shoulder Left shoulder pain Colitis Wears glasses Alcohol use Migraine headache Injury of head and neck History of ulceration Non-smoker History of pain when walking History of echocardiogram History of stress test GERD (gastroesophageal reflux disease) IBS (irritable bowel syndrome) Constipation Irritable bowel syndrome with constipation Abrasion, left ankle, initial encounter Sprain of left foot Contusion of left ankle Elevated blood pressure reading in office without diagnosis of hypertension Osteoarthritis prolapsed bladder Fibromyalgia Thyroid disease Knee pain Cataracts, bilateral Arthritis Osteopenia low white blood count Lichen sclerosus Home Medications ?Medication ?Instructions ?Recorded ?Last Taken ?Type Fibrocare 2 tab PO BID SUPPLEMENT 11/30/13 01/12/24 History calcium 315 mg (as 4 tab PO BID SUPPLEMENT 08/25/17 01/12/24 History citrate)-vitamin D3 6.25 mcg (250 unit) tablet (Citracal + Vitamin D Maximum) ortho-biotic 1 tab PO DAILY 01/25/19 01/12/24 History propylene glycol 0.6 % eye drops 1 drp ophthalmic (eye) BID 01/25/19 01/12/24 History (Systane Complete) omega 2-nfx-qun-fish oil 1,000 mg 2 cap PO BID SUPPLEMENT 11/12/21 01/12/24 History (120 mg-180 mg) capsule (Fish Oil) estradiol 0.01% (0.1 mg/gram) See Rx Instructions vaginal 04/03/22 01/12/24 Rx vaginal cream .COMPLEX ESTROGEN SUPPLEMENT #50 grams sertraline 50 mg tablet 50 mg PO DAILY #90 tabs 08/15/23 01/12/24 Rx levothyroxine 75 mcg tablet 75 mcg PO DAILY #90 tabs 01/05/24 04/23/24 Rx Handicap Placard #1 ea 05/18/24 Unknown Rx mometasone 0.1 % topical ointment 1 applic topical .COMPLEX #15 grams 05/23/24 Unknown Rx ciprofloxacin HCl 500 mg tablet 500 mg PO BID 5 days #10 tabs 05/25/24 Unknown Rx metronidazole 500 mg tablet 500 mg PO Q8H 5 days #15 tabs 05/25/24 Unknown Rx pantoprazole 40 mg tablet,delayed 40 mg PO DAILY #90 tabs 06/15/24 Unknown Rx release Allergy/AdvReac Type Severity Reaction Status Date / Time Penicillins Allergy Mild Rash Verified 06/03/24 13:43 vancomycin HCl (From Allergy Mild Rash Verified 06/03/24 13:43 Vancocin) metoclopramide (From Reglan) Allergy Other Verified 06/03/24 13:43 naproxen (From Naprosyn) AdvReac Rash Verified 06/03/24 13:43 NSAIDS (Non-Steroidal AdvReac Rash Verified 06/03/24 13:43 Anti-Inflamma Family History Mother Breast cancer, Onset Age: 60 remission until the age of 74 and spread to bones Alcoholism Epilepsy Hyperlipemia Father Cancer Unknown Alcoholism Brother Alcoholism Daughter Thyroid disorder Cancer Surgical History History of insertion of central venous access port History of lumpectomy of right breast Hx of esophagogastroduodenoscopy H/O endoscopy History of cardiac catheterization History of cholecystectomy History of colonoscopy History of total vaginal hysterectomy (TVH) (~09/24/18) TMJ gallbladder History of appendectomy S/P cervical disc replacement Social History Smoking Status: Never smoker alcohol intake: current alcohol intake frequency: holidays/special occasions only substance use type: does not use caffeine: No what type of physical activity do you participate in: walking frequency: 3-4 times per week seatbelt use: always do you feel safe at home: Yes additional social history: ROS ROS ED ROS Narrative Constitutional: No fever, no chills. HEENT: No sore throat. No neck pain. No loss of vision. No rhinorrhea. Cardiovascular: No chest pain. No palpitations. No pedal edema. Respiratory: No cough, no shortness of breath. Abdominal: Diffuse abdominal pain, but also in left lower quadrant. Positive nausea, vomiting, and diarrhea 1 episode each, without any blood in emesis or stool. Genitourinary: No dysuria. No hematuria. Musculoskeletal: No myalgias. No arthralgias. Neurologic: Positive headaches. No dizziness. No lightheadedness. Skin: No rash. No change in color. Psychiatric: No depression. No anxiety. EXAM Physical Exam Narrative Exam Narrative: Afebrile. Vital signs noted. HEENT: Normocephalic. Atraumatic. PERRL, EOMI. Neck soft and supple. No point tenderness or step off. Cardiovascular: Regular rate and rhythm with intermittent bradycardia. No murmurs, rubs, or gallops appreciated. Respiratory: No tachypnea. Lungs clear to auscultation bilaterally. Gastrointestinal: Abdomen soft, mild tenderness to palpation left lower quadrant, with normoactive bowel sounds. No rebound or guarding. Neurological: Awake. Alert. Nonfocal, nonlateralizing. Skin: No rash. Normal color. No pallor. Musculoskeletal: No pedal edema. Full range of motion extremities. Const Vital Signs: 06/15/24 12:45 06/15/24 13:51 06/15/24 14:00 Temperature 98.2 F 98.1 F 97.9 F Temperature Source Oral Oral Oral Pulse Rate 57 L 52 L 107 H Respiratory Rate 18 17 18 Blood Pressure 96/34 L 96/46 L 113/49 L Blood Pressure Mean 54 62 70 Pulse Ox 97 96 97 Oxygen Delivery Method Room Air Room Air Room Air 06/15/24 15:00 Temperature 98.2 F Temperature Source Oral Pulse Rate 74 Respiratory Rate 19 H Blood Pressure 100/77 Blood Pressure Mean 84 Pulse Ox 95 Oxygen Delivery Method Room Air MDM MDM MDM Narrative Medical decision making narrative: Differential diagnosis includes but not limited to gastroenteritis versus diverticulitis versus diverticular abscess versus dehydration versus intravascular volume depletion or other electrolyte abnormality. Patient had soft blood pressure in the 90s systolic. She will be bolused normal saline 1 L intravenously. I do feel CT imaging is indicated. CBC, CMP, lipase will be checked to help rule out pancreatitis as well. I reviewed her laboratory work and she is neutropenic at 0.4 which is most likely from her recent chemotherapy, hemoglobin stable at 8.3, I do not feel she requires blood transfusion. Platelet count low at 65. She has had pancytopenia in the past. Review of her CMP shows BUN elevated at 27 with creatinine 0.97 consistent with dehydration, normal sodium of 141 and potassium 4.0. Glucose is elevated at 145 but normal anion gap of 9. Lactic acid is elevated at 2.6, but this may be from her hypotension and intravascular volume depletion/dehydration. She was bolused IV fluids with increased blood pressure above 100 systolic. LFTs are grossly unremarkable. Lipase normal at 25. Urinalysis does show WBCs 10-25. Initially, she was not meeting SIRS criteria as her blood pressure had improved and she was not tachycardic but she became intermittently tachycardic, and her daughter said that she was confused. This may have been secondary to low perfusion. I reviewed the radiology report of the CT of the brain which shows chronic involutional changes but no acute process. I also reviewed the radiology report of the CT of the abdomen pelvis which shows diverticulosis but no diverticulitis, no acute process. Patient was started on low-dose ciprofloxacin which she has received previously secondary to her allergy to penicillin. Her blood pressure seems to be fluctuating. I do not feel that she is necessarily septic, I did send blood cultures and urine cultures and discussed patient with Dr. Ronal Perdue for admission to the PCU. Disposition is admit in stable condition. History & Record Review Discussion w/independent historian: Patient Additional record(s) reviewed:: Prior labs Lab Data Attestation: I reviewed the patient's lab results. Labs: Laboratory Results - last 24 hr 06/15/24 06/15/24 13:31 14:05 WBC 0.4 L* RBC 2.62 L Hgb 8.3 L Hct 25.2 L MCV 96.2 MCH 31.7 MCHC 32.9 RDW Std Deviation 47.2 H RDW Coeff of Lucy 13.9 Plt Count 65 L MPV 10.7 Neut % (Auto) Not Reportable Sodium 141 Potassium 4.0 Chloride 107 Carbon Dioxide 24.0 Anion Gap 9 BUN 27 H Creatinine 0.97 Estim Creat Clear Calc 48.46 Est GFR (MDRD) Af Amer 72 Est GFR (MDRD) Non-Af 59 L BUN/Creatinine Ratio 27.9 H Glucose 145 H Lactic Acid 2.6 H* Calcium 9.8 Total Bilirubin 0.80 AST 15 ALT 21 Alkaline Phosphatase 78 Total Protein 6.1 L Albumin 2.7 L Globulin 3.4 Albumin/Globulin Ratio 0.8 L Lipase 25 Urine Color Yellow Urine Clarity Cloudy Urine pH 8.0 Ur Specific [place] 1.010 Urine Protein 30 H Urine Glucose (UA) Normal Urine Ketones Negative Urine Occult Blood 10 H Urine Nitrite Negative Urine Bilirubin Negative Urine Urobilinogen 1 H Ur Leukocyte Esterase 500 H Urine RBC 0-5 SEEN Urine WBC 10-25 SEEN Ur Squamous Epith Cells 0-5 SEEN Ur Transition Epith Cell 0-5 SEEN Urine Bacteria 2+ Urine Mucus 0 SEEN Radiography Diagnostic Testing: Clinical Impression(s) from Imaging Studies Abdomen/Pelvis CT 06/15/24 13:11 IMPRESSION: Sigmoid diverticulosis. Prior hysterectomy. Electronically Signed: Dewayne Rodas MD at 15:04 EDT , Brain CT 06/15/24 13:31 IMPRESSION: Chronic involutional changes of the brain. Electronically Signed: Dewayne Rodas MD at 15:00 EDT , Management Discussion w/another healthcare provider: Hospitalist Discharge Plan Triage Chief Complaint: Weakness ED Provider: Tyrone Hernandez Dx/Rx/DC Orders Clinical Impression: Pancytopenia, Triple negative breast cancer, Lactic acidosis, UTI (urinary tract infection), Nausea vomiting and diarrhea, Abdominal pain Prescriptions: No Action calcium citrate-vitamin D3 [Citracal + D Maximum] 315-250 mg-unit tablet 4 tab PO BID omega 3-gyy-yij-fish oil [Fish Oil] 1,000 mg (120 mg-180 mg) capsule 2 cap PO BID Systane Complete 0.6 % drops 1 drp OPHTHALMIC BID ortho-biotic 1 tab PO DAILY sertraline 50 mg tablet 50 mg PO DAILY Qty: 90 2RF Fibrocare 2 tab PO BID Patient Comments: SUPPLEMENT metronidazole 500 mg tablet 500 mg PO Q8H 5 Days Qty: 15 0RF ciprofloxacin HCl 500 mg tablet 500 mg PO BID 5 Days Qty: 10 0RF estradiol 0.01 % (0.1 mg/gram) cream See Rx Instructions Vaginal .COMPLEX Qty: 50 2RF Dose Instruction: small amount Vaginal 3 X week; Rx Instructions: small amount Vaginal 3 X week; levothyroxine 75 mcg tablet 75 mcg PO DAILY Qty: 90 3RF (DME) Handicap Placard See Rx Instructions .ROUTE .MEDSUPPLY Qty: 1 0RF Rx Instructions: As directed, length of time 3 years mometasone 0.1 % ointment 1 applic topical .COMPLEX Qty: 15 2RF Rx Instructions: apply small amount and rub in daily X 5 days prn with symptoms pantoprazole 40 mg tablet,delayed release (DR/EC) 40 mg PO DAILY Qty: 90 4RF Primary Care Provider: Radha Ferreira Referrals: Radha Ferreira MD [Primary Care Provider] - Print Language: Turkmen Disposition Disposition: Acute Care Hospital
[2024-06-15 13:46] LABS: Hematocrit 25.2 % (37-47); Hemoglobin 8.3 g/dL (12.0-15.0); Mean Corp Hgb Conc 32.9 g/dL (32-36); Mean Corpuscular Hgb 31.7 pg (27.0-32.0); Mean Corpuscular Volume 96.2 fL (81-99); Mean Platelet Vol. 10.7 fl (6.2-12.0); POSITIVE COUNT YES; POSITIVE DIFFERENTIAL YES; POSITIVE MORPHOLOGY YES; Platelet Count 65 K/mm3 (150-450); RBC Distribution Width CV 13.9 % (11.6-14.6); RBC Distribution Width SD 47.2 fl (35.1-43.9); Red Blood Count 2.62 M/mm3 (4.2-5.4)
[2024-06-15 13:59] LABS: Differential Indicated MANUAL DIFF; White Blood Count 0.4 K/mm3 (4.4-11.0)
[2024-06-15 14:08] LABS: ALB/GLOB Ratio 0.8 RATIO (0.9-2.4); AST(SGOT) 15 U/L (15-37); Alanine Aminotransfer ALT/SGPT 21 U/L (13-56); Albumin, Serum 2.7 g/dL (3.2-5.0); Alkaline Phosphatase 78 U/L (45-117); Anion Gap 9 (5-15); BUN 27 mg/dL (7-18); BUN/Creat Ratio 27.9 RATIO (10-20); Calcium,Total 9.8 mg/dL (8.5-10.1); Chloride 107 mmol/L (98-107); Creatinine, Serum 0.97 mg/dL (0.55-1.02); EST Glomerular Filtration Rate 59 mL/min (>60); Est Glom Filt Rate - Afr Amer 72 mL/min (>60); Estimated Creatinine Clearance 48.46 ml/min; Globulin 3.4 g/dL (2.2-4.2); Glucose 145 mg/dL (74-106); Lipase 25 U/L (13-75); Protein, Total 6.1 g/dL (6.4-8.2); Sodium Level 141 mmol/L (136-145)
[2024-06-15 14:09] LABS: Mucous, Urine 0 SEEN /hpf (<or=2+)
[2024-06-15 14:11] LABS: Lactic Acid 2.6 mmol/L (0.4-1.9)
[2024-06-15 14:15] LABS: Color, Urine Yellow (Yellow); Glucose, Dipstick Normal (Normal); Ketone-Dipstick Negative (Negative); Leukocyte Esterase-Dipstick 500 /ul (Negative); Nitrite-Dipstick Negative (Negative); Occult Blood-Urine 10 /ul (Negative); Protein-Dipstick 30 mg/dl (Negative); Urine Bilirubin Dipstick Negative (Negative); Urine Clarity Cloudy (Clear); Urine Urobilinogen 1 mg/dl (Normal)
[2024-06-15 14:22] LABS: Bacteria 2+ /hpf (None Seen); Squamous Epithelial Cells - UA 0-5 SEEN /hpf (5-10); White Blood Cells 10-25 SEEN /hpf (0-5)
[2024-06-15 14:23] LABS: Red Blood Cells-Urine 0-5 SEEN /hpf (0-5); Transitional Epithelial - Ur 0-5 SEEN /hpf (0-5)
--- NOTE | 2024-06-15 15:36 | HP.PCM.HOS_ITS ---
HPI - General General Date of Admission: 06/15/24 Date of Service: 06/15/24 Chief Complaint: Nausea, vomiting and diarrhea HPI Narrative ALVINA REYES, is a 74 F with a significant history of triple negative breast cancer status post a lumpectomy and on chemotherapy with last chemotherapy a week before presenting to the emergency department with nausea, vomiting and diarrhea that started on the same day of presentation. Associated with her symptom is abdominal pain, lightheadedness, confusion and syncope. At the emergency department because patient was tachycardic and hypotensive she received IV fluids. Lactic acid was 2.6. 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 Pneumonia De Quervain's tenosynovitis, left COVID-19 Anxiety and depression Depression CPAP (continuous positive airway pressure) dependence Leg cramps Grief reaction URI (upper respiratory infection) Shingles Hypertension Left shoulder tendinitis Adhesive capsulitis of left shoulder Left shoulder pain Colitis Wears glasses Alcohol use Migraine headache Injury of head and neck History of ulceration Non-smoker History of pain when walking History of echocardiogram History of stress test GERD (gastroesophageal reflux disease) IBS (irritable bowel syndrome) Constipation Irritable bowel syndrome with constipation Abrasion, left ankle, initial encounter Sprain of left foot Contusion of left ankle Elevated blood pressure reading in office without diagnosis of hypertension Osteoarthritis prolapsed bladder Fibromyalgia Thyroid disease Knee pain Cataracts, bilateral Arthritis Osteopenia low white blood count Lichen sclerosus Home Medications ?Medication ?Instructions ?Recorded ?Last Taken ?Type Fibrocare 2 tab PO BID SUPPLEMENT 11/30/13 01/12/24 History calcium 315 mg (as 4 tab PO BID SUPPLEMENT 08/25/17 01/12/24 History citrate)-vitamin D3 6.25 mcg (250 unit) tablet (Citracal + Vitamin D Maximum) ortho-biotic 1 tab PO DAILY 01/25/19 01/12/24 History propylene glycol 0.6 % eye drops 1 drp ophthalmic (eye) BID 01/25/19 01/12/24 History (Systane Complete) omega 0-fcc-qye-fish oil 1,000 mg 2 cap PO BID SUPPLEMENT 11/12/21 01/12/24 History (120 mg-180 mg) capsule (Fish Oil) estradiol 0.01% (0.1 mg/gram) See Rx Instructions vaginal 04/03/22 01/12/24 Rx vaginal cream .COMPLEX ESTROGEN SUPPLEMENT #50 grams sertraline 50 mg tablet 50 mg PO DAILY #90 tabs 08/15/23 01/12/24 Rx levothyroxine 75 mcg tablet 75 mcg PO DAILY #90 tabs 01/05/24 04/23/24 Rx Handicap Placard #1 ea 05/18/24 Unknown Rx mometasone 0.1 % topical ointment 1 applic topical .COMPLEX #15 grams 05/23/24 Unknown Rx pantoprazole 40 mg tablet,delayed 40 mg PO DAILY #90 tabs 06/15/24 Unknown Rx release Allergy/AdvReac Type Severity Reaction Status Date / Time Penicillins Allergy Mild Rash Verified 06/03/24 13:43 vancomycin HCl (From Allergy Mild Rash Verified 06/03/24 13:43 Vancocin) metoclopramide (From Reglan) Allergy Other Verified 06/03/24 13:43 naproxen (From Naprosyn) AdvReac Rash Verified 06/03/24 13:43 NSAIDS (Non-Steroidal AdvReac Rash Verified 06/03/24 13:43 Anti-Inflamma Family History Mother Breast cancer, Onset Age: 60 remission until the age of 74 and spread to bones Alcoholism Epilepsy Hyperlipemia Father Cancer Unknown Alcoholism Brother Alcoholism Daughter Thyroid disorder Cancer Surgical History History of insertion of central venous access port History of lumpectomy of right breast Hx of esophagogastroduodenoscopy H/O endoscopy History of cardiac catheterization History of cholecystectomy History of colonoscopy History of total vaginal hysterectomy (TVH) (~09/24/18) TMJ gallbladder History of appendectomy S/P cervical disc replacement Social History Smoking Status: Never smoker alcohol intake: current alcohol intake frequency: holidays/special occasions only substance use type: does not use caffeine: No what type of physical activity do you participate in: walking frequency: 3-4 times per week seatbelt use: always do you feel safe at home: Yes additional social history: ROS ROS Narrative Pertinent positives and pertinent negatives as noted in HPI. All other systems were reviewed and are negative Vital Signs Vital Signs Vital Signs: 06/15/24 12:45 06/15/24 13:51 06/15/24 14:00 Temperature 98.2 F 98.1 F 97.9 F Temperature Source Oral Oral Oral Pulse Rate 57 L 52 L 107 H Respiratory Rate 18 17 18 Blood Pressure 96/34 L 96/46 L 113/49 L Blood Pressure Mean 54 62 70 Pulse Ox 97 96 97 Oxygen Delivery Method Room Air Room Air Room Air 06/15/24 15:00 Temperature 98.2 F Temperature Source Oral Pulse Rate 74 Respiratory Rate 19 H Blood Pressure 100/77 Blood Pressure Mean 84 Pulse Ox 95 Oxygen Delivery Method Room Air Weight Weight: 73.5 kg Body Mass Index (BMI) 27.8 Physical Exam Narrative Physical exam: General: Well-nourished, well-developed. Head: Normocephalic, atraumatic, no tenderness Eyes: Vision is grossly intact. EOMI ENT, no trauma, moist mucous membranes, no rhinorrhea Neck: Nontender, No thyromegaly. CVS: Regular rate and rhythm. S1-S2 present. No murmur, gallop or rub. Respiratory : Right chest with portacath; clear to auscultation bilaterally, chest wall nontender Abdomen: Soft, nontender, nondistended, normal bowel sounds, no masses : Deferred Back: Nontender, no CVA tenderness, no midline spinal tenderness, deformities, step-offs Extremities: Nontender full range of motion, no trauma Skin: Normal color, no trauma, abrasions Neuro: Alert, oriented, cranial nerves II through XII grossly intact. Psychiatry: Normal mood. Normal affect. Not depressed. Not anxious. Results Lab / Micro Data 06/15/24 13:31 06/15/24 13:31 Labs: Laboratory Results - last 24 hr 06/15/24 13:31: WBC 0.4 L*, RBC 2.62 L, Hgb 8.3 L, Hct 25.2 L, MCV 96.2, MCH 31.7, MCHC 32.9, RDW Std Deviation 47.2 H, RDW Coeff of Lucy 13.9, Plt Count 65 L , MPV 10.7, Neut % (Auto) Not Reportable, Sodium 141, Potassium 4.0, Chloride 107, Carbon Dioxide 24.0, Anion Gap 9, BUN 27 H, Creatinine 0.97, Estim Creat Clear Calc 48.46, Est GFR (MDRD) Af Amer 72, Est GFR (MDRD) Non-Af 59 L, B UN/Creatinine Ratio 27.9 H, Glucose 145 H, Lactic Acid 2.6 H*, Calcium 9.8, Total Bilirubin 0.80, AST 15, ALT 21, Alkaline Phosphatase 78, Total Protein 6.1 L, Albumin 2.7 L, Globulin 3.4, Albumin/Globulin Ratio 0.8 L, Lipase 25 06/15/24 14:05: Urine Color Yellow, Urine Clarity Cloudy, Urine pH 8.0, Ur Specific [place] 1.010, Urine Protein 30 H, Urine Glucose (UA) Normal, Urine Ketones Negative, Urine Occult Blood 10 H, Urine Nitrite Negative, Urine Bilirubin Negative, Urine Urobilinogen 1 H, Ur Leukocyte Esterase 500 H, Urine RBC 0-5 SEEN, Urine WBC 10-25 SEEN, Ur Squamous Epith Cells 0-5 SEEN, Ur Transition Epith Cell 0-5 SEEN, Urine Bacteria 2+, Urine Mucus 0 SEEN Imaging Radiology Impression Abdomen/Pelvis CT 06/15/24 13:11 IMPRESSION: Sigmoid diverticulosis. Prior hysterectomy. Electronically Signed: Dewayne Rodas MD at 15:04 EDT , Brain CT 06/15/24 13:31 IMPRESSION: Chronic involutional changes of the brain. Electronically Signed: Dewayne Rodas MD at 15:00 EDT , Assessment & Plan Assessment/Plan (1) Nausea vomiting and diarrhea: (2) UTI (urinary tract infection): QUALIFIERS: Urinary tract infection type: acute cystitis H ematuria presence: without hematuria Qualified Code(s): N30.00 - Acute cystitis without hematuria (3) Triple negative breast cancer: (4) Lactic acidosis: PLAN: Plan Labs and imaging reviewed. Urinalysis abnormal. Abdomen and pelvis CT independently interpreted. Showed sigmoid diverticulosis without diverticulitis. Agrees with radiology interpretation Supportive treatment with IV fluids. As needed nausea medicine ordered. Patient's want to be started on solid food. Solid food ordered. Received ciprofloxacin at the emergency department. Ceftriaxone ordered. Pancytopenia?likely secondary to chemotherapy. With neutropenia, anemia and moderately decreased platelets trend. Patient follows up with Dr. Hilario DVT prophylaxis: scd Advance care planning: Discussed with patient and family advanced directives as well as CODE STATUS. Explained various CODE STATUS: FULL CODE, DNR CCA, DNR CCA with no intubation, and DNR CC- and what each meant. Patient elected to be a full code with CPR and intubation if warranted. [id number] Angelica is a medical power of collections attorney. Order was placed. Time spent on discussion 16 minutes. Time spent in the patient's overall evaluation,decision-making process, review of diagnostic data, adjustment of management, discussion with other providers, nursing and ancillary staff involved in patient's care documentation, 75 minutes. Charges/Coding Visit Charges Inpatient E&M: 80579 Init Hosp L3 Procedures Hospitalists Procedures: 03607 Advncd Care Plan 30 Min
--- NOTE | 2024-06-15 15:56 | ED.RN ---
Addendum entered by Jasmine Raymond 06/15/24 15:59: CALLED PHARMACY ABOUT ANTIBIOTIC Original Note: AWAITING ANTIBIOTIC FROM PHARMACY
[2024-06-15] MEDS: Ciprofloxacin 200 MG/100 ML BAG 100 MG IV (16:08)
[2024-06-15 16:18] LABS: Eosinophil 12 % (0-5); Lymphocyte 44 % (19-41); Metamyelocyte 4 % (0-1); Monocyte 4 % (0-10); Neutrophil-Band 4 % (0-5); Neutrophil-Segmented 32 % (47-70)
[2024-06-15 16:20] LABS: Absolute Lymphocyte Count 0.18 X10^3/uL (0.83-4.51); Absolute Neutrophil Count 0.1 X10^3/uL (2.0-7.7); Platelet Estimate MOD DEC (ADEQ)
[2024-06-15 16:21] LABS: Anisocytosis 1+; Macrocytosis 1+; Ovalocyte RARE; Red Cell Morphology N CHROM NORMAL (NORM C&C)
[2024-06-15 17:40] LABS: Reflex Lactate? Y
[2024-06-15] MEDS: 0.9% Normal Saline (1000mL) 1,000 ML 75 ML IV (18:24)
[2024-06-15 18:50] LABS: Lactic Acid 1.3 mmol/L (0.4-1.9)
[2024-06-16 03:24] VITALS: BP 145/58; PULSE 68; RESP 16; TEMP 36.7; O2SAT 98
[2024-06-16 06:52] VITALS: O2SAT 96
[2024-06-16 07:20] LABS: Anion Gap 5 (5-15); BUN 16 mg/dL (7-18); BUN/Creat Ratio 24.5 RATIO (10-20); Calcium,Total 8.9 mg/dL (8.5-10.1); Chloride 111 mmol/L (98-107); Creatinine, Serum 0.65 mg/dL (0.55-1.02); EST Glomerular Filtration Rate 94 mL/min (>60); Est Glom Filt Rate - Afr Amer 113 mL/min (>60); Estimated Creatinine Clearance 58.27 ml/min; Glucose 94 mg/dL (74-106); Potassium 4.1 mmol/L (3.5-5.1); Sodium Level 141 mmol/L (136-145)
[2024-06-16 07:22] LABS: Absolute Lymphocyte Count 0.32 X10^3/uL (0.83-4.51); Absolute Neutrophil Count 0.1 X10^3/uL (2.0-7.7); Basophil# 0.01 X10^3/uL; Basophil% 2.1 % (0-1); Eosinophil# 0.03 X10^3/uL; Eosinophils% 6.3 % (0-5); Hematocrit 22.5 % (37-47); Hemoglobin 7.5 g/dL (12.0-15.0); Lymphocyte # 0.32 X10^3/ul (0.83-4.51); Lymphocyte % 66.7 % (19-41); Mean Corp Hgb Conc 33.3 g/dL (32-36); Mean Corpuscular Hgb 32.5 pg (27.0-32.0); Mean Corpuscular Volume 97.4 fL (81-99); Mean Platelet Vol. 11.3 fl (6.2-12.0); Monocyte# 0.04 X10^3/uL; Monocyte% 8.3 % (0-10); NRBC Flagged by Analyzer 0 % (0-5); Neutrophil # 0.08 X10^3/uL (2.7-7.7); Neutrophil % 16.6 % (47-70); POSITIVE COUNT YES; POSITIVE DIFFERENTIAL YES; POSITIVE MORPHOLOGY YES; RBC Distribution Width CV 14.1 % (11.6-14.6); RBC Distribution Width SD 48.8 fl (35.1-43.9); Red Blood Count 2.31 M/mm3 (4.2-5.4)
[2024-06-16] MEDS: 0.9% Normal Saline (1000mL) 1,000 ML 75 ML IV (07:40)
[2024-06-16 07:45] LABS: Differential Indicated SCAN CRITERIA MET; Platelet Count 49 K/mm3 (150-450); White Blood Count 0.5 K/mm3 (4.4-11.0)
--- NOTE | 2024-06-16 08:18 | PN.HOSP_ITS ---
Reason for Visit Reason for Visit: Nausea/vomiting/diarrhea Subjective Subjective Patient is a 74-year-old white female with a history of triple negative breast cancer who presented to the emergency department at [facility] on 06/15/2024 due to nausea, vomiting, and diarrhea. She is status post lobectomy and on chemotherapy with her last chemo about a week prior to presenting. She follows in the outpatient setting with Dr. Hilario. Her symptoms began on the day of presentation. Her daughter reported that about a week ago she was admitted to hospital with diverticulitis and it appears it was maybe a bit more than a week ago she was discharged on 05/25/2024. Patient complained of diffuse abdominal pain and had 1 episode of emesis without any hematemesis as well as 1 nonbloody diarrheal episode as well. She said no fever or chills but reported a bit of a headache on the day of presentation. Her daughter did indicate that she was confused at the time of admission. She is pancytopenic due to her chemotherapy. Vital signs on presentation showed a temperature of 95.2, heart rate 57, respiratory rate 18, blood pressure was 96/34 and pulse ox was 97% on room air. CBC shows leukopenia with neutropenia having an absolute neutrophil count of 0.1, chronic stable anemia at 8.3 and thrombocytopenia with a platelet count of 65,000. Chemistry panel is consistent with some mild dehydration having a BUN of 27 and a serum creatinine of 0.97 with a baseline BUN between 7 and 10 and baseline serum creatinine between 0.6 and 0.8. Her initial lactic acid was 2.6 and after fluid resuscitation improved to 1.3. Lipase was 25. UA was consistent with infection showing small occult blood, leuk esterase, white cells, and 2+ bacteria. CT of the brain was performed and shows only chronic volitional changes. CT of the abdomen pelvis demonstrated sigmoid diverticulosis without diverticulitis and previous hysterectomy. Given her abnormal UA she was admitted to the hospital and placed on IV antibiotics. It is documented at the time of admission she asked for regular diet indicating that her nausea vomiting is seemingly improved. Patient states she is feeling better today. Still having some lower abdominal cramping. She has had some diarrhea so we will check C. difficile. Able to take p.o. without any difficulty today however. Objective Data Objective Data Vital Signs: Vital Signs Temp Pulse Resp BP Pulse Ox O2 Del Method 98.1 F 68 16 145/58 H 98 Room Air 06/16/24 03:24 06/16/24 03:24 06/16/24 03:24 06/16/24 03:24 06/16/24 03:24 06/16/24 07:42 Oxygen Delivery Method Room Air Weight: 72.2 kg Body Mass Index (BMI) 27.3 Intake & Output: Intake and Output for Last 24 Hours 06/14/24 06/15/24 06/16/24 23:59 23:59 23:59 Intake Total 1100 / 1100 995 / 995 Balance 1100 / 1100 995 / 995 Lab / Micro Data 06/16/24 05:58 06/16/24 05:58 Labs: Laboratory Results - last 24 hr 06/15/24 13:31: WBC 0.4 L*, RBC 2.62 L, Hgb 8.3 L, Hct 25.2 L, MCV 96.2, MCH 31.7, MCHC 32.9, RDW Std Deviation 47.2 H, RDW Coeff of Lucy 13.9, Plt Count 65 L , MPV 10.7, Neut % (Auto) Not Reportable, Absolute Neuts (auto) 0.1 L, Absolute Lymphs (auto) 0.18 L, Neutrophils % (Manual) 32 L, Band Neutrophils % 4, L ymphocytes % (Manual) 44 H, Monocytes % (Manual) 4, Eosinophils % (Manual) 12 H, Metamyelocytes % 4 H, Diff Path Review May foll, Platelet Estimate MOD DEC, RBC Morphology N CHROM, Anisocytosis 1+, Macrocytosis 1+, Ovalocytes RARE, Sodium 141, Potassium 4.0, Chloride 107, Carbon Dioxide 24.0, Anion Gap 9, BUN 27 H, Creatinine 0.97, Estim Creat Clear Calc 48.46, Est GFR (MDRD) Af Amer 72, Est GFR (MDRD) Non-Af 59 L, BUN/Creatinine Ratio 27.9 H, Glucose 145 H, Lactic Acid 2.6 H*, Calcium 9.8, Total Bilirubin 0.80, AST 15, ALT 21, Alkaline Phosphatase 78, Total Protein 6.1 L, Albumin 2.7 L, Globulin 3.4, Albumin/Globulin Ratio 0.8 L, Lipase 25 06/15/24 14:05: Urine Color Yellow, Urine Clarity Cloudy, Urine pH 8.0, Ur Specific Elizabeth 1.010, Urine Protein 30 H, Urine Glucose (UA) Normal, Urine Ketones Negative, Urine Occult Blood 10 H, Urine Nitrite Negative, Urine Bilirubin Negative, Urine Urobilinogen 1 H, Ur Leukocyte Esterase 500 H, Urine RBC 0-5 SEEN, Urine WBC 10-25 SEEN, Ur Squamous Epith Cells 0-5 SEEN, Ur Transition Epith Cell 0-5 SEEN, Urine Bacteria 2+, Urine Mucus 0 SEEN 06/15/24 17:54: Lactic Acid 1.3 06/16/24 05:58: WBC 0.5 L*, RBC 2.31 L, Hgb 7.5 L, Hct 22.5 L, MCV 97.4, MCH 32.5 H, MCHC 33.3, RDW Std Deviation 48.8 H, RDW Coeff of Lucy 14.1, Plt Count 49 L*, MPV 11.3, Immature Gran % (Auto) 0.000, Neut % (Auto) 16.6 L, Lymph % (Auto) 66.7 H, Todd % (Auto) 8.3, Eos % (Auto) 6.3 H, Baso % (Auto) 2.1 H, Absolute Neuts (auto) 0.1 L, Absolute Lymphs (auto) 0.32 L, Nucleated RBC % 0, Sodium 141, Potassium 4.1, Chloride 111 H, Carbon Dioxide 25.0, Anion Gap 5, BUN 16, Creatinine 0.65, Estim Creat Clear Calc 58.27, Est GFR (MDRD) Af Amer 113, Est GFR (MDRD) Non-Af 94, BUN/Creatinine Ratio 24.5 H, Glucose 94, Calcium 8.9 Radiography Diagnostic Testing: Radiology Impression Abdomen/Pelvis CT 06/15/24 13:11 IMPRESSION: Sigmoid diverticulosis. Prior hysterectomy. Electronically Signed: Dewayne Rodas MD at 15:04 EDT , Brain CT 06/15/24 13:31 IMPRESSION: Chronic involutional changes of the brain. Electronically Signed: Dewayne Rodas MD at 15:00 EDT , Physical Exam Const alert, oriented x3, no apparent distress, average body habitus and well nourished; Negative for healthy appearing Constitutional Narrative: Older, white female, sitting up in bed, appears comfortable, nontoxic HEENT head/scalp atraumatic and moist oral mucous membranes HEENT Narrative: No thrush, Mallampati 2, Head and Scalp: normocephalic Resp normal respiratory effort, no retractions, no use of accessory muscles and clear to auscultation bilaterally Auscultation: Negative for rales, rhonchi or wheezes Cardio regular rate, regular rhythm, S1 normal heart sound, S2 normal heart sound, no murmurs, no rub, no gallops and no clicks GI normal to inspection, nondistended, normoactive bowel sounds and soft to palpation GI Narrative: Mild discomfort in the lower abdomen bilaterally most notably in the suprapubic region Extremity no clubbing, cyanosis or edema Extremity Narrative: 2+ pedal pulses Neuro oriented x3, moves all extremities and no focal motor deficits Speech: speech normal Psych affect normal Psych Narrative: Very pleasant, interacts appropriately Assessment & Plan Assessment/Plan (1) UTI (urinary tract infection): QUALIFIERS: Urinary tract infection type: acute cystitis H ematuria presence: without hematuria Qualified Code(s): N30.00 - Acute cystitis without hematuria (2) Lactic acidosis: (3) Nausea vomiting and diarrhea: (4) Sepsis: PLAN: Plan Sepsis secondary to UTI -Patient meets sepsis (SEP 1) criteria with hypotension on presentation having a MAP less than 65, lactic acidosis of 2.6, altered mentation, intermittent tachycardia -Patient is immunocompromise at baseline due to chemotherapy and this may impair her response to infection -Blood pressure did respond some to 1 L of IV fluids in the emergency department and she was placed on maintenance fluid after admission -Blood pressure is improved today -Lactic acid did clear with hydration -UA is consistent with infection -Blood and urine cultures are pending--> doubt bacteremia -Continue antibiotics as ordered for now with ceftriaxone -Received 1 dose of ciprofloxacin in the emergency department -Await cultures and narrow antibiotics as able Lactic acidosis -Resolved with IV fluids and treatment of infection Hypotension -Blood pressures on admission were with maps less than 65 -Has responded adequately to IV fluids Toxic/metabolic encephalopathy -CT unremarkable for acute findings -Likely related to the above -Resolved Abdominal pain/nausea/vomiting -Resolving -Continue as needed antiemetics Loose stool -Check C. difficile Dehydration -Resolving -DC IV fluids and rely on oral intake Pancytopenia secondary to chemotherapy/+/- sepsis -Patient is neutropenic -Start Granix 480 mg daily until absolute neutrophil count is greater than 1.2--> first dose today -Will need to remain in the hospital until that time unless cultures are resulted and sensitive to orals and blood cultures are negative -Monitor closely -Discussed with Dr. Hilario Triple negative breast cancer -Continue outpatient follow-up with Dr. Hilario after discharge -Discussed with oncology Hypothyroidism -Continue home levothyroxine GERD/history of Astudillo's esophagus -Continue home PPI IBS -Restart fiber care after discharge Depression -Continue home sertraline DVT prophylaxis -SCDs Code status -Full code Charges/Coding Visit Charges Inpatient E&M: 22115 [facility] Hosp L2
[2024-06-16 09:14] LABS: Platelet Estimate MKD DEC (ADEQ)
[2024-06-16 09:30] VITALS: BP 91/45; PULSE 68; RESP 18; TEMP 36.6; O2SAT 98
[2024-06-16] MEDS: Ceftriaxone 1 GM/50 ML BAG IV (09:33)
[2024-06-16] MEDS: Ensure Plus High Protein 120 ML LIQUID PO (09:41)
[2024-06-16] MEDS: Pantoprazole Sodium 40 MG Tablet PO (09:42)
[2024-06-16] MEDS: Sertraline 50 MG Tablet PO (09:42)
[2024-06-16] MEDS: Levothyroxine 75 MCG Tablet PO (09:42)
--- NOTE | 2024-06-16 09:56 | CASEMGMT ---
AVINASH CEDEÑO note: Readmission review completed and documented in Intervention CM:Readmission Intervention. Pt lives alone. Independent. States daughter will take her home @ discharge and she has no concerns w/returning back home alone. She declines wanting/needing any HHC or OP therapy. She sees Dr Hilario for triple negative breast CA and is getting chemo, w/her last treatment being this past . Her previous admission was about a week after her prior chemo and Dr Hilario reduced her chemo dose, but now she has been readmitted again ~ 1 week after chemo. She plans to f/u with Dr Hilario and states he may be adjusting her chemo regimen again. She had an appt w/Dr Parmar scheduled for today, but has cancelled it and will be rescheduling it again once returning home. Discussed high fiber dietary recommendations for diverticulitis/osis. She states she was not aware she was supposed to be following a high fiber diet, but she does take fiber supplement/gummies. She also has been trying to increase her water intake. She voices no discharge needs/concerns. She states was having some weakness, but is starting to improve, getting closer to her baseline. She has been OOB and states has not needed assistance when up. Pt's HCPOA is her [id number], Angelica. Documents are not on file and pt states will see if these can be brought in to be placed on her chart. Leonard CORTES RN, CM
[2024-06-16] MEDS: TBO-FILGRASTIM 480 MCG/0.8 ML ML SC (15:19)
[2024-06-16 15:20] VITALS: BP 101/46; PULSE 68; RESP 18; TEMP 36.7; O2SAT 98
[2024-06-16 15:53] LABS: Pathologist Review Reviewed
[2024-06-16 21:00] VITALS: BP 116/56; PULSE 70; RESP 18; TEMP 36.5; O2SAT 99
[2024-06-17 03:08] VITALS: BP 99/54; PULSE 84; RESP 18; TEMP 36.7; O2SAT 97
[2024-06-17] MEDS: Levothyroxine 75 MCG Tablet PO (05:13)
[2024-06-17 06:03] LABS: Absolute Lymphocyte Count 0.31 X10^3/uL (0.83-4.51); Absolute Neutrophil Count 0.4 X10^3/uL (2.0-7.7); Basophil# 0.01 X10^3/uL; Basophil% 1.1 % (0-1); Eosinophil# 0.04 X10^3/uL; Eosinophils% 4.4 % (0-5); Hematocrit 24.3 % (37-47); Lymphocyte # 0.31 X10^3/ul (0.83-4.51); Lymphocyte % 34.4 % (19-41); Mean Corp Hgb Conc 32.9 g/dL (32-36); Mean Corpuscular Hgb 32.1 pg (27.0-32.0); Mean Corpuscular Volume 97.6 fL (81-99); Mean Platelet Vol. 11.5 fl (6.2-12.0); Monocyte% 11.1 % (0-10); NRBC Flagged by Analyzer 0 % (0-5); Neutrophil # 0.42 X10^3/uL (2.7-7.7); Neutrophil % 46.8 % (47-70); POSITIVE COUNT YES; POSITIVE DIFFERENTIAL YES; POSITIVE MORPHOLOGY YES; RBC Distribution Width CV 13.4 % (11.6-14.6); RBC Distribution Width SD 46.5 fl (35.1-43.9); Red Blood Count 2.49 M/mm3 (4.2-5.4)
[2024-06-17 06:20] LABS: Platelet Count 41 K/mm3 (150-450); White Blood Count 0.9 K/mm3 (4.4-11.0)
[2024-06-17 06:27] LABS: Anion Gap 5 (5-15); BUN 10 mg/dL (7-18); BUN/Creat Ratio 16.2 RATIO (10-20); Calcium,Total 9.1 mg/dL (8.5-10.1); Chloride 108 mmol/L (98-107); Creatinine, Serum 0.62 mg/dL (0.55-1.02); EST Glomerular Filtration Rate 100 mL/min (>60); Est Glom Filt Rate - Afr Amer 121 mL/min (>60); Estimated Creatinine Clearance 58.27 ml/min; Glucose 93 mg/dL (74-106); Magnesium 1.9 mg/dL (1.6-2.6); Phosphorus 3.4 mg/dL (2.5-4.9); Sodium Level 139 mmol/L (136-145)
--- NOTE | 2024-06-17 06:43 | PN.HOSP_ITS ---
Hospitalist Note Critical value noted. Patient is neutropenic, 0.9 thousand, immature granulocyte 2.2%. ANC 0.4 thousand. Patient is well taken care. Triple ne gative breast cancer. She is on Granix. Not on blood thinners or anticoagulant agent.
[2024-06-17 07:12] LABS: Differential Comment SCANNED; Differential Indicated SCAN CRITERIA MET
[2024-06-17 09:00] VITALS: BP 102/62; PULSE 84; RESP 17; TEMP 36.6; O2SAT 100
[2024-06-17] MEDS: Sertraline 50 MG Tablet PO (09:06)
[2024-06-17] MEDS: Pantoprazole Sodium 40 MG Tablet PO (09:06)
[2024-06-17] MEDS: metroNIDAZOLE 500 MG Tablet PO ×3 (09:06→21:02)
[2024-06-17] MEDS: Ceftriaxone 1 GM/50 ML BAG IV (09:07)
[2024-06-17] MEDS: 0.9% Saline Lock 10 ML Syringe IV ×2 (09:07→10:40)
[2024-06-17] MEDS: Ensure Plus High Protein 120 ML LIQUID PO ×2 (09:18→15:00)
[2024-06-17] MEDS: TBO-FILGRASTIM 480 MCG/0.8 ML ML SC (11:19)
[2024-06-17] MEDS: Lactobacillis Acidophilus 1 CAP PO ×3 (12:17→21:02)
[2024-06-17 12:51] VITALS: O2SAT 97
[2024-06-17 13:54] LABS: Pathologist Review Reviewed
[2024-06-17 13:56] LABS: Pathologist Review Reviewed
--- NOTE | 2024-06-17 14:56 | CHAPLAIN ---
Type of Pastoral Visit _x__ Initial Visit ___ Follow-up Visit ___ On-call Visit ___ General Patient Visit ___ Spiritual Assessment ___ Family Conference ___ Bereavement ___ Rapid Response ___ Code Blue ___ Other (describe below) Pastoral Care Referral From _x__ Patient ___ Family ___ Nurse ___ Physician ___ Dianetic Counselor ___ Project Financial Analyst ___ Other (describe below) Sacrament/Intervention _x__ Active listening ___ Anointing ___ Bahai ___ Bereavement ___ Communion _x__ Mary exploration ___ _x__ Life review _x__ Prayer ___ Reconciliation ___ Sacrament of Sick _x__ Supportive presence ___ Wedding ___ Other (describe below) Pastoral Comments patient is welcoming and gives a good overview of her current health situation and also feelings associated with the loss of her in the last year; pt admits thoughts and feelings about her situation; pt also states that she has a goal to become more spiritual and understanding of God and of her relationship to God; pt has a casual relationship to a uatsdin and sugar presser but agrees that he can be called to inform him of her admission; pt is facing cancer treatments and decisions about her future which are significant and are identified in the conversation; prayer is welcomed; sugar presser is contacted
[2024-06-17 15:01] VITALS: BP 101/53; PULSE 78; RESP 17; TEMP 36.8; O2SAT 98
--- NOTE | 2024-06-17 16:35 | PCM.PN.HOSP ---
Reason for Visit Reason for Visit: Abdominal pain Subjective Subjective Patient states she is having some crampy abdominal pain that is worse a little bit today. We discussed the fact that her C. difficile PCR was positive with a negative toxin however given her immunocompromise status and the amount of belly pain and diarrhea she is having we felt prudent to treat her. Adamantly insists she has an oral vancomycin allergy to see in the form of a rash. Objective Data Objective Data Vital Signs: Vital Signs Temp Pulse Resp BP Pulse Ox O2 Del Method 98.3 F 78 17 101/53 L 98 Room Air 06/17/24 15:01 06/17/24 15:01 06/17/24 15:01 06/17/24 15:01 06/17/24 15:01 06/17/24 15:04 Oxygen Delivery Method Room Air Weight: 72.2 kg Body Mass Index (BMI) 27.3 Intake & Output: Intake and Output for Last 24 Hours 06/15/24 06/16/24 06/17/24 23:59 23:59 23:59 Intake Total 1100 / 1100 1770 / 1770 50 / 50 Balance 1100 / 1100 1770 / 1770 50 / 50 Lab / Micro Data 06/17/24 05:17 06/17/24 05:17 Labs: Laboratory Results - last 24 hr 06/16/24 05:58: Diff Path Review Reviewed 06/17/24 05:17: WBC 0.9 L*, RBC 2.49 L, Hgb 8.0 L, Hct 24.3 L, MCV 97.6, MCH 32.1 H, MCHC 32.9, RDW Std Deviation 46.5 H, RDW Coeff of Lucy 13.4, Plt Count 41 L*, MPV 11.5, Immature Gran % (Auto) 2.200 H, Neut % (Auto) 46.8 L, Lymph % (Auto) 34.4, Gulf % (Auto) 11.1 H, Eos % (Auto) 4.4, Baso % (Auto) 1.1 H, Absolute Neuts (auto) 0.4 L, Absolute Lymphs (auto) 0.31 L, Nucleated RBC % 0, Differential Comment SCANNED, Diff Path Review Reviewed, Sodium 139, Potassium 4.0, Chloride 108 H, Carbon Dioxide 26.0, Anion Gap 5, BUN 10, Creatinine 0.62, Estim Creat Clear Calc 58.27, Est GFR (MDRD) Af Amer 121, Est GFR (MDRD) Non-Af 100, BUN/Creatinine Ratio 16.2, Glucose 93, Calcium 9.1, Phosphorus 3.4, Magnesium 1.9 Micro: Microbiology 06/15/24 15:41 Blood Culture (Wb) - Port Blood Culture - Preliminary No growth in 48 hours. 06/15/24 14:00 Urine, Random Urine Culture - Final Culture exhibits no growth. 06/16/24 14:25 Stool C. difficile GDH Antigen & Toxins - Final 06/16/24 14:25 Stool Clostridioides difficile (PCR) - Final 06/16/24 14:13 Stool Enteric Bacteriology - Final Physical Exam Const alert, oriented x3, no apparent distress, average body habitus and well nourished; Negative for healthy appearing Constitutional Narrative: Older, white female, sitting up in bed, appears comfortable, nontoxic, daughter at bedside HEENT head/scalp atraumatic and moist oral mucous membranes HEENT Narrative: Mallampati 2, no thrush Head and Scalp: normocephalic Resp normal respiratory effort, no retractions, no use of accessory muscles and clear to auscultation bilaterally Auscultation: Negative for rales, rhonchi or wheezes Cardio regular rate, regular rhythm, S1 normal heart sound, S2 normal heart sound, no murmurs, no rub, no gallops and no clicks GI soft to palpation and non-distended GI Narrative: Patient with hyperactive bowel sounds and discomfort in the lower abdominal area especially on the right side Extremity no clubbing, cyanosis or edema Extremity Narrative: 2+ pedal pulses Neuro oriented x3 and moves all extremities Speech: speech normal Psych affect normal Psych Narrative: Very pleasant, interacts appropriately Assessment & Plan Assessment/Plan (1) UTI (urinary tract infection): QUALIFIERS: Urinary tract infection type: acute cystitis Hematuria presence: without hematuria Qualified Code(s): N30.00 - Acute cystitis without hematuria (2) Lactic acidosis: (3) Nausea vomiting and diarrhea: (4) Sepsis: PLAN: Plan Sepsis secondary to acute C. difficile infection -Patient meets sepsis (SEP 1) criteria with hypotension on presentation having a MAP less than 65, lactic acidosis of 2.6, altered mentation, intermittent tachycardia -Patient is immunocompromise at baseline due to chemotherapy and this may impair her response to infection -Initially thought to be urinary tract infection however culture is negative, blood culture is negative -Discontinue IV antibiotics -Patient was found to have C. difficile--> patient does not tolerate oral vancomycin so will need Flagyl -If there is failure of treatment will need to have Dificid but will likely need pre-CERT from insurance -P.o. Flagyl 500 mg 3 times daily started--> day 1 of 14 -Will need to be hospitalized until oxygen neutrophil count is greater than 1.2 -0.1 on admission--> 0.4 today -Start lactobacillus per patient request Hypotension -Resolved Toxic/metabolic encephalopathy -Resolved Abdominal pain/nausea/vomiting -Resolving but still having intermittent discomfort -Nausea and vomiting has resolved -Continue as needed antiemetics Dehydration -Resolving -DC IV fluids and rely on oral intake Pancytopenia secondary to chemotherapy/+/- sepsis -Patient is neutropenic -Continue Granix 480 mg daily until ANC is greater than 1.2 -Monitor closely -Discussed with Dr. Hilario Triple negative breast cancer -Continue outpatient follow-up with Dr. Hilario after discharge -Discussed with oncology Hypothyroidism -Continue home levothyroxine GERD/history of Astudillo's esophagus -Continue home PPI IBS -Restart fiber care after discharge Depression -Continue home sertraline DVT prophylaxis -SCDs Code status -Full code Charges/Coding Visit Charges Inpatient E&M: 649[address] [facility] Hosp L2
[2024-06-17 21:01] VITALS: BP 112/77; PULSE 80; RESP 18; TEMP 37.1; O2SAT 97
[2024-06-18 03:00] VITALS: BP 116/48; PULSE 79; RESP 18; TEMP 36.8; O2SAT 98
[2024-06-18] MEDS: Levothyroxine 75 MCG Tablet PO (05:29)
[2024-06-18] MEDS: metroNIDAZOLE 500 MG Tablet PO ×2 (05:29→14:00)
[2024-06-18 06:14] LABS: Hematocrit 23.4 % (37-47); Mean Corp Hgb Conc 32.5 g/dL (32-36); Mean Corpuscular Hgb 31.7 pg (27.0-32.0); Mean Corpuscular Volume 97.5 fL (81-99); POSITIVE COUNT YES; POSITIVE DIFFERENTIAL YES; POSITIVE MORPHOLOGY YES; RBC Distribution Width CV 13.5 % (11.6-14.6); White Blood Count 2.6 K/mm3 (4.4-11.0)
[2024-06-18 06:28] LABS: Anion Gap 5 (5-15); BUN 9 mg/dL (7-18); BUN/Creat Ratio 11.4 RATIO (10-20); Calcium,Total 9.1 mg/dL (8.5-10.1); Chloride 110 mmol/L (98-107); Creatinine, Serum 0.79 mg/dL (0.55-1.02); EST Glomerular Filtration Rate 75 mL/min (>60); Est Glom Filt Rate - Afr Amer 91 mL/min (>60); Estimated Creatinine Clearance 58.27 ml/min; Glucose 98 mg/dL (74-106); Sodium Level 141 mmol/L (136-145)
[2024-06-18 06:33] LABS: Differential Indicated MANUAL DIFF; Hemoglobin 7.6 g/dL (12.0-15.0)
[2024-06-18 06:36] LABS: Platelet Count 35 K/mm3 (150-450)
[2024-06-18 08:13] LABS: Eosinophil 2 % (0-5); Lymphocyte 18 % (19-41); Metamyelocyte 3 % (0-1); Monocyte 2 % (0-10); Myelocyte 6 % (0-0); Neutrophil-Band 20 % (0-5); Neutrophil-Segmented 49 % (47-70); Platelet Estimate MKD DEC (ADEQ); Red Cell Morphology NORM C+C NORMAL (NORM C&C); Total Cells Counted 100 (MANUAL DIFF)
[2024-06-18 08:16] LABS: Absolute Lymphocyte Count 0.47 X10^3/uL (0.83-4.51); Absolute Neutrophil Count 1.8 X10^3/uL (2.0-7.7)
[2024-06-18 09:00] VITALS: BP 93/51; PULSE 71; RESP 18; TEMP 36.7; O2SAT 100
[2024-06-18] MEDS: Lactobacillis Acidophilus 1 CAP PO ×3 (10:50→17:40)
[2024-06-18] MEDS: Sertraline 50 MG Tablet PO (10:51)
[2024-06-18] MEDS: Pantoprazole Sodium 40 MG Tablet PO (10:51)
[2024-06-18] MEDS: TBO-FILGRASTIM 480 MCG/0.8 ML ML SC (10:51)
--- NOTE | 2024-06-18 11:27 | PCM.DC.SUM ---
Providers Date of Admission: 06/15/24 Date of Discharge: 06/18/24 Primary Care Physician: Dr. Radha Ferreira MD Reason For Visit: UTI; HYPOTENSION Diagnosis Discharge Diagnosis (1) UTI (urinary tract infection): Status: Acute Code(s): N39.0 - Urinary tract infection, site not specified Qualifiers: Urinary tract infection type: acute cystitis Hematuria presence: without hematuria Qualified Code(s): N30.00 - Acute cystitis without hematuria (2) Lactic acidosis: Status: Acute Code(s): E87.20 - Acidosis, unspecified (3) Nausea vomiting and diarrhea: Status: Acute Code(s): R11.2 - Nausea with vomiting, unspecified; R19.7 - Diarrhea, unspecified (4) Sepsis: Status: Acute Code(s): A41.9 - Sepsis, unspecified organism Medications at Discharge Home Medications Fibrocare 2 tab PO BID SUPPLEMENT 11/30/13 calcium 315 mg (as citrate)-vitamin D3 6.25 mcg (250 unit) tablet (Citracal + Vitamin D Maximum) 4 tab PO BID SUPPLEMENT 08/25/17 ortho-biotic 1 tab PO DAILY 01/25/19 propylene glycol 0.6 % eye drops (Systane Complete) 1 drp ophthalmic (eye) BID 01/25/19 omega 3-hcy-iet-fish oil 1,000 mg (120 mg-180 mg) capsule (Fish Oil) 2 cap PO BID SUPPLEMENT 11/12/21 estradiol 0.01% (0.1 mg/gram) vaginal cream See Rx Instructions vaginal .COMPLEX ESTROGEN SUPPLEMENT #50 grams 04/03/22 sertraline 50 mg tablet 50 mg PO DAILY #90 tabs 08/15/23 levothyroxine 75 mcg tablet 75 mcg PO DAILY #90 tabs 01/05/24 Handicap Placard #1 ea 05/18/24 mometasone 0.1 % topical ointment 1 applic topical .COMPLEX #15 grams 05/23/24 pantoprazole 40 mg tablet,delayed release 40 mg PO DAILY #90 tabs 06/15/24 L.acidophil,salivari-Bifido bifidum-Strep thermoph 175 mg capsule 1 cap PO 4X/DAY #0 caps 06/18/24 metronidazole 500 mg tablet 500 mg PO TID #37 tabs 06/18/24 Hospital Course Operations None Procedures - (CT abdomen pelvis/CT brain) Summary of Care Provided Minutes Spent on Discharge: 38 Hospital Course: Mrs. Davies is a 74-year-old white female with a history of triple negative breast cancer who presented to the emergency department at [facility] on 06/15/2024 due to nausea, vomiting, and diarrhea. She is status post lobectomy and on chemotherapy with her last chemo about a week prior to presenting. She follows in the outpatient setting with Dr. Hilario. Her symptoms began on the day of presentation. Her daughter reported that about a week ago she was admitted to hospital with diverticulitis and it appears it was maybe a bit more than a week ago she was discharged on 05/25/2024. Patient complained of diffuse abdominal pain and had 1 episode of emesis without any hematemesis as well as 1 nonbloody diarrheal episode as well. She said no fever or chills but reported a bit of a headache on the day of presentation. Her daughter did indicate that she was confused at the time of admission. She is pancytopenic due to her chemotherapy. Vital signs on presentation showed a temperature of 95.2, heart rate 57, respiratory rate 18, blood pressure was 96/34 and pulse ox was 97% on room air. CBC shows leukopenia with neutropenia having an absolute neutrophil count of 0.1, chronic stable anemia at 8.3 and thrombocytopenia with a platelet count of 65,000. Chemistry panel is consistent with some mild dehydration having a BUN of 27 and a serum creatinine of 0.97 with a baseline BUN between 7 and 10 and baseline serum creatinine between 0.6 and 0.8. Her initial lactic acid was 2.6 and after fluid resuscitation improved to 1.3. Lipase was 25. UA was consistent with infection showing small occult blood, leuk esterase, white cells, and 2+ bacteria. CT of the brain was performed and shows only chronic volitional changes. CT of the abdomen pelvis demonstrated sigmoid diverticulosis without diverticulitis and previous hysterectomy. Given her abnormal UA she was admitted to the hospital and placed on IV antibiotics. She was placed on ceftriaxone and admitted to the telemetry floor due to her elevated lactic acid and sepsis. Culture was sent. Blood culture and urine culture actually ended up being negative and ceftriaxone was able to be discontinued however the patient had significant diarrhea while she was in the hospital and we obtained a C. difficile and enteric panel. Enteric panel was negative however C. difficile was positive for PCR but negative for toxin. I discussed the case with infectious disease and given her immunocompromise status with neutropenia and positive abdominal pain and diarrhea it was felt to be prudent to treat her. Unfortunately, the patient reports an allergy to both oral and IV vancomycin so we had to place her on Flagyl p.o. Within 24 hours after being placed on p.o. Flagyl her diarrhea and abdominal pain had improved significantly. She states her appetite is just so-so but it has been that way with her chemotherapy as it has also affected her taste. She states she is hydrating without any difficulty. She is anxious to go home and I think given the improvement in her diarrhea and abdominal pain she is stable to do so. As noted above she was neutropenic on admission with a absolute neutrophil count of 0.1. She was given Granix x 3 days and absolute neutrophil count at the time of discharge was 1.8. Case was discussed with oncology throughout her hospitalization. She has a follow-up with Dr. Hilario on Friday and I will him with regards to her discharge today. Patient was discharged in stable condition on 06/18/2024. Prescription for the Flagyl was sent to her local pharmacy. She has 12 total days and 1 dose left today for completion of antibiotics. She was also encouraged to use probiotics. Discharge diagnoses: Sepsis secondary to C. difficile associated diarrhea Urinary tract infection ruled out Lactic acidosis-resolved Hypotension-resolved Toxic/metabolic encephalopathy-resolved Abdominal pain/nausea/vomiting-resolved Diarrhea-improved Dehydration-resolved Pancytopenia secondary to chemotherapy Triple negative breast cancer Hypothyroidism GERD History of Astudillo's esophagus IBS Depression Physical Exam Narrative Patient states her abdominal pain has resolved. Bowels are much improved. Appetite so-so but she is drinking well. Anxious to go home. States she feels a little depressed today. Const alert, oriented x3, no apparent distress, average body habitus, no limitations and well nourished; Negative for healthy appearing Constitutional Narrative: Older, white female, sitting up in bed, appears comfortable, nontoxic General Appearance: cooperative, comfortable, well kempt and well developed Orientation / Consciousness: awake, oriented to person, oriented to place and oriented to time Exam Limitations: no limitations Nutritional Appearance: overweight HEENT normocephalic, head/scalp atraumatic and moist oral mucous membranes HEENT Narrative: No thrush Eyes PERRL and EOMs intact bilaterally; Negative for conjunctivae normal Eyes Narrative: No scleral icterus, conjunctiva are pale bilaterally Neck no lymphadenopathy and supple Neck Narrative: Trachea midline Resp normal respiratory effort, no retractions, no use of accessory muscles and clear to auscultation bilaterally Auscultation: Negative for rales, rhonchi or wheezes Cardio regular rate, regular rhythm, S1 normal heart sound, S2 normal heart sound, no murmurs, no rub, no gallops and no clicks GI normal to inspection, nondistended, normoactive bowel sounds, soft to palpation and non-distended GI Narrative: Patient with hyperactive bowel sounds and discomfort in the lower abdominal area especially on the right side Extremity no clubbing, cyanosis or edema Extremity Narrative: 2+ pedal pulses Skin no wounds, skin turgor normal and no jaundice Skin Narrative: Mediport right upper chest-accessed with no tenderness or surrounding erythema/drainage, skin is pale Neuro oriented x3, moves all extremities and no focal motor deficits Speech: speech normal Psych affect normal Psych Narrative: Very pleasant, interacts appropriately Weight / BMI Weight Weight: 72.2 kg Body Mass Index (BMI) 27.3 ABG / Lab / Microbiology Data 06/18/24 04:43 06/18/24 04:43 Laboratory: Laboratory Results - last 24 hr 06/16/24 05:58: Diff Path Review Reviewed 06/17/24 05:17: Diff Path Review Reviewed 06/18/24 04:43: WBC 2.6 L, RBC 2.40 L, Hgb 7.6 L, Hct 23.4 L, MCV 97.5, MCH 31.7, MCHC 32.5, RDW Std Deviation 47.0 H, RDW Coeff of Lucy 13.5, Plt Count 35 L*, MPV 11.0, Neut % (Auto) Not Reportable, Absolute Neuts (auto) 1.8 L, Absolute Lymphs (auto) 0.47 L, Total Counted 100, Neutrophils % (Manual) 49, Band Neutrophils % 20 H, Lymphocytes % (Manual) 18 L, Monocytes % (Manual) 2, Eosinophils % (Manual) 2, Metamyelocytes % 3 H, Myelocytes % 6 H, Diff Path Review May foll, Platelet Estimate MKD DEC, RBC Morphology NORM C+C, Sodium 141, Potassium 4.0, Chloride 110 H, Carbon Dioxide 26.0, Anion Gap 5, BUN 9, Creatinine 0.79, Estim Creat Clear Calc 58.27, Est GFR (MDRD) Af Amer 91, Est GFR (MDRD) Non-Af 75, BUN/Creatinine Ratio 11.4, Glucose 98, Calcium 9.1 Microbiology: Microbiology 06/15/24 15:41 Blood Culture (Wb) - Port Blood Culture - Preliminary No growth in 48 hours. 06/15/24 14:00 Urine, Random Urine Culture - Final Culture exhibits no growth. 06/16/24 14:25 Stool C. difficile GDH Antigen & Toxins - Final 06/16/24 14:25 Stool Clostridioides difficile (PCR) - Final 06/16/24 14:13 Stool Enteric Bacteriology - Final D/C Instructions Discharge Diet: No restrictions (You may notice that you may not tolerate dairy products as well and may need some Lactaid) Discharge Activity: Return to Normal Activity Meaningful Use Info Meaningful Use Meaningful Use Diagnoses (Choose all that apply): None applicable Ischemic Stroke Statin Dosing Therapy Reference: STATIN DOSE THERAPY REFERENCE: * Patients > 75 years receive moderate or high dose statin therapy. * Patients 75 years or YOUNGER should receive HIGH intensity statin dose unless contraindicated. You will be required to document reason for non-treatment if statin daily dose does not meet guidelines. HIGH DOSE STATIN THERAPY DAILY Atorvastatin > than or = to 40 mg Rosuvastatin > than or = to 20 mg Amlodipine + Atorvastatin > than or = to 2.5/40 mg Ezetimibe + Simvastatin 10/80 mg Simvastatin 80mg Discharge Plan Admission Admit Date/Time: 06/15/24 15:43 Primary Reason for Your Visit: Nausea/Vomiting/Diarrhea Attending Provider: Malina Rodríguez Primary Care Provider: Radha Ferreira Consulting Providers: Ronal Perdue Discharge Orders/Prescriptions Prescriptions: New metronidazole 500 mg Tablet 500 mg PO TID Qty: 37 0RF L.acidoph,saliva-B.bif-S.therm 175 mg Capsule 1 cap PO 4X/DAY Qty: 0 0RF Continued calcium citrate-vitamin D3 [Citracal + D Maximum] 315-250 mg-unit tablet 4 tab PO BID omega 7-dmf-ggx-fish oil [Fish Oil] 1,000 mg (120 mg-180 mg) capsule 2 cap PO BID Systane Complete 0.6 % drops 1 drp OPHTHALMIC BID ortho-biotic 1 tab PO DAILY sertraline 50 mg tablet 50 mg PO DAILY Qty: 90 2RF Fibrocare 2 tab PO BID Patient Comments: SUPPLEMENT estradiol 0.01 % (0.1 mg/gram) cream See Rx Instructions Vaginal .COMPLEX Qty: 50 2RF Dose Instruction: small amount Vaginal 3 X week; Rx Instructions: small amount Vaginal 3 X week; levothyroxine 75 mcg tablet 75 mcg PO DAILY Qty: 90 3RF (DME) Handicap Placard See Rx Instructions .ROUTE .MEDSUPPLY Qty: 1 0RF Rx Instructions: As directed, length of time 3 years mometasone 0.1 % ointment 1 applic topical .COMPLEX Qty: 15 2RF Rx Instructions: apply small amount and rub in daily X 5 days prn with symptoms pantoprazole 40 mg tablet,delayed release (DR/EC) 40 mg PO DAILY Qty: 90 4RF Referrals / Follow Up: Radha Ferreira MD [Primary Care Provider] - See Referral Note (as needed) Harjinder Hilario DO [Med Staff - Active Staff] - 06/22/24 (as scheduled) Disposition Disposition (needs filled in before D/C Order can be placed): Home, Self Care Charges/Coding Visit Charges Inpatient E&M: 84771 Disch Hosp >30min
--- NOTE | 2024-06-18 12:17 | CASEMGMT ---
Patient has order for discharge. RN CM in to discuss needs at discharge. Patient denies needs or help at discharge. Patient had no further questions or concerns.
[2024-06-18 13:20] LABS: Pathologist Review Reviewed
[2024-06-18 13:41] VITALS: BP 93/51; PULSE 71; RESP 18; TEMP 36.7; O2SAT 100
[2024-06-18 16:10] LABS: Magnesium 1.6 mg/dL (1.6-2.6)
[2024-06-18] MEDS: 0.9% Saline Lock 10 ML Syringe IV (17:40)
[2024-06-18] MEDS: Magnesium Chloride 64 MG Delay Rel.Tablet 128 MG PO (17:40)
== END 2024-06-18 17:55 | disposition home or self-care (01) | DRG 871 ==
LOC: ED 15:30 → PCU 17:36
PROVIDERS: Admitting Provider Hospitalist; Emergency Provider Emergency Medicine; PCP Internal Medicine; Visit Provider Internal Medicine
DX: A41.4 Sepsis due to anaerobes (principal); D61.810 Antineoplastic chemotherapy induced pancytopenia; G92.8 Other toxic encephalopathy; A04.72 Enterocolitis due to Clostridium difficile, not specified as recurrent; C50.919 Malignant neoplasm of unspecified site of unspecified female breast; E03.9 Hypothyroidism, unspecified; I10 Essential (primary) hypertension; K21.9 Gastro-esophageal reflux disease without esophagitis; K58.0 Irritable bowel syndrome with diarrhea; F41.8 Other specified anxiety disorders; D70.9 Neutropenia, unspecified; Z90.710 Acquired absence of both cervix and uterus; Z92.21 Personal history of antineoplastic chemotherapy; Z79.890 Hormone replacement therapy; Z79.899 Other long term (current) drug therapy; Z90.49 Acquired absence of other specified parts of digestive tract
CPT/HCPCS: 36415; 36591; 70450; 74177; 80048; 80053; 81001; 83605; 83690; 83735; 84100; 85025; 87040; 87086; 87493; 87506; 99283; J7030; Q9967; A4216; J0744; J1447; J2405

== ENCOUNTER → 2024-08-19 | Outpatient (CLI) | payer MEDICARE, OTHER, SELFPAY ==
--- NOTE | 2024-08-19 12:55 | ECHOL_ITS ---
Reason For Study: Evaluate LVF Procedure This was a limited 2D transthoracic echocardiogram. Myocardial strain analysis was performed in this exam to aid in the assessment of cardiac function. Exam performed in department. Left Ventricle Normal LV size. The estimated ejection fraction is 40 %. There is mild to moderate global hypokinesis of the left ventricle. Right Ventricle Normal RV size. Normal systolic function. Atria Normal left atrium. Normal right atrium. Mitral Valve Normal mitral valve. Tricuspid Valve Normal tricuspid valve. Aortic Valve Trisinus/trileaflet aortic valve. Pulmonic Valve Normal pulmonic valve. Great Vessels Normal aortic root. The pulmonary artery is normal size. Normal inferior vena cava. Pericardium/Pleural No pericardial effusion. MMode/2D Measurements & Calculations LVIDd: 5.0 cm IVSd: 0.99 cm LAV(MOD-bp): 50.1 ml LVIDs: 4.0 cm LVPWd: 0.95 cm LAV(MOD-bp) Indexed: 28.5 ml/m2 FS: 19.0 % LAV(MOD-sp2): 44.7 ml LAV(MOD-sp4): 44.4 ml SV(MOD-sp4): 37.1 ml LVAd ap4: 31.2 cm2 LVAd ap2: 29.7 cm2 LVLd ap4: 8.0 cm LVLd ap2: 8.3 cm SI(MOD-sp4): 21.1 ml/m2 EDV(MOD-sp4): 101.9 ml EDV(MOD-sp2): 90.8 ml EDV(sp4-el): 102.4 ml EDV(sp2-el): 90.4 ml LVAs ap4: 22.9 cm2 LVAs ap2: 20.8 cm2 LVLs ap4: 7.1 cm LVLs ap2: 7.2 cm ESV(MOD-sp4): 64.8 ml ESV(MOD-sp2): 51.1 ml ESV(sp4-el): 63.0 ml ESV(sp2-el): 51.4 ml EF(MOD-sp4): 36.4 % EF(MOD-sp2): 43.8 % EF(sp4-el): 38.5 % SV(MOD-sp2): 39.7 ml SV(sp4-el): 39.4 ml LA A4 area: 14.6 cm2 SI(MOD-sp2): 22.6 ml/m2 LA dimension(2D): 3.4 cm RA A4 area: 11.5 cm2 ECHO/Echo, Limited Study Interpretation Summary Normal LV size. The estimated ejection fraction is 40 %. There is mild to moderate global hypokinesis of the left ventricle. The global longitudinal strain is moderately abnormal. The global longitudinal strain = -13.9% (abnormal). Ordering Physician: Ibis Carrion Referring Physician: Ibis Carrion Performed By: Angella Fletcher and Student
== END | disposition home or self-care (01) ==
LOC: CVS 12:55
PROVIDERS: PCP Internal Medicine; Referring Provider Internal Medicine Cardiovascular Disease; Visit Provider Internal Medicine Cardiovascular Disease
DX: I42.7 Cardiomyopathy due to drug and external agent (principal); T45.1X5A Adverse effect of antineoplastic and immunosuppressive drugs, initial encounter
CPT/HCPCS: 93308

== ENCOUNTER 2024-10-02 12:50 | Emergency (ER) | payer MEDICARE, OTHER, SELFPAY ==
[2024-10-02] VITALS (7 sets, daily range): BP systolic 84–148; BP diastolic 47–92; PULSE 64–74; RESP 14–20; TEMP 36.5–37.1; O2SAT 98–100; BMI 27.9
--- NOTE | 2024-10-02 13:18 | EX.ED.DYSGE1 ---
HPI History of Present Illness Chief Complaint: Weakness Onset/Context/Timing Onset: Today Context: Sudden Onset Timing: Continuous Quality: Weakness Location: Generalized Worsened by: Nothing Relieved by: Nothing Narrative Narrative: Patient presents with generalized weakness that began today. Patient states she recently started back with chemotherapy for her breast cancer. Patient states she was having diarrhea today. Patient states she had a syncopal episode while sitting on the toilet after having her diarrhea. Patient did not look at her stools but does not think there is any black tarry stools, or bloody stools. Patient denies any chest pain or palpitations. Patient just feels weak all over. Patient admits to some nausea but denies any vomiting. Patient admits to some subjective chills but did not take her temperature. 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 Pneumonia De Quervain's tenosynovitis, left COVID-19 Anxiety and depression Depression CPAP (continuous positive airway pressure) dependence Leg cramps Grief reaction URI (upper respiratory infection) Shingles Hypertension Left shoulder tendinitis Adhesive capsulitis of left shoulder Left shoulder pain Colitis Wears glasses Alcohol use Migraine headache Injury of head and neck History of ulceration Non-smoker History of pain when walking History of echocardiogram History of stress test GERD (gastroesophageal reflux disease) IBS (irritable bowel syndrome) Constipation Irritable bowel syndrome with constipation Abrasion, left ankle, initial encounter Sprain of left foot Contusion of left ankle Elevated blood pressure reading in office without diagnosis of hypertension Osteoarthritis prolapsed bladder Fibromyalgia Thyroid disease Knee pain Cataracts, bilateral Arthritis Osteopenia low white blood count Lichen sclerosus Home Medications ?Medication ?Instructions ?Recorded ?Last Taken ?Type Fibrocare 2 tab PO BID SUPPLEMENT 11/30/13 10/02/24 History calcium 315 mg (as 4 tab PO BID SUPPLEMENT 08/25/17 10/02/24 History citrate)-vitamin D3 6.25 mcg (250 unit) tablet (Citracal + Vitamin D Maximum) propylene glycol 0.6 % eye drops 1 drp ophthalmic (eye) BID eyes 01/25/19 10/02/24 History (Systane Complete) estradiol 0.01% (0.1 mg/gram) See Rx Instructions vaginal 04/03/22 10/01/24 Rx vaginal cream .COMPLEX ESTROGEN SUPPLEMENT #50 grams levothyroxine 75 mcg tablet 75 mcg PO DAILY thyroid #90 tabs 01/05/24 10/02/24 Rx Handicap Placard #1 ea 05/18/24 Unknown Rx pantoprazole 40 mg tablet,delayed 40 mg PO DAILY GERD #90 tabs 06/15/24 10/02/24 Rx release sertraline 50 mg tablet 50 mg PO DAILY depression #90 tabs 06/29/24 10/01/24 Rx lisinopril 2.5 mg tablet 2.5 mg PO QDAY #90 tabs 09/14/24 10/01/24 Rx dapagliflozin propanediol 10 mg 10 mg PO .COMPLEX #90 tabs 09/20/24 Unknown Rx tablet (Farxiga) ciprofloxacin HCl 500 mg tablet 500 mg PO BID #20 TABLETS 10/02/24 Unknown Rx metronidazole 500 mg tablet 500 mg PO Q6H #40 tabs 10/02/24 Unknown Rx Allergy/AdvReac Type Severity Reaction Status Date / Time Penicillins Allergy Mild Rash Verified 10/02/24 12:51 vancomycin HCl (From Allergy Mild Rash Verified 10/02/24 12:51 Vancocin) metoclopramide (From Reglan) Allergy Other Verified 10/02/24 12:51 naproxen (From Naprosyn) AdvReac Rash Verified 10/02/24 12:51 NSAIDS (Non-Steroidal AdvReac Rash Verified 10/02/24 12:51 Anti-Inflamma Family History Mother Breast cancer, Onset Age: 60 remission until the age of 74 and spread to bones Alcoholism Epilepsy Hyperlipemia Father Cancer Unknown Alcoholism Brother Alcoholism Daughter Thyroid disorder Cancer Surgical History History of insertion of central venous access port History of lumpectomy of right breast Hx of esophagogastroduodenoscopy H/O endoscopy History of cardiac catheterization History of cholecystectomy History of colonoscopy History of total vaginal hysterectomy (TVH) (~09/24/18) TMJ gallbladder History of appendectomy S/P cervical disc replacement Social History Smoking Status: Never smoker alcohol intake: current alcohol intake frequency: holidays/special occasions only substance use type: does not use caffeine: No what type of physical activity do you participate in: walking frequency: 3-4 times per week seatbelt use: always do you feel safe at home: Yes additional social history: ROS ROS ED Constitutional Constitutional ED: Reports chills and subjective; Denies fever(s) Eyes Eyes: Denies blurry vision or change in vision ENT ENT ED: Denies rhinorrhea or sore throat Cardiovascular Cardiovascular: Denies chest pain or palpitations Respiratory/Chest Respiratory/Chest: Reports cough; Denies dyspnea Gastrointestinal Gastrointestinal: Reports diarrhea and nausea; Denies vomiting Genitourinary Genitourinary ED: Denies dysuria or hematuria Musculoskeletal Musculoskeletal: Denies back pain or neck pain Integumentary Denies abscess or rash Neurologic Neurologic: Reports weakness; Denies headache(s) Allergic/Immunologic Allergic/Immunologic ED: Denies mouth swelling or urticaria EXAM Physical Exam Const Vital Signs: 10/02/24 12:51 10/02/24 13:37 10/02/24 13:41 Temperature 97.7 F L Temperature Source Oral Pulse Rate 65 Pulse Rate [Lying] 66 Pulse Rate [Sitting (for 1 minute prior to obtaining)] 74 Respiratory Rate 20 H Respiratory Effort Normal Blood Pressure 148/92 H Blood Pressure [Lying] 95/48 L Blood Pressure [Sitting (for 1 minute prior to obtaining)] 84/52 L Blood Pressure Mean 110 Blood Pressure Mean [Lying] 63 Blood Pressure Mean [Sitting (for 1 minute prior to obtaining)] 62 Pulse Ox 100 Oxygen Delivery Method Room Air 10/02/24 14:50 10/02/24 16:00 10/02/24 16:12 Temperature Temperature Source Pulse Rate 64 68 68 Pulse Rate [Lying] Pulse Rate [Sitting (for 1 minute prior to obtaining)] Respiratory Rate 16 16 14 Respiratory Effort Blood Pressure 92/47 L 92/50 L 109/60 Blood Pressure [Lying] Blood Pressure [Sitting (for 1 minute prior to obtaining)] Blood Pressure Mean 62 64 76 Blood Pressure Mean [Lying] Blood Pressure Mean [Sitting (for 1 minute prior to obtaining)] Pulse Ox 98 98 98 Oxygen Delivery Method Room Air 10/02/24 18:00 Temperature Temperature Source Pulse Rate 74 Pulse Rate [Lying] Pulse Rate [Sitting (for 1 minute prior to obtaining)] Respiratory Rate 14 Respiratory Effort Blood Pressure 120/62 Blood Pressure [Lying] Blood Pressure [Sitting (for 1 minute prior to obtaining)] Blood Pressure Mean 81 Blood Pressure Mean [Lying] Blood Pressure Mean [Sitting (for 1 minute prior to obtaining)] Pulse Ox 98 Oxygen Delivery Method Room Air Positive well nourished and well developed General Appearance ED: well developed and NAD HEENT Reports moist mucous membranes Neck supple and no JVD Resp normal respiratory effort and clear to auscultation bilaterally Cardio regular rate and regular rhythm GI non-tender and non-distended Palpation: soft Neuro oriented x3, CN's II-XII intact bilaterally and no sensory deficits noted Sensorium / Orientation: alert Motor Exam: strength 5/5 throughout MDM MDM MDM Narrative Medical decision making narrative: Differential diagnosis includes dehydration, chemotherapy side effect, electrolyte abnormality, pneumonia, sepsis, gastroenteritis, and urinary tract infection. CBC will be obtained to assess for leukocytosis and anemia. Basic metabolic profile will be obtained to assess for electrolyte abnormality and renal function. Urinalysis will be obtained to assess for urinary tract infection and hematuria. Serum lactate will be obtained to assess for sepsis. Chest x-ray will be obtained to assess for pneumonia. Lab Data Attestation: I reviewed the patient's lab results. Lab results narrative: CBC was reviewed. White blood cell count was slightly low at 3.6. There is a mild anemia with a hemoglobin of 11.3 and hematocrit of 32.4. Platelets were slightly low at 72. Basic metabolic profile was reviewed and was essentially within normal limits. Serum lactate was reviewed and was normal at 1.4. Urinalysis was reviewed. There is no evidence of urinary tract infection or hematuria. Labs: Laboratory Results - last 24 hr 10/02/24 10/02/24 14:20 15:20 WBC 3.6 L RBC 3.31 L Hgb 11.3 L Hct 32.4 L MCV 97.9 MCH 34.1 H MCHC 34.9 RDW Std Deviation 43.1 RDW Coeff of Lucy 11.9 Plt Count 72 L MPV 11.2 Immature Gran % (Auto) 0.300 Neut % (Auto) 85.6 H Lymph % (Auto) 9.6 L Hyde % (Auto) 3.3 Eos % (Auto) 0.6 Baso % (Auto) 0.6 Absolute Neuts (auto) 3.1 Absolute Lymphs (auto) 0.35 L Nucleated RBC % 0 Differential Comment SCANNED Platelet Estimate MOD DEC RBC Morphology NORM C+C Sodium 141 Potassium 3.9 Chloride 107 Carbon Dioxide 28.0 Anion Gap 6 BUN 27 H Creatinine 0.93 Estim Creat Clear Calc 50.68 Est GFR (MDRD) Af Amer 75 Est GFR (MDRD) Non-Af 62 BUN/Creatinine Ratio 29.0 H Glucose 123 H Lactic Acid 1.4 Calcium 9.5 Urine Color Yellow Urine Clarity Clear Urine pH 6.0 Ur Specific [place] 1.010 Urine Protein 30 H Urine Glucose (UA) Normal Urine Ketones Negative Urine Occult Blood Negative Urine Nitrite Negative Urine Bilirubin Negative Urine Urobilinogen Normal Ur Leukocyte Esterase 25 H Urine RBC 0 SEEN Urine WBC 0-5 SEEN Ur Squamous Epith Cells 0-5 SEEN Urine Bacteria RARE Urine Mucus 0 SEEN Radiography Diagnostic Testing: Clinical Impression(s) from Imaging Studies Chest X-Ray 10/02/24 14:40 IMPRESSION: No radiographic evidence of acute cardiopulmonary disease. Electronically Signed: Wilbert Younger MD at 16:07 EST , Abdomen/Pelvis CT 10/02/24 16:54 IMPRESSION: Findings suspicious for colitis of the transverse, descending and rectosigmoid colon. Spiculated 11 mm nodule left lung base medially. Findings suspicious for possible metastasis. This lesion is of sufficient size for evaluation by PET/CT. Electronically Signed: Wilbert Younger MD at 18:41 EST , PA and lateral chest x-ray was obtained. There are 2 views. On my independent interpretation, lung solomon are clear. There is normal cardiac silhouette. Bony thorax is normal. There is no acute process noted. Radiologist also interpreted the x-ray and agrees. CT scan of the abdomen and pelvis was obtained. There are findings suspicious for colitis of the transverse, descending, and rectosigmoid colon. There is a spiculated 11 mm nodule in the left lung base medially. This is suspicious for possible metastasis. This was interpreted by the radiologist and was also independently reviewed by myself. Treatment and Re-Evaluation :: Patient was given IV fluids. Orthostatic vital signs were obtained and were positive. Patient was given repeat bolus of normal saline. Patient was advised of her findings. Case was discussed with covering physician for Dr. Hilario from oncology. He recommended covering the patient with Cipro and Flagyl for colitis. Patient was given her first dose here. Patient was instructed to follow-up with her primary care physician as well as Dr. Hilario in 5 to 7 days. Patient was instructed to return if worse in any way. Patient understood and was agreeable with the plan. All questions were answered. Discharge Plan Triage Chief Complaint: Weakness ED Provider: Keon Bauman Dx/Rx/DC Orders Clinical Impression: Colitis, Pancytopenia, Diarrhea Instructions: ED Understanding Colitis, ED Diarrhea, Unknown Cause Prescriptions: New metronidazole 500 mg tablet 500 mg PO Q6H Qty: 40 0RF ciprofloxacin HCl 500 mg tablet 500 mg PO BID Qty: 20 0RF No Action calcium citrate-vitamin D3 [Citracal + D Maximum] 315-250 mg-unit tablet 4 tab PO BID Systane Complete 0.6 % drops 1 drp OPHTHALMIC BID lisinopril 2.5 mg tablet 2.5 mg PO QDAY Qty: 90 3RF Fibrocare 2 tab PO BID Patient Comments: SUPPLEMENT estradiol 0.01 % (0.1 mg/gram) cream See Rx Instructions Vaginal .COMPLEX Qty: 50 2RF Dose Instruction: small amount Vaginal 3 X week; Rx Instructions: small amount Vaginal 3 X week; levothyroxine 75 mcg tablet 75 mcg PO DAILY Qty: 90 3RF (DME) Handicap Placard See Rx Instructions .ROUTE .MEDSUPPLY Qty: 1 0RF Rx Instructions: As directed, length of time 3 years pantoprazole 40 mg tablet,delayed release (DR/EC) 40 mg PO DAILY Qty: 90 4RF sertraline 50 mg tablet 50 mg PO DAILY Qty: 90 2RF dapagliflozin propanediol [Farxiga] 10 mg tablet 10 mg PO .COMPLEX Qty: 90 3RF Patient Comments: has not started yet Rx Instructions: 10 mg orally daily in am: fax to [facility] at ; Primary Care Provider: Radha Ferreira Referrals: Radha Ferreira MD [Primary Care Provider] - 5-7 Days Harjinder Hilario DO [Med Staff - Active Staff] - 3-5 Days Print Language: Malian Disposition Disposition: Home, Self Care
--- NOTE | 2024-10-02 13:52 | ED.RN ---
pt is up to [facility] with abd cramping. to access port when pt off [facility].
[2024-10-02] MEDS: 0.9% Normal Saline (1000mL) 1,000 ML 1000 ML IV ×2 (14:25→17:25)
[2024-10-02 14:40] LABS: Anion Gap 6 (5-15); BUN 27 mg/dL (7-18); Calcium,Total 9.5 mg/dL (8.5-10.1); Chloride 107 mmol/L (98-107); Creatinine, Serum 0.93 mg/dL (0.55-1.02); EST Glomerular Filtration Rate 62 mL/min (>60); Est Glom Filt Rate - Afr Amer 75 mL/min (>60); Estimated Creatinine Clearance 50.68 ml/min; Glucose 123 mg/dL (74-106); Potassium 3.9 mmol/L (3.5-5.1); Sodium Level 141 mmol/L (136-145)
--- NOTE | 2024-10-02 14:40 | RAD_ITS ---
INDICATION: Cough EXAMINATION/TECHNIQUE: X-RAY - XR Chest 2 Views COMPARISON: 05/19/2024 FINDINGS: LINES/DEVICES: Stable right-sided port LUNGS: No consolidation, edema or effusion. No pneumothorax. MEDIASTINUM AND CARDIOVASCULAR STRUCTURES: Cardiac silhouette not enlarged. Central airways and mediastinal contour are unremarkable. BONES AND SOFT TISSUES: No acute changes. Surgical clips project over the right breast and lateral chest wall. RAD/Chest PA and Lateral IMPRESSION: No radiographic evidence of acute cardiopulmonary disease. Electronically Signed: Wilbert Younger MD at 16:07 EST ,
[2024-10-02 14:48] LABS: Absolute Lymphocyte Count 0.35 X10^3/uL (0.83-4.51); Absolute Neutrophil Count 3.1 X10^3/uL (2.0-7.7); Basophil# 0.02 X10^3/uL; Basophil% 0.6 % (0-1); Eosinophil# 0.02 X10^3/uL; Eosinophils% 0.6 % (0-5); Hematocrit 32.4 % (37-47); Hemoglobin 11.3 g/dL (12.0-15.0); Lymphocyte # 0.35 X10^3/ul (0.83-4.51); Lymphocyte % 9.6 % (19-41); Mean Corp Hgb Conc 34.9 g/dL (32-36); Mean Corpuscular Hgb 34.1 pg (27.0-32.0); Mean Corpuscular Volume 97.9 fL (81-99); Mean Platelet Vol. 11.2 fl (6.2-12.0); Monocyte# 0.12 X10^3/uL; Monocyte% 3.3 % (0-10); NRBC Flagged by Analyzer 0 % (0-5); Neutrophil # 3.11 X10^3/uL (2.7-7.7); Neutrophil % 85.6 % (47-70); POSITIVE COUNT YES; POSITIVE DIFFERENTIAL YES; Platelet Count 72 K/mm3 (150-450); RBC Distribution Width CV 11.9 % (11.6-14.6); RBC Distribution Width SD 43.1 fl (35.1-43.9); Red Blood Count 3.31 M/mm3 (4.2-5.4); White Blood Count 3.6 K/mm3 (4.4-11.0)
[2024-10-02 14:50] LABS: Differential Indicated SCAN CRITERIA MET
[2024-10-02 14:59] LABS: Lactic Acid 1.4 mmol/L (0.4-1.9)
[2024-10-02 15:10] LABS: Differential Comment SCANNED; Platelet Estimate MOD DEC (ADEQ); Red Cell Morphology NORM C+C NORMAL (NORM C&C)
[2024-10-02 15:24] LABS: Mucous, Urine 0 SEEN /hpf (<or=2+); Red Blood Cells-Urine 0 SEEN /hpf (0-5)
[2024-10-02 15:29] LABS: Color, Urine Yellow (Yellow); Glucose, Dipstick Normal (Normal); Ketone-Dipstick Negative (Negative); Leukocyte Esterase-Dipstick 25 /ul (Negative); Nitrite-Dipstick Negative (Negative); Occult Blood-Urine Negative /ul (Negative); Protein-Dipstick 30 mg/dl (Negative); Urine Bilirubin Dipstick Negative (Negative); Urine Clarity Clear (Clear); Urine Urobilinogen Normal (Normal)
[2024-10-02 15:46] LABS: White Blood Cells 0-5 SEEN /hpf (0-5)
[2024-10-02 15:47] LABS: Bacteria RARE /hpf (None Seen); Squamous Epithelial Cells - UA 0-5 SEEN /hpf (5-10)
--- NOTE | 2024-10-02 16:46 | ED.RN ---
red/blood noted in stool. dr huerta notifid. mixed with urine unable to obtain good specimen
--- NOTE | 2024-10-02 16:54 | CT_ITS ---
INDICATION: Abdominal pain. BREAST CA ON CHEMO EXAMINATION: CT ABDOMEN AND PELVIS WITH CONTRAST - CT Abdomen And Pelvis W/ Contrast Injection TECHNIQUE: Helically acquired images were obtained of the abdomen and pelvis following IV contrast. A radiation dose optimization technique was used for this scan. IV Contrast dosage and agent: 100 cc [id number] Oral contrast: None. COMPARISON: 06/15/2024 FINDINGS: LOWER CHEST: Spiculated 11 mm nodule left lung base medially. No cardiomegaly or pericardial effusion. LIVER: Homogeneous. No concerning focal mass. GALLBLADDER AND BILIARY TREE: Not visualized. No intra- or extrahepatic biliary ductal dilation. PANCREAS: No focal cystic or solid mass. SPLEEN: Normal size without focal cystic or solid mass. ADRENAL GLANDS: No nodules. KIDNEYS AND URETERS: Bilateral enhancement. No hydronephrosis. PERITONEUM: No ascites or free air. BOWEL: No evidence of acute appendicitis. No stomach or bowel distension. Diffuse wall thickening of the under distended transverse, descending and rectosigmoid colon with mild adjacent inflammatory stranding. LYMPH NODES: No enlarged mesenteric or retroperitoneal lymph nodes. VESSELS: Aorta is non-dilated. URINARY BLADDER: Unremarkable. REPRODUCTIVE ORGANS: Uterus absent. ABDOMINAL WALL: No discrete abdominal or pelvic wall hernia. BONES: No acute or aggressive abnormality. CT/Abdomen/Pelvis W IV Cont ONLY IMPRESSION: Findings suspicious for colitis of the transverse, descending and rectosigmoid colon. Spiculated 11 mm nodule left lung base medially. Findings suspicious for possible metastasis. This lesion is of sufficient size for evaluation by PET/CT. Electronically Signed: Wilbert Younger MD at 18:41 EST ,
[2024-10-02] MEDS: metroNIDAZOLE 500 MG Tablet PO (20:08)
[2024-10-02] MEDS: Ciprofloxacin 500 MG Tablet PO (20:08)
[2024-10-02] MEDS: 0.9% Saline Lock 10 ML Syringe IV (20:10)
== END 2024-10-02 20:14 | disposition home or self-care (01) ==
PROVIDERS: Emergency Provider Emergency Medicine; PCP Internal Medicine; Visit Provider Emergency Medicine
DX: K52.9 Noninfective gastroenteritis and colitis, unspecified (principal); D61.818 Other pancytopenia; C50.919 Malignant neoplasm of unspecified site of unspecified female breast; R53.1 Weakness; I10 Essential (primary) hypertension; Z92.21 Personal history of antineoplastic chemotherapy; E03.9 Hypothyroidism, unspecified; Z79.899 Other long term (current) drug therapy; Z79.890 Hormone replacement therapy; K21.9 Gastro-esophageal reflux disease without esophagitis; F41.8 Other specified anxiety disorders; Z90.49 Acquired absence of other specified parts of digestive tract; Z90.710 Acquired absence of both cervix and uterus
CPT/HCPCS: 71046; 74177; 80048; 81001; 83605; 85025; 96360; 96361; 99285; Q9967; A4216

== ENCOUNTER → 2024-10-15 | Outpatient (CLI) | payer MEDICARE, OTHER, SELFPAY ==
[2024-10-15 18:09] LABS: Anion Gap 6 (5-15); BUN 17 mg/dL (7-18); BUN/Creat Ratio 20.1 RATIO (10-20); Calcium,Total 8.7 mg/dL (8.5-10.1); Chloride 107 mmol/L (98-107); Creatinine, Serum 0.84 mg/dL (0.55-1.02); EST Glomerular Filtration Rate 70 mL/min (>60); Est Glom Filt Rate - Afr Amer 84 mL/min (>60); Glucose 110 mg/dL (74-106); Sodium Level 140 mmol/L (136-145)
== END | disposition home or self-care (01) ==
LOC: MTLAB 15:05
PROVIDERS: PCP Internal Medicine; Referring Provider Internal Medicine Cardiovascular Disease; Visit Provider Internal Medicine Cardiovascular Disease
DX: D64.9 Anemia, unspecified (principal); R03.0 Elevated blood-pressure reading, without diagnosis of hypertension; I42.7 Cardiomyopathy due to drug and external agent; T45.1X5A Adverse effect of antineoplastic and immunosuppressive drugs, initial encounter
CPT/HCPCS: 36415; 80048

== ENCOUNTER 2024-10-24 14:15 | Emergency (ER) | payer MEDICARE, OTHER, SELFPAY ==
[2024-10-24 14:16] VITALS: BP 105/58; PULSE 56; RESP 21; TEMP 37.2; O2SAT 100; BMI 27.9
--- NOTE | 2024-10-24 14:34 | EX.ED.DYSGE1 ---
HPI History of Present Illness Chief Complaint: Hypotension Detail of Chief Complaint: Syncopal episode on commode with hypotension and diarrhea Informant: patient Onset/Context/Timing Onset: Today and Hours Context: Sudden Onset Timing: Intermittent Quality: Profuse watery diarrhea, syncope with collapse Location: At home on commode Current Severity: Mild Maximum Severity: Severe Worsened by: Upright position Relieved by: Nothing Associated Symptoms Associated Symptoms: Thirst, dry mouth, lightheadedness Narrative Narrative: Patient is a 74-year-old woman under the care of Dr. Harjinder Hilario for stage I triple negative breast cancer who had her last dose of chemo on Friday. She felt a little under the weather yesterday. Today she has had 2 episodes of profuse diarrhea where she states water just pours out for 5 to 10 minutes. With the second episode she passed out. She states she has passed out on the commode in the past. She denies headache, double vision blurred vision loss of vision. Eyes gary ears decreased hearing. She denies neck pain or neck stiffness. She denies chest pain, shortness of breath or difficulty breathing. She does complain of some cramping abdominal pain. She does have nausea without vomiting. Stool is brown in color. There is no blood or mucus. She denies urologic symptoms. Patient has not noted any rash. Prior similar symptoms: Yes Recent Illness/Hospitalization: [facility] Medical History Invasive ductal carcinoma of breast Health care maintenance Triple negative breast cancer Pancytopenia Hypothyroidism Kidney stones Cancer Astudillo esophagus Pneumonia De Quervain's tenosynovitis, left COVID-19 Anxiety and depression Depression CPAP (continuous positive airway pressure) dependence Leg cramps Grief reaction URI (upper respiratory infection) Shingles Hypertension Left shoulder tendinitis Adhesive capsulitis of left shoulder Left shoulder pain Colitis Wears glasses Alcohol use Migraine headache Injury of head and neck History of ulceration Non-smoker History of pain when walking History of echocardiogram History of stress test GERD (gastroesophageal reflux disease) IBS (irritable bowel syndrome) Constipation Irritable bowel syndrome with constipation Abrasion, left ankle, initial encounter Sprain of left foot Contusion of left ankle Elevated blood pressure reading in office without diagnosis of hypertension Osteoarthritis prolapsed bladder Fibromyalgia Thyroid disease Knee pain Cataracts, bilateral Arthritis Osteopenia low white blood count Lichen sclerosus Home Medications ?Medication ?Instructions ?Recorded ?Last Taken ?Type Fibrocare 2 tab PO BID SUPPLEMENT 11/30/13 10/02/24 History calcium 315 mg (as 4 tab PO BID SUPPLEMENT 08/25/17 10/02/24 History citrate)-vitamin D3 6.25 mcg (250 unit) tablet (Citracal + Vitamin D Maximum) propylene glycol 0.6 % eye drops 1 drp ophthalmic (eye) BID eyes 01/25/19 10/02/24 History (Systane Complete) estradiol 0.01% (0.1 mg/gram) See Rx Instructions vaginal 04/03/22 10/01/24 Rx vaginal cream .COMPLEX ESTROGEN SUPPLEMENT #50 grams levothyroxine 75 mcg tablet 75 mcg PO DAILY thyroid #90 tabs 01/05/24 10/02/24 Rx Handicap Placard #1 ea 05/18/24 Unknown Rx pantoprazole 40 mg tablet,delayed 40 mg PO DAILY GERD #90 tabs 06/15/24 10/02/24 Rx release sertraline 50 mg tablet 50 mg PO DAILY depression #90 tabs 06/29/24 10/01/24 Rx lisinopril 2.5 mg tablet 2.5 mg PO QDAY #90 tabs 09/14/24 10/01/24 Rx dapagliflozin propanediol 10 mg 10 mg PO .COMPLEX #90 tabs 09/20/24 Unknown Rx tablet (Farxiga) metronidazole 500 mg tablet 500 mg PO Q6H #40 tabs 10/02/24 Unknown Rx metoprolol tartrate 25 mg tablet 25 mg PO BID #180 tabs 10/21/24 Unknown Rx Allergy/AdvReac Type Severity Reaction Status Date / Time Penicillins Allergy Mild Rash Verified 10/24/24 14:17 vancomycin HCl (From Allergy Mild Rash Verified 10/24/24 14:17 Vancocin) metoclopramide (From Reglan) Allergy Other Verified 10/24/24 14:17 naproxen (From Naprosyn) AdvReac Rash Verified 10/24/24 14:17 NSAIDS (Non-Steroidal AdvReac Rash Verified 10/24/24 14:17 Anti-Inflamma Family History Mother Breast cancer, Onset Age: 60 remission until the age of 74 and spread to bones Alcoholism Epilepsy Hyperlipemia Father Cancer Unknown Alcoholism Brother Alcoholism Daughter Thyroid disorder Cancer Surgical History History of insertion of central venous access port History of lumpectomy of right breast Hx of esophagogastroduodenoscopy H/O endoscopy History of cardiac catheterization History of cholecystectomy History of colonoscopy History of total vaginal hysterectomy (TVH) (~09/24/18) TMJ gallbladder History of appendectomy S/P cervical disc replacement Social History Smoking Status: Never smoker alcohol intake: current alcohol intake frequency: holidays/special occasions only substance use type: does not use caffeine: No what type of physical activity do you participate in: walking frequency: 3-4 times per week seatbelt use: always do you feel safe at home: Yes additional social history: ROS ROS ED Constitutional Constitutional ED: Denies chills, fever(s), subjective or sweats Eyes Eyes: Denies blurry vision, change in vision or diplopia ENT ENT ED: Denies ear pain, rhinorrhea or sore throat Cardiovascular Cardiovascular: Denies chest pain, orthopnea or palpitations Respiratory/Chest Respiratory/Chest: Denies cough, dyspnea, dyspnea on exertion or orthopnea Gastrointestinal Gastrointestinal: Reports abdominal pain, diarrhea and nausea; Denies constipation, melena or vomiting Genitourinary Genitourinary ED: Denies dysuria, hematuria or urinary frequency Musculoskeletal Musculoskeletal: Denies arthralgias, back pain, myalgias or neck pain Integumentary Denies rash Neurologic Neurologic: Reports weakness; Denies headache(s) Hematologic/Lymphatic Hematologic/Lymphatic: Reports systems reviewed and no addt'l complaints, except as documented EXAM Physical Exam Const Vital Signs: 10/24/24 14:16 10/24/24 15:16 10/24/24 16:01 Temperature 99 F Temperature Source Oral Pulse Rate 56 L 58 L 58 L Pulse Rate [Lying] Pulse Rate [Sitting (for 1 minute prior to obtaining)] Pulse Rate [Standing (for 1 minute prior to obtaining)] Respiratory Rate 21 H 12 14 Blood Pressure 105/58 L 108/48 L 119/56 L Blood Pressure [Lying] Blood Pressure [Sitting (for 1 minute prior to obtaining)] Blood Pressure [Standing (for 1 minute prior to obtaining)] Blood Pressure Mean 73 68 77 Blood Pressure Mean [Lying] Blood Pressure Mean [Sitting (for 1 minute prior to obtaining)] Blood Pressure Mean [Standing (for 1 minute prior to obtaining)] Pulse Ox 100 100 100 Oxygen Delivery Method Room Air 10/24/24 16:23 Temperature Temperature Source Pulse Rate Pulse Rate [Lying] 58 L Pulse Rate [Sitting (for 1 minute prior to obtaining)] 70 Pulse Rate [Standing (for 1 minute prior to obtaining)] 73 Respiratory Rate Blood Pressure Blood Pressure [Lying] 120/57 L Blood Pressure [Sitting (for 1 minute prior to obtaining)] 117/62 Blood Pressure [Standing (for 1 minute prior to obtaining)] 118/59 L Blood Pressure Mean Blood Pressure Mean [Lying] 78 Blood Pressure Mean [Sitting (for 1 minute prior to obtaining)] 80 Blood Pressure Mean [Standing (for 1 minute prior to obtaining)] 78 Pulse Ox Oxygen Delivery Method Blood pressure is low. Patient states her systolic pressure ranges between 90-104. Positive well nourished and well developed Constitutional Narrative: Patient does not appear well. General Appearance ED: well developed and pallor; Negative for cyanotic or diaphoretic HEENT Reports dry mucous membranes HEENT Narrative: Head is atraumatic normocephalic. Ears normal. Nares patent. Mouth ED: Yes dry mucous membranes Mouth: dry mucous membranes Eyes PERRL and EOMs intact bilaterally General Eye ED: Negative for pale conjunctiva or scleral icterus Neck no lymphadenopathy, supple and no JVD Chest Wall inspection of chest normal and palpation of chest normal Resp normal respiratory effort and clear to auscultation bilaterally Cardio regular rate, regular rhythm, S1 normal heart sound, S2 normal heart sound and no murmurs GI normal to inspection, nondistended, normoactive bowel sounds, non-distended and no masses; Negative for non-tender or hepatosplenomegaly Auscultation: hyperactive bowel sounds Palpation: soft and tender other (Diffuse); Negative for guarding, splenomegaly, mass or rebound tenderness present Back/Spine no CVA tenderness Extremity normal to inspection General Extremety ED: Negative for edema or tenderness General Extremity: Negative for edema Neuro oriented x3 and CN's II-XII intact bilaterally Sensorium / Orientation: alert Psych mental status grossly normal Skin no rashes or lesions noted and no wounds General Skin Exam: pallor; Negative for jaundice MDM MDM MDM Narrative Medical decision making narrative: Patient's sickle episode may be due to vasovagal response, hypovolemia with orthostatic lightheadedness, fact that she is having profuse diarrhea thirst dry mouth liter of normal saline was ordered. BMP was ordered to assess potassium and renal function and anion gap. She will receive 4 mg of Imodium for the diarrhea. Prior labs were reviewed. Patient's had a hemoglobin as low as 7.6 and as high as 11.3. She has had thrombocytopenia reviewing prior records. She also has had mildly elevated glucose. Patient does have stage I triple negative breast cancer that was diagnosed April 2024 for [facility] records. History & Record Review Additional record(s) reviewed:: Prior outpatient record, Prior ED visit and Prior labs Lab Data Attestation: I reviewed the patient's lab results. Lab results narrative: BMP reveals an elevated BUN to creatinine ratio 24:1. Glucose slightly evaded 112 with normal CO2 anion gap. Labs: Laboratory Results - last 24 hr 10/24/24 14:46 Sodium 139 Potassium 3.6 Chloride 106 Carbon Dioxide 25.0 Anion Gap 8 BUN 23 H Creatinine 0.96 Estim Creat Clear Calc 49.06 Est GFR (MDRD) Af Amer 73 Est GFR (MDRD) Non-Af 60 BUN/Creatinine Ratio 24.0 H Glucose 112 H Calcium 8.7 Treatment and Re-Evaluation :: Repeat orthostatic vital signs are negative. Patient was not symptomatic. Patient did have a bowel movement here and is now moist instead of water. Discharge Plan Triage Chief Complaint: Hypotension ED Provider: Carlos Adler Dx/Rx/DC Orders Clinical Impression: Hypotension due to hypovolemia, Hypothyroidism, Osteoarthritis, Acute prerenal azotemia, Chemotherapy induced diarrhea, Malignant neoplasm of breast stage T1, less than or equal to 2 cm in greatest dimension Instructions: ED Dehydration (Adult) Prescriptions: No Action calcium citrate-vitamin D3 [Citracal + D Maximum] 315-250 mg-unit tablet 4 tab PO BID Systane Complete 0.6 % drops 1 drp OPHTHALMIC BID lisinopril 2.5 mg tablet 2.5 mg PO QDAY Qty: 90 3RF metoprolol tartrate 25 mg tablet 25 mg PO BID Qty: 180 3RF Fibrocare 2 tab PO BID Patient Comments: SUPPLEMENT metronidazole 500 mg tablet 500 mg PO Q6H Qty: 40 0RF estradiol 0.01 % (0.1 mg/gram) cream See Rx Instructions Vaginal .COMPLEX Qty: 50 2RF Dose Instruction: small amount Vaginal 3 X week; Rx Instructions: small amount Vaginal 3 X week; levothyroxine 75 mcg tablet 75 mcg PO DAILY Qty: 90 3RF (DME) Handicap Placard See Rx Instructions .ROUTE .MEDSUPPLY Qty: 1 0RF Rx Instructions: As directed, length of time 3 years pantoprazole 40 mg tablet,delayed release (DR/EC) 40 mg PO DAILY Qty: 90 4RF sertraline 50 mg tablet 50 mg PO DAILY Qty: 90 2RF dapagliflozin propanediol [Farxiga] 10 mg tablet 10 mg PO .COMPLEX Qty: 90 3RF Patient Comments: has not started yet Rx Instructions: 10 mg orally daily in am: fax to [facility] at ; Primary Care Provider: Radha Ferreira Referrals: Radha Ferreira MD [Primary Care Provider] - Harjinder Hilario DO [[facility] Staff - Active Staff] - [facility] appointment Activity Restrictions/Additional Instructions: You may take 1 Imodium with each loose watery stool up to a total of 6 in 24 hours. Print Language: Ethiopian Disposition Disposition: Home, Self Care
[2024-10-24] MEDS: Loperamide 2 MG Capsule 4 MG PO (14:53)
[2024-10-24] MEDS: 0.9% Normal Saline (1000mL) 1,000 ML 1000 ML IV (14:53)
[2024-10-24 15:09] LABS: Anion Gap 8 (5-15); BUN 23 mg/dL (7-18); Calcium,Total 8.7 mg/dL (8.5-10.1); Chloride 106 mmol/L (98-107); Creatinine, Serum 0.96 mg/dL (0.55-1.02); EST Glomerular Filtration Rate 60 mL/min (>60); Est Glom Filt Rate - Afr Amer 73 mL/min (>60); Estimated Creatinine Clearance 49.06 ml/min; Glucose 112 mg/dL (74-106); Potassium 3.6 mmol/L (3.5-5.1); Sodium Level 139 mmol/L (136-145)
[2024-10-24 15:16] VITALS: BP 108/48; PULSE 58; RESP 12; O2SAT 100
[2024-10-24 16:01] VITALS: BP 119/56; PULSE 58; RESP 14; O2SAT 100
[2024-10-24 16:23] VITALS: BP 117/62; BP 118/59; BP 120/57; PULSE 58; PULSE 70; PULSE 73
[2024-10-24 16:37] VITALS: BP 118/59; PULSE 65; RESP 19; TEMP 36.4; O2SAT 100
== END 2024-10-24 16:41 | disposition home or self-care (01) ==
PROVIDERS: Emergency Provider Emergency Medicine; PCP Internal Medicine; Visit Provider Emergency Medicine
DX: R55 Syncope and collapse (principal); C50.919 Malignant neoplasm of unspecified site of unspecified female breast; E03.9 Hypothyroidism, unspecified; T45.1X5A Adverse effect of antineoplastic and immunosuppressive drugs, initial encounter; R19.7 Diarrhea, unspecified; M19.90 Unspecified osteoarthritis, unspecified site; I10 Essential (primary) hypertension; E86.1 Hypovolemia; Z90.710 Acquired absence of both cervix and uterus; R79.89 Other specified abnormal findings of blood chemistry; Z79.890 Hormone replacement therapy; Z79.899 Other long term (current) drug therapy; F41.8 Other specified anxiety disorders; Z90.49 Acquired absence of other specified parts of digestive tract
CPT/HCPCS: 36591; 80048; 96360; 99285; A4216

== ENCOUNTER → 2024-12-03 | Outpatient (CLI) | payer MEDICARE, OTHER, SELFPAY ==
--- NOTE | 2024-12-03 13:05 | ECHOL_ITS ---
Reason For Study Reason For Study: CMP due to drug & external agent Procedure This was a limited 2D transthoracic echocardiogram. Myocardial strain analysis was performed in this exam to aid in the assessment of cardiac function. Exam performed in department. Left Ventricle Normal size and thickness. Estimated LVEF 45 to 50%. Global longitudinal strain -15.5%. Abnormal. Right Ventricle Normal right ventricle. Atria The left and right atria are normal. Mitral Valve The mitral valve is structurally normal. No prolapse or stenosis seen. Tricuspid Valve Normal tricuspid valve. Aortic Valve Trisinus/trileaflet aortic valve. Pulmonic Valve The pulmonic valve is not well visualized. Great Vessels Normal sized aortic root. Pericardium/Pleural No pericardial effusion. MMode/2D Measurements & Calculations LVIDd: 3.9 cm IVSd: 0.97 cm Ao root diam: 3.3 cm LVIDs: 2.7 cm LVPWd: 0.98 cm RVDd: 2.8 cm FS: 31.5 % LAV(MOD-bp): 35.8 ml LVAd ap4: 27.9 cm2 LVAd ap2: 26.0 cm2 LAV(MOD-bp) Indexed: 20.4 ml/m2 LVLd ap4: 7.8 cm LVLd ap2: 7.9 cm LAV(MOD-sp2): 37.1 ml EDV(MOD-sp4): 83.5 ml EDV(MOD-sp2): 70.0 ml LAV(MOD-sp4): 31.2 ml EDV(sp4-el): 84.7 ml EDV(sp2-el): 72.0 ml LVAs ap4: 18.9 cm2 LVAs ap2: 17.4 cm2 LVLs ap4: 6.6 cm LVLs ap2: 6.8 cm ESV(MOD-sp4): 47.4 ml ESV(MOD-sp2): 38.8 ml ESV(sp4-el): 45.8 ml ESV(sp2-el): 38.0 ml EF(MOD-sp4): 43.2 % EF(MOD-sp2): 44.6 % EF(sp4-el): 45.9 % SV(MOD-sp4): 36.0 ml SV(MOD-sp2): 31.2 ml SV(sp4-el): 38.8 ml SI(MOD-sp4): 20.5 ml/m2 SI(MOD-sp2): 17.8 ml/m2 LA A4 area: 11.9 cm2 LA dimension(2D): 3.4 cm RA A4 area: 11.1 cm2 ECHO/ONC Echo, Limited Study Interpretation Summary Limited 2D echocardiogram. Estimated LVEF 45 to 50%. Global longitudinal strain -15.5%. Borderline abnorma l. Ordering Physician: Ibis Carrion Referring Physician: Radha Ferreira Performed By: Vicenta Guzman RDCS, RVT
== END | disposition home or self-care (01) ==
LOC: CVS 13:05
PROVIDERS: PCP Internal Medicine; Referring Provider Internal Medicine Cardiovascular Disease; Visit Provider Internal Medicine Cardiovascular Disease
DX: I42.7 Cardiomyopathy due to drug and external agent (principal)
CPT/HCPCS: 93308; 93356

== ENCOUNTER → 2025-01-19 | Outpatient (CLI) | payer MEDICARE, OTHER, SELFPAY ==
[2025-01-19 16:49] LABS: Absolute Neutrophil Count 1.8 X10^3/uL (2.0-7.7); Basophil# 0.01 X10^3/uL; Basophil% 0.4 % (0-1); Eosinophil# 0.04 X10^3/uL; Eosinophils% 1.5 % (0-5); Hematocrit 31.4 % (37-47); Hemoglobin 10.6 g/dL (12.0-15.0); Lymphocyte % 19.3 % (19-41); Mean Corp Hgb Conc 33.8 g/dL (32-36); Mean Corpuscular Hgb 34.4 pg (27.0-32.0); Mean Corpuscular Volume 101.9 fL (81-99); Mean Platelet Vol. 10.5 fl (6.2-12.0); Monocyte# 0.26 X10^3/uL; NRBC Flagged by Analyzer 0 % (0-5); Neutrophil # 1.78 X10^3/uL (2.7-7.7); Neutrophil % 68.8 % (47-70); POSITIVE COUNT YES; POSITIVE DIFFERENTIAL YES; Platelet Count 86 K/mm3 (150-450); RBC Distribution Width CV 12.7 % (11.6-14.6); RBC Distribution Width SD 47.6 fl (35.1-43.9); Red Blood Count 3.08 M/mm3 (4.2-5.4); White Blood Count 2.6 K/mm3 (4.4-11.0)
[2025-01-19 16:51] LABS: Differential Indicated SCAN CRITERIA MET
[2025-01-19 17:53] LABS: ALB/GLOB Ratio 1.5 RATIO (0.9-2.4); AST(SGOT) 22 U/L (<=31); Alanine Aminotransfer ALT/SGPT 17 U/L (<=34); Albumin, Serum 3.9 g/dL (3.4-4.8); Alkaline Phosphatase 78 U/L (35-104); Anion Gap 8 (5-15); BUN 19 mg/dL (4-19); BUN/Creat Ratio 19.2 RATIO (10-20); Calcium,Total 9.4 mg/dL (7.6-11.0); Carbon Dioxide 26.7 mmol/L (21.0-32.0); Chloride 103 mmol/L (98-108); Creatinine, Serum 0.98 mg/dL (0.70-1.20); EST Glomerular Filtration Rate 60 (>60); Globulin 2.6 g/dL (2.2-4.2); Glucose 125 mg/dL (70-99); Potassium 4.2 mmol/L (3.3-5.1); Protein, Total 6.5 g/dL (5.9-8.4); Sodium Level 138 mmol/L (133-145); Total Bilirubin 0.28 mg/dL (0.00-1.30)
[2025-01-19 19:36] LABS: Platelet Estimate MOD DEC (ADEQ)
== END | disposition home or self-care (01) ==
LOC: BIMLAB 15:32
PROVIDERS: PCP Internal Medicine; Referring Provider Internal Medicine; Visit Provider Internal Medicine
DX: E03.9 Hypothyroidism, unspecified (principal); K21.9 Gastro-esophageal reflux disease without esophagitis
CPT/HCPCS: 36415; 80053; 84443; 85025

== ENCOUNTER 2025-03-10 09:12 | Day surgery (SDC) | payer MEDICARE, OTHER, SELFPAY ==
--- NOTE | 2025-02-09 10:49 | PAT.ANESEVAL ---
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 When Was Last Pacemaker Check QUESTION #4 FULL TEXT: You/Your Family Experience fever (hyperthermia) with Anesthesia Last Oral Intake Last Oral intake: Last Oral Intake NPO since Meds taken in AM with sips of water? Meds patient instructed to take am of surgery PONV PONV - painting contractor: PONV - painting contractor Female Yes 02/09/25 09:07 HX of Motion Sickness No 02/09/25 09:07 HX of N/V After Surgery No 02/09/25 09:07 Non-Smoker Yes 02/09/25 09:07 Duration of Surgery greater No 02/09/25 09:07 than 60 minutes Number of Risk Factors 2 02/09/25 09:07 PONV Score Moderate Risk 02/09/25 09:07 Height & Weight Height & Weight: Anesthesia: Height & Weight Height 5 ft 4 in 01/19/25 15:15 Respiratory Assessment Respiratory Assessment - painting contractor: Respiratory Tract Infection Hx - painting contractor Hx Respiratory Tract Infection No 02/09/25 09:07 STOP Sleep Apnea STOP Sleep Apnea - painting contractor: STOP Sleep Apnea - painting contractor Hx Hypertension Yes: CONTROLLED ON MED 02/09/25 09:07 Hx Sleep Apnea Yes 02/09/25 09:07 CPAP Yes: at home 02/09/25 09:07 BIPAP No 02/09/25 09:07 Do you snore loudly (louder than talking or can be heard Do you often feel tired/ fatigued/ sleepy during daytime? Has anyone observed you stop breathing during sleep? STOP Results Positive 02/09/25 09:07 QUESTION #5 FULL TEXT : Do you snore loudly (louder than talking or can be heard through closed doors)? Tobacco Use History Tobacco Use History - painting contractor: Tobacco Use History - painting contractor Tobacco Use Smoking Status Never smoker 02/09/25 09:07 Hx Tobacco Use No 02/09/25 09:07 Years Smoking Packs Smoked per Day Smoking Cessation Date was within the last 15 years Hx Smoking Cessation Date Hx Smoking Cessation Counseling Hematologic Medial History Hematologic Hx - painting contractor: Hematologic Medical Hx - record clerk Hx of Blood Transfusion No 02/09/25 09:07 Hx of Transfusion in last 3 No 02/09/25 09:07 Months Date of Last Transfusion (if within last 3 months) Ever experience any problems No 02/09/25 09:07 with transfusion(s)? Specify any problems Hx of Preganancy in last 3 No 02/09/25 09:07 Months Nurse Filling Out Transfusion VCHRISTIN 02/09/25 09:07 & Questions: Date: 02/09/25 02/09/25 09:07 Time: 09:08 02/09/25 09:07 Patient unable to answer at this time (ie. 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 Pneumonia De Quervain's tenosynovitis, left COVID-19 Anxiety and depression Depression CPAP (continuous positive airway pressure) dependence Leg cramps Grief reaction URI (upper respiratory infection) Shingles Hypertension Left shoulder tendinitis Adhesive capsulitis of left shoulder Left shoulder pain Colitis Wears glasses Alcohol use Migraine headache Injury of head and neck History of ulceration Non-smoker History of pain when walking History of echocardiogram History of stress test GERD (gastroesophageal reflux disease) IBS (irritable bowel syndrome) Constipation Irritable bowel syndrome with constipation Abrasion, left ankle, initial encounter Sprain of left foot Contusion of left ankle Elevated blood pressure reading in office without diagnosis of hypertension Osteoarthritis prolapsed bladder Fibromyalgia Thyroid disease Knee pain Cataracts, bilateral Arthritis Osteopenia low white blood count Lichen sclerosus Pancytopenia Home Medications ?Medication ?Instructions ?Recorded ?Last Taken ?Type Fibrocare 2 tab PO BID SUPPLEMENT 11/30/13 10/02/24 History calcium 315 mg (as 4 tab PO BID SUPPLEMENT 08/25/17 10/02/24 History citrate)-vitamin D3 6.25 mcg (250 unit) tablet (Citracal + Vitamin D Maximum) propylene glycol 0.6 % eye drops 1 drp ophthalmic (eye) BID eyes 01/25/19 10/02/24 History (Systane Complete) Handicap Placard #1 ea 05/18/24 Unknown Rx pantoprazole 40 mg tablet,delayed 40 mg PO DAILY GERD #90 tabs 06/15/24 10/02/24 Rx release sertraline 50 mg tablet 50 mg PO DAILY depression #90 tabs 06/29/24 10/01/24 Rx lisinopril 2.5 mg tablet 2.5 mg PO QDAY #90 tabs 09/14/24 10/01/24 Rx dapagliflozin propanediol 10 mg 10 mg PO .COMPLEX #90 tabs 09/20/24 02/08/25 Rx tablet (Farxiga) omega-3 acid ethyl esters 2 cap PO BID 12/20/24 Unknown History levothyroxine 75 mcg tablet 75 mcg PO DAILY thyroid #90 tabs 01/21/25 Unknown Rx Lactobacillus acidophilus 10 100 mmu cells PO DAILY 02/09/25 Unknown History billion cell capsule (NewFlora) Allergy/AdvReac Type Severity Reaction Status Date / Time Penicillins Allergy Mild Rash Verified 02/09/25 08:54 vancomycin HCl (From Allergy Mild Rash Verified 02/09/25 08:54 Vancocin) metoclopramide (From Reglan) Allergy Other Verified 02/09/25 08:54 naproxen (From Naprosyn) AdvReac Rash Verified 02/09/25 08:54 NSAIDS (Non-Steroidal AdvReac Rash Verified 02/09/25 08:54 Anti-Inflamma Family History Mother Breast cancer, Onset Age: 60 remission until the age of 74 and spread to bones Alcoholism Epilepsy Hyperlipemia Father Cancer Unknown Alcoholism Brother Alcoholism Daughter Thyroid disorder Cancer Surgical History (Updated 02/09/25 @ 09:07 by Sonali Contreras) Hx of surgical procedure History of insertion of central venous access port History of lumpectomy of right breast Hx of esophagogastroduodenoscopy H/O endoscopy History of cardiac catheterization History of cholecystectomy History of colonoscopy History of total vaginal hysterectomy (TVH) (~09/24/18) TMJ gallbladder History of appendectomy S/P cervical disc replacement Social History Smoking Status: Never smoker alcohol intake: current alcohol intake frequency: holidays/special occasions only substance use type: does not use caffeine: No what type of physical activity do you participate in: walking frequency: 3-4 times per week seatbelt use: always do you feel safe at home: Yes additional social history: Audit: Pertinent Findings HISTORY of Pertinent Findings History of Pertinent Findings: 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 Her last echocardiogram showed improvement in ejection fraction of 45 to 50%. Per patient, she is done with her chemotherapy. Denies any complaints today. No chest pains. No shortness of breath. No orthopnea. No PND. No ankle edema. Denies any palpitations. Pertinent Findings EKG Perinent findings: 06/2024: NSR possible left atrial enlargement Echo (EF%) pertinent findings: Echocardiogram 12/03/2024: Interpretation Summary Limited 2D echocardiogram. Estimated LVEF 45 to 50%. Global longitudinal strain -15.5%. Borderline abnormal. Echo (Limited) 08/19/2024: Interpretation Summary Normal LV size. The estimated ejection fraction is 40 %. There is mild to moderate global hypokinesis of the left ventricle. The global longitudinal strain is moderately abnormal. The global longitudinal strain = -13.9% (abnormal). Recommendation Anesthesia Recommendation Anesthesia recommendation: OPTIMIZED for anesthesia
[2025-03-10] VITALS (8 sets, daily range): BP systolic 100–113; BP diastolic 54–103; PULSE 62–84; RESP 14–16; TEMP 35.8–36.6; O2SAT 93–100; BMI 27.5
[2025-03-10] MEDS: Lactated Ringers 1,000 ML 15 ML IV (09:35)
--- NOTE | 2025-03-10 10:01 | HP.PCM_ITS ---
HPI - General General Date of Admission: 03/10/25 Date of Service: 03/10/25 Chief Complaint: stringer's esophagus HPI Narrative ALVINA REYES, is a 75 F who presentsChief Complaint: Barretts esophagus Details: ALVINA REYES is a 74 F who presents to the office today for f/u. EGD and colonoscopy 09.13.21. EGD LA grade a reflux esophagitis, metaplasia; erythematous antrum, gastritis. Colonoscopy Moderate diverticulosis RS colon, sigmoid colon and descending colon with erythema/kenisha-erythema and evidence of impacted diverticulum. Pathology Minimal focal ischemic type change. BGI established in 2021 with hx of Barretts esophagus, IBS-C and SCAD. 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 prior hysterectomy. Last OV 10.01.24; Pt doing well from a Gi stand point. Currently undergoing chemo for breast cancer. Pt hospitalized in Jun 2024 with c dif and UTI. Continues PPI. OV 11.30.24 Pt with no symptoms today. She plans to move to [place] in April 2025 and wants to have an EGD done prior to moving. She continues with PPI. She stopped chemo as she was unable to continue with it. 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 Pneumonia De Quervain's tenosynovitis, left COVID-19 Anxiety and depression Depression CPAP (continuous positive airway pressure) dependence Leg cramps Grief reaction URI (upper respiratory infection) Shingles Hypertension Left shoulder tendinitis Adhesive capsulitis of left shoulder Left shoulder pain Colitis Wears glasses Alcohol use Migraine headache Injury of head and neck History of ulceration Non-smoker History of pain when walking History of echocardiogram History of stress test GERD (gastroesophageal reflux disease) IBS (irritable bowel syndrome) Constipation Irritable bowel syndrome with constipation Abrasion, left ankle, initial encounter Sprain of left foot Contusion of left ankle Elevated blood pressure reading in office without diagnosis of hypertension Osteoarthritis prolapsed bladder Fibromyalgia Thyroid disease Knee pain Cataracts, bilateral Arthritis Osteopenia low white blood count Lichen sclerosus Pancytopenia Home Medications ?Medication ?Instructions ?Recorded ?Last Taken ?Type Fibrocare 2 tab PO BID SUPPLEMENT 11/0710/02/24 History calcium 315 mg (as 4 tab PO BID SUPPLEMENT 08/0810/02/24 History citrate)-vitamin D3 6.25 mcg (250 unit) tablet (Citracal + Vitamin D Maximum) propylene glycol 0.6 % eye drops 1 drp ophthalmic (eye ) BID eyes 01/25/19 10/02/24 History (Systane Complete) Handicap Placard #1 ea 05/18/24 Unknown Rx pantoprazole 40 mg tablet,delayed 40 mg PO DAILY GERD #90 tabs 06/15/24 10/02/24 Rx release sertraline 50 mg tablet 50 mg PO DAILY depression #9 0 tabs 06/29/24 10/01/24 Rx lisinopril 2.5 mg tablet 2.5 mg PO QDAY #90 tabs 04/0110/01/24 Rx dapagliflozin propanediol 10 mg 10 mg PO .COMPLEX #90 tabs 09/20/24 03/06/25 Rx tablet (Farxiga) omega-3 acid ethyl esters 2 cap PO BID 12/20/24 Unknow n History levothyroxine 75 mcg tablet 75 mcg PO DAILY thyroid #9 0 tabs 01/21/25 03/10/25 Rx Lactobacillus acidophilus 10 100 mmu cells PO DAILY Unknown History billion cell capsule (NewFlora) Allergy/AdvReac Type Severity Reaction Status Date / Time Penicillins Allergy Mild Rash Verified 03/10/25 09:31 vancomycin HCl (From Allergy Mild Rash Verified 03/10/25 09:31 Vancocin) metoclopramide (From Reglan) Allergy Other Verified 03/10/25 09:31 naproxen (From Naprosyn) AdvReac Rash Verified 03/10/25 09:31 NSAIDS (Non-Steroidal AdvReac Rash Verified 03/10/25 09:31 Anti-Inflamma Family History Mother Breast cancer, Onset Age: 60 remission until the age of 74 and spread to bones Alcoholism Epilepsy Hyperlipemia Father Cancer Unknown Alcoholism Brother Alcoholism Daughter Thyroid disorder Cancer Surgical History Hx of surgical procedure History of insertion of central venous access port History of lumpectomy of right breast Hx of esophagogastroduodenoscopy H/O endoscopy History of cardiac catheterization History of cholecystectomy History of colonoscopy History of total vaginal hysterectomy (TVH) (~09/24/18) TMJ gallbladder History of appendectomy S/P cervical disc replacement Social History Smoking Status: Never smoker alcohol intake: current alcohol intake frequency: holidays/special occasions only substance use type: does not use caffeine: No what type of physical activity do you participate in: walking frequency: 3-4 times per week seatbelt use: always do you feel safe at home: Yes additional social history: ROS Constitutional Constitutional: Denies fatigue, fever(s), poor appetite, weight gain or weight loss Gastrointestinal Gastrointestinal: Denies belching, bloating, change in bowel habits, change in stool character, chewing difficulty, coffee ground emesis, constipation, cramping, diarrhea, dyspepsia, dysphagia, early satiety, excessive flatus, fecal incontinence, heartburn, hematemesis, hematochezia, hemorrhoids, loose stools, melena, nausea, odynophagia, rectal bleeding, tenesmus, vomiting or weight changes Vital Signs Vital Signs Vital Signs: 03/10/25 09:32 03/10/25 09:32 Temperature 98 F Temperature Source Temporal Pulse Rate 65 Respiratory Rate 16 Respiratory Pattern Normal Blood Pressure 100/60 Blood Pressure Mean 73 Blood Pressure Source Monitor Blood Pressure Position Semi-Fowlers Blood Pressure Location Left Arm Pulse Ox 100 Oxygen Delivery Method Room Air Weight Weight: 160 lb 7.944 oz Body Mass Index (BMI) 27.5 Physical Exam Const alert, oriented x3, no apparent distress and healthy appearing General Appearance: cooperative GI normal to inspection, nondistended, normoactive bowel sounds, soft to palpation, non-tender and non-distended Percussion: normal to percussion Rectal Exam: deferred Assessment & Plan Assessment/Plan (1) Stringer esophagus: (2) Anemia: PLAN: Assessment and Plan Assessment and Plan (1) Stringer esophagus: Status: Chronic Plan: This is a 74 yo female pt here today for f/u regarding Barretts esophagus. Pt last EGD was about [address] Barboza did not give a recommendation for repeat in his op report however he typically repeats in one year. Pt is moving in March 2025 and would like to get an EGD to monitor her Barretts. She will be scheduled for this before she moves.
--- NOTE | 2025-03-10 10:12 | PCM.PRE.AN2 ---
ASA Classification* ASA Classification ASA Classification: 3 Assessment & Plan Anesthesia* Anesthesia Assessment Anesthesia Assessment: Discussed sedation and/or anesthesia options, risks, benefits, and alternatives with patient/parents/legal guardian/POA. Questions invited. The patient/parents/legal guardian/POA seems to understand and agrees to proceed with anesthesia plan. Reviewed the physical assessment, medical history, allergy history and patient home medications list prior to surgery/procedure/anesthetic and documented any changes. Performed airway and anesthesia risk assessments. Anesthesia Type Anesthesia Type: MAC History Source History Obtained from:: Patient, Chart and Parent/ Guardian Anesthesia Focused Assessment* Temperature: 98 F Pulse Rate: 65 Blood Pressure: 100/60 Respiratory Rate: 16 Pulse Ox: 100 Oxygen Delivery Method: Room Air Airway Assessment Mouth opens: >3 cm Mallampati Score: I Teeth Condition: Intact Neck Range of motion (ROM): Full ROM Labs Anesthesia Preop lab: CBC WBC 2.6 K/mm3 (4.4-11.0) L 01/19/25 15:01/19/25 RBC 3.08 M/mm3 (4.2-5.4) L 01/19/25 15:01/19/25 Hgb 10.6 g/dL (12.0-15.0) L 01/19/25 15:01/19/25 Hct 31.4 % (37-47) L 01/19/25 15:01/19/25 Plt Count 86 K/mm3 (150-450) L 01/19/25 15:01/19/25 CHEMISTRY Potassium 4.2 mmol/L (3.3-5.1) 01/19/25 15:33 01/19/25 Sodium 138 mmol/L (133-145) 01/19/25 15:01/19/25 Magnesium 1.6 mg/dL (1.6-2.6) 06/18/24 15:45 06/18/24 Phosphorus 3.4 mg/dL (2.5-4.9) 06/17/24 05:17 06/17/24 BUN 19 mg/dL (4-19) 01/19/25 15:01/19/25 Creatinine 0.98 mg/dL (0.70-1.20) 01/19/25 15:01/19/25 Glucose 125 mg/dL (70-99) H 01/19/25 15:33 01/19/25 TSH 0.140 uIU/mL (0.300-4.200) L 01/19/25 15:33 01/19/25 COAG PT 13.2 SECONDS (11.7-14.9) 02/07/17 12:55 02/07/17 Pre-Assessment Diagnosis/Proposed Procedure Planned Operative Procedure(s): EGD Anesthesia History Anesthesia History - rod drawer: Anesthesia History - rod drawer Hx Hospitalization No 02/09/25 09:07 Any Problems With Anesthesia No 02/09/25 09:07 Cholinesterase deficiency No 02/09/25 09:07 You/Your Family Experience No 02/09/25 09:07 fever (hyperthermia) with Relationship Recent Exposure to Contagious No 03/10/25 09:32 Disease Does patient have nerve No 02/09/25 09:07 stimulator Patient instructed to have device shut off --Does patient have Pacemaker No 03/10/25 09:32 or ICD? When Was Last Pacemaker Check QUESTION #4 FULL TEXT: You/Your Family Experience fever (hyperthermia) with Anesthesia Last Oral Intake Last Oral intake: Last Oral Intake NPO since 18:30 03/10/25 09:32 Meds taken in AM with sips of Yes 03/10/25 09:32 water? Meds patient instructed to take am of surgery PONV PONV - rod drawer: PONV - rod drawer Female Yes 02/09/25 09:07 HX of Motion Sickness No 02/09/25 09:07 HX of N/V After Surgery No 02/09/25 09:07 Non-Smoker Yes 02/09/25 09:07 Duration of Surgery greater No 02/09/25 09:07 than 60 minutes Number of Risk Factors 2 02/09/25 09:07 PONV Score Moderate Risk 02/09/25 09:07 Height & Weight Height & Weight: Anesthesia: Height & Weight Height 5 ft 4 in 03/10/25 09:32 Weight: 72.8 kg 03/10/25 09:32 Body Mass Index (BMI) 27.5 03/10/25 09:32 Respiratory Assessment Respiratory Assessment - rod drawer: Respiratory Tract Infection Hx - rod drawer Hx Respiratory Tract Infection No 02/09/25 09:07 STOP Sleep Apnea STOP Sleep Apnea - rod drawer: STOP Sleep Apnea - rod drawer Hx Hypertension Yes: CONTROLLED ON MED 02/09/25 09:07 Hx Sleep Apnea Yes 02/09/25 09:07 CPAP Yes: at home 02/09/25 09:07 BIPAP No 02/09/25 09:07 Do you snore loudly (louder than talking or can be heard Do you often feel tired/ fatigued/ sleepy during daytime? Has anyone observed you stop breathing during sleep? STOP Results Positive 02/09/25 09:07 QUESTION #5 FULL TEXT : Do you snore loudly (louder than talking or can be heard through closed doors)? Tobacco Use History Tobacco Use History - rod drawer: Tobacco Use History - rod drawer Tobacco Use Smoking Status Never smoker 02/09/25 09:07 Hx Tobacco Use No 02/09/25 09:07 Years Smoking Packs Smoked per Day Smoking Cessation Date was within the last 15 years Hx Smoking Cessation Date Hx Smoking Cessation Counseling Hematologic Medial History Hematologic Hx - rod drawer: Hematologic Medical Hx - social media campaign manager Hx of Blood Transfusion No 02/09/25 09:07 Hx of Transfusion in last 3 No 02/09/25 09:07 Months Date of Last Transfusion (if within last 3 months) Ever experience any problems No 02/09/25 09:07 with transfusion(s)? Specify any problems Hx of Preganancy in last 3 No 02/09/25 09:07 Months Nurse Filling Out Transfusion VCHRISTIN 02/09/25 09:07 & Questions: Date: 02/09/25 02/09/25 09:07 Time: 09:08 02/09/25 09:07 Patient unable to answer at this time (ie. 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 Pneumonia De Quervain's tenosynovitis, left COVID-19 Anxiety and depression Depression CPAP (continuous positive airway pressure) dependence Leg cramps Grief reaction URI (upper respiratory infection) Shingles Hypertension Left shoulder tendinitis Adhesive capsulitis of left shoulder Left shoulder pain Colitis Wears glasses Alcohol use Migraine headache Injury of head and neck History of ulceration Non-smoker History of pain when walking History of echocardiogram History of stress test GERD (gastroesophageal reflux disease) IBS (irritable bowel syndrome) Constipation Irritable bowel syndrome with constipation Abrasion, left ankle, initial encounter Sprain of left foot Contusion of left ankle Elevated blood pressure reading in office without diagnosis of hypertension Osteoarthritis prolapsed bladder Fibromyalgia Thyroid disease Knee pain Cataracts, bilateral Arthritis Osteopenia low white blood count Lichen sclerosus Pancytopenia Home Medications ?Medication ?Instructions ?Recorded ?Last Taken ?Type Fibrocare 2 tab PO BID SUPPLEMENT 11/30/13 10/02/24 History calcium 315 mg (as 4 tab PO BID SUPPLEMENT 08/25/17 10/02/24 History citrate)-vitamin D3 6.25 mcg (250 unit) tablet (Citracal + Vitamin D Maximum) propylene glycol 0.6 % eye drops 1 drp ophthalmic (eye) BID eyes 01/25/19 10/02/24 History (Systane Complete) Handicap Placard #1 ea 05/18/24 Unknown Rx pantoprazole 40 mg tablet,delayed 40 mg PO DAILY GERD #90 tabs 06/15/24 10/02/24 Rx release sertraline 50 mg tablet 50 mg PO DAILY depression #90 tabs 06/29/24 10/01/24 Rx lisinopril 2.5 mg tablet 2.5 mg PO QDAY #90 tabs 09/14/24 10/01/24 Rx dapagliflozin propanediol 10 mg 10 mg PO .COMPLEX #90 tabs 09/20/24 03/06/25 Rx tablet (Farxiga) omega-3 acid ethyl esters 2 cap PO BID 12/20/24 Unknown History levothyroxine 75 mcg tablet 75 mcg PO DAILY thyroid #90 tabs 01/21/25 03/10/25 Rx Lactobacillus acidophilus 10 100 mmu cells PO DAILY 02/09/25 Unknown History billion cell capsule (NewFlora) Allergy/AdvReac Type Severity Reaction Status Date / Time Penicillins Allergy Mild Rash Verified 03/10/25 09:31 vancomycin HCl (From Allergy Mild Rash Verified 03/10/25 09:31 Vancocin) metoclopramide (From Reglan) Allergy Other Verified 03/10/25 09:31 naproxen (From Naprosyn) AdvReac Rash Verified 03/10/25 09:31 NSAIDS (Non-Steroidal AdvReac Rash Verified 03/10/25 09:31 Anti-Inflamma Family History Mother Breast cancer, Onset Age: 60 remission until the age of 74 and spread to bones Alcoholism Epilepsy Hyperlipemia Father Cancer Unknown Alcoholism Brother Alcoholism Daughter Thyroid disorder Cancer Surgical History Hx of surgical procedure History of insertion of central venous access port History of lumpectomy of right breast Hx of esophagogastroduodenoscopy H/O endoscopy History of cardiac catheterization History of cholecystectomy History of colonoscopy History of total vaginal hysterectomy (TVH) (~09/24/18) TMJ gallbladder History of appendectomy S/P cervical disc replacement Social History Smoking Status: Never smoker alcohol intake: current alcohol intake frequency: holidays/special occasions only substance use type: does not use caffeine: No what type of physical activity do you participate in: walking frequency: 3-4 times per week seatbelt use: always do you feel safe at home: Yes additional social history: Review of Systems (Anesthesia) ROS Narrative System reviewed and no additional complaints, except as documented. Physical Exam Const alert, oriented x3 and average body habitus Resp normal respiratory effort, normal air movement and clear to auscultation bilaterally Cardio regular rate, regular rhythm and no murmurs Neuro oriented x3 and moves all extremities
--- NOTE | 2025-03-10 10:15 | EGD_PTH ---
PATIENT: ALVINA REYES LOC: EN U#:[id number] AGE/SX: 75/F ROOM: RE03/10/[address]: Dr. Shakeel Barboza DO : 1950 BED: DIS: 03/10/2025 SPEC #: [id number] RECD: 03/10/25 14:57 STATUS: MONICA REOli #: [id number] BHAVNA: 03/10/25 10:[address]: Shakeel Barboza DEPT: SURGICAL PATHOLOGY RECD BY: Charles Womack ENTERED: 03/10/25 16:02 SP TYPE: EGD BIOPSY PAPO DR: Dr. Radha Ferreira MD Tissues: A - Esophagus, NOS Procedures: Surgery Specimen Level IV HEADER OPERATION: EGD, biopsy PRE-OP DIAGNOSIS: Astudillo's esophagus, anemia TISSUE SUBMITTED: A- Distal esophagus biopsy MICROSCOPIC DIAGNOSIS A. Distal esophagus, biopsy: - Squamous and columnar mucosa with reactive changes. - Negative for goblet cell metaplasia. - Negative for dysplasia. MICROSCOPIC DESCRIPTION Slides are reviewed. GROSS DESCRIPTION A. Received in fixative is one container labeled with the patient's name and designated Distal esophagus biopsy. The specimen consists of three irregular fragments of light rincon soft tissue that in aggregate measure 0.2 to 0.7 cm. The specimen is totally submitted in one cassette. JARRETT/ 03/10/2025 CPT:[id number]
--- NOTE | 2025-03-10 10:47 | PCM.POST.ANE ---
Anesthesia: Postop Eval I Current Vital Signs Temperature: 97 F Pulse Rate: 84 Blood Pressure: 113/103 Respiratory Rate: 14 Pulse Ox: 96 Oxygen Delivery Method: Room Air Assessment Airway patent: Yes Spontaneous unlabored respirations: Yes Mental status: Awake and Calm nausea: No Vomiting: No Anesthesia Complication: No Fluid Hydration Crystalloid volume administer (ml): 300 Total IV fluid infused: 300 Progress Note Anesthesia document: Postop Eval 1 completed: Yes
--- NOTE | 2025-03-10 10:52 | POSTOPAN2_ITS ---
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/25 10:47 OPTICIAN APPRENTICE.MDOT Spontaneous unlabored Yes 03/10/25 10:47 OPTICIAN APPRENTICE.MDOT respirations Mental status Awake,Calm 03/10/25 10:47 OPTICIAN APPRENTICE.MDOT nausea No 03/10/25 10:47 OPTICIAN APPRENTICE.MDOT Vomiting No 03/10/25 10:47 OPTICIAN APPRENTICE.MDOT Anesthesia Postop Eval I: Fluid Summary Crystalloid volume administer 300 03/10/25 10:47 OPTICIAN APPRENTICE.MDOT (ml) Colloids volume administered ( ml) Blood Product volume administered (ml) Total IV fluid infused 300 03/10/25 10:47 OPTICIAN APPRENTICE.MDOT Anesthesia Postop Eval I: Summary Notes Anesthesia Complication No 03/10/25 10:47 OPTICIAN APPRENTICE.MDOT Anesthesia Complication Comment: Post-operative progress note Anesthesia: Postop Eval II Evaluation Mental status: Awake and Calm Pain Level: 0 nausea: No Vomiting: No Complications Anesthesia Complication: No
--- NOTE | 2025-03-10 10:52 | PCM.POSTANE2 ---
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/25 10:47 SALES DEVELOPMENT MANAGER.MDOT Spontaneous unlabored Yes 03/10/25 10:47 SALES DEVELOPMENT MANAGER.MDOT respirations Mental status Awake,Calm 03/10/25 10:47 SALES DEVELOPMENT MANAGER.MDOT nausea No 03/10/25 10:47 SALES DEVELOPMENT MANAGER.MDOT Vomiting No 03/10/25 10:47 SALES DEVELOPMENT MANAGER.MDOT Anesthesia Postop Eval I: Fluid Summary Crystalloid volume administer 300 03/10/25 10:47 SALES DEVELOPMENT MANAGER.MDOT (ml) Colloids volume administered ( ml) Blood Product volume administered (ml) Total IV fluid infused 300 03/10/25 10:47 SALES DEVELOPMENT MANAGER.MDOT Anesthesia Postop Eval I: Summary Notes Anesthesia Complication No 03/10/25 10:47 SALES DEVELOPMENT MANAGER.MDOT Anesthesia Complication Comment: Post-operative progress note Anesthesia: Postop Eval II Evaluation Mental status: Awake and Calm Pain Level: 0 nausea: No Vomiting: No Complications Anesthesia Complication: No
--- NOTE | 2025-03-10 10:57 | OP.CCLET_ITS ---
03/10/2025 Radha Ferreira MD [address] [place] [address] Re : Upper GI endoscopy procedure for Consuelo Davies Dear Dr. Ferreira This procedure was performed on March. My impressions and recommendations are as follows: Impressions : - Esophageal mucosal changes secondary to established short-segment Astudillo's disease. Biopsied. - Small hiatal hernia. - No gross lesions in the entire stomach. - No gross lesions in the entire examined duodenum. Recommendations : - Discharge patient to home. - Resume previous diet. - Continue present medications. - Await pathology results. - Surviallence egd in 1 1/2 years My findings are described in the full procedure note, which is enclosed. If I can be of further assistance, please feel free to contact me at . Sincerely, Shakeel Friend, DO 03/10/2025 10:56:55 AM This report has been signed electronically.
--- NOTE | 2025-03-10 10:57 | OP.EGD_ITS ---
Patient Name: Consuelo Davies Procedure Date: 03/10/2025 10:29 AM Date of : 1950 Age: 75 Procedure: Upper GI endoscopy Indications: Follow-up of Astudillo's esophagus Providers: Shakeel Barboza DO Referring MD: Radha Ferreira MD Medicines: Monitored Anesthesia Care Patient Profile: This is a 75 year old female. Refer to note in patient chart for documentation of history and physical. Patient has symptoms of acute heartburn. Complications: No immediate complications. Procedure: Pre-Anesthesia Assessment: - Prior to the procedure, a History and Physical was performed, and patient medications and allergies were reviewed. The patient is competent. The risks and benefits of the procedure and the sedation options and risks were discussed with the patient. All questions were answered and informed consent was obtained. Patient identification and proposed procedure were verified by the physician in the pre-procedure area. Mental Status Examination: alert and oriented. Airway Examination: normal oropharyngeal airway and neck mobility. Respiratory Examination: clear to auscultation. CV Examination: normal. Prophylactic Antibiotics: The patient does not require prophylactic antibiotics. Prior Anticoagulants: The patient has taken no anticoagulant or antiplatelet agents except for NSAID medication. ASA Grade Assessment: II - A patient with mild systemic disease. After reviewing the risks and benefits, the patient was deemed in satisfactory condition to undergo the procedure. The anesthesia plan was to use monitored anesthesia care (MAC). Immediately prior to administration of medications, the patient was re-assessed for adequacy to receive sedatives. The heart rate, respiratory rate, oxygen saturations, blood pressure, adequacy of pulmonary ventilation, and response to care were monitored throughout the procedure. The physical status of the patient was re-assessed after the procedure. After obtaining informed consent, the endoscope was passed under direct vision. Throughout the procedure, the patient's blood pressure, pulse, and oxygen saturations were monitored continuously. The Endoscope was introduced through the mouth, and advanced to the second part of duodenum. The upper GI endoscopy was accomplished without difficulty. The patient tolerated the procedure well. Scope In: 10:41:32 AM Scope Out: 10:44:20 AM Total Procedure Duration Time 0 hours 2 minutes 48 seconds Findings: There were esophageal mucosal changes secondary to established short-segment Astudillo's disease present in the lower third of the esophagus. The maximum longitudinal extent of these mucosal changes was 2 cm in length. Mucosa was biopsied with a cold forceps for histology in a targeted manner at intervals of 1 cm in the lower third of the esophagus. One specimen bottle was sent to pathology. Verification of patient identification for the specimen was done. Estimated blood loss was minimal. A small hiatal hernia was present. No gross lesions were noted in the entire examined stomach. No gross lesions were noted in the entire examined duodenum. Impression: - Esophageal mucosal changes secondary to established short-segment Astudillo's disease. Biopsied. - Small hiatal hernia. - No gross lesions in the entire stomach. - No gross lesions in the entire examined duodenum. Recommendation: - Discharge patient to home. - Resume previous diet. - Continue present medications. - Await pathology results. - Surviallence egd in 1 1/2 years Procedure Code(s): --- Professional --- 37166, Esophagogastroduodenoscopy, flexible, transoral; with biopsy, single or multiple CPT copyright 2021 [employer]. All rights reserved. The codes documented in this report are preliminary and upon housekeeping aid review may be revised to meet current compliance requirements. Shakeel Barboza DO 03/10/2025 10:56:55 AM This report has been signed electronically. Number of Addenda: 0 Note Initiated On: 03/10/2025 10:29 AM
--- NOTE | 2025-03-10 14:14 | POSTOPAN2_ITS ---
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 Spontaneous unlabored Yes 03/10/25 10:47 [employer] ARBITR[employer] HEARING OFFICE.MDOT respirations Mental status Awake,Calm 03/10/25 10:52 [employer] AR[employer] HEARING OFF[employer].MDOT nausea No 03/10/25 10:52 [employer] ARBIT[employer] HEARING OFF[employer].MDOT Vomiting No 03/10/25 10:52 [employer] ARBITRATOR HEARING OFFICE.MDOT Anesthesia Postop Eval I: Fluid Summary Crystalloid volume administer 300 03/10/25 10:47 [employer] ARBITRATOR HEARING OFFICE.MDOT (ml) Colloids volume administered ( ml) Blood Product volume administered (ml) Total IV fluid infused 300 03/10/25 10:47 [employer] ARBITRATOR HEARING OFFICE.MDOT Anesthesia Postop Eval I: Summary Notes Anesthesia Complication No 03/10/25 10:52 [employer] AR[employer]RATOR HEARING OFFICE.MDOT Anesthesia Complication Comment: Post-operative progress note Anesthesia: Postop Eval II Evaluation Mental status: Awake and Calm Pain Level: 1 nausea: No Vomiting: No Complications Anesthesia Complication: No
--- NOTE | 2025-03-10 14:14 | PCM.POSTANE2 ---
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 nausea No 03/10/25 10:52 SALES DEVELOPMENT SPECIALIST.MDOT Vomiting No 03/10/25 10:52 SALES DEVELOPMENT SPECIALIST.MDOT Anesthesia Postop Eval I: Fluid Summary Crystalloid volume administer 300 03/10/25 10:47 SALES DEVELOPMENT SPECIALIST.MDOT (ml) Colloids volume administered ( ml) Blood Product volume administered (ml) Total IV fluid infused 300 03/10/25 10:47 SALES DEVELOPMENT SPECIALIST.MDOT Anesthesia Postop Eval I: Summary Notes Anesthesia Complication No 03/10/25 10:52 SALES DEVELOPMENT SPECIALIST.MDOT Anesthesia Complication Comment: Post-operative progress note Anesthesia: Postop Eval II Evaluation Mental status: Awake and Calm Pain Level: 1 nausea: No Vomiting: No Complications Anesthesia Complication: No
== END 2025-03-10 11:36 | disposition home or self-care (01) ==
LOC: EN 09:13 → AC 09:15
PROVIDERS: PCP Internal Medicine; Referring Provider Internal Medicine; Visit Provider Internal Medicine Gastroenterology
PROC: 0DJ08ZZ Inspection of Upper Intestinal Tract, Via Natural or Artificial Opening Endoscopic (ICD-10-PCS; CPT 43235; principal; 2025-03-10 10:10)
DX: K22.70 Barrett's esophagus without dysplasia (principal); K44.9 Diaphragmatic hernia without obstruction or gangrene; D64.9 Anemia, unspecified; K21.00 Gastro-esophageal reflux disease with esophagitis, without bleeding; I10 Essential (primary) hypertension; Z90.710 Acquired absence of both cervix and uterus; Z85.3 Personal history of malignant neoplasm of breast; Z79.899 Other long term (current) drug therapy; F41.8 Other specified anxiety disorders; E03.9 Hypothyroidism, unspecified; Z79.890 Hormone replacement therapy; Z90.49 Acquired absence of other specified parts of digestive tract; Z95.828 Presence of other vascular implants and grafts
CPT/HCPCS: 43239; 88305

== ENCOUNTER → 2025-03-15 | Outpatient (CLI) | payer MEDICARE, OTHER, SELFPAY | END | disposition home or self-care (01) | LOC: MTLAB 15:58 | PROVIDERS: PCP Internal Medicine; Referring Provider Internal Medicine; Visit Provider Internal Medicine | DX: E03.9 Hypothyroidism, unspecified (principal) | CPT/HCPCS: 36415; 84443 ==

== ENCOUNTER → 2025-04-06 | Outpatient (CLI) | payer MEDICARE, OTHER, SELFPAY ==
[2025-04-06 16:40] LABS: Hematocrit 33.9 % (37-47); Hemoglobin 11.5 g/dL (12.0-15.0); Immature Granulocytes Count 0.010 X10^3/uL (0.0-0.0); Mean Corp Hgb Conc 33.9 g/dL (32-36); Mean Corpuscular Volume 100.6 fL (81-99); Mean Platelet Vol. 10.4 fl (6.2-12.0); NRBC Flagged by Analyzer 0 % (0-5); POSITIVE COUNT YES; POSITIVE DIFFERENTIAL YES; Platelet Count 95 K/mm3 (150-450); RBC Distribution Width CV 13.2 % (11.6-14.6); RBC Distribution Width SD 48.6 fl (35.1-43.9); Red Blood Count 3.37 M/mm3 (4.2-5.4); White Blood Count 2.8 K/mm3 (4.4-11.0)
[2025-04-06 17:06] LABS: Differential Indicated SCAN CRITERIA MET
[2025-04-06 17:22] LABS: AST(SGOT) 26 U/L (<=31); Alanine Aminotransfer ALT/SGPT 20 U/L (<=34); Albumin, Serum 4.1 g/dL (3.4-4.8); Alkaline Phosphatase 90 U/L (35-104); Anion Gap 11 (5-15); BUN 24 mg/dL (4-19); BUN/Creat Ratio 24.0 RATIO (10-20); Calcium,Total 9.7 mg/dL (7.6-11.0); Carbon Dioxide 26.0 mmol/L (21.0-32.0); Chloride 102 mmol/L (98-108); Cholesterol 205 mg/dL (<=200); Globulin 2.9 g/dL (2.2-4.2); Glucose 83 mg/dL (70-99); Low Density Lipoprotein Calc. 115 mg/dL; Potassium 4.7 mmol/L (3.3-5.1); Triglycerides 80 mg/dL; Very Low Density Lipoprotein 16 mg/dL (5-40); cholesterol:hdl ratio screen 2.79
[2025-04-06 17:33] LABS: Vitamin D,25 Hydroxy 81.6 ng/mL (30-100)
[2025-04-06 20:19] LABS: Differential Comment SCANNED
== END | disposition home or self-care (01) ==
LOC: BIMLAB 14:32
PROVIDERS: PCP Internal Medicine; Visit Provider Internal Medicine
DX: E03.9 Hypothyroidism, unspecified (principal); M85.80 Other specified disorders of bone density and structure, unspecified site; K21.9 Gastro-esophageal reflux disease without esophagitis
CPT/HCPCS: 36415; 80053; 80061; 82306; 84443; 85025